=== PATIENT | male | born 1960 | race Caucasian/White ===

== ENCOUNTER → 2018-06-06 14:08 | Outpatient (CLI) | payer BC, SELFPAY ==
--- NOTE | 2018-06-06 14:17 | VDLE_ITS ---
Reason For Study: LEG PAIN RIGHT LEFT CFV is compressible, spontaneous, phasic, GSV is normal. competent and demonstrates normal CFV is compressible, spontaneous, phasic, augmentation. competent, and demonstrates normal Procedure augmentation. Exam performed in department. FV is compressible, spontaneous, phasic, A preliminary report was called and/or faxed competent and demonstrates normal to Dr. Pleitez. augmentation. POP V is compressible, spontaneous, phasic, competent and demonstrates normal augmentation. T/P Trunk is compressible. PTV is compressible. LT PerV is compressible. Interpretation Summary Deep veins of the left lower extremity are patent and compressible segmentally. There is no evidence of left lower extremity deep vein thrombosis. Valvular competence appears intact within the proximal deep venous system on the left . The left greater saphenous vein appears patent and compressible segmentally. Ordering Physician: Darlin Pleitez Referring Physician: Darlin Pleitez Performed By: Elva Larsen RVT
--- NOTE | 2018-06-06 14:36 | RAD_ITS ---
STUDY: X-RAY - LUMBAR SPINE REASON FOR EXAM: Male, 57 years old. Pain TECHNIQUE: 5 view(s) of the lumbar spine were obtained. COMPARISON: None FINDINGS: Mildly exaggerated lumbar lordosis. There is no substantial scoliosis. There is a normal alignment of the vertebrae. Normal vertebral bodies and endplates. Normal disc space heights. The soft tissue structures are unremarkable. RAD/L/S Spine Min 4 Views IMPRESSION: Mildly exaggerated lordosis of the lumbar spine. Electronically Signed: Winston Allred DO at 9:11 EDT Tel [phone], Service support ,
--- NOTE | 2018-06-06 15:05 | RAD_ITS ---
STUDY: X-RAY - LEFT KNEE REASON FOR EXAM: Male, 57 years old. Pain TECHNIQUE: 5 view(s) of the knee. COMPARISON: None. FINDINGS: Normal visualized distal femur. Normal visualized proximal tibia and fibula. Normal proximal tibiofibular articulation. Normal medial femorotibial compartment. Minimal degenerative spurring at the lateral femorotibial compartment. Normal patellofemoral articulation. The soft tissue structures are unremarkable. RAD/Knee 4 or More Views IMPRESSION: Minimal degenerative changes of the knee. Electronically Signed: Winston Allred DO at 8:52 EDT Tel [phone], Service support ,
== END ==
PROVIDERS: Family Provider Internal Medicine; PCP Internal Medicine; Visit Provider Internal Medicine
DX: M79.605 Pain in left leg (principal)
CPT/HCPCS: 72110; 73564; 93971

== ENCOUNTER 2018-07-08 09:00 | Outpatient (RCR) | payer BC, SELFPAY ==
--- NOTE | 2018-06-20 14:07 | HP.PTEVAL_ITS ---
Patient's Visit Information TRACEY SCOTT is a 57 year old M referred to Physical Therapy by Darlin Pleitez DO with a diagnosis of L leg pain. Date of Evaluation: 06/20/18 Physical Therapist: Soraya Brown - Visit Plan Frequency: 2 Duration: 4-6 Weeks Plan: 2X/ week for centralization of leg symptoms using the side glide to close down the L side and then progress to extension as able. Then progress to neutral spine core stability and L hs strength. - Subjective Subjective: Pt has shooting pain down the back of L leg. He can not bend his L knee back. At night he has a hard time sleeping. He can lay on his back with leg straight out but if he turns side to side he can't. He has had problems with his L knee with OA before but this is a different pain. It has been this way for a month. The pain down the L leg is the worst in the morning..feels better with activitiy. The pain goes down to the ankle and once in awhile it seemed like it was in the jim. It is sharp shooting pain. Trouble with bending the knee. No real back pain. 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 It just creaped up on him. His bed is firm and bought a pillow mattress coer and that has helped to sleep. The pain does wake him up at night. No N&T. Hard to drive...could hardly go 1/2 hour. - Pain back pain Pain Intensity (Out of 10): 0 L leg pain Pain Intensity (Out of 10): 3 Pain Intensity Range: 9 - Objective Gait: Walks with decreased stance time on the L. Able to heel and toe walk but seems that his L foot is harder to DG. Trunk: Flexion 75% (veers to the R) , Ext 25% (veers to the R), SB R 50%, SB L 15%, Rot B 50%. LE MMT: hip flex R 4/5, Hip flex L 3+/5, hip abd B 4-/5, R knee flexion 4+/5 and L knee flexion 3+/ 5, B knee ext 4/5. +SLR for pain and tightness on the L. Prone lying: X 5 min L posterior knee pain that may have gotten worse. Prone lying X 5 with C shape and closing down the L side....no knee pain. Had pt do 3 X 10 side glides against the wall to close down the L side...repeated 3X 10 teice and pt had decreased knee pain and was walking with less of a limp. Discussed sitting posture in a chair with a towel roll and posture at work as well. - Goals Goal 1:: I HEP Goal Time Frame: 4-6 Weeks Goal 2:: Centralize leg pain to no pain down the L leg Goal Time Frame: 4-6 Weeks Goal 3:: Sit with upright posture during treatment sessions Goal Time Frame: 4-6 Weeks Goal 4:: Increase L HS strength to 4/5 Goal Time Frame: 4-6 Weeks - Rehabilitation Potential Rehabilitation Potential: Good - Anticipated Interventions Patient/Client Instruction: Educate patient on: Condition, Plan of Care For the Purpose of:: To decrease pain, To increase ROM, To improve nutrient delivery to tissue, To improve muscle performance and motor function, To improve ability to perform ADL's, To increase tolerance to activity/condition/ position, To improve performance and independence with ADL's, To improve gait and locomotor functions, To improve health of tissue Therapeutic Exercise to Include: Strength training, Body mechanics, Postural training, Flexibilty training, Gait and locomotor training, Neuromotor development, Active ROM, Dynamic Lumbar Stabilization, Yordy Exercises For the Purpose of:: To decrease pain, To decrease swelling/inflammation, To increase ROM, To improve nutrient delivery to tissue, To increase oxygenation perfusion, To improve muscle performance and motor function, To improve ability to perform ADL's, To increase tolerance to activity/condition/position, To improve performance and independence with ADL's, To decrease level of supervision to perform tasks, To improve gait and locomotor functions, To improve health of tissue, To improve safety with gait Manual Therapy Techniques to Include: Mobilization, Soft tissue mobilization For the Purpose of:: To decrease pain, To increase ROM, To improve nutrient delivery to tissue IF ES: Yes Cryotherapy (ice pack, ice massage): Yes Ultrasound (thermal/non thermal): Yes For the Purpose of:: To decrease pain, To decrease swelling/inflammation, To improve nutrient delivery to tissue Thank you for the opportunity to evaluate your patient. For Medicare and Medicare HMO plans, please review the plan of care and approve it. It will need to be FAXED BACK to us at [phone] for Medicare purposes. Please let me know if there are questions or concerns regarding this plan of care. Physician Signature: Date:
--- NOTE | 2019-01-02 08:39 | HP.PTDCNRP_ITS ---
HP - Discharge Summary (1) - Patient Information TRACEY SCOTT was seen in my office for initial evaluation on 06/20/18. The following Plan of Care was established for this patient: Initial Frequency: 2 Initial Duration: 4-6 Weeks - Anticipated Interventions Patient/Client Instruction: Educate patient on: Condition, Plan of Care For the Purpose of:: To decrease pain, To increase ROM, To improve nutrient delivery to tissue, To improve muscle performance and motor function, To improve ability to perform ADL's, To increase tolerance to activity/condition/position, To improve performance and independence with ADL's, To improve gait and locomotor functions, To improve health of tissue Therapeutic Exercise to Include: Strength training, Body mechanics, Postural training, Flexibilty training, Gait and locomotor training, Neuromotor development, Active ROM, Dynamic Lumbar Stabilization, Yordy Exercises For the Purpose of:: To decrease pain, To decrease swelling/inflammation, To increase ROM, To improve nutrient delivery to tissue, To increase oxygenation perfusion, To improve muscle performance and motor function, To improve ability to perform ADL's, To increase tolerance to activity/condition/position, To improve performance and independence with ADL's, To decrease level of supervision to perform tasks, To improve gait and locomotor functions, To i mprove health of tissue, To improve safety with gait Manual Therapy Techniques to Include: Mobilization, Soft tissue mobilization For the Purpose of:: To decrease pain, To increase ROM, To improve nutrient delivery to tissue IF ES: Yes Cryotherapy (ice pack, ice massage): Yes Ultrasound (thermal/non thermal): Yes For the Purpose of:: To decrease pain, To decrease swelling/inflammation, To improve nutrient delivery to tissue This patient was last seen in our office 07/08/18. Pertinent comments regarding their Physical therapy will appear below: [facility] PT At this point I will be discontinuing this patient from physical therapy. I would be happy to see this patient again in the future if found appropriate by the physician. Thank you! Soraya Brown, MPT
== END 2018-07-08 19:00 | disposition home or self-care (01) ==
LOC: PT 09:00
PROVIDERS: Family Provider Internal Medicine; PCP Internal Medicine; Visit Provider Internal Medicine
DX: M79.605 Pain in left leg (principal)
CPT/HCPCS: 97016; 97110; 97161

== ENCOUNTER → 2018-07-17 08:05 | Outpatient (CLI) | payer BC, SELFPAY | PROVIDERS: Family Provider Internal Medicine; PCP Internal Medicine; Visit Provider Internal Medicine | DX: M25.462 Effusion, left knee (principal) | CPT/HCPCS: 73721 ==

== ENCOUNTER → 2018-07-31 09:54 | Outpatient (CLI) | payer BC, SELFPAY ==
[2018-07-31 10:59] LABS: Source- Body Fluid SYNOVIAL
[2018-07-31 11:00] LABS: Body Fluid QC Type(s) BF1Q
[2018-08-01 12:30] LABS: Pathologist Review Reviewed
== END ==
PROVIDERS: Family Provider Internal Medicine; PCP Internal Medicine; Visit Provider Specialist
DX: M25.462 Effusion, left knee (principal)
CPT/HCPCS: 87070; 87075; 87205; 89060

== ENCOUNTER 2018-12-10 06:20 | Day surgery (SDC) | payer BC, SELFPAY ==
--- NOTE | 2018-11-20 21:40 | PCM.HP.BLA ---
History and Physical DATE OF SURGERY: 12/10/2018 SCHEDULED PROCEDURE: diagnostic left knee arthroscopy with debridement of bony osteophyte HISTORY OF PRESENT ILLNESS: This is a 58-year-old male who has been having ongoing pain in his left knee since May 2018. Patient denies any trauma or injury. Patient has been through corticosteroid injection and physical therapy. He has also used a knee sleeve. Patient has had MRI of the left knee. X-rays do reveal bony osteophyte off the patella. Despite conservative measures patient has had continued pain in the left knee. Corticosteroid injection has helped some but he continues to have pain with activities of daily living. Patient has tried oral medications with no significant relief in symptoms. After failing conservative measures and discussing all treatment options at Dr. Denny Dominguez, the patient does wish to proceed with diagnostic left knee arthroscopy with debridement of bony osteophyte. Patient currently denies chest pain, shortness of breath, fevers chills, recent infections. Patient will be obtaining surgical clearance from his primary care physician. REVIEW OF SYSTEMS: ROS: Const: Denies change in appetite, fever and weight change. CV: Denies chest pain, heart murmur and irregular heartbeat. Resp: Denies cough, pneumonia, shortness of breath, tuberculosis and wheezing. GI: Denies constipation, diarrhea, heartburn, nausea, rectal itching, bloody stools and vomiting. : Denies incontinence. Musculo: Reports leg swelling, trouble walking and weakness, but denies pain. Skin: Denies Raynaud's, history of shingles and tattoo. Neuro: Denies ambulatory dysfunction, dizziness, numbness/tingling and tremor. Psych: Denies anxiety, insomnia and stress. Alex/Lymph: Denies anemia, bleeding/bruising tendency and past transfusion. Reviewed, no changes. PAST MEDICAL HISTORY: Advance Care Plan: No Advance Directives Effective Date: 07/31/2018 PMH: Medical Problems: Arthritis, High Blood Pressure, Hypercholesterolemia Accidents: Fracture - (1965) RT COLLARBONE Surgical Hx: Colonoscopy - X3 Anesthesia Complications: None Assistive Devices: Contacts Reviewed, no changes. 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 Personal Habits: Cigarette Use: Never Smoked Cigarettes.Smokeless Tobacco: Never Used Smokeless Tobacco.Alcohol: Occasionally.Drug Use: Denies Use.Enjoy Exercising: Exercises 1-3 X/Week. Reviewed, no changes. VITALS: Ht: 67.5 Wt: 232lb Wt k.235 BMI: 35.8 BP: 124/78 Pulse: 68 Resp: 16 T: 98.5 T: 36.9C ALLERGIES: No Known Drug Allergy MEDICATIONS: [place] 5-325 mg 1-2 by mouth every 6 hour as needed pain, Meloxicam 15 mg 1 by mouth every day, Losartan Potassium 100 mg 1 tab PO daily, Norvasc 10 mg 1 tab PO daily, Lipitor 20 mg 1 tab PO qhs, Aspirin 81 mg 1 tab PO daily, Multi Vitamin Daily 1 tab PO daily PRE-OP EXAM: General appearance:NORMAL Other: Eyes: Conjunctivae and lids: NORMAL Pupils: ERR Ears, Nose, Mouth, and Throat: NORMAL Other: Inspection of lips, teeth and gums: NORMAL Other: Neck: Examination of neck: no masses noted. Respiratory: Assessment of respiratory effort: NORMAL Other: Auscultation of lungs: clear to auscultation no wheezes, rhonchi or rales. Cardiovascular: Auscultation of heart: regular rate and rhythm, no murmurs, gallops or rubs. Exam of carotid arteries: NORMAL Other: Gastrointestinal: Exam of abdomen: soft, nontender, nondistended bowel sounds present. PHYSICAL EXAMINATION: Patient continues to have effusion in the left knee. Tenderness to palpation over the medial joint line. There is fullness in the posterior knee. Range of motion left knee: Lacks 5 of full extension to 80 flexion. There is mild crepitus with range of motion. Sensation intact to light touch. Neurovascularly intact. IMAGING STUDIES: Left knee x-rays were obtained which do show a well aligned knee with maintained joint spaces in all 3 compartments. There is a small bony osteophyte off the patella facet. X MRI of the left knee does show large effusion with small popliteal cyst. Patient has evidence of an MCL sprain and partial tearing of the lateral collateral ligament with popliteal tendinosis. IMPRESSION: 1. Left knee pain with Nowak cyst and spurring lateral collateral ligament and bony osteophyte off the patella 2. Hypertension 3. Hypercholesterolemia PLAN: Dr. Denny Dominguez did discuss and review with the patient all treatment options including surgical versus nonsurgical options. Patient does wish to proceed with the above-stated procedure. Potential risks, benefits, and complications of the procedure were discussed in detail including but not limited to , infection, nerve and blood vessel damage, persistent pain, numbness, tingling, paresthesias, blood clot, pulmonary embolism, and requirement for possible further surgery. The patient expressed full understanding and has no further questions for the doctor. Patient does agree to proceed with the above-stated procedure and has signed the surgery consent form. This dictation was created using voice recognition software. Phonetic and/or grammatical errors may exist.. ___ I have re-examined the patient. There are no clinical changes since date of exam. ___ See progress notes for changes. ___ Dictated on admission Date: Time: Signature:
[2018-12-10] VITALS (7 sets, daily range): BP systolic 104–135; BP diastolic 67–86; PULSE 53–70; RESP 14–18; TEMP 36.8–37.1; O2SAT 93–99; BMI 33.1
[2018-12-10] MEDS: Cefazolin 2 GM in 0.9% Normal Saline 100 ML IV (07:50)
[2018-12-10] MEDS: Bupivacaine 0.25% 30 ML Vial (08:45)
--- NOTE | 2018-12-10 08:58 | PCM.OPRPT ---
Report of Operation Date of Procedure: 12/10/18 Pre-Operative Diagnosis: Left knee pain, effusion and large patellofemoral osteophyte Post-Operative Diagnosis: Left knee complex medial meniscus tear. Left knee florid synovitis. Left knee lateral patellar osteophyte Surgery/Procedure Performed:: Arthroscopic left knee surgery. 1. Partial medial meniscectomy. 2. Synovectomy complete. 3. Lateral facetectomy of the patella Description of Surgical Findings:: Florid synovitis, complex posterior medial meniscus tear, excessive lateral facet was removed no longer abrading the lateral femoral condyle substation engineer: None Type of Anesthesia:: General Anesthesiologist: Gio Terry Special Medications: 2 g Ancef Specimen's removed: None Estimated Blood Loss (mL): 5 Fluids Replaced: 100 mL crystalloid Description of Procedure: On the date of the procedure, the patient's left lower extremity was marked in the preoperative area. Patient was brought back to the operating room where they were transferred to the bed. Anesthesia assumed control of the C-spine airway and administered anesthetic. All bony prominences were identified and well-padded and the l leg was placed in the arthroscopic leg cash. The contralateral leg was then draped over the bed and well-padded. There was padding underneath both sciatic nerves. The foot of the bed was then dropped and the l leg was prepped in a sterile fashion. The surgeon then scrubbed. Upon reentering the room, the operative leg was draped in a standard orthopedic fashion. A timeout was called, everyone agreed upon the side, the site, the procedure to be performed, patient's identity and antibiotics given. Incisions were marked out for the medial and lateral infrapatellar portals. Esmarch bandage was then used to exsanguinate the leg and tourniquet was placed at 250 mmHg. At this time, the lateral portal incision was made in a vertical fashion. The trocar was placed into the joint. The camera was then placed and the patellofemoral joint was visualized. The patella did appear to have grade 2 chondral changes. The trochlea appeared to have grade 2 chondral changes. We then directed our attention to the medial gutter where there was no foreign body. Then directed our attention to the medial joint compartment. There were grade 2-3 chondral changes on the medial distal femur, grade 2 chondral changes on the medial tibial plateau. The medial meniscus had a large complex torn posterior medial meniscus tear. The medial portal was then placed under direct visualization using a spinal needle an 11 blade scalpel. Once this was done a probe was placed in the joint and the meniscus was probed finding a complex posterior medial meniscus tear. The biters and bib were then used sequentially to debriding get rid of any free edges that could be a source of pain and catching in the meniscus tear. Once we felt medial meniscus tear was adequately debrided, we again visualized the joint and noted the meniscus tear was adequately debrided. Attention was then turned towards the notch where the anterior cruciate ligament was intact. PCL was visualized and appeared intact. Attention was then directed towards the lateral compartment where the lateral distal femur had grade 1 chondral changes, the lateral proximal tibia had grade 1 chondral changes. The lateral meniscus had tears. We then directed our attention to the lateral gutter, which was visualized and no free bodies were noted. At this time we directed our attention back to the patellofemoral joint. From the lateral gutter we could see that there was an excessive lateral facet that was riding over the lateral portion of the distal femoral condyle laterally. He also went to the suprapatellar pouch and lateral and medial gutters and noted excessive synovectomy remained. A complete synovectomy was performed using the shaver removing all excessive synovium in the suprapatellar area, medial gutter lateral gutter and retropatellar area. Shaver and bur were then used to debride excessive lateral patella facet. Once it was adequately debrided back knee was taken through range of motion and the lateral facet no longer abraded the lateral portion of the distal femoral condyle. We removed cartilage and bone over here. Once again we put her scope back in the lateral gutter and noted there was some additional synovium need to be debrided. At this time the wound was copiously irrigated out with normal saline with epinephrine. The wound was closed with 4-0 nylon and 0.5% Marcaine and epinephrine were injected for local anesthetic. Xeroform was placed over the incision. Sterile dressing was placed. Compressive dressing was placed. Tourniquet was let down. For that there was then placed up. Patient was awakened by anesthesia patient was transferred to the PACU for recovery in stable condition. Postoperative plan: Patient will be made weight-bear as tolerated. Return to activities as tolerated. He will come to the office in 2 weeks for postoperative wound check and suture removal. If he is doing well that time he can follow-up as needed. - Complications None - Admit VTE Documentation VTE Present on Admission: No VTE Mechan Device Prophylaxis: SCD's, Thigh High KAVITA Hose VTE Pharm Prophylaxis ordered?: Yes
[2018-12-10] MEDS: Ketorolac 30 MG/ML Syringe IV (09:40)
== END 2018-12-10 11:16 | disposition home or self-care (01) ==
LOC: SDC 06:26 → AC 06:27
PROVIDERS: Family Provider Internal Medicine; PCP Internal Medicine; Referring Provider Specialist; Visit Provider Specialist
PROC: (CPT 29870; principal; 2018-12-10 07:40)
DX: S83.232A Complex tear of medial meniscus, current injury, left knee, initial encounter (principal); S83.282A Other tear of lateral meniscus, current injury, left knee, initial encounter; X58.XXXA Exposure to other specified factors, initial encounter; Y93.9 Activity, unspecified; Y92.9 Unspecified place or not applicable; Y99.9 Unspecified external cause status; M25.762 Osteophyte, left knee; M71.22 Synovial cyst of popliteal space [Baker], left knee; M65.862 Other synovitis and tenosynovitis, left lower leg; I10 Essential (primary) hypertension; E78.00 Pure hypercholesterolemia, unspecified; M19.90 Unspecified osteoarthritis, unspecified site; Z79.82 Long term (current) use of aspirin; Z79.899 Other long term (current) drug therapy
CPT/HCPCS: 01400; 29876; 29881; 64445; J7120

== ENCOUNTER → 2018-12-23 10:59 | Outpatient (CLI) | payer BC, SELFPAY ==
[2018-12-10 06:50] VITALS: BMI 33.1
--- NOTE | 2018-12-23 11:04 | RAD_ITS ---
STUDY: X-RAY CHEST REASON FOR EXAM: Male, 58 years old. Cough. Chest congestion. TECHNIQUE: PA and lateral views of the chest. COMPARISON: None. FINDINGS: Mild increase in markings at the left lung base suggestive of atelectasis. There is no demonstrated pleural abnormality. There is borderline cardiomegaly. Normal mediastinum and karen. Normal visualized pulmonary arteries. Normal visualized aortic arch and descending thoracic aorta. There are diffuse degenerative changes of the visualized thoracic spine. Normal visualized ribs, clavicles, and shoulders. There is no demonstrated abnormality of the visualized soft tissue structures of the upper abdomen. RAD/Chest PA and Lateral IMPRESSION: Mild increased linear markings at the left lung base suggestive of linear atelectasis. Electronically Signed: Josh Warner MD at 11:26 EST Tel [phone], Service support ,
--- OUTSIDE RECORDS SUMMARY | 2019-02-24 14:42 | XMS RPT_ITS | Continuity of Care Document ---
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, 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) Comments: encourage skin check Status: Active Bilateral carpal tunnel syndrome (G56.03, 354.0) Comments: cock up splints nsaids Status: Active BMI 32.0-32.9,adult (Z68.32, V85.32) Status: Active BMI 33.0-33.9,adult (Z68.33, V85.33) Status: Active Bronchitis (J40, 490) Status: Active Colon polyp (K63.5, 211.3) Comments: due in 5 years Status: Active Coronary artery disease (I25.10, 414.00) Comments: no signfiicant symptoms- minimal plaque on cath in 2008 Status: Active Cough (R05, 786.2) Status: Active Cough (R05, 786.2) Status: Active Effusion of lower leg joint (719.06) Status: Active Effusion, left knee (M25.462, 719.06) Comments: he had xrays and pt and nsaids not better Status: Active Elevated high sensitivity C-reactive protein (R79.82, 790.95) Comments: about the same needs to work on diet and ex Status: Active Elevated lipoprotein(a) (E78.41, 272.8) Status: Active Encounter for hepatitis C virus screening test for high risk patient (Z11.59, V73.89) Status: Active Encounter for screening for malignant neoplasm of prostate (Renamed from Screening for prostate cancer) (Z12.5, V76.44) Status: Active Encounter for screening for malignant neoplasm of prostate (Renamed from Screening for prostate cancer) (Z12.5, V76.44) Status: Active Erectile dysfunction (N52.9, 607.84) Status: Active Family history of colonic polyps (Z83.71, V18.51) Status: Active Fracture Of Clavicle Status: Active Gastroesophageal reflux disease with esophagitis (K21.0, 530.11) Comments: chronic stable-continue present regimen Status: Active Glaucoma (H40.9, 365.9) Comments: up to date Status: Active Hypertensive heart disease without heart failure (I11.9, 402.90) Comments: chronic stable-continue present regimen Status: Active Impaired fasting glucose (R73.01, 790.21) Comments: work on diet and ex Status: Active 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 (I11.9, 402.00) Status: Active [facility] WELLNESS EXAM Status: Active [facility] WELLNESS EXAM Status: Active Need for zoster vaccination (Z23, V04.89) Status: Active Nonsmoker (Z78.9, V49.89) Status: Active Onychomycosis (B35.1, 110.1) Status: Active Other hyperlipidemia (E78.49, 272.4) Comments: chronic stable-continue present regimen Status: Active 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, 427.69) Comments: no signficant sx Status: Active Preop general physical exam (Z01.818, V72.83) Status: Active Screening for prostate cancer (Z12.5, V76.44) Status: Active SWELLING OF LIMB, NOS (729.81) Comments: left knee osteoarthritis on xray Status: Active Unspecified Diagnosis Status: Active Wheezing (R06.2, 786.07) Status: Active Wheezing (R06.2, 786.07) Status: Active Medications Name Dates Details ASPIRIN LOW STRENGTH, 81MG (Oral Tablet Chewable) 1 (one) Tablet Chewable qd for 0 days Refills: 0 Ordered:29-Aug-2009 Caridad Lopez Start : 29-Aug-2009 Active Cialis 5 MG Oral Tablet 1 (one) Tablet prn for 0 days Quantity: 90 {Tablet} Refills: 3 Ordered:27-Jun-2018 Fast DOMaureena AFmikhail DO, Darlin A Start : 27-Jun-2018 Active Cialis 5 MG Oral Tablet 1 (one) Tablet prn for 0 days Quantity: 90 {Tablet} Refills: 3 Ordered:27-Jun-2018 Fast DOMaureena AFmikhail DO, Darlin A Start : 27-Jun-2018 Active Lipitor 20 MG Oral Tablet 1 tab Tablet q hs for 90 days Quantity: 90 {Tablet} Refills: 2 Ordered:19-May-2018 Fast DOMaureena AFmikhail DO, Darlin A Start : 19-May-2018 End : 06-Jun-2014 Active Losartan Potassium 100 MG Oral Tablet 1 Tablet qd for 0 days Quantity: 90 {Tablet} Refills: 3 Ordered:15-Oct-2018 Fast DO Darlin AFast DO, Darlin A Start : 15-Oct-2018 Active Meloxicam 15 MG Oral Tablet 1 (one) Tablet Tablet qd in am with food for 0 days Quantity: 30 {Tablet} Refills: 0 Ordered:03-Oct-2018 Fast DO Darlin AFast DO, Darlin A Start : 03-Oct-2018 Active MULTIVITAMIN (PO Liquid) for 0 days Refills: 0 Ordered:11-Jul-2018 Amber Salinas Norvasc 10 MG Oral Tablet 1 Tablet qd for 90 days Quantity: 90 {Tablet} Refills: 3 Ordered:29-May-2018 Fast DOMaureena AFast DO, Darlin A Start : 29-May-2018 End : 29-Apr-2014 Active PredniSONE 10 MG Oral Tablet 3 (three) Tablet pills for 3 days 2 pillsfor 3 days 1 pill for 3 days for 9 days Quantity: 18 {Tablet} Refills: 0 Ordered:23-Dec-2018 Maik VOSS, Darlin Avelar DO, Darlin A Start : 23-Dec-2018 Active Comments:take with food in am ProAir HFA 108 (90 Base) MCG/ACT Inhalation Aerosol Solution 1 (one) Puff Puff 2 puff q6hrs prn for 0 days Quantity: 1 {Inhalation} Refills: 0 Ordered:06-Oct-2018 Elisha Salinas Start : 06-Oct-2018 Active Probiotic Acidophilus Oral Capsule daily Active Zithromax Z-Renzo 250 MG Oral Tablet 2 (two) Tablet today then 1 qd for 4 days for 0 days Quantity: 6 {Tablet} Refills: 0 Ordered:23-Dec-2018 Darlin Pleitez DO, DO, Darlin A Start : 23-Dec-2018 Active Comments:april use generic MICARDIS, 40MG (Oral Tablet) 1 Tablet qd for 0 days Quantity: 30 {Tablet} Refills: 3 Ordered:06-Apr-2013 Cara Negrete MD Start : 06-Apr-2013 End : 06-Apr-2013 Inactive Conklin 5-325 MG Oral Tablet 1 (one) Tablet Tablet bid prn for 0 days Quantity: 14 {Tablet} Refills: 0 Ordered:03-Oct-2018 Elisha Salinas Start : 11-Jun-2018 End : 03-Oct-2018 Inactive PREDNISONE, 10MG (Oral Tablet) 2 (two) Tablet bid x 2 days, 1 daily x 7 days, 1/2 x 2 days for 0 days Refills: 0 Ordered:30-Jan-2012 Jalyn Matute LPN Start : 14-Jan-2012 End : 30-Jan-2012 Inactive Proventil HFA 108 (90 Base) MCG/ACT Inhalation Aerosol Solution 2 (two) Aerosol Soln q 6 hours prn for 0 days Quantity: 1 {Inhaler} Refills: 0 Ordered:06-Oct-2018 Elisha Salinas Start : 03-Oct-2018 End : 06-Oct-2018 Inactive TOPROL XL, 25MG (Oral Tablet Extended Release 24 Hour) 1 tab qd for 0 days Refills: 0 Ordered:25-Oct-2010 Caridad Lopez End : 25-Oct-2010 Inactive VIMOVO, 500-20MG (Oral Tablet Delayed Release) [address] bid for 0 days Quantity: 24 {Tablet_DR} Refills: 0 Ordered:30-Jan-2012 Giovani PERALTA Jalyn Start : 14-Jan-2012 End : 30-Jan-2012 Inactive LAMISIL, 250MG (Oral Tablet) 1 Tablet qd for 0 days Quantity: 30 {Tablet} Refills: 2 Ordered:29-Sep-2013 Fast DO, Darlin AFast DO, Darlin A Start : 29-Sep-2013 End : 29-Sep-2013 Discontinued LEVAQUIN, 500MG (Oral Tablet) 1 (one) Tablet qd for 0 days Quantity: 10 {Tablet} Refills: 0 Ordered:26-Oct-2014 Fast DO, Darlin AFast DO, Darlin A Start : 26-Oct-2014 End : 26-Oct-2014 Discontinued LISINOPRIL, 5MG (Oral Tablet) 1 (one) Tablet bid for 30 days Quantity: 60 {Tablet} Refills: 0 Ordered:04-Sep-2011 Fast DO, Darlin AFast DO, Darlin A Start : 04-Sep-2011 End : 04-Sep-2011 Discontinued LUMIGAN, 0.03% (Ophthalmic Solution) 1 drop in each eye qd for 0 days Refills: 0 Ordered:14-Aug-2013 Stephany Mendez LPN End : 14-Aug-2013 Discontinued Comments:This order discontinued per [facility]. Niacin ER 500 MG Oral Capsule Extended Release 1 (one) Capsule ER qd for 0 days Quantity: 30 {Capsule} Refills: 3 Ordered:12-Nov-2016 Fast DO, Darlin AFast DO, Darlin A Start : 12-Nov-2016 End : 12-Nov-2016 Discontinued NORVASC, 5MG (Oral Tablet) 1 Tablet qam for 0 days Quantity: 30 {Tablet} Refills: 3 Ordered:17-Oct-2011 Fast DO, Darlin AFast DO, Darlin A Start : 17-Oct-2011 End : 17-Oct-2011 Discontinued Allergies and Adverse Reactions Name Dates Details No Known Allergies (Allergy) Onset: 16-Dec-2017 Status: Active No Known Drug Allergies (Allergy) Status: Active Past Medical History Name Dates Details BMI 33.0-33.9,adult (Z68.33, V85.33) Status: Inactive as of 27-Jun-2018 Cough (R05, 786.2) Status: Resolved as of 26-Oct-2014 Cough (R05, 786.2) Comments: improved and he doesnt feel still signifcant Status: Resolved as of 06-Feb-2012 Elevated blood pressure (not hypertension) (R03.0, 796.2) Status: Inactive as of 08-Nov-2009 Fever (R50.9, 780.60) Status: Resolved as of 29-Sep-2013 Headache (R51, 784.0) Status: Resolved as of 25-Oct-2010 Left leg pain (M79.605, 729.5) Status: Inactive as of 21-Oct-2018 Need for prophylactic vaccination and inoculation against influenza (Z23, V04.81) Status: Inactive as of 19-May-2013 Pain in unspecified joint (M25.50, 719.40) Comments: chronic stable-continue present regimen Status: Inactive as of 06-Jun-2018 Palpitations (R00.2, 785.1) Status: Resolved as of 08-Nov-2009 Paresthesia (R20.2, 782.0) Status: Resolved as of 08-Nov-2009 Pharyngitis, acute (J02.9, 462) Status: Resolved as of 29-Sep-2013 screen Status: Inactive as of 08-Nov-2009 Wheeze (R06.2, 786.07) Status: Resolved as of 26-Oct-2014 Procedures Procedure Dates Details arthroscopic surgery left knee 2017 Completed Colonoscopy Completed Comments: Within Normal Limits. Sessile Adenoma- repeat in 5 years Date Value Details 23-Dec-2018 Chest PA and Lateral Result: Comments: See Note; NOTES: [facility] Imaging Services [address] [place] [address] Chest PA and Lateral MR#: [id number] Acct: [id number] Name: TRACEY SCOTT Rep #: [id number] : 1960 M 58 From: Josh Warner MD PCP: Darlin Pleitez DO Status: REG CLI Study: Chest PA and Lateral Date of Exam: 12/23/18 Exam# [id number] Ordering Dr: Darlin Pleitez DO STUDY: X-RAY CHEST REASON FOR EXAM: Male, 58 years old. Cough. Chest congestion. TECHNIQUE: PA and lateral views of the chest. COMPARISON: None. FINDINGS: Mild increase in marking s at the left lung base suggestive of atelectasis. There is no demonstrated pleural abnormality. There is borderline cardiomegaly. Normal mediastinum and karen. Normal visualized pulmonary arteries. Nor mal visualized aortic arch and descending thoracic aorta. There are diffuse degenerative changes of the visualized thoracic spine. Normal visualized ribs, clavicles, and shoulders. There is no demonst rated abnormality of the visualized soft tissue structures of the upper abdomen. RAD/Chest PA and Lateral IMPRESSION: Mild increased linear kylah ngs at the left lung base suggestive of linear atelectasis. Electronically Signed: Josh Warner MD at 11:26 EST Tel [phone], Service support , CC: Darlin Pleitez DO Leaf Stripper: Signed 16-Dec-2018 Inital Evaluation (1) - PT Result: Comments: See Note; NOTES: [facility] [address] [place] [address]. [address] [place] [id number] / REHABILITATION SERVICES INITI AL EVALUATION MR#: [id number] Acct: [id number] Name: TRACEY SCOTT Rep #: [id number] : 1960 58 From: Soraya STEVENS Referring Dr.: Bandar AMBROCIO Status: REG R Insurance: [employer] INSURANCE Patient's Visit Information TRACEY SCOTT is a 58 year old M referred to Physical Therapy by LOLLY Damon with a diagnosis of Bakers cyst and effusion L knee. Date of E valuation: 12/16/18 Physical Therapist: HILDA Lucia - Visit Plan Frequency: 2-3x /Week Duration: 2 Months Plan: 2-3X/ week for 6 weeks for L knee AROM, PROM, gait training, strengthening, stair s, HEP and modalities as needed. - Subjective Findings: Pt had surgery 12-10-2017 and they took off a bone spur and found a tear in the menisucus L knee....they took a lot of fluid off the knee. He had c rutches for a few days and now off the crutches. Pt is sitting a lot at work....swelling has not been too bad. He has been wearing the stockings during the day. They said to wear them for 2 weeks. He ramos s no restrictions. They said to walk on it as tolerated. Pt has stairs at home but has not really used them. When he does he goes more 2 feet to a stair. Pt is back to driving. Pt reports that he has in creased stiffness today. Pt is sleeping well without the knee bent. He does have ice around his knee at night. - Pain L knee pain Pain Intensity (Out of 10): 2 - Objective Gait: walks with decrease d stance time on the L side and increase wobble. L knee extension -5 degrees from full extension and L knee flexion 95 degrees. Able to SLR 2 X 10 with slight difficulty with extensor lag. Pt has fair Q uad contraction with QS at this point. L hip abd MMT: 4-/5. R knee AROM: full ROM. Stairs: up and down recip with 2 hand rails and decreased eduardo time on the L LE. Good patellar mobility - Goals Goal 1:: I HEP Goal Time Frame: 4-6 Weeks Goal 2:: Increase L knee AROM to 0 degrees extension to 120 degrees L knee flexion Goal Time Frame: 4-6 Weeks Goal 3:: Be able to walk without an antalgic gait Goal Time Frame: 4-6 Weeks Goal 4:: Be able to go up and down stairs recip without a rail and without an antalgic gait Goal Time Frame: 4-6 Weeks - Rehabilitation Potential Rehabilitation Potential: Good - Anticipated Interventions Patient/Client Instruction: Educate patient on: Condition For the Purpose of:: To decrease pain, To decrease swelling/inflammation, To increase ROM, To improve nutrient delive ry to tissue, To improve muscle performance and motor function, To improve ability to perform ADL's, To increase tolerance to activity/condition/position, To improve performance and independence with AD L's, To improve ability of physical actions for home/community/work/leisure, To improve gait and locomotor functions, To improve health of tissue, To decrease soft tissue restriction, To increase flexib ility/ROM Therapeutic Exercise to Include: Strength training, Postural training, Flexibilty training, Gait and locomotor training, Passive ROM, Active ROM For the Purpose of:: To decrease pain, To decre ase swelling/inflammation, To increase ROM, To improve nutrient delivery to tissue, To improve muscle performance and motor function, To improve ability to perform ADL's, To increase tolerance to activi ty/condition/position, To improve performance and independence with ADL's, To improve gait and locomotor functions, To improve health of tissue, To decrease soft tissue restriction, To increase flexibil ity/ROM IF ES: Yes Cryotherapy (ice pack, ice massage): Yes For the Purpose of:: To decrease pain, To decrease swelling/inflammation, To increase ROM, To improve nutrient delivery to tissue Thank monica u for the opportunity to evaluate your patient. For Medicare and Medicare HMO plans, please review the plan of care and approve it. It will need to be FAXED BACK to us at [phone] for Medicare purp oses. For Medicare only, by signing this I certify the plan of care. Please let me know if there are questions or concerns regarding this plan of care. Physician Signature: Date: <Electronically signed by Soraya Brown MPT> 12/16/18 1344 CC: Darlin Pleitez DO; Bandar AMBROCIO Signed 10-Dec-2018 Operative Report Result: Comments: See Note; NOTES: [facility] Medical Records Department [address] [place] [address] Operative Report 12/10/18 0858 MR#: [id number] Acct: [id number] Name: ERA SCOTT Alec Aragon Rep #: [id number] : 1960 58 From: Denny Dominguez MD PCP: Fast DO,Darlin Status: DEP [facility] [place] Location[place] [facility] Report of Operation Date of Procedure: 12/10/18 Pre-Operative Diagnosis: Left knee pa in, effusion and large patellofemoral osteophyte Post-Operative Diagnosis: Left knee complex medial meniscus tear. Left knee florid synovitis. Left knee lateral patellar osteophyte Surgery/Procedure Per formed:: Arthroscopic left knee surgery. 1. Partial medial meniscectomy. 2. Synovectomy complete. 3. Lateral facetectomy of the patella Description of Surgical Findings:: Florid synovitis, complex post erior medial meniscus tear, excessive lateral facet was removed no longer abrading the lateral femoral condyle brick unloader tender: None Type of Anesthesia:: General Anesthesiologist: Gio Terry edications: 2 g Ancef Specimen's removed: None Estimated Blood Loss (mL): 5 Fluids Replaced: 100 mL crystalloid Description of Procedure: On the date of the procedure, the patient's left lower extremity was marked in the preoperative area. Patient was brought back to the operating room where they were transferred to the bed. Anesthesia assumed control of the C-spine airway and administered anesthetic. All bony prominences were identified and well-padded and the l leg was placed in the arthroscopic leg cash. The contralateral leg was then draped over the bed and well-padded. There was padding under neath both sciatic nerves. The foot of the bed was then dropped and the l leg was prepped in a sterile fashion. The surgeon then scrubbed. Upon reentering the room, the operative leg was draped in a st andard orthopedic fashion. A timeout was called, everyone agreed upon the side, the site, the procedure to be performed, patient's identity and antibiotics given. Incisions were marked out for the media l and lateral infrapatellar portals. Esmarch bandage was then used to exsanguinate the leg and tourniquet was placed at 250 mmHg. At this time, the lateral portal incision was made in a vertical fashion . The trocar was placed into the joint. The camera was then placed and the patellofemoral joint was visualized. The patella did appear to have grade 2 chondral changes. The trochlea appeared to have gra de 2 chondral changes. We then directed our attention to the medial gutter where there was no foreign body. Then directed our attention to the medial joint compartment. There were grade 2-3 chondral sonia nges on the medial distal femur, grade 2 chondral changes on the medial tibial plateau. The medial meniscus had a large complex torn posterior medial meniscus tear. The medial portal was then placed und er direct visualization using a spinal needle an 11 blade scalpel. Once this was done a probe was placed in the joint and the meniscus was probed finding a complex posterior medial meniscus tear. The bi ters and bib were then used sequentially to debriding get rid of any free edges that could be a source of pain and catching in the meniscus tear. Once we felt medial meniscus tear was adequately sen rided, we again visualized the joint and noted the meniscus tear was adequately debrided. Attention was then turned towards the notch where the anterior cruciate ligament was intact. PCL was visualized and appeared intact. Attention was then directed towards the lateral compartment where the lateral distal femur had grade 1 chondral changes, the lateral proximal tibia had grade 1 chondral changes. T he lateral meniscus had tears. We then directed our attention to the lateral gutter, which was visualized and no free bodies were noted. At this time we directed our attention back to the patellofemora l joint. From the lateral gutter we could see that there was an excessive lateral facet that was riding over the lateral portion of the distal femoral condyle laterally. He also went to the suprapatella r pouch and lateral and medial gutters and noted excessive synovectomy remained. A complete synovectomy was performed using the shaver removing all excessive synovium in the suprapatellar area, medial g utter lateral gutter and retropatellar area. Shaver and bur were then used to debride excessive lateral patella facet. Once it was adequately debrided back knee was taken through range of motion and the lateral facet no longer abraded the lateral portion of the distal femoral condyle. We removed cartilage and bone over here. Once again we put her scope back in the lateral gutter and noted there was so me additional synovium need to be debrided. At this time the wound was copiously irrigated out with normal saline with epinephrine. The wound was closed with 4- 0 nylon and 0.5% Marcaine and epinephrine were injected for local anesthetic. Xeroform was placed over the incision. Sterile dressing was placed. Compressive dressing was placed. Tourniquet was let down. For that there was then placed up. Rich scott was awakened by anesthesia patient was transferred to the PACU for recovery in stable condition. Postoperative plan: Patient will be made weight-bear as tolerated. Return to activities as tolerated. He will come to the office in 2 weeks for postoperative wound check and suture removal. If he is doing well that time he can follow-up as needed. - Complications None - Admit VTE Documentation VTE Present on Admission: No VTE Mechan Device Prophylaxis: SCD's, Thigh High ALMITA Hose VTE Pharm Prophylaxis ordered?: Yes 12/10/18 1522 <Electronically signed by Denny Dominguez MD> Date ___ Denny Dominguez MD CC: Darlin Pleitez DO; Denny Dominguez MD Signed 20-Nov-2018 History and Physical Exam Result: Comments: See Note; NOTES: [facility] Medical Records Department [address] [place] [address] History and Physical 11/20/18 2140 MR#: [id number] Acct: [id number] Name: TRACEY SCOTT Rep #: [id number] : 1960 58 From: Bandar Patrick PA-C PCP: Darlin Pleitez DO Status: PRE [facility] [place] Location[place] [facility] History and Physical DATE OF SURGERY: 12/10/2018 SCHEDULED PROCEDURE: imelda ibrahim left knee arthroscopy with debridement of bony osteophyte HISTORY OF PRESENT ILLNESS: This is a 58-year-old male who has been having ongoing pain in his left knee since May 2018. Patient denies any trauma or injury. Patient has been through corticosteroid injection and physical therapy. He has also used a knee sleeve. Patient has had MRI of the left knee. X-rays do reveal bony osteophyte off the patella. Despite conservative measures patient has had continued pain in the left knee. Corticosteroid injection has helped some but he continues to have pain with activities of daily living. Lilliam marcum has tried oral medications with no significant relief in symptoms. After failing conservative measures and discussing all treatment options at Dr. Denny Dominguez, the patient does wish to proceed with diagnostic left knee arthroscopy with debridement of bony osteophyte. Patient currently denies chest pain, shortness of breath, fevers chills, recent infections. Patient will be obtaining surgical clear ance from his primary care physician. REVIEW OF SYSTEMS: ROS: Const: Denies change in appetite, fever and weight change. CV: Denies chest pain, heart murmur and irregular heartbeat. Resp: Denies cough, pneumonia, shortness of breath, tuberculosis and wheezing. GI: Denies constipation, diarrhea, heartburn, nausea, rectal itching, bloody stools and vomiting. : Denies incontinence. Musculo: Reports le g swelling, trouble walking and weakness, but denies pain. Skin: Denies Raynaud's, history of shingles and tattoo. Neuro: Denies ambulatory dysfunction, dizziness, numbness/tingling and tremor. Psych: D enies anxiety, insomnia and stress. Alex/Lymph: Denies anemia, bleeding/bruising tendency and past transfusion. Reviewed, no changes. PAST MEDICAL HISTORY: Advance Care Plan: No Advance Directives Effe ctive Date: 07/31/2018 PMH: Medical Problems: Arthritis, High Blood Pressure, Hypercholesterolemia Accidents: Fracture - (1964) RT COLLARBONE Surgical Hx: Colonoscopy - X3 Anesthesia Complications: Non e Assistive Devices: Contacts Reviewed, no changes. SOCIAL HISTORY: SH: Marital: .Occupation: [employer]Work Status: Currently Working.Hand Dominance: Right-handed. Pe rsonal Habits: Cigarette Use: Never Smoked Cigarettes.Smokeless Tobacco: Never Used Smokeless Tobacco.Alcohol: Occasionally.Drug Use: Denies Use.Enjoy Exercising: Exercises 1-3 X/Week. Reviewed, no hendrickson ges. VITALS: Ht: 67.5 Wt: 232lb Wt k.235 BMI: 35.8 BP: 124/78 Pulse: 68 Resp: 16 T: 98.5 T: 36.9C ALLERGIES: No Known Drug Allergy MEDICATIONS: Conklin 5-325 mg 1-2 by mouth every 6 hour as needed pain, Meloxicam 15 mg 1 by mouth every day, Losartan Potassium 100 mg 1 tab PO daily, Norvasc 10 mg 1 tab PO daily, Lipitor 20 mg 1 tab PO qhs, Aspirin 81 mg 1 tab PO daily, Multi Vitamin Myesha ly 1 tab PO daily PRE-OP EXAM: General appearance:NORMAL Other: Eyes: Conjunctivae and lids: NORMAL Pupils: ERR Ears, Nose, Mouth, and Throat: NORMAL Other: Inspection of lips, teeth and gums: NORMAL O ther: Neck: Examination of neck: no masses noted. Respiratory: Assessment of respiratory effort: NORMAL Other: Auscultation of lungs: clear to auscultation no wheezes, rhonchi or rales. Cardiovascular: Auscultation of heart: regular rate and rhythm, no murmurs, gallops or rubs. Exam of carotid arteries: NORMAL Other: Gastrointestinal: Exam of abdomen: soft, nontender, nondistended bowel sounds present . PHYSICAL EXAMINATION: Patient continues to have effusion in the left knee. Tenderness to palpation over the medial joint line. There is fullness in the posterior knee. Range of motion left knee: Lack s 5 of full extension to 80 flexion. There is mild crepitus with range of motion. Sensation intact to light touch. Neurovascularly intact. IMAGING STUDIES: Left knee x-rays were obtained which do show a well aligned knee with maintained joint spaces in all 3 compartments. There is a small bony osteophyte off the patella facet. X MRI of the left knee does show large effusion with small popliteal cyst . Patient has evidence of an MCL sprain and partial tearing of the lateral collateral ligament with popliteal tendinosis. IMPRESSION: 1. Left knee pain with Nowak cyst and spurring lateral collateral l igament and bony osteophyte off the patella 2. Hypertension 3. Hypercholesterolemia PLAN: Dr. Denny Dominguez did discuss and review with the patient all treatment options including surgical versus nonsu rgical options. Patient does wish to proceed with the above-stated procedure. Potential risks, benefits, and complications of the procedure were discussed in detail including but not limited to , i nfection, nerve and blood vessel damage, persistent pain, numbness, tingling, paresthesias, blood clot, pulmonary embolism, and requirement for possible further surgery. The patient expressed full under standing and has no further questions for the doctor. Patient does agree to proceed with the above-stated procedure and has signed the surgery consent form. This dictation was created using voice recog W[employer] software. Phonetic and/or grammatical errors may exist.. ___ I have re-examined the patient. There are no clinical changes since date of exam. ___ See progress notes for changes. ___ Dictated on admission Date: Time: Signature: 11/20/18 214 <Electronically signed by Bandar Patrick PA-C> Date Bandar Huitron Cosigner Signature: Date (if applicable) CC: Darlin Pleitez DO; Bandar AMBROCIO Signed 20-Nov-2018 History and Physical Exam Result: Comments: See Note; NOTES: [facility] Medical Records Department [address] [place] [address] History and Physical 11/20/182139 MR#: [id number] Acct: [id number] Name: TRACEY SCOTT Margo Rep #: [id number] : 1960 58 From: Bandar Patrick PA-C PCP: Darlin Pleitez DO Status: PRE [facility] [place] [facility] [place] and Physical DATE OF SURGERY: 12/10/2018 SCHEDULED PROCEDURE: diag nostic left knee arthroscopy with debridement of bony osteophyte HISTORY OF PRESENT ILLNESS: This is a 58-year-old male who has been having ongoing pain in his left knee since May 2018. Patient denies any trauma or injury. Patient has been through corticosteroid injection and physical therapy. He has also used a knee sleeve. Patient has had MRI of the left knee. X-rays do reveal bony osteophyte off the patella. Despite conservative measures patient has had continued pain in the left knee. Corticosteroid injection has helped some but he continues to have pain with activities of daily living. Lilliam marcum has tried oral medications with no significant relief in symptoms. After failing conservative measures and discussing all treatment options at Dr. Denny Dominguez, the patient does wish to proceed with diagnostic left knee arthroscopy with debridement of bony osteophyte. Patient currently denies chest pain, shortness of breath, fevers chills, recent infections. Patient will be obtaining surgical clear ance from his primary care physician. REVIEW OF SYSTEMS: ROS: Const: Denies change in appetite, fever and weight change. CV: Denies chest pain, heart murmur and irregular heartbeat. Resp: Denies cough, pneumonia, shortness of breath, tuberculosis and wheezing. GI: Denies constipation, diarrhea, heartburn, nausea, rectal itching, bloody stools and vomiting. : Denies incontinence. Musculo: Reports le g swelling, trouble walking and weakness, but denies pain. Skin: Denies Raynaud's, history of shingles and tattoo. Neuro: Denies ambulatory dysfunction, dizziness, numbness/tingling and tremor. Psych: D enies anxiety, insomnia and stress. Alex/Lymph: Denies anemia, bleeding/bruising tendency and past transfusion. Reviewed, no changes. PAST MEDICAL HISTORY: Advance Care Plan: No Advance Directives Effe ctive Date: 07/31/2018 PMH: Medical Problems: Arthritis, High Blood Pressure, Hypercholesterolemia Accidents: Fracture - (1964) RT COLLARBONE Surgical Hx: Colonoscopy - X3 Anesthesia Complications: Non e Assistive Devices: Contacts Reviewed, no changes. SOCIAL HISTORY: SH: Marital: .Occupation: [employer].Work Status: Currently Working.Hand Dominance: Right-handed. Pe rsonal Habits: Cigarette Use: Never Smoked Cigarettes.Smokeless Tobacco: Never Used Smokeless Tobacco.Alcohol: Occasionally.Drug Use: Denies Use.Enjoy Exercising: Exercises 1-3 X/Week. Reviewed, no hendrickson ges. VITALS: Ht: 67.5 Wt: 232lb Wt k.235 BMI: 35.8 BP: 124/78 Pulse: 68 Resp: 16 T: 98.5 T: 36.9C ALLERGIES: No Known Drug Allergy MEDICATIONS: Conklin 5-325 mg 1-2 by mouth every 6 hour as needed pain, Meloxicam 15 mg 1 by mouth every day, Losartan Potassium 100 mg 1 tab PO daily, Norvasc 10 mg 1 tab PO daily, Lipitor 20 mg 1 tab PO qhs, Aspirin 81 mg 1 tab PO daily, Multi Vitamin Myesha ly 1 tab PO daily PRE-OP EXAM: General appearance:NORMAL Other: Eyes: Conjunctivae and lids: NORMAL Pupils: ERR Ears, Nose, Mouth, and Throat: NORMAL Other: Inspection of lips, teeth and gums: NORMAL O ther: Neck: Examination of neck: no masses noted. Respiratory: Assessment of respiratory effort: NORMAL Other: Auscultation of lungs: clear to auscultation no wheezes, rhonchi or rales. Cardiovascular: Auscultation of heart: regular rate and rhythm, no murmurs, gallops or rubs. Exam of carotid arteries: NORMAL Other: Gastrointestinal: Exam of abdomen: soft, nontender, nondistended bowel sounds present . PHYSICAL EXAMINATION: Patient continues to have effusion in the left knee. Tenderness to palpation over the medial joint line. There is fullness in the posterior knee. Range of motion left knee: Lack s 5 of full extension to 80 flexion. There is mild crepitus with range of motion. Sensation intact to light touch. Neurovascularly intact. IMAGING STUDIES: Left knee x-rays were obtained which do show a well aligned knee with maintained joint spaces in all 3 compartments. There is a small bony osteophyte off the patella facet. X MRI of the left knee does show large effusion with small popliteal cyst . Patient has evidence of an MCL sprain and partial tearing of the lateral collateral ligament with popliteal tendinosis. IMPRESSION: 1. Left knee pain with Nowak cyst and spurring lateral collateral l igament and bony osteophyte off the patella 2. Hypertension 3. Hypercholesterolemia PLAN: Dr. Denny Dominguez did discuss and review with the patient all treatment options including surgical versus nonsu rgical options. Patient does wish to proceed with the above-stated procedure. Potential risks, benefits, and complications of the procedure were discussed in detail including but not limited to , i nfection, nerve and blood vessel damage, persistent pain, numbness, tingling, paresthesias, blood clot, pulmonary embolism, and requirement for possible further surgery. The patient expressed full under standing and has no further questions for the doctor. Patient does agree to proceed with the above-stated procedure and has signed the surgery consent form. This dictation was created using voice recog nition software. Phonetic and/or grammatical errors may exist.. ___ I have re-examined the patient. There are no clinical changes since date of exam. ___ See progress notes for changes. ___ Dictated on admission Date: Time: Signature: 11/20/182140 <Electronically signed by Bandar Patrick PA-C> Date Bandar Huitron Cosigner Signature: Date (if applicable) CC: Darlin Pleitez DO; Bandar AMBROCIO Signed 17-Jul-2018 Lower Ext Joint Only (Routine) Result: Comments: See Note; NOTES: [facility] Imaging Services [address] [place] [address] Lower Ext Joint Only (Routine) MR#: [id number] Acct: [id number] Name: TRACEY SCOTT Margo Rep #: [id number] : 1960 M 57 From: Mulu Napoles MD PCP: Darlin Pleitez DO Status: REG CLI Study: Lower Ext Joint Only (Routine) Date of Exam: 07/17/18 Exam# [id number] Ordering Dr: Darlin Pleitez DO STUDY: MRI LEFT KNEE REASON FOR EXAM: Male, 57 years old. EFFUSION LEFT KNEE, PAIN POSTERIOR KNEE, UNABLE TO FLEX COMPLETELY, X 2 MOS TECHNIQUE: Standardized fat and water weighted pulse sequences were obta ined in all 3 orthogonal planes. COMPARISON: X-ray June 06, 2018 FINDINGS: Normal medial meniscus. Normal hyaline cartilage of the medial femorotibial compartment. N ormal medial femoral condyle and tibial plateau. There is a partial sprain of the MCL with interstitial and periligamentous edema. Normal distal semimembranosus, gracilis and semitendinosus tendons. N ormal lateral meniscus. Normal hyaline cartilage of the lateral femorotibial compartment. There is minimal osteoarthritic spur formation of the lateral knee compartment. Normal proximal tibiofibular ar ticulation. There is a partial sprain of the lateral collateral (fibular) ligament. There is a musculotendinous strain with diffuse muscular edema of the popliteus muscle. Normal bicep s femoris tendon. Normal anterior cruciate ligament (ACL). Normal posterior cruciate ligament (PCL). Normal congruent patellofemoral articulation. Normal hyaline cartilage of the patellofemoral compar tment. Normal medial and lateral patellar retinaculum. Normal quadriceps tendon. Normal patellar tendon. Normal Hoffa's fat pad. There is a large joint effusion. There is a small popliteal cyst. There is diffuse soft tissue edema. MRI/Lower Ext Joint Only (Routine) IMPRESSION: There is a partial tear of the fibular collateral ligament. There is an MCL sprain. There is a popliteus muscle strain. There is a large joint effusion. There is a small popliteal cyst. There is diffuse soft tissue edema. Electronically Signed: Mulu Napoles MD 2017 at 13:09 EDT , Service support , CC: Darlin Pleitez DO Leaf Stripper: Signed 11-Jul-2018 TXT - Blood Flow Screening Result: Comments: See Note; NOTES: [facility] Cardiovascular Services [address] [place] [address] 07/10/18 0821 MR#: [id number] Acct: [id number] Name: TRACEY SCOTT Rep #: [id number] : 1960 57 From: Bolivar Palomo MD Attending Dr: Darlin Pleitez DO Status: REG REF Ordering Dr: Date: 07/11/18 Location: [facility] Sex: M C Admitted: Reason For Study: screening Carotid Duplex Ul trasound Abdominal Aorta The right ECA velocity is less than 125 cm/s. The maximal outside diameter of the proximal The right maximum ICA velocity is 69.8/15.8 cm/s.aorta measures 1.59 cm in the longitu dinal axis. There is insignificant plaque formation noted on The maximal outside diameter of the proximal the right side. aorta measures 1.63 x 1.71 cm in the cross- The left ECA velocity is less than 1 25 cm/s. sectional axis. The left maximum ICA velocity is 62.7/28.7 cm/s. There is insignificant plaque formation noted on the left side. Ankle Brachial Index The right ankle/ brachial index is 1.2. Th e left ankle/ brachial index is 1.1. Medical History and Assessment The client presents with a history of high blood pressure. The heart rate is 68 beats per minute. The heart rhythm is regular. The ri ght blood pressure is 126/82. The left blood pressure is 134/90. The assessment was performed by Lakshmi Holland RVT. Interpretation Summary Normal carotid artery screening (0 to 15% narrowing). Normal aortic ultrasound exam. The ankle/brachial index is normal (1.0 or greater). .rdering Physician: Darlin Pleitez D.O Performed By: Moises Holland RVT 07/11/18821 Date Bolivar Brink CC: Darlin Pleitez DO Date Dictated: 07/10/18820 Date Transcribed: 07/11/18821 Leaf Stripper: Signed 27-Jun-2018 Inital Evaluation (1) - PT Result: Comments: See Note; NOTES: [facility] Physical Therapy [facility] [address] [place] [address] Fax REHABILITATION SERVICES INITIAL EVALUATION MR#: [id number] Acct: [id number] Name: TRACEY SCOTT Rep #: [id number] : 1960 57 From: Soraya Brown MPT Referring Dr.: Darlin Pleitez DO Status: REG RCR Insurance: [employer] INSURANCE Patient's Visit Information TRACEY SCOTT is a 57 year old M referred to Physical Therapy by Darlin Pleitez DO with a diagnosis of L leg pain. Date of Evaluation: 06/20/[address]: Soraya Brown - Visit Plan Frequency: 2 Duration: 4-6 Weeks Plan: 2X/ week for centralization of leg symptoms using the side glide to close down the L side and then progress to extension as able. Then progress to neutral spine core stability and L hs strength. - Subjective Subjective: Pt has shooting pain down the back of L leg. He can not bend his L knee back. At night he has a hard time sleep ing. He can lay on his back with leg straight out but if he turns side to side he can't. He has had problems with his L knee with OA before but this is a different pain. It has been this way for a month . The pain down the L leg is the worst in the morning..feels better with activitiy. The pain goes down to the ankle and once in awhile it seemed like it was in the jim. It is sharp shooting pain. Troub le with bending the knee. No real back pain. 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 It just creaped up on him. His bed is firm and bought a [employer] mattress coer and that has helped to sleep. The pain does wake him up at ni ght. No N AND T. Hard to drive...could hardly go 1/2 hour. - Pain back pain Pain Intensity (Out of 10): 0 L leg pain Pain Intensity (Out of 10): 3 Pain Intensity Range: 9 - Objective Gait: Walk s with decreased stance time on the L. Able to heel and toe walk but seems that his L foot is harder to DG. Trunk: Flexion 75% (veers to the R), Ext 25% (veers to the R), SB R 50%, SB L 15%, Rot B 50%. LE MMT: hip flex R 4/5, Hip flex L 3+/5, hip abd B 4-/5, R knee flexion 4+/5 and L knee flexion 3+/5, B knee ext 4/5. +SLR for pain and tightness on the L. Prone lying: X 5 min L posterior knee pain vandana t may have gotten worse. Prone lying X 5 with C shape and closing down the L side....no knee pain. Had pt do 3 X 10 side glides against the wall to close down the L side...repeated 3X 10 teice and pt ramos d decreased knee pain and was walking with less of a limp. Discussed sitting posture in a chair with a towel roll and posture at work as well. - Goals Goal 1:: I HEP Goal Time Frame: 4-6 Weeks Goal 2:: Centralize leg pain to no pain down the L leg Goal Time Frame: 4-6 Weeks Goal 3:: Sit with upright posture during treatment sessions Goal Time Frame: 4-6 Weeks Goal 4:: Increase L HS strength to 4/5 Go al Time Frame: 4-6 Weeks - Rehabilitation Potential Rehabilitation Potential: Good - Anticipated Interventions Patient/Client Instruction: Educate patient on: Condition, Plan of Care For the Purpose o f:: To decrease pain, To increase ROM, To improve nutrient delivery to tissue, To improve muscle performance and motor function, To improve ability to perform ADL's, To increase tolerance to activity/co ndition/position, To improve performance and independence with ADL's, To improve gait and locomotor functions, To improve health of tissue Therapeutic Exercise to Include: Strength training, Body mechan ics, Postural training, Flexibilty training, Gait and locomotor training, Neuromotor development, Active ROM, Dynamic Lumbar Stabilization, Yordy Exercises For the Purpose of:: To decrease pain, To d ecrease swelling/inflammation, To increase ROM, To improve nutrient delivery to tissue, To increase oxygenation perfusion, To improve muscle performance and motor function, To improve ability to perform ADL's, To increase tolerance to activity/condition/position, To improve performance and independence with ADL's, To decrease level of supervision to perform tasks, To improve gait and locomotor functio ns, To improve health of tissue, To improve safety with gait Manual Therapy Techniques to Include: Mobilization, Soft tissue mobilization For the Purpose of:: To decrease pain, To increase ROM, To impro ve nutrient delivery to tissue IF ES: Yes Cryotherapy (ice pack, ice massage): Yes Ultrasound (thermal/non thermal): Yes For the Purpose of:: To decrease pain, To decrease swelling/inflammation, To impr ove nutrient delivery to tissue Thank you for the opportunity to evaluate your patient. For Medicare and Medicare HMO plans, please review the plan of care and approve it. It will need to be FAXED BACK to us at [phone] for Medicare purposes. Please let me know if there are questions or concerns regarding this plan of care. Physician Signature: ____Date: <Electronically signed by Soraya Brown MPT> 06/27/18 1230 CC: Darlin Pleitez DO Signed For Medicare only, by signing this I certify the plan of care. Physicians Signature Date 07-Jun-2018 Venous Duplex Lower Extremity Result: Comments: See Note; NOTES: [facility] Cardiovascular Services [address] [place] [address] Venous Duplex US, Unilateral 06/06/18 1420 MR#: [id number] Acct: [id number] Name: TRACEY KANG Rep #: [id number] : 1960 57 From: Bolivar Palomo MD Attending Dr: Darlin Pleitez DO Status: REG CLI Ordering Dr: Darlin Pleitez DO Date: 06/06/18 Location: [facility] Sex: M C Admitted: Namrata son For Study: LEG PAIN RIGHT LEFT CFV is compressible, spontaneous, phasic, GSV is normal. competent and demonstrates normal CFV is compressible, spontaneous, phasic, augmentation. competent, and demo nstrates normal Procedure augmentation. Exam performed in department. FV is compressible, spontaneous, phasic, A preliminary report was called and/or faxed competent and demonstrates normal to Dr. Pleitez. augmentation. POP V is compressible, spontaneous, phasic, competent and demonstrates normal augmentation. T/P Trunk is compressible. PTV is compressible. LT PerV is compressible. Interpretation Summar y Deep veins of the left lower extremity are patent and compressible segmentally. There is no evidence of left lower extremity deep vein thrombosis. Valvular competence appears intact within the proxima l deep venous system on the left . The left greater saphenous vein appears patent and compressible segmentally. __ Ordering Physician: Darlin Pleitez Referring Physician: Darlin Pleitez Performed By: Elva Larsen RVT 06/07/18 1531 Pedro e Bolivar Palomo MD CC: Darlin Pleitez DO Date Dictated: 06/06/18 1420 Date Transcribed: 06/07/18 1531 Leaf Stripper: Signed 06-Jun-2018 Knee 4 or More Views Result: Comments: See Note; NOTES: [facility] Imaging Services [address] [place] [address] Knee 4 or More Views MR#: [id number] Acct: [id number] Name: TRACEY SCOTT Rep #: [id number] : 1960 M 57 From: Winston Allred DO PCP: Darlin Pleitez DO Status: REG CLI Study: Knee 4 or More Views Date of Exam: 06/06/18 Exam# [id number] Ordering Dr: Darlin Pleitez DO STUDY: X-RAY - LEFT KNEE R BRITTNEY FOR EXAM: Male, 57 years old. Pain TECHNIQUE: 5 view(s) of the knee. COMPARISON: None. FINDINGS: Normal visualized distal femur. Normal visualized proximal t ibia and fibula. Normal proximal tibiofibular articulation. Normal medial femorotibial compartment. Minimal degenerative spurring at the lateral femorotibial compartment. Normal patellofemoral articula tion. The soft tissue structures are unremarkable. RAD/Knee 4 or More Views IMPRESSION: Minimal degenerative changes of the knee. Electronicall y Signed: Winston Allred DO at 8:52 EDT Tel [phone], Service support , CC: Darlin Pleitez DO Leaf Stripper: Signed 06-Jun-2018 L/S Spine Min 4 Views Result: Comments: See Note; NOTES: [facility] Imaging Services [address] [place] [address] L/S Spine Min 4 Views MR#: [id number] Acct: [id number] Name: TRACEY SCOTT Rep #: [id number] : 1960 M 57 From: Winston Allred DO PCP: Darlin Pleitez DO Status: REG CLI Study: L/S Spine Min 4 Views Date of Exam: 06/06/18 Exam# [id number] Ordering Dr: Darlin Pleitez DO STUDY: X-RAY - LUMBAR SPI NE REASON FOR EXAM: Male, 57 years old. Pain TECHNIQUE: 5 view(s) of the lumbar spine were obtained. COMPARISON: None FINDINGS: Mildly exaggerated lumbar lordosis . There is no substantial scoliosis. There is a normal alignment of the vertebrae. Normal vertebral bodies and endplates. Normal disc space heights. The soft tissue structures are unremarkable. RAD/L/S Spine Min 4 Views IMPRESSION: Mildly exaggerated lordosis of the lumbar spine. Electronically Signed: Winston Allred DO at 9:11 EDT Tel [phone], Service support , CC: Darlin Pleitez DO Leaf Stripper: Signed 26-Oct-2015 EKG (94043) Comments: ekg- sinus edna normal axis no acute st t wave changes Result: [MEASUREMENTS ANALYSIS] Date of Test: 10/26/2015 08:45:17; Heart Rate: 56; AL Interval: 170; QRS: 96; QT Interval: 412; Corrected QT Interval (QTc): 405; P Wave [place]: 29; QRS Wave [place]: 23; T Wave [place]: 17; Blood Pressure: 112/76 [ECG DIAGNOSTIC STATEMENTS] Date of Test: 10/26/2015 08:45:17; Summary: Sinus Bradycardia WITHIN NORMAL LIMITS 29-Apr-2014 Spirometry (01882) Comments: poor techniq but really bad obstruction which is consistent with exam Result: Immunization Name Dates Details Tdap (7 years and up) on: 08-Nov-2009 Comments: Lot #[id number]-left deltoidDose0.5mlgiven by Jonathan Fry LPN Family History Unknown Family Member Name Dates Details Brother 1 Comments: benign brain tumor Status: Active Father Comments: Colon polyps-living in 90s - pacemaker Status: Active mother- heart issue just turned 90- carotid stenosis Status: Active Sister 1 Comments: living with melanoma hx Status: Active Social History Name Dates Details Alcohol Use Comments: Occasional alcohol use Status: Active Caffeine Use Comments: 4 QD Status: Active Living Situation Comments: - heterosexual Status: Active Tobacco use: Never smoker. Status: Active Smoking Status Name Dates Details Never smoker Vital Signs Date Test Result Details [id number] Temperature 98.2 f Comments: Method: Temporal Pulse 63 /min Comments: Pattern: Regular Respiration Rate 16 /min Comments: Pattern: Unlabored BP Systolic 115 mm[Hg] Comments: Patient Position: Sitting; Cuff Location: Left Arm; Cuff Size: Standard BP Diastolic 64 mm[Hg] Comments: Patient Position: Sitting; Cuff Location: Left Arm; Cuff Size: Standard Weight 232.125 lb Height 70 in Body Mass Index Calculated 33.31 kg/m2 Body Surface Area Calculated 2.22 m2 :15 Temperature 98.4 f Comments: Method: Temporal Pulse 63 /min Comments: Pattern: Regular Respiration Rate 18 /min Comments: Pattern: Unlabored O2 SAT 96 % Comments: Room air BP Systolic 122 mm[Hg] Comments: Patient Position: Sitting; Cuff Location: Left Arm; Cuff Size: Standard BP Diastolic 76 mm[Hg] Comments: Patient Position: Sitting; Cuff Location: Left Arm; Cuff Size: Standard Weight 232.125 lb Height 70 in Body Mass Index Calculated 33.31 kg/m2 Body Surface Area Calculated 2.22 m2 [id number] Temperature 98.3 f Comments: Method: Temporal Pulse 60 /min Comments: Pattern: Regular Respiration Rate 16 /min Comments: Pattern: Unlabored O2 SAT 99 % Comments: Room air BP Systolic 134 mm[Hg] Comments: Patient Position: Sitting; Cuff Location: Left Arm; Cuff Size: Standard BP Diastolic 80 mm[Hg] Comments: Patient Position: Sitting; Cuff Location: Left Arm; Cuff Size: Standard Weight 229 lb Height 70 in Body Mass Index Calculated 32.86 kg/m2 Body Surface Area Calculated 2.21 m2 :06 Temperature 96.8 f Comments: Method: Temporal Pulse 72 /min Comments: Pattern: Regular Respiration Rate 16 /min Comments: Pattern: Unlabored BP Systolic 115 mm[Hg] Comments: Patient Position: Sitting; Cuff Location: Left Arm; Cuff Size: Standard BP Diastolic 72 mm[Hg] Comments: Patient Position: Sitting; Cuff Location: Left Arm; Cuff Size: Standard Weight 229 lb Height 70 in Body Mass Index Calculated 32.86 kg/m2 Body Surface Area Calculated 2.21 m2 :18 Temperature 97.9 f Comments: Method: Temporal Pulse 58 /min Comments: Pattern: Regular Respiration Rate 16 /min Comments: Pattern: Unlabored BP Systolic 134 mm[Hg] Comments: Patient Position: Sitting; Cuff Location: Left Arm; Cuff Size: Standard BP Diastolic 80 mm[Hg] Comments: Patient Position: Sitting; Cuff Location: Left Arm; Cuff Size: Standard Weight 228 lb Height 70 in Body Mass Index Calculated 32.71 kg/m2 Body Surface Area Calculated 2.21 m2 :28 Temperature 97.2 f Comments: Method: Temporal Pulse 69 /min Comments: Pattern: Regular Respiration Rate 16 /min Comments: Pattern: Unlabored BP Systolic 116 mm[Hg] Comments: Patient Position: Sitting; Cuff Location: Left Arm; Cuff Size: Standard BP Diastolic 68 mm[Hg] Comments: Patient Position: Sitting; Cuff Location: Left Arm; Cuff Size: Standard Weight 228 lb Height 70 in Body Mass Index Calculated 32.71 kg/m2 Body Surface Area Calculated 2.21 m2 :35 Temperature 98.4 f Comments: Method: Temporal Pulse 70 /min Comments: Pattern: Regular Respiration Rate 16 /min Comments: Pattern: Unlabored BP Systolic 122 mm[Hg] Comments: Patient Position: Sitting; Cuff Location: Left Arm; Cuff Size: Standard BP Diastolic 78 mm[Hg] Comments: Patient Position: Sitting; Cuff Location: Left Arm; Cuff Size: Standard Weight 236 lb Height 70 in Body Mass Index Calculated 33.86 kg/m2 Body Surface Area Calculated 2.24 m2 :22 Temperature 97.6 f Comments: Method: Temporal Pulse 60 /min Comments: Pattern: Regular Respiration Rate 16 /min Comments: Pattern: Unlabored BP Systolic 122 mm[Hg] Comments: Patient Position: Sitting; Cuff Location: Left Arm; Cuff Size: Standard BP Diastolic 80 mm[Hg] Comments: Patient Position: Sitting; Cuff Location: Left Arm; Cuff Size: Standard Weight 236 lb Height 70 in Body Mass Index Calculated 33.86 kg/m2 Body Surface Area Calculated 2.24 m2 :40 BP Systolic 130 mm[Hg] Comments: Patient Position: Sitting BP Diastolic 80 mm[Hg] Comments: Patient Position: Sitting :00 Temperature 97.6 f Comments: Method: Temporal Pulse 69 /min Comments: Pattern: Regular Respiration Rate 16 /min Comments: Pattern: Unlabored BP Systolic 138 mm[Hg] Comments: Patient Position: Sitting; Cuff Location: Left Arm; Cuff Size: Standard BP Diastolic 80 mm[Hg] Comments: Patient Position: Sitting; Cuff Location: Left Arm; Cuff Size: Standard Weight 236 lb Height 70 in Body Mass Index Calculated 33.86 kg/m2 Body Surface Area Calculated 2.24 m2 :14 Temperature 98.1 f Comments: Method: Temporal Pulse 64 /min Comments: Pattern: Regular Respiration Rate 16 /min Comments: Pattern: Unlabored O2 SAT 97 % Comments: Room air BP Systolic 110 mm[Hg] Comments: Patient Position: Sitting; Cuff Location: Left Arm; Cuff Size: Large BP Diastolic 78 mm[Hg] Comments: Patient Position: Sitting; Cuff Location: Left Arm; Cuff Size: Large Weight 234 lb Height 70 in Body Mass Index Calculated 33.58 kg/m2 Body Surface Area Calculated 2.23 m2 :03 Temperature 97.9 f Comments: Method: Temporal Pulse 62 /min Comments: Pattern: Regular Respiration Rate 16 /min Comments: Pattern: Unlabored O2 SAT 95 % Comments: Room air BP Systolic 120 mm[Hg] Comments: Patient Position: Sitting; Cuff Location: Left Arm; Cuff Size: Standard BP Diastolic 74 mm[Hg] Comments: Patient Position: Sitting; Cuff Location: Left Arm; Cuff Size: Standard Weight 233 lb Height 70 in Body Mass Index Calculated 33.43 kg/m2 Body Surface Area Calculated 2.23 m2 :15 Temperature 97.1 f Comments: Method: Temporal Pulse 64 /min Comments: Pattern: Regular Respiration Rate 15 /min Comments: Pattern: Unlabored O2 SAT 97 % Comments: Room air BP Systolic 118 mm[Hg] Comments: Patient Position: Sitting; Cuff Location: Left Arm; Cuff Size: Standard BP Diastolic 70 mm[Hg] Comments: Patient Position: Sitting; Cuff Location: Left Arm; Cuff Size: Standard Weight 235 lb Height 70 in Body Mass Index Calculated 33.72 kg/m2 Body Surface Area Calculated 2.24 m2 :10 Temperature 98.8 f Comments: Method: Temporal Pulse 65 /min Comments: Pattern: Regular Respiration Rate 16 /min Comments: Pattern: Unlabored O2 SAT 95 % Comments: Room air BP Systolic 112 mm[Hg] Comments: Patient Position: Sitting; Cuff Location: Left Arm; Cuff Size: Large BP Diastolic 76 mm[Hg] Comments: Patient Position: Sitting; Cuff Location: Left Arm; Cuff Size: Large Weight 229 lb Height 70 in Body Mass Index Calculated 32.86 kg/m2 Body Surface Area Calculated 2.21 m2 :12 Temperature 97.5 f Comments: Method: Oral Pulse 60 /min Comments: Pattern: Regular Respiration Rate 16 /min Comments: Pattern: Unlabored BP Systolic 110 mm[Hg] Comments: Patient Position: Sitting; Cuff Location: Left Arm; Cuff Size: Large BP Diastolic 80 mm[Hg] Comments: Patient Position: Sitting; Cuff Location: Left Arm; Cuff Size: Large Weight 218 lb Height 70 in Body Mass Index Calculated 31.28 kg/m2 Body Surface Area Calculated 2.17 m2 :59 Temperature 97.5 f Comments: Method: Temporal Pulse 89 /min Comments: Pattern: Regular Respiration Rate 17 /min Comments: Pattern: Unlabored O2 SAT 98 % Comments: Room air BP Systolic 120 mm[Hg] Comments: Patient Position: Sitting; Cuff Location: Left Arm; Cuff Size: Standard BP Diastolic 74 mm[Hg] Comments: Patient Position: Sitting; Cuff Location: Left Arm; Cuff Size: Standard Weight 234 lb Height 70 in Body Mass Index Calculated 33.58 kg/m2 Body Surface Area Calculated 2.23 m2 :39 Temperature 98.2 f Comments: Method: Oral Pulse 72 /min Comments: Pattern: Regular Respiration Rate 20 /min Comments: Pattern: Unlabored O2 SAT 97 % Comments: Room air BP Systolic 120 mm[Hg] Comments: Patient Position: Sitting; Cuff Location: Left Arm; Cuff Size: Large BP Diastolic 80 mm[Hg] Comments: Patient Position: Sitting; Cuff Location: Left Arm; Cuff Size: Large Weight 230 lb Height 70 in Body Mass Index Calculated 33 kg/m2 Body Surface Area Calculated 2.22 m2 :54 Temperature 98.7 f Pulse 82 /min Comments: Pattern: Regular Respiration Rate 16 /min Comments: Pattern: Unlabored BP Systolic 126 mm[Hg] Comments: Patient Position: Sitting; Cuff Location: Left Arm; Cuff Size: Large BP Diastolic 80 mm[Hg] Comments: Patient Position: Sitting; Cuff Location: Left Arm; Cuff Size: Large Weight 230 lb Height 70 in Body Mass Index Calculated 33 kg/m2 Body Surface Area Calculated 2.22 m2 :11 Temperature 97.1 f Pulse 68 /min Comments: Pattern: Regular Respiration Rate 16 /min Comments: Pattern: Unlabored BP Systolic 108 mm[Hg] Comments: Patient Position: Sitting; Cuff Location: Left Arm; Cuff Size: Large BP Diastolic 72 mm[Hg] Comments: Patient Position: Sitting; Cuff Location: Left Arm; Cuff Size: Large Weight 230 lb Height 70 in Body Mass Index Calculated 33 kg/m2 Body Surface Area Calculated 2.22 m2 :25 Temperature 99 f Comments: Method: Temporal Pulse 82 /min Comments: Pattern: Regular Respiration Rate 16 /min Comments: Pattern: Unlabored O2 SAT 97 % Comments: Room air BP Systolic 128 mm[Hg] Comments: Patient Position: Sitting; Cuff Location: Left Arm; Cuff Size: Standard BP Diastolic 76 mm[Hg] Comments: Patient Position: Sitting; Cuff Location: Left Arm; Cuff Size: Standard Weight 232 lb Height 70 in Body Mass Index Calculated 33.29 kg/m2 Body Surface Area Calculated 2.22 m2 :06 Temperature 97 f Pulse 62 /min Comments: Pattern: Regular Respiration Rate 16 /min Comments: Pattern: Unlabored BP Systolic 114 mm[Hg] Comments: Patient Position: Sitting; Cuff Location: Left Arm; Cuff Size: Large BP Diastolic 82 mm[Hg] Comments: Patient Position: Sitting; Cuff Location: Left Arm; Cuff Size: Large Weight 232 lb Height 70 in Body Mass Index Calculated 33.29 kg/m2 Body Surface Area Calculated 2.22 m2 :42 Temperature 98.7 f Pulse 66 /min Comments: Pattern: Regular Respiration Rate 18 /min Comments: Pattern: Unlabored BP Systolic 116 mm[Hg] Comments: Patient Position: Sitting; Cuff Location: Left Arm; Cuff Size: Large BP Diastolic 90 mm[Hg] Comments: Patient Position: Sitting; Cuff Location: Left Arm; Cuff Size: Large Weight 234 lb Height 70 in Body Mass Index Calculated 33.58 kg/m2 Body Surface Area Calculated 2.23 m2 :08 Temperature 97.8 f Pulse 60 /min Comments: Pattern: Regular Respiration Rate 16 /min Comments: Pattern: Unlabored BP Systolic 118 mm[Hg] Comments: Patient Position: Sitting; Cuff Location: Left Arm; Cuff Size: Standard BP Diastolic 86 mm[Hg] Comments: Patient Position: Sitting; Cuff Location: Left Arm; Cuff Size: Standard Weight 232 lb Height 70 in Body Mass Index Calculated 33.29 kg/m2 Body Surface Area Calculated 2.22 m2 :12 Temperature 97.5 f Pulse 84 /min Comments: Pattern: Regular Respiration Rate 16 /min Comments: Pattern: Unlabored BP Systolic 122 mm[Hg] Comments: Patient Position: Sitting; Cuff Location: Left Arm; Cuff Size: Large BP Diastolic 80 mm[Hg] Comments: Patient Position: Sitting; Cuff Location: Left Arm; Cuff Size: Large Weight 230 lb Height 70 in Body Mass Index Calculated 33 kg/m2 Body Surface Area Calculated 2.22 m2 :21 Temperature 97.2 f Comments: Method: Oral Pulse 60 /min Comments: Pattern: Regular Respiration Rate 16 /min Comments: Pattern: Unlabored BP Systolic 124 mm[Hg] Comments: Patient Position: Sitting; Cuff Location: Left Arm; Cuff Size: Standard BP Diastolic 80 mm[Hg] Comments: Patient Position: Sitting; Cuff Location: Left Arm; Cuff Size: Standard Weight 236 lb Height 70 in Body Mass Index Calculated 33.86 kg/m2 Body Surface Area Calculated 2.24 m2 :07 Temperature 97.9 f Comments: Method: Oral Pulse 78 /min Comments: Pattern: Regular Respiration Rate 16 /min Comments: Pattern: Unlabored BP Systolic 134 mm[Hg] Comments: Patient Position: Sitting; Cuff Location: Left Arm; Cuff Size: Standard BP Diastolic 84 mm[Hg] Comments: Patient Position: Sitting; Cuff Location: Left Arm; Cuff Size: Standard Weight 236 lb Height 70 in Body Mass Index Calculated 33.86 kg/m2 Body Surface Area Calculated 2.24 m2 :17 Temperature 98.1 f Pulse 80 /min Comments: Pattern: Regular Respiration Rate 18 /min Comments: Pattern: Unlabored BP Systolic 124 mm[Hg] Comments: Patient Position: Sitting; Cuff Location: Left Arm; Cuff Size: Large BP Diastolic 90 mm[Hg] Comments: Patient Position: Sitting; Cuff Location: Left Arm; Cuff Size: Large Weight 236 lb Height 70 in Body Mass Index Calculated 33.86 kg/m2 Body Surface Area Calculated 2.24 m2 :25 Temperature 98.7 f Comments: Method: Oral Pulse 72 /min Comments: Pattern: Regular Respiration Rate 16 /min Comments: Pattern: Unlabored BP Systolic 120 mm[Hg] Comments: Patient Position: Supine; Cuff Location: Left Arm; Cuff Size: Standard BP Diastolic 84 mm[Hg] Comments: Patient Position: Supine; Cuff Location: Left Arm; Cuff Size: Standard Weight 233 lb Height 70 in Body Mass Index Calculated 33.43 kg/m2 Body Surface Area Calculated 2.23 m2 :50 Temperature 98 f Pulse 80 /min Comments: Pattern: Regular Respiration Rate 18 /min Comments: Pattern: Unlabored BP Systolic 120 mm[Hg] Comments: Patient Position: Sitting; Cuff Location: Left Arm; Cuff Size: Large BP Diastolic 92 mm[Hg] Comments: Patient Position: Sitting; Cuff Location: Left Arm; Cuff Size: Large Weight 235 lb Height 67.75 in Body Mass Index Calculated 36 kg/m2 Body Surface Area Calculated 2.18 m2 :38 Temperature 97.4 f Comments: Method: Undefined Pulse 76 /min Comments: Pattern: Regular Respiration Rate 18 /min Comments: Pattern: Undefined BP Systolic 130 mm[Hg] Comments: Patient Position: Sitting; Cuff Location: Left Arm; Cuff Size: Large BP Diastolic 66 mm[Hg] Comments: Patient Position: Sitting; Cuff Location: Left Arm; Cuff Size: Large Weight 230 lb Height 0 in Head Circumference 0.00 cm :21 Temperature 97.8 f Comments: Method: Undefined Pulse 72 /min Comments: Pattern: Regular Respiration Rate 18 /min Comments: Pattern: Undefined BP Systolic 140 mm[Hg] Comments: Patient Position: Sitting; Cuff Location: Left Arm; Cuff Size: Standard BP Diastolic 86 mm[Hg] Comments: Patient Position: Sitting; Cuff Location: Left Arm; Cuff Size: Standard Weight 231 lb Height 0 in Head Circumference 0.00 cm :43 Temperature 98.3 f Comments: Method: Undefined Pulse 88 /min Comments: Pattern: Regular Respiration Rate 18 /min Comments: Pattern: Undefined BP Systolic 128 mm[Hg] Comments: Patient Position: Sitting; Cuff Location: Right Arm; Cuff Size: Standard BP Diastolic 88 mm[Hg] Comments: Patient Position: Sitting; Cuff Location: Right Arm; Cuff Size: Standard Weight 229 lb Height 0 in Head Circumference 0.00 cm :28 Temperature 98.6 f Comments: Method: Oral Pulse 56 /min Comments: Pattern: Regular BP Systolic 112 mm[Hg] Comments: Patient Position: Sitting; Cuff Location: Left Arm; Cuff Size: Standard BP Diastolic 78 mm[Hg] Comments: Patient Position: Sitting; Cuff Location: Left Arm; Cuff Size: Standard Weight 0 lb Height 0 in Head Circumference 0.00 cm Results Date Description Value Details :44 Microscopic Examination Comments: PATIENT WAS FASTINGPERFORMED BY: [facility] [id number] Bacteria None seen (Normal) Mucus Threads Present (Normal) Epithelial Cells (non renal) 0-10 {/hpf} (Normal) Range: 0 - 10 RBC 0-2 {/hpf} (Normal) Range: 0 - 2 WBC 0-5 {/hpf} (Normal) Range: 0 - 5 :44 URINALYSIS, W/ MICRO ([id number]) Comments: PATIENT WAS FASTINGPERFORMED BY: [facility] [id number] Microscopic Examination See below: (Normal) Comments: Microscopic was indicated and was performed. Microscopic Examination MICRON (Normal) Comments: Microscopic follows if indicated. Nitrite, Urine Negative (Normal) Urobilinogen,Semi-Qn 0.2 mg/dL (Normal) Range: 0.2-1.0 Bilirubin Negative (Normal) Occult Blood Negative (Normal) Ketones Negative (Normal) Glucose Negative (Normal) Protein Negative (Normal) WBC Esterase Negative (Normal) Appearance Clear (Normal) Urine-Color Yellow (Normal) pH 6.0 (Normal) Range: 5.0-7.5 Specific Star 1.020 (Normal) Range: 1.005-1.030 :44 CBC W/AUTO DIFF WBC ([id number]) Comments: PATIENT WAS FASTINGPERFORMED BY: [employer]70 [facility]spotFormer[facility] [id number] Immature Grans (Abs) 0.0 {x10E3/uL} (Normal) Range: 0.0-0.1 Immature Granulocytes 0 % (Normal) Baso (Absolute) 0.0 {x10E3/uL} (Normal) Range: 0.0-0.2 Eos (Absolute) 0.1 {x10E3/uL} (Normal) Range: 0.0-0.4 Monocytes(Absolute) 0.6 {x10E3/uL} (Normal) Range: 0.1-0.9 Lymphs (Absolute) 2.4 {x10E3/uL} (Normal) Range: 0.7-3.1 Neutrophils (Absolute) 5.9 {x10E3/uL} (Normal) Range: 1.4-7.0 Basos 0 % (Normal) Eos 2 % (Normal) Monocytes 6 % (Normal) Lymphs 27 % (Normal) Neutrophils 65 % (Normal) Platelets 303 {x10E3/uL} (Normal) Range: 150-379 RDW 15.1 % (Normal) Range: 12.3-15.4 MCHC 32.9 g/dL (Normal) Range: 31.5-35.7 MCH 29.1 pg (Normal) Range: 26.6-33.0 MCV 88 fL (Normal) Range: 79-97 Hematocrit 40.4 % (Normal) Range: 37.5-51.0 Hemoglobin 13.3 g/dL (Normal) Range: 13.0-17.7 RBC 4.57 {x10E6/uL} (Normal) Range: 4.14-5.80 WBC 9.0 {x10E3/uL} (Normal) Range: 3.4-10.8 60-Dpc-93468:44 METABOLIC PANEL, COMPREHENSIVE Comments: PATIENT WAS FASTINGPERFORMED BY: [facility]6[address] [facility] [id number] ([id number]) ALT (SGPT) 16 [iU]/L (Normal) Range: 0-44 AST (SGOT) 13 [iU]/L (Normal) Range: 0-40 Alkaline Phosphatase 60 [iU]/L (Normal) Range: 39-117 Bilirubin, Total 0.4 mg/dL (Normal) Range: 0.0-1.2 A/G Ratio 2.0 (Normal) Range: 1.2-2.2 Globulin, Total 2.2 g/dL (Normal) Range: 1.5-4.5 Albumin 4.4 g/dL (Normal) Range: 3.5-5.5 Protein, Total 6.6 g/dL (Normal) Range: 6.0-8.5 Calcium 10.0 mg/dL (Normal) Range: 8.7-10.2 Carbon Dioxide, Total 24 mmol/L (Normal) Range: 20-29 Chloride 103 mmol/L (Normal) Range: 96-106 Potassium 4.2 mmol/L (Normal) Range: 3.5-5.2 Sodium 141 mmol/L (Normal) Range: 134-144 BUN/Creatinine Ratio 13 (Normal) Range: 9-20 eGFR If Africn Am 77 mL/min/1.73 (Normal) eGFR If NonAfricn Am 66 mL/min/1.73 (Normal) Creatinine 1.19 mg/dL (Normal) Range: 0.76-1.27 BUN 16 mg/dL (Normal) Range: 6-24 Glucose 107 mg/dL (Abnormal) Range: 65-99 :00 Crystals, Body Fluid Comments: [facility] [address] [place], [place], [id number] PATH REV Reviewed (Normal) Comments: No diagnostic crystals seen.Seth Velazco D.O. 08/01/18 AMENDED REPORT 08/01/18 1230 PATH REV previously reported as: Will follow SOURCE/BF SYNOVIAL (Normal) CRYSTALS/BF SEE PATH REV (Normal) [id number]-Nue-[id number]:00 Culture, Body Fluid Comments: [facility] [address] [place], [place], [address] CUBF See Note (Normal) Comments: List Antibiotics Last 48 Hours? UNKList Antibiotics to be Started? UNKGram StainCentrifuged Specimen? Culture performed on centrifuged specimen Gram Stain 4+ Red Blood Cells 4+ White Blood C ells No organisms seen Body Fluid CultNO GROWTH IN 14 DAYS Cult, AnaerobicNo growth in 5 days. 35-Asd-34310:53 MICROALBUMIN: CREATININE RATIO Comments: PATIENT WAS FASTINGPERFORMED BY: [facility] [address] [place] [id number] ([id number]) AND ([id number]) Alb/Creat Ratio 5.7 {mg/g_creat} (Normal) Range: 0.0-30.0 Comments: Normal: 0.0 - 30.0 Albuminuria: 31.0 - 300.0 Clinical albuminuria: >300.0 Albumin, Urine 7.6 ug/mL (Normal) Creatinine, Urine 133.6 mg/dL (Normal) :53 METABOLIC PANEL, COMPREHENSIVE Comments: PATIENT WAS FASTINGPERFORMED BY: [facility]MedixHealth[facility] UnionNdpqgc1195 [facility] [id number] ([id number]) ALT (SGPT) 15 [iU]/L (Normal) Range: 0-44 AST (SGOT) 13 [iU]/L (Normal) Range: 0-40 Alkaline Phosphatase 67 [iU]/L (Normal) Range: 39-117 Bilirubin, Total 0.4 mg/dL (Normal) Range: 0.0-1.2 A/G Ratio 2.1 (Normal) Range: 1.2-2.2 Globulin, Total 2.1 g/dL (Normal) Range: 1.5-4.5 Albumin 4.5 g/dL (Normal) Range: 3.5-5.5 Protein, Total 6.6 g/dL (Normal) Range: 6.0-8.5 Calcium 9.6 mg/dL (Normal) Range: 8.7-10.2 Carbon Dioxide, Total 23 mmol/L (Normal) Range: 20-29 Chloride 104 mmol/L (Normal) Range: 96-106 Potassium 4.5 mmol/L (Normal) Range: 3.5-5.2 Sodium 142 mmol/L (Normal) Range: 134-144 BUN/Creatinine Ratio 15 (Normal) Range: 9-20 eGFR If Africn Am 93 mL/min/1.73 (Normal) eGFR If NonAfricn Am 80 mL/min/1.73 (Normal) Creatinine 1.02 mg/dL (Normal) Range: 0.76-1.27 BUN 15 mg/dL (Normal) Range: 6-24 Glucose 109 mg/dL (Abnormal) Range: 65-99 :53 HGB A1C ([id number]) Comments: PATIENT WAS FASTINGPERFORMED BY: [facility]Illume SoftwareHealth[facility] of UnionDyprqv0327 [facility] [id number] Hemoglobin A1c 5.6 % (Normal) Range: 4.8-5.6 Comments: . Prediabetes: 5.7 - 6.4 Diabetes: >6.4 Glycemic control for adults with diabetes: <7.0 :53 LIPID PANEL (40500) Comments: PATIENT WAS FASTINGPERFORMED BY: [facility]MedixHoly Cross HospitalKqnlvi7990 [facility] [id number] LDL/HDL Ratio 1.6 {ratio} (Normal) Range: 0.0-3.6 Comments: LDL/HDL Ratio Men Women 1/2 Avg.Risk 1.0 1.5 Av g.Risk 3.6 3.2 2X Avg.Risk 6.2 5.0 3X Avg.Risk 8.0 6.1 LDL Cholesterol Calc 73 mg/dL (Normal) Range: 0-99 VLDL Cholesterol Compa 16 mg/dL (Normal) Range: 5-40 HDL Cholesterol 47 mg/dL (Normal) Triglycerides 80 mg/dL (Normal) Range: 0-149 Cholesterol, Total 136 mg/dL (Normal) Range: 100-199 :53 C-REACT PROT HIGH SENS(hsCRP) Comments: PATIENT WAS FASTINGPERFORMED BY: [employer] Kblrwl5806 [facility] [id number] ([id number]) C-Reactive Protein, Cardiac 4.66 mg/L (Abnormal) Range: 0.00-3.00 Comments: Relative Risk for Future Cardiovascular Event Low <1.00 Average 1.00 - 3.00 High >3.00 :12 CBC with auto diff ([id number]) Comments: PATIENT WAS FASTINGPERFORMED BY: [facility]MedixHealth[facility] UnionOkktgt9469 [facility] [id number] Immature Grans (Abs) 0.0 {x10E3/uL} (Normal) Range: 0.0-0.1 Immature Granulocytes 0 % (Normal) Baso (Absolute) 0.0 {x10E3/uL} (Normal) Range: 0.0-0.2 Eos (Absolute) 0.1 {x10E3/uL} (Normal) Range: 0.0-0.4 Monocytes(Absolute) 0.4 {x10E3/uL} (Normal) Range: 0.1-0.9 Lymphs (Absolute) 1.8 {x10E3/uL} (Normal) Range: 0.7-3.1 Neutrophils (Absolute) 4.7 {x10E3/uL} (Normal) Range: 1.4-7.0 Basos 0 % (Normal) Eos 1 % (Normal) Monocytes 6 % (Normal) Lymphs 26 % (Normal) Neutrophils 67 % (Normal) Platelets 301 {x10E3/uL} (Normal) Range: 150-379 RDW 13.8 % (Normal) Range: 12.3-15.4 MCHC 33.3 g/dL (Normal) Range: 31.5-35.7 MCH 30.5 pg (Normal) Range: 26.6-33.0 MCV 92 fL (Normal) Range: 79-97 Hematocrit 40.3 % (Normal) Range: 37.5-51.0 Hemoglobin 13.4 g/dL (Normal) Range: 13.0-17.7 RBC 4.39 {x10E6/uL} (Normal) Range: 4.14-5.80 WBC 7.0 {x10E3/uL} (Normal) Range: 3.4-10.8 :12 MICROALBUMIN: CREATININE RATIO Comments: PATIENT WAS FASTINGPERFORMED BY: [facility]iHealth[facility] of UnionGodlkj7482 [facility] [id number] ([id number]) AND ([id number]) Alb/Creat Ratio 2.8 {mg/g_creat} (Normal) Range: 0.0-30.0 Albumin, Urine 3.1 ug/mL (Normal) Creatinine, Urine 110.7 mg/dL (Normal) :12 METABOLIC PANEL, COMPREHENSIVE Comments: PATIENT WAS FASTINGPERFORMED BY: [facility]iHealth[facility] UnionPnpyna8654 [facility] [id number]; review 06/27 ([id number]) ALT (SGPT) 14 [iU]/L (Normal) Range: 0-44 AST (SGOT) 13 [iU]/L (Normal) Range: 0-40 Alkaline Phosphatase 50 [iU]/L (Normal) Range: 39-117 Bilirubin, Total 0.5 mg/dL (Normal) Range: 0.0-1.2 A/G Ratio 2.0 (Normal) Range: 1.2-2.2 Globulin, Total 2.2 g/dL (Normal) Range: 1.5-4.5 Albumin 4.4 g/dL (Normal) Range: 3.5-5.5 Protein, Total 6.6 g/dL (Normal) Range: 6.0-8.5 Calcium 9.4 mg/dL (Normal) Range: 8.7-10.2 Carbon Dioxide, Total 22 mmol/L (Normal) Range: 20-29 Chloride 105 mmol/L (Normal) Range: 96-106 Potassium 4.1 mmol/L (Normal) Range: 3.5-5.2 Sodium 142 mmol/L (Normal) Range: 134-144 BUN/Creatinine Ratio 19 (Normal) Range: 9-20 eGFR If Africn Am 98 mL/min/1.73 (Normal) eGFR If NonAfricn Am 85 mL/min/1.73 (Normal) Creatinine 0.98 mg/dL (Normal) Range: 0.76-1.27 BUN 19 mg/dL (Normal) Range: 6-24 Glucose 106 mg/dL (Abnormal) Range: 65-99 45-Agv-70358:22 HgA1C , Office ([id number]) HgA1C , Office 5.5 % (Normal) Range: 4.6 - 7.1 0-Zzc-[id number]:45 Microscopic Examination Comments: PATIENT WAS FASTINGPERFORMED BY: [facility] [id number] Bacteria None seen (Normal) Epithelial Cells (non renal) None seen {/hpf} (Normal) Range: 0 - 10 RBC 0-2 {/hpf} (Normal) Range: 0 - 2 WBC 0-5 {/hpf} (Normal) Range: 0 - 5 5-Uaf-072422:45 PSA (PROSTATE SPECIFIC Comments: PATIENT WAS FASTINGPERFORMED BY: [facility] [id number] ANTIGEN) (V76.44) Prostate Specific Ag, 1.3 ng/mL (Normal) Range: 0.0-4.0 Serum Comments: [employer] methodology. .According to the [employer] [employer], Serum PSA shoulddecrease and remain at undetectable levels after radicalprostatectomy. The AUA defines biochemical recurrence as an initialPSA value 0.2 ng/mL or greater followed by a subsequent confirmatoryPSA value 0.2 ng/mL or greater.Values obtained with d ifferent assay methods or kits cannot be usedinterchangeably. Results cannot be interpreted as absolute evidenceof the presence or absence of malignant disease. [id number]-Nil-[id number]:45 URINALYSIS, W/ MICRO ([id number]) Comments: PATIENT WAS FASTINGPERFORMED BY: [facility]MedixHealth[facility] of UnionIbhgzy8168 [facility] [id number] Microscopic Examination See below: (Normal) Comments: Microscopic was indicated and was performed. Microscopic Examination MICRON (Normal) Comments: Microscopic follows if indicated. Nitrite, Urine Negative (Normal) Urobilinogen,Semi-Qn 0.2 mg/dL (Normal) Range: 0.2-1.0 Bilirubin Negative (Normal) Occult Blood Negative (Normal) Ketones Negative (Normal) Glucose Negative (Normal) Protein Negative (Normal) WBC Esterase Negative (Normal) Appearance Clear (Normal) Urine-Color Yellow (Normal) pH 6.0 (Normal) Range: 5.0-7.5 Specific Star 1.011 (Normal) Range: 1.005-1.030 6-Flp-860991:45 CBC W/AUTO DIFF WBC (43389) Comments: PATIENT WAS FASTINGPERFORMED BY: [facility]ix[facility] UnionJhaote2760 [facility] [id number] Immature Grans (Abs) 0.0 {x10E3/uL} (Normal) Range: 0.0-0.1 Immature Granulocytes 0 % (Normal) Baso (Absolute) 0.0 {x10E3/uL} (Normal) Range: 0.0-0.2 Eos (Absolute) 0.1 {x10E3/uL} (Normal) Range: 0.0-0.4 Monocytes(Absolute) 0.3 {x10E3/uL} (Normal) Range: 0.1-0.9 Lymphs (Absolute) 3.0 {x10E3/uL} (Normal) Range: 0.7-3.1 Neutrophils (Absolute) 4.3 {x10E3/uL} (Normal) Range: 1.4-7.0 Basos 1 % (Normal) Eos 1 % (Normal) Monocytes 4 % (Normal) Lymphs 39 % (Normal) Neutrophils 55 % (Normal) Platelets 268 {x10E3/uL} (Normal) Range: 150-379 RDW 14.0 % (Normal) Range: 12.3-15.4 MCHC 33.8 g/dL (Normal) Range: 31.5-35.7 MCH 30.9 pg (Normal) Range: 26.6-33.0 MCV 91 fL (Normal) Range: 79-97 Hematocrit 45.5 % (Normal) Range: 37.5-51.0 Hemoglobin 15.4 g/dL (Normal) Range: 13.0-17.7 RBC 4.98 {x10E6/uL} (Normal) Range: 4.14-5.80 WBC 7.8 {x10E3/uL} (Normal) Range: 3.4-10.8 6-Lkl-879310:45 METABOLIC PANEL, COMPREHENSIVE Comments: PATIENT WAS FASTINGPERFORMED BY: [facility] Qpjqog4533 [facility] [id number]; can review on 12/16 appt (91955) ALT (SGPT) 29 [iU]/L (Normal) Range: 0-44 AST (SGOT) 20 [iU]/L (Normal) Range: 0-40 Alkaline Phosphatase, S 53 [iU]/L (Normal) Range: 39-117 Bilirubin, Total 0.7 mg/dL (Normal) Range: 0.0-1.2 A/G Ratio 2.0 (Normal) Range: 1.2-2.2 Globulin, Total 2.4 g/dL (Normal) Range: 1.5-4.5 Albumin, Serum 4.9 g/dL (Normal) Range: 3.5-5.5 Protein, Total, Serum 7.3 g/dL (Normal) Range: 6.0-8.5 Calcium, Serum 9.8 mg/dL (Normal) Range: 8.7-10.2 Carbon Dioxide, Total 26 mmol/L (Normal) Range: 18-29 Chloride, Serum 101 mmol/L (Normal) Range: 96-106 Potassium, Serum 4.2 mmol/L (Normal) Range: 3.5-5.2 Sodium, Serum 143 mmol/L (Normal) Range: 134-144 BUN/Creatinine Ratio 14 (Normal) Range: 9-20 eGFR If Africn Am 83 mL/min/1.73 (Normal) eGFR If NonAfricn Am 72 mL/min/1.73 (Normal) Creatinine, Serum 1.12 mg/dL (Normal) Range: 0.76-1.27 BUN 16 mg/dL (Normal) Range: 6-24 Glucose, Serum 101 mg/dL (Abnormal) Range: 65-99 2-Wtz-164330:45 LIPID PANEL (64050) Comments: PATIENT WAS FASTINGPERFORMED BY: [place] [id number] [facility] [id number] LDL/HDL Ratio 1.6 {ratio_units} (Normal) Range: 0.0-3.6 Comments: LDL/HDL Ratio Men Women 1/2 Avg.Risk 1.0 1.5 Av g.Risk 3.6 3.2 2X Avg.Risk 6.2 5.0 3X Avg.Risk 8.0 6.1 LDL Cholesterol Calc 92 mg/dL (Normal) Range: 0-99 VLDL Cholesterol Compa 31 mg/dL (Normal) Range: 5-40 HDL Cholesterol 56 mg/dL (Normal) Triglycerides 157 mg/dL (Abnormal) Range: 0-149 Cholesterol, Total 179 mg/dL (Normal) Range: 100-199 0-Mtn-471805:45 HEPATITIS C ANTIBODY (83521) Comments: PATIENT WAS FASTINGPERFORMED BY: [facility]6370 [facility] [id number] Hep C Virus Ab <0.1 {s/co_ratio} (Normal) Range: 0.0-0.9 Comments: Negative: < 0.8 Indeterminate: 0.8 - 0.9 Positive: > 0.9 . The CDC recommends that a positive HCV antibody result be followed up with a HCV Nucleic Acid Amplification test (386958). 27-Qes-65450:42 METABOLIC PANEL, COMPREHENSIVE Comments: PERFORMED BY: [place] 4481770 [facility] [id number] (34591) ALT (SGPT) 21 [iU]/L (Normal) Range: 0-44 AST (SGOT) 14 [iU]/L (Normal) Range: 0-40 Alkaline Phosphatase, S 50 [iU]/L (Normal) Range: 39-117 Bilirubin, Total 0.5 mg/dL (Normal) Range: 0.0-1.2 A/G Ratio 2.0 (Normal) Range: 1.2-2.2 Globulin, Total 2.2 g/dL (Normal) Range: 1.5-4.5 Albumin, Serum 4.3 g/dL (Normal) Range: 3.5-5.5 Protein, Total, Serum 6.5 g/dL (Normal) Range: 6.0-8.5 Calcium, Serum 9.4 mg/dL (Normal) Range: 8.7-10.2 Carbon Dioxide, Total 23 mmol/L (Normal) Range: 18-29 Chloride, Serum 104 mmol/L (Normal) Range: 96-106 Potassium, Serum 4.4 mmol/L (Normal) Range: 3.5-5.2 Sodium, Serum 144 mmol/L (Normal) Range: 134-144 BUN/Creatinine Ratio 14 (Normal) Range: 9-20 eGFR If Africn Am 95 mL/min/1.73 (Normal) eGFR If NonAfricn Am 82 mL/min/1.73 (Normal) Creatinine, Serum 1.01 mg/dL (Normal) Range: 0.76-1.27 BUN 14 mg/dL (Normal) Range: 6-24 Glucose, Serum 103 mg/dL (Abnormal) Range: 65-99 01-Sox-738733:42 PSA (PROSTATE SPECIFIC Comments: PATIENT WAS FASTINGPERFORMED BY: [employer] [facility] [id number] BY: [employer] [place] [id number] ANTIGEN) (V76.44) Prostate Specific Ag, 1.2 ng/mL (Normal) Range: 0.0-4.0 Serum Comments: [employer] ECLIA methodology. .According to the [place] [employer], Serum PSA shoulddecrease and remain at undetectable levels after radicalprostatectomy. The AUA defines biochemical recurrence as an initialPSA value 0.2 ng/mL or greater followed by a subsequent confirmatoryPSA value 0.2 ng/mL or greater.Values obtained with d ifferent assay methods or kits cannot be usedinterchangeably. Results cannot be interpreted as absolute evidenceof the presence or absence of malignant disease. :42 CBC with auto diff Comments: PATIENT WAS FASTINGPERFORMED BY: VidAngelton1447 [facility] [id number] BY: [employer] [place] [id number] ([id number]) Immature Grans (Abs) 0.0 {x10E3/uL} (Normal) Range: 0.0-0.1 Immature Granulocytes 0 % (Normal) Baso (Absolute) 0.0 {x10E3/uL} (Normal) Range: 0.0-0.2 Eos (Absolute) 0.1 {x10E3/uL} (Normal) Range: 0.0-0.4 Monocytes(Absolute) 0.5 {x10E3/uL} (Normal) Range: 0.1-0.9 Lymphs (Absolute) 2.9 {x10E3/uL} (Normal) Range: 0.7-3.1 Neutrophils (Absolute) 4.1 {x10E3/uL} (Normal) Range: 1.4-7.0 Basos 1 % (Normal) Eos 1 % (Normal) Monocytes 6 % (Normal) Lymphs 38 % (Normal) Neutrophils 54 % (Normal) Platelets 243 {x10E3/uL} (Normal) Range: 150-379 RDW 14.1 % (Normal) Range: 12.3-15.4 MCHC 34.1 g/dL (Normal) Range: 31.5-35.7 MCH 31.2 pg (Normal) Range: 26.6-33.0 MCV 92 fL (Normal) Range: 79-97 Hematocrit 44.0 % (Normal) Range: 37.5-51.0 Hemoglobin 15.0 g/dL (Normal) Range: 12.6-17.7 RBC 4.81 {x10E6/uL} (Normal) Range: 4.14-5.80 WBC 7.5 {x10E3/uL} (Normal) Range: 3.4-10.8 09-Urw-588675:42 HGB A1C (62220) Comments: PATIENT WAS FASTINGPERFORMED BY: ADILSON [facility] [address] [id number] BY: CB [facility] Xukanu6454 [facility] [id number] Hemoglobin A1c 5.8 % (Abnormal) Range: 4.8-5.6 Comments: . Pre-diabetes: 5.7 - 6.4 Diabetes: >6.4 Glycemic control for adults with diabetes: <7.0 06-Zqt-906853:42 MICROALBUMIN: CREATININE Comments: PATIENT WAS FASTINGPERFORMED BY: VidAngelton1447 [facility] [id number] BY: DesignMedixHealthSouth - [facility] Hospital of UnionVseezv6598 [facility] [id number] RATIO (07014) AND (47932) Microalb/Creat Ratio <1.9 {mg/g_creat} (Normal) Range: 0.0-30.0 Microalbumin, Urine <3.0 ug/mL (Normal) Creatinine, Urine 160.7 mg/dL (Normal) 51-Moq-956555:42 LIPOPROTEIN, BLD, BY NMR Comments: PATIENT WAS FASTINGPERFORMED BY: [employer]7 [facility] [id number] BY: [employer] [facility]6370 [facility] [id number]; non-emergent till apt (02268) LP-IR Score 50 (Abnormal) Comments: INSULIN RESISTANCE MARKER <--Insulin Sensitive Insulin Resistant--> Percentile in Reference PopulationInsulin Resistance ScoreLP-IR Score Low 25th 50th 75th High <27 27 45 63 >63LP-IR Score is inaccurate if patient is non-fasting. .The LP-IR score is a laboratory developed i [facility] that has beenassociated with insulin resistance and diabetes risk and should beused as one component of a physician's clinical assessment. TheLP-IR score listed above has not been cleared by the [place] Food andDrug Administration. LDL Size 20.8 nm (Normal) Comments: INTERPRETATIVE INFORMATION PARTICLE CONCENTRATION AND SIZE <--Lower CVD Risk Highe r CVD Risk--> LDL AND HDL PARTICLES Percentile in Reference Population HDL-P (total) High 75th 50th 25th Low >34.9 34.9 30.5 26.7 <26.7 . Small LDL-P Low 25th 50th 75th High <117 117 527 839 >839 . LDL Size <-Large (Pattern A)-> <-Small (Pattern B)-> 23.0 20.6 20.5 19.0 Small LDL-P and LDL Size are associated with CVD risk, but not afterLDL-P is taken into account. .These assays were developed and their performance characteristicsdetermined by [employer]. These assays have not been cleared by [place] Food and Drug Administration. The clinical utility of theselaboratory values have not been fully established. Small LDL-P 404 nmol/L (Normal) HDL-P (Total) 39.8 umol/L (Normal) Cholesterol, Total 162 mg/dL (Normal) Range: 100-199 Triglycerides 103 mg/dL (Normal) Range: 0-149 HDL-C 56 mg/dL (Normal) LDL-C 85 mg/dL (Normal) Range: 0-99 Comments: . Optimal < 100 Above optimal 100 - 129 Borderline 1 30 - 159 High 160 - 189 Very high > 189 .LDL-C is inaccurate if patient is non-fasting. LDL-P 1002 nmol/L (Abnormal) Comments: Low < 1000 Moderate 1000 - 1299 Borderline-High 1300 - 1599 High 1600 - 2000 Very High > 2000 77-Lki-443532:42 METABOLIC PANEL, Comments: PATIENT WAS FASTINGPERFORMED BY: [facility] Cazxxcjtxy4980 [facility] [id number] BY: [facility] Xpjifp8877 [facility] [id number] COMPREHENSIVE (10112) ALT (SGPT) 18 [iU]/L (Normal) Range: 0-44 AST (SGOT) 14 [iU]/L (Normal) Range: 0-40 Alkaline Phosphatase, S 49 [iU]/L (Normal) Range: 39-117 Bilirubin, Total 0.6 mg/dL (Normal) Range: 0.0-1.2 A/G Ratio 2.0 (Normal) Range: 1.1-2.5 Globulin, Total 2.4 g/dL (Normal) Range: 1.5-4.5 Albumin, Serum 4.8 g/dL (Normal) Range: 3.5-5.5 Protein, Total, Serum 7.2 g/dL (Normal) Range: 6.0-8.5 Calcium, Serum 9.6 mg/dL (Normal) Range: 8.7-10.2 Carbon Dioxide, Total 23 mmol/L (Normal) Range: 18-29 Chloride, Serum 101 mmol/L (Normal) Range: 97-106 Comments: Effective November 12, 2016 the reference interval for Chloride, Serum will be changing to: 96 - 106 Potassium, Serum 4.1 mmol/L (Normal) Range: 3.5-5.2 Sodium, Serum 142 mmol/L (Normal) Range: 136-144 Comments: Effective November 12, 2016 the reference interval for Sodium, Serum will be changing to: 134 - 144 BUN/Creatinine Ratio 15 (Normal) Range: 9-20 eGFR If Africn Am 97 mL/min/1.73 (Normal) eGFR If NonAfricn Am 84 mL/min/1.73 (Normal) Creatinine, Serum 0.99 mg/dL (Normal) Range: 0.76-1.27 BUN 15 mg/dL (Normal) Range: 6-24 Glucose, Serum 93 mg/dL (Normal) Range: 65-99 :07 HgA1C , Office (48149) HgA1C , Office 5.7 % (Normal) Range: 4.6 - 7.1 :06 PSA (PROSTATE SPECIFIC Comments: PATIENT WAS FASTINGPERFORMED BY: [facility] Eyfuxa1754 [facility] [id number] ANTIGEN) (V76.44) Prostate Specific Ag, 1.4 ng/mL (Normal) Range: 0.0-4.0 Serum Comments: [employer] ECLIA methodology. .According to the [place] [employer], Serum PSA shoulddecrease and remain at undetectable levels after radicalprostatectomy. The AUA defines biochemical recurrence as an initialPSA value 0.2 ng/mL or greater followed by a subsequent confirmatoryPSA value 0.2 ng/mL or greater.Values obtained with d ifferent assay methods or kits cannot be usedinterchangeably. Results cannot be interpreted as absolute evidenceof the presence or absence of malignant disease. :06 METABOLIC PANEL, Comments: PATIENT WAS FASTINGPERFORMED BY: [facility]6370 [facility] [id number] Information: [id number] COMPREHENSIVE (46323) ALT (SGPT) 20 [iU]/L (Normal) Range: 0-44 AST (SGOT) 15 [iU]/L (Normal) Range: 0-40 Alkaline Phosphatase, S 47 [iU]/L (Normal) Range: 39-117 Bilirubin, Total 0.6 mg/dL (Normal) Range: 0.0-1.2 A/G Ratio 1.9 (Normal) Range: 1.1-2.5 Globulin, Total 2.3 g/dL (Normal) Range: 1.5-4.5 Albumin, Serum 4.4 g/dL (Normal) Range: 3.5-5.5 Protein, Total, Serum 6.7 g/dL (Normal) Range: 6.0-8.5 Calcium, Serum 9.3 mg/dL (Normal) Range: 8.7-10.2 Carbon Dioxide, Total 23 mmol/L (Normal) Range: 18-29 Chloride, Serum 104 mmol/L (Normal) Range: 97-108 Potassium, Serum 4.3 mmol/L (Normal) Range: 3.5-5.2 Sodium, Serum 142 mmol/L (Normal) Range: 134-144 BUN/Creatinine Ratio 16 (Normal) Range: 9-20 eGFR If Africn Am 96 mL/min/1.73 (Normal) eGFR If NonAfricn Am 83 mL/min/1.73 (Normal) Creatinine, Serum 1.01 mg/dL (Normal) Range: 0.76-1.27 BUN 16 mg/dL (Normal) Range: 6-24 Glucose, Serum 100 mg/dL (Abnormal) Range: 65-99 :06 LIPID PANEL (91783) Comments: PATIENT WAS FASTINGPERFORMED BY: [facility]MedixHoly Cross HospitalXssueg1585 [facility] [id number] LDL/HDL Ratio 1.2 {ratio_units} (Normal) Range: 0.0-3.6 Comments: LDL/HDL Ratio Men Women 1/2 Avg.Risk 1.0 1.5 Av g.Risk 3.6 3.2 2X Avg.Risk 6.2 5.0 3X Avg.Risk 8.0 6.1 LDL Cholesterol Calc 74 mg/dL (Normal) Range: 0-99 VLDL Cholesterol Compa 15 mg/dL (Normal) Range: 5-40 HDL Cholesterol 61 mg/dL (Normal) Comments: According to ATP-III Guidelines, HDL-C >59 mg/dL is considered anegative risk factor for CHD. Triglycerides 73 mg/dL (Normal) Range: 0-149 Cholesterol, Total 150 mg/dL (Normal) Range: 100-199 :09 HgA1C , Office (90170) HgA1C , Office 5.7 % (Normal) Range: 4.6 - 7.1 :25 CBC With Differential/Platelet Comments: PATIENT WAS FASTINGPERFORMED BY: [facility]CoHealth[facility] of UnionEhgkfm4856 [facility] [id number] Information: [id number] Immature Grans (Abs) 0.0 {x10E3/uL} (Normal) Range: 0.0-0.1 Immature Granulocytes 0 % (Normal) Baso (Absolute) 0.0 {x10E3/uL} (Normal) Range: 0.0-0.2 Eos (Absolute) 0.1 {x10E3/uL} (Normal) Range: 0.0-0.4 Monocytes(Absolute) 0.3 {x10E3/uL} (Normal) Range: 0.1-0.9 Lymphs (Absolute) 2.4 {x10E3/uL} (Normal) Range: 0.7-3.1 Neutrophils (Absolute) 4.2 {x10E3/uL} (Normal) Range: 1.4-7.0 Basos 1 % (Normal) Eos 1 % (Normal) Monocytes 4 % (Normal) Lymphs 34 % (Normal) Neutrophils 60 % (Normal) Platelets 278 {x10E3/uL} (Normal) Range: 150-379 RDW 14.0 % (Normal) Range: 12.3-15.4 MCHC 33.1 g/dL (Normal) Range: 31.5-35.7 MCH 30.4 pg (Normal) Range: 26.6-33.0 MCV 92 fL (Normal) Range: 79-97 Hematocrit 43.5 % (Normal) Range: 37.5-51.0 Hemoglobin 14.4 g/dL (Normal) Range: 12.6-17.7 RBC 4.74 {x10E6/uL} (Normal) Range: 4.14-5.80 WBC 6.9 {x10E3/uL} (Normal) Range: 3.4-10.8 :25 Comp. Metabolic Panel (14) Comments: PATIENT WAS FASTINGPERFORMED BY: [place] [employer] [facility] [id number] ALT (SGPT) 14 [iU]/L (Normal) Range: 0-44 AST (SGOT) 14 [iU]/L (Normal) Range: 0-40 Alkaline Phosphatase, S 54 [iU]/L (Normal) Range: 39-117 Bilirubin, Total 0.7 mg/dL (Normal) Range: 0.0-1.2 A/G Ratio 2.0 (Normal) Range: 1.1-2.5 Globulin, Total 2.2 g/dL (Normal) Range: 1.5-4.5 Albumin, Serum 4.5 g/dL (Normal) Range: 3.5-5.5 Protein, Total, Serum 6.7 g/dL (Normal) Range: 6.0-8.5 Calcium, Serum 9.6 mg/dL (Normal) Range: 8.7-10.2 Carbon Dioxide, Total 24 mmol/L (Normal) Range: 18-29 Chloride, Serum 102 mmol/L (Normal) Range: 97-108 Potassium, Serum 4.5 mmol/L (Normal) Range: 3.5-5.2 Sodium, Serum 141 mmol/L (Normal) Range: 134-144 BUN/Creatinine Ratio 13 (Normal) Range: 9-20 eGFR If Africn Am 98 mL/min/1.73 (Normal) eGFR If NonAfricn Am 84 mL/min/1.73 (Normal) Creatinine, Serum 1.00 mg/dL (Normal) Range: 0.76-1.27 BUN 13 mg/dL (Normal) Range: 6-24 Glucose, Serum 91 mg/dL (Normal) Range: 65-99 :25 Lipid Panel With LDL/HDL Comments: PATIENT WAS FASTINGPERFORMED BY: [employer] [facility] [id number] Ratio LDL/HDL Ratio 1.2 {ratio_units} (Normal) Range: 0.0-3.6 Comments: LDL/HDL Ratio Men Women 1/2 Avg.Risk 1.0 1.5 Av g.Risk 3.6 3.2 2X Avg.Risk 6.2 5.0 3X Avg.Risk 8.0 6.1 LDL Cholesterol Calc 70 mg/dL (Normal) Range: 0-99 VLDL Cholesterol Compa 15 mg/dL (Normal) Range: 5-40 HDL Cholesterol 58 mg/dL (Normal) Comments: According to ATP-III Guidelines, HDL-C >59 mg/dL is considered anegative risk factor for CHD. Triglycerides 77 mg/dL (Normal) Range: 0-149 Cholesterol, Total 143 mg/dL (Normal) Range: 100-199 44-Ruw-71685:25 Microalb/Creat Ratio, Rand Ur Comments: PATIENT WAS FASTINGPERFORMED BY: [facility] [facility]6370 [facility] [id number] Microalb/Creat Ratio 3.4 {mg/g_creat} (Normal) Range: 0.0-30.0 Microalbumin, Urine 5.1 ug/mL (Normal) Range: 0.0-17.0 Creatinine, Urine 149.6 mg/dL (Normal) Range: 22.0-328.0 16-Ipz-302317:00 HgA1C , Office (90567) HgA1C , Office 5.8 % (Normal) Range: 4.6 - 7.1 86-Ocx-744844:00 Blood Glucose , Office (51008) Blood Glucose , Office 119 (Normal) 27-Wup-109593:25 PSA (PROSTATE SPECIFIC Comments: PATIENT WAS FASTINGPERFORMED BY: [facility]6370 [facility] [id number] ANTIGEN) (V76.44) Prostate Specific Ag, 1.0 ng/mL (Normal) Range: 0.0-4.0 Serum Comments: Lauren ECLIA methodology. .According to the [place] [employer], Serum PSA shoulddecrease and remain at undetectable levels after radicalprostatectomy. The AUA defines biochemical recurrence as an initialPSA value 0.2 ng/mL or greater followed by a subsequent confirmatoryPSA value 0.2 ng/mL or greater.Values obtained with d ifferent assay methods or kits cannot be usedinterchangeably. Results cannot be interpreted as absolute evidenceof the presence or absence of malignant disease. :25 CBC WITH MANUAL DIFF Comments: PATIENT WAS FASTINGPERFORMED BY: [facility] Npwjmb4330 [facility] [id number] Information: [id number] (84925) Immature Grans (Abs) 0.0 {x10E3/uL} (Normal) Range: 0.0-0.1 Immature Granulocytes 0 % (Normal) Baso (Absolute) 0.0 {x10E3/uL} (Normal) Range: 0.0-0.2 Eos (Absolute) 0.1 {x10E3/uL} (Normal) Range: 0.0-0.4 Monocytes(Absolute) 0.3 {x10E3/uL} (Normal) Range: 0.1-0.9 Lymphs (Absolute) 2.7 {x10E3/uL} (Normal) Range: 0.7-3.1 Neutrophils (Absolute) 4.7 {x10E3/uL} (Normal) Range: 1.4-7.0 Basos 1 % (Normal) Eos 1 % (Normal) Monocytes 4 % (Normal) Lymphs 35 % (Normal) Neutrophils 59 % (Normal) Platelets 274 {x10E3/uL} (Normal) Range: 150-379 RDW 14.0 % (Normal) Range: 12.3-15.4 MCHC 33.1 g/dL (Normal) Range: 31.5-35.7 MCH 29.9 pg (Normal) Range: 26.6-33.0 MCV 90 fL (Normal) Range: 79-97 Hematocrit 45.6 % (Normal) Range: 37.5-51.0 Hemoglobin 15.1 g/dL (Normal) Range: 12.6-17.7 RBC 5.05 {x10E6/uL} (Normal) Range: 4.14-5.80 WBC 7.8 {x10E3/uL} (Normal) Range: 3.4-10.8 :25 METABOLIC PANEL, COMPREHENSIVE Comments: PATIENT WAS FASTINGPERFORMED BY: [facility]CoHealth[facility] of UnionQvsrqz7574 [facility] [id number] (58263) ALT (SGPT) 21 [iU]/L (Normal) Range: 0-44 AST (SGOT) 18 [iU]/L (Normal) Range: 0-40 Alkaline Phosphatase, S 56 [iU]/L (Normal) Range: 39-117 Bilirubin, Total 0.6 mg/dL (Normal) Range: 0.0-1.2 A/G Ratio 2.2 (Normal) Range: 1.1-2.5 Globulin, Total 2.2 g/dL (Normal) Range: 1.5-4.5 Albumin, Serum 4.9 g/dL (Normal) Range: 3.5-5.5 Protein, Total, Serum 7.1 g/dL (Normal) Range: 6.0-8.5 Calcium, Serum 9.6 mg/dL (Normal) Range: 8.7-10.2 Carbon Dioxide, Total 22 mmol/L (Normal) Range: 18-29 Chloride, Serum 100 mmol/L (Normal) Range: 97-108 Potassium, Serum 4.3 mmol/L (Normal) Range: 3.5-5.2 Sodium, Serum 140 mmol/L (Normal) Range: 134-144 BUN/Creatinine Ratio 13 (Normal) Range: 9-20 eGFR If Africn Am 95 mL/min/1.73 (Normal) eGFR If NonAfricn Am 82 mL/min/1.73 (Normal) Creatinine, Serum 1.02 mg/dL (Normal) Range: 0.76-1.27 BUN 13 mg/dL (Normal) Range: 6-24 Glucose, Serum 98 mg/dL (Normal) Range: 65-99 22-Trf-411153:25 LIPID PANEL (99830) Comments: PATIENT WAS FASTINGPERFORMED BY: [facility]Co[facility] of UnionAltpcu7122 [facility] [id number] LDL/HDL Ratio 1.4 {ratio_units} (Normal) Range: 0.0-3.6 Comments: LDL/HDL Ratio Men Women 1/2 Avg.Risk 1.0 1.5 Av g.Risk 3.6 3.2 2X Avg.Risk 6.2 5.0 3X Avg.Risk 8.0 6.1 LDL Cholesterol Calc 86 mg/dL (Normal) Range: 0-99 VLDL Cholesterol Compa 20 mg/dL (Normal) Range: 5-40 HDL Cholesterol 62 mg/dL (Normal) Comments: According to ATP-III Guidelines, HDL-C >59 mg/dL is considered anegative risk factor for CHD. Triglycerides 99 mg/dL (Normal) Range: 0-149 Cholesterol, Total 168 mg/dL (Normal) Range: 100-199 59-Ade-715671:50 HgA1C , Office (81651) HgA1C , Office 5.4 % (Normal) Range: 4.6 - 7.1 :53 LIPID PANEL (74060) Comments: PATIENT WAS FASTINGPERFORMED BY: [employer] [facility] [id number]; all normal labs and pt has appt on 04-23-14 LDL/HDL Ratio 1.2 {ratio_units} (Normal) Range: 0.0-3.6 LDL Cholesterol Calc 72 mg/dL (Normal) Range: 0-99 HDL Cholesterol 61 mg/dL (Normal) Comments: According to ATP-III Guidelines, HDL-C >59 mg/dL is considered anegative risk factor for CHD. VLDL Cholesterol Compa 18 mg/dL (Normal) Range: 5-40 Triglycerides 92 mg/dL (Normal) Range: 0-149 Cholesterol, Total 151 mg/dL (Normal) Range: 100-199 :53 METABOLIC PANEL, Comments: PATIENT WAS FASTINGPERFORMED BY: [employer] [facility] Zlahrd9301 [facility] [id number] Information: [id number] COMPREHENSIVE (31589) ALT (SGPT) 18 [iU]/L (Normal) Range: 0-44 AST (SGOT) 15 [iU]/L (Normal) Range: 0-40 Alkaline Phosphatase, S 46 [iU]/L (Normal) Range: 39-117 Bilirubin, Total 0.6 mg/dL (Normal) Range: 0.0-1.2 A/G Ratio 2.4 (Normal) Range: 1.1-2.5 Globulin, Total 1.9 g/dL (Normal) Range: 1.5-4.5 Albumin, Serum 4.6 g/dL (Normal) Range: 3.5-5.5 Protein, Total, Serum 6.5 g/dL (Normal) Range: 6.0-8.5 Calcium, Serum 9.4 mg/dL (Normal) Range: 8.7-10.2 Carbon Dioxide, Total 22 mmol/L (Normal) Range: 19-28 Chloride, Serum 103 mmol/L (Normal) Range: 97-108 Potassium, Serum 4.0 mmol/L (Normal) Range: 3.5-5.2 Sodium, Serum 141 mmol/L (Normal) Range: 134-144 BUN/Creatinine Ratio 14 (Normal) Range: 9-20 eGFR If Africn Am 106 mL/min/1.73 (Normal) eGFR If NonAfricn Am 92 mL/min/1.73 (Normal) Creatinine, Serum 0.94 mg/dL (Normal) Range: 0.76-1.27 BUN 13 mg/dL (Normal) Range: 6-24 Glucose, Serum 95 mg/dL (Normal) Range: 65-99 14-Nio-608905:53 MICROALBUMIN: CREATININE RATIO Comments: PATIENT WAS FASTINGPERFORMED BY: [facility]atsiHoly Cross HospitalZvhhno5960 [facility] [id number] (13465) AND (42767) Creatinine, Urine 27.5 mg/dL (Normal) Range: 22.0-328.0 Microalb/Creat Ratio 10.2 {mg/g_creat} (Normal) Range: 0.0-30.0 Microalbumin, Urine 2.8 ug/mL (Normal) Range: 0.0-17.0 :03 HgA1C , Office (29231) HgA1C , Office 5.6 % (Normal) Range: 4.6 - 7.1 :04 Influenza A&B Viral Comments: PATIENT NOT FASTINGPERFORMED BY: [facility] [id number] Information: SRC:NOS ADD [id number] Culture (83861) Viral Culture,Rapid,Influenza FLUABN (Normal) Comments: Negative:No Influenza A or B detected. :00 Rapid Flu (35581 x 2) Influenza A Ag neg (Normal) :40 JOSLYN CULTURE-OTHER (19051) Comments: PATIENT NOT FASTINGPERFORMED BY: [place] [id number] [facility] [id number] Information: SRC:THRT ADD [id number] Result 1 RRF (Normal) Comments: Routine respiratory ghazala Upper Respiratory Culture Final report (Normal) :37 Rapid Strep Test, Office (60720) Rapid Strep Test, Office Negative (Normal) 06-Sdz-31698:57 HEPATIC FUNCTION PANEL Comments: PATIENT NOT FASTINGPERFORMED BY: [place] [id number] [facility] [id number] Information: [id number] (17224) ALT (SGPT) 19 [iU]/L (Normal) Range: 0-44 AST (SGOT) 15 [iU]/L (Normal) Range: 0-40 Alkaline Phosphatase, S 48 [iU]/L (Normal) Range: 44-102 Bilirubin, Direct 0.13 mg/dL (Normal) Range: 0.00-0.40 Bilirubin, Total 0.4 mg/dL (Normal) Range: 0.0-1.2 Albumin, Serum 4.5 g/dL (Normal) Range: 3.5-5.5 Protein, Total, Serum 6.6 g/dL (Normal) Range: 6.0-8.5 7-Izh-322687:03 HEPATIC FUNCTION PANEL Comments: PATIENT NOT FASTINGPERFORMED BY: [facility]6[address] [facility] [id number] Information: [id number] (59689) ALT (SGPT) 15 [iU]/L (Normal) Range: 0-44 AST (SGOT) 13 [iU]/L (Normal) Range: 0-40 Alkaline Phosphatase, S 48 [iU]/L (Normal) Range: 25-150 Comments: Effective June 15, 2013 the reference interval for Alkaline Phosphatase, S will be changing to: Age Male Female 0 - 1 day 45 - 111 45 - 111 2 - 5 days 46 - 119 46 - 119 6 - 10 days 48 - 229 48 - 229 11 - 30 d ays 59 - 414 59 - 414 1 - 6 months 91 - 445 91 - 445 7 - 12 months 124 - 341 124 - 341 1 - 3 years 130 - 317 130 - 317 4 - 6 years 133 - 309 133 - 309 7 - 12 years 134 - 349 134 - 349 13 years 143 - 396 68 - 209 14 years 107 - 340 62 - 149 15 years 84 - 254 54 - 121 16 years 71 - 186 49 - 108 17 years 61 - 146 45 - 101 18 years 56 - 127 43 - 101 1 9 - 60 years 44 - 102 42 - 107 61 - 70 years 44 - 103 47 - 112 >70 years 44 - 105 45 - 108 Bilirubin, Direct 0.13 mg/dL (Normal) Range: 0.00-0.40 Bilirubin, Total 0.4 mg/dL (Normal) Range: 0.0-1.2 Albumin, Serum 4.4 g/dL (Normal) Range: 3.5-5.5 Protein, Total, Serum 6.6 g/dL (Normal) Range: 6.0-8.5 26-Doo-78749:42 CBC WITH MANUAL DIFF Comments: PATIENT WAS FASTINGPERFORMED BY: [facility]6370 [facility] [id number] Information: [id number] (88457) Immature Grans (Abs) 0.0 {x10E3/uL} (Normal) Range: 0.0-0.1 Immature Granulocytes 0 % (Normal) Range: 0-2 Baso (Absolute) 0.0 {x10E3/uL} (Normal) Range: 0.0-0.2 Eos (Absolute) 0.1 {x10E3/uL} (Normal) Range: 0.0-0.4 Monocytes(Absolute) 0.3 {x10E3/uL} (Normal) Range: 0.1-0.9 Lymphs (Absolute) 2.4 {x10E3/uL} (Normal) Range: 0.7-3.1 Neutrophils (Absolute) 4.4 {x10E3/uL} (Normal) Range: 1.4-7.0 Basos 0 % (Normal) Range: 0-3 Eos 1 % (Normal) Range: 0-5 Monocytes 5 % (Normal) Range: 4-12 Lymphs 33 % (Normal) Range: 14-46 Neutrophils 61 % (Normal) Range: 40-74 Platelets 261 {x10E3/uL} (Normal) Range: 155-379 RDW 14.1 % (Normal) Range: 12.3-15.4 MCHC 34.0 g/dL (Normal) Range: 31.5-35.7 MCH 31.1 pg (Normal) Range: 26.6-33.0 MCV 92 fL (Normal) Range: 79-97 Hematocrit 42.4 % (Normal) Range: 37.5-51.0 Hemoglobin 14.4 g/dL (Normal) Range: 12.6-17.7 RBC 4.63 {x10E6/uL} (Normal) Range: 4.14-5.80 WBC 7.2 {x10E3/uL} (Normal) Range: 3.4-10.8 46-Eva-88963:42 METABOLIC PANEL, COMPREHENSIVE Comments: PATIENT WAS FASTINGPERFORMED BY: [facility] UnionCnodtt9051 [facility] [id number] (64151) ALT (SGPT) 22 [iU]/L (Normal) Range: 0-44 AST (SGOT) 18 [iU]/L (Normal) Range: 0-40 Alkaline Phosphatase, S 50 [iU]/L (Normal) Range: 44-102 Bilirubin, Total 0.5 mg/dL (Normal) Range: 0.0-1.2 A/G Ratio 2.0 (Normal) Range: 1.1-2.5 Globulin, Total 2.3 g/dL (Normal) Range: 1.5-4.5 Albumin, Serum 4.6 g/dL (Normal) Range: 3.5-5.5 Protein, Total, Serum 6.9 g/dL (Normal) Range: 6.0-8.5 Calcium, Serum 9.7 mg/dL (Normal) Range: 8.7-10.2 Carbon Dioxide, Total 22 mmol/L (Normal) Range: 19-28 Chloride, Serum 105 mmol/L (Normal) Range: 97-108 Potassium, Serum 4.2 mmol/L (Normal) Range: 3.5-5.2 Sodium, Serum 142 mmol/L (Normal) Range: 134-144 BUN/Creatinine Ratio 14 (Normal) Range: 9-20 eGFR If Africn Am 98 mL/min/1.73 (Normal) eGFR If NonAfricn Am 85 mL/min/1.73 (Normal) Creatinine, Serum 1.00 mg/dL (Normal) Range: 0.76-1.27 BUN 14 mg/dL (Normal) Range: 6-24 Glucose, Serum 100 mg/dL (Abnormal) Range: 65-99 :42 LIPID PANEL (49531) Comments: PATIENT WAS FASTINGPERFORMED BY: Watsi Cftknd1683 [facility] [id number] LDL/HDL Ratio 1.4 {ratio_units} (Normal) Range: 0.0-3.6 LDL Cholesterol Calc 75 mg/dL (Normal) Range: 0-99 VLDL Cholesterol Compa 16 mg/dL (Normal) Range: 5-40 HDL Cholesterol 53 mg/dL (Normal) Comments: According to ATP-III Guidelines, HDL-C >59 mg/dL is considered anegative risk factor for CHD. Triglycerides 80 mg/dL (Normal) Range: 0-149 Cholesterol, Total 144 mg/dL (Normal) Range: 100-199 :56 HgA1C , Office (87289) HgA1C , Office 5.6 % (Normal) Range: 4.6 - 7.1 :44 LIPID PANEL (97317) Comments: PATIENT WAS FASTINGPERFORMED BY: [employer] [place] [address] [id number] BY: [employer] [id number] LDL/HDL Ratio 1.3 {ratio_units} (Normal) Range: 0.0-3.6 LDL Cholesterol Calc 71 mg/dL (Normal) Range: 0-99 VLDL Cholesterol Compa 18 mg/dL (Normal) Range: 5-40 HDL Cholesterol 54 mg/dL (Normal) Comments: According to ATP-III Guidelines, HDL-C >59 mg/dL is considered anegative risk factor for CHD. Cholesterol, Total 143 mg/dL (Normal) Range: 100-199 Triglycerides 92 mg/dL (Normal) Range: 0-149 :44 METABOLIC PANEL, Comments: PATIENT WAS FASTINGPERFORMED BY: 4moms Uycdbn7865 [facility] [id number] BY: [employer] [id number] Inf ormation: [id number] [facility] (18411) ALT (SGPT) 20 [iU]/L (Normal) Range: 0-44 AST (SGOT) 16 [iU]/L (Normal) Range: 0-40 Alkaline Phosphatase, S 50 [iU]/L (Normal) Range: 25-150 Bilirubin, Total 0.7 mg/dL (Normal) Range: 0.0-1.2 A/G Ratio 2.4 (Normal) Range: 1.1-2.5 Globulin, Total 2.0 g/dL (Normal) Range: 1.5-4.5 Albumin, Serum 4.8 g/dL (Normal) Range: 3.5-5.5 Protein, Total, Serum 6.8 g/dL (Normal) Range: 6.0-8.5 Calcium, Serum 9.4 mg/dL (Normal) Range: 8.7-10.2 Carbon Dioxide, Total 23 mmol/L (Normal) Range: 20-32 Comments: Effective May 18, 2013, the reference interval for Carbon Dioxide, Total will be changing to: 0 - 7 days 18 - 28 8 - 30 days 17 - 27 31 d - 5 months 15 - 26 6 m - up to 1 year 15 - 25 1 - 12 years 17 - 26 > 12 years 19 - 28 Chloride, Serum 105 mmol/L (Normal) Range: 97-108 Potassium, Serum 4.1 mmol/L (Normal) Range: 3.5-5.2 Sodium, Serum 141 mmol/L (Normal) Range: 134-144 BUN/Creatinine Ratio 14 (Normal) Range: 9-20 eGFR If Africn Am 101 mL/min/1.73 (Normal) eGFR If NonAfricn Am 88 mL/min/1.73 (Normal) Creatinine, Serum 0.98 mg/dL (Normal) Range: 0.76-1.27 BUN 14 mg/dL (Normal) Range: 6-24 Glucose, Serum 98 mg/dL (Normal) Range: 65-99 4-Bcl-404912:44 PSA (PROSTATE SPECIFIC Comments: PATIENT WAS FASTINGPERFORMED BY: CB [facility] Dmlnuj4690 [facility] [id number] BY: BN [facility] [address] [id number] ANTIGEN) (V76.44) Prostate Specific Ag, 1.7 ng/mL (Normal) Range: 0.0-4.0 Serum Comments: Lauren ECLIA methodology. .According to the [employer] [employer], Serum PSA shoulddecrease and remain at undetectable levels after radicalprostatectomy. The AUA defines biochemical recurrence as an initialPSA value 0.2 ng/mL or greater followed by a subsequent confirmatoryPSA value 0.2 ng/mL or greater.Values obtained with d ifferent assay methods or kits cannot be usedinterchangeably. Results cannot be interpreted as absolute evidenceof the presence or absence of malignant disease. 8-Qet-802570:44 TESTOSTERONE FREE (27634) Comments: PATIENT WAS FASTINGPERFORMED BY: Watsi ParkVu [facility] [id number] BY: [employer] [id number] Free Testosterone(Direct) 13.2 pg/mL (Normal) Range: 7.2-24.0 :34 HgA1C , Office (08072) HgA1C , Office 5.7 % (Normal) Range: 4.6 - 7.1 :58 Microscopic Examination Comments: PATIENT WAS FASTINGPERFORMED BY: Watsi[address] [id number] BY: [employer] [id number] Bacteria Few (Normal) Mucus Threads Present (Normal) Epithelial Cells (non renal) None seen {/hpf} (Normal) Range: 0 - 10 RBC 0-3 {/hpf} (Normal) Range: 0 - 3 WBC 0-5 {/hpf} (Normal) Range: 0 - 5 :58 URINALYSIS, W/ MICRO Comments: PATIENT WAS FASTINGPERFORMED BY: Watsi[address] [id number] BY: ZolkC[address] [id number] (93915) Microscopic Examination See below: (Normal) Microscopic Examination MICRON (Normal) Comments: Microscopic follows if indicated. Nitrite, Urine Negative (Normal) Urobilinogen,Semi-Qn 0.2 mg/dL (Normal) Range: 0.0-1.9 Bilirubin Negative (Normal) Occult Blood Negative (Normal) Ketones Negative (Normal) Glucose Negative (Normal) Protein Negative (Normal) WBC Esterase Negative (Normal) Appearance Clear (Normal) pH 6.5 (Normal) Range: 5.0-7.5 Urine-Color Yellow (Normal) Specific Star 1.020 (Normal) Range: 1.005-1.030 08-Jan-20138:58 CBC WITH MANUAL DIFF Comments: PATIENT WAS FASTINGPERFORMED BY: CB [facility] Svjmun2122 [facility] [id number] BY: BN [facility] Ikmuxxtzrg2373 [facility] [id number] Inf ormation: [id number] (45145) Immature Grans (Abs) 0.0 {x10E3/uL} (Normal) Range: 0.0-0.1 Immature Granulocytes 0 % (Normal) Range: 0-2 Baso (Absolute) 0.0 {x10E3/uL} (Normal) Range: 0.0-0.2 Eos (Absolute) 0.1 {x10E3/uL} (Normal) Range: 0.0-0.4 Monocytes(Absolute) 0.4 {x10E3/uL} (Normal) Range: 0.1-1.0 Lymphs (Absolute) 2.2 {x10E3/uL} (Normal) Range: 0.7-4.5 Neutrophils (Absolute) 4.6 {x10E3/uL} (Normal) Range: 1.8-7.8 Basos 0 % (Normal) Range: 0-3 Eos 1 % (Normal) Range: 0-7 Monocytes 5 % (Normal) Range: 4-13 Lymphs 30 % (Normal) Range: 14-46 Neutrophils 64 % (Normal) Range: 40-74 Platelets 268 {x10E3/uL} (Normal) Range: 140-415 RDW 14.4 % (Normal) Range: 12.3-15.4 MCHC 33.2 g/dL (Normal) Range: 31.5-35.7 MCH 29.9 pg (Normal) Range: 26.6-33.0 MCV 90 fL (Normal) Range: 79-97 Hematocrit 43.4 % (Normal) Range: 37.5-51.0 Hemoglobin 14.4 g/dL (Normal) Range: 12.6-17.7 RBC 4.82 {x10E6/uL} (Normal) Range: 4.14-5.80 WBC 7.3 {x10E3/uL} (Normal) Range: 4.0-10.5 :58 TESTOSTERONE FREE (23450) Comments: PATIENT WAS FASTINGPERFORMED BY: [facility]iHealthSouth [facility] of UnionXkqutt2641 [facility] [id number] BY: [employer] [id number] Free Testosterone(Direct) 8.1 pg/mL (Normal) Range: 7.2-24.0 :58 LIPID PANEL (24542) Comments: PATIENT WAS FASTINGPERFORMED BY: [employer] [facility] [id number] BY: [employer] [id number] LDL Cholesterol Calc 73 mg/dL (Normal) Range: 0-99 LDL/HDL Ratio 1.3 {ratio_units} (Normal) Range: 0.0-3.6 HDL Cholesterol 57 mg/dL (Normal) Comments: According to ATP-III Guidelines, HDL-C >59 mg/dL is considered anegative risk factor for CHD. VLDL Cholesterol Compa 13 mg/dL (Normal) Range: 5-40 Cholesterol, Total 143 mg/dL (Normal) Range: 100-199 Triglycerides 65 mg/dL (Normal) Range: 0-149 :58 METABOLIC PANEL, Comments: PATIENT WAS FASTINGPERFORMED BY: 4moms Ffquxk9838 [facility] [id number] BY: [address] [id number] COMPREHENSIVE (24964) ALT (SGPT) 19 [iU]/L (Normal) Range: 0-44 AST (SGOT) 21 [iU]/L (Normal) Range: 0-40 Alkaline Phosphatase, S 53 [iU]/L (Normal) Range: 25-150 Bilirubin, Total 0.5 mg/dL (Normal) Range: 0.0-1.2 A/G Ratio 2.0 (Normal) Range: 1.1-2.5 Globulin, Total 2.3 g/dL (Normal) Range: 1.5-4.5 Albumin, Serum 4.6 g/dL (Normal) Range: 3.5-5.5 Protein, Total, Serum 6.9 g/dL (Normal) Range: 6.0-8.5 Calcium, Serum 9.5 mg/dL (Normal) Range: 8.7-10.2 Carbon Dioxide, Total 22 mmol/L (Normal) Range: 20-32 Chloride, Serum 104 mmol/L (Normal) Range: 97-108 Potassium, Serum 4.2 mmol/L (Normal) Range: 3.5-5.2 Sodium, Serum 142 mmol/L (Normal) Range: 134-144 BUN/Creatinine Ratio 16 (Normal) Range: 9-20 eGFR If Africn Am 101 mL/min/1.73 (Normal) eGFR If NonAfricn Am 88 mL/min/1.73 (Normal) BUN 16 mg/dL (Normal) Range: 6-24 Creatinine, Serum 0.98 mg/dL (Normal) Range: 0.76-1.27 Glucose, Serum 104 mg/dL (Abnormal) Range: 65-99 :05 HgA1C , Office (37046) HgA1C , Office 5.7 % (Normal) Range: 4.6 - 7.1 :41 MICROALBUMIN: CREATININE RATIO Comments: PATIENT WAS FASTINGPERFORMED BY: [facility]CoHealth[facility] of UnionFuwujv8809 [facility] [id number] (89713) AND (84248) Microalb/Creat Ratio 2.2 {mg/g_creat} (Normal) Range: 0.0-30.0 Microalbumin, Urine 2.6 ug/mL (Normal) Range: 0.0-17.0 Creatinine, Urine 118.0 mg/dL (Normal) Range: 22.0-328.0 :41 METABOLIC PANEL, COMPREHENSIVE Comments: PATIENT WAS FASTINGPERFORMED BY: LabSCSG EA Acquisition CompanyPeguex1809 [facility] [id number]; f/u 06/17/12 (19080) ALT (SGPT) 19 [iU]/L (Normal) Range: 0-55 AST (SGOT) 17 [iU]/L (Normal) Range: 0-40 Alkaline Phosphatase, S 54 [iU]/L (Normal) Range: 25-150 Bilirubin, Total 0.6 mg/dL (Normal) Range: 0.0-1.2 A/G Ratio 1.9 (Normal) Range: 1.1-2.5 Globulin, Total 2.4 g/dL (Normal) Range: 1.5-4.5 Albumin, Serum 4.5 g/dL (Normal) Range: 3.5-5.5 Protein, Total, Serum 6.9 g/dL (Normal) Range: 6.0-8.5 Calcium, Serum 9.5 mg/dL (Normal) Range: 8.7-10.2 Carbon Dioxide, Total 22 mmol/L (Normal) Range: 20-32 Chloride, Serum 103 mmol/L (Normal) Range: 97-108 Potassium, Serum 4.1 mmol/L (Normal) Range: 3.5-5.2 Sodium, Serum 139 mmol/L (Normal) Range: 134-144 BUN/Creatinine Ratio 21 (Abnormal) Range: 9-20 eGFR If Africn Am 89 mL/min/1.73 (Normal) eGFR If NonAfricn Am 77 mL/min/1.73 (Normal) Creatinine, Serum 1.10 mg/dL (Normal) Range: 0.76-1.27 BUN 23 mg/dL (Normal) Range: 6-24 Glucose, Serum 103 mg/dL (Abnormal) Range: 65-99 21-Mwg-66391:41 LIPID PANEL (83769) Comments: PATIENT WAS FASTINGPERFORMED BY: [facility]Co[facility] UnionBjrbtk7323 [facility] [id number] LDL/HDL Ratio 1.2 {ratio_units} (Normal) Range: 0.0-3.6 LDL Cholesterol Calc 72 mg/dL (Normal) Range: 0-99 VLDL Cholesterol Compa 25 mg/dL (Normal) Range: 5-40 HDL Cholesterol 61 mg/dL (Normal) Comments: According to ATP-III Guidelines, HDL-C >59 mg/dL is considered anegative risk factor for CHD. Triglycerides 124 mg/dL (Normal) Range: 0-149 Cholesterol, Total 158 mg/dL (Normal) Range: 100-199 7-Khm-798671:11 HgA1C , Office (05228) HgA1C , Office 5.8 % (Normal) Range: 4.6 - 7.1 2-Owt-535114:11 Blood Glucose , Office (76499) Blood Glucose , Office 143 (Normal) :48 C-REACT PROT HIGH Comments: PATIENT WAS FASTINGPERFORMED BY: [facility]Co[facility] UnionEplrgg1841 [facility] [id number] Information: [id number], 2ND ORDER NO DRAW FEE SENS(hsCRP) (46101) C-Reactive Protein, Cardiac 1.32 mg/L (Normal) Range: 0.00-3.00 Comments: Relative Risk for Future Cardiovascular Event Low <1.00 Average 1.00 - 3.00 High >3.00 81-Ezo-065682:06 ANKLE,MIN 3 VIEWS Radiology Report See Note (Normal) Comments: PROCEDURE: X-RAY - LEFT ANKLE REASON FOR EXAM: Male, 51 years old. Swelling TECHNIQUE: Three views of the ankle. COMPARISON: None. FINDINGS: There is diffuse soft tissue swelling of the ankle. Normal visualized distal tibia and medial malleolus. Normal visualizeddistal fibula and lateral malleolus. There is soft tissue prominence anterior to the tibiotalar articulation,consistent with a tib iotalar joint effusion. Normal visualized talus. Normal visualized calcaneus. The visualized subtalar, talonavicular, calcaneocuboid and tarsalarticulations are normal. IMPRESSION:1. Nonspecific media l and lateral soft tissue swelling. Probable smalltibiotalar joint effusion. No destructive bony process. To consult with a radiologist regarding this report, please call our [id number] line @ Dictated on 01/14/12 1000 by MARSHA STONE MD BTranscribed on 01/14/12 1246 by ITS IMPORTSign by MARSHA STONE MD on 01/14/12 1246 Sign by: _ MARSHA STONE MD 65-Vmh-443113:06 KNEE,4 OR MORE VIEWS Radiology Report See Note (Normal) Comments: PROCEDURES: X-RAY - LEFT KNEE REASON FOR EXAM: Male, 51 years old. Swelling, limited range of motion TECHNIQUE: Four views of the knee. COMPARISON: None. FINDINGS:Normal medial femorotibial com partment. Normal lateral femorotibialcompartment. There is mild degenerative arthrosis of the patellofemoralarticulation. There is a soft tissue prominence in the suprapatellarregion suggesting a sma ll volume joint effusion. Normal visualized distal femur. Normal visualized proximal tibia andfibula. Normal proximal tibiofibular articulation. There is periarticular soft tissue swelling. IMPRESSION :1. No acute bony process. 2. Periarticular soft tissue swelling. Small joint effusion. 3. Patellofemoral osteoarthritis particularly laterally. To consult with a radiologist regarding this report, please call our [id number] line @ Dictated on 01/14/12 1000 by MARSHA STONE MD, BTranscribed on 01/14/12 1352 by ITS IMPORTSign by MARSHA STONE MD on 01/14/12 1353 Sign by: MARSHA STONE MD CCP Antibodies 10 {units} Comments: PATIENT NOT FASTINGPERFORMED BY: [employer]70 [facility] [id number] BY: [employer] [id number] 29:40 IgG/IgA (Normal) Range: 0-19 Comments: Negative <20 Weak positive 20 - 39 Moderate positive 40 - 59 Strong positive >59 54-Jav-63505:40 Uric Acid Blood (19778) Comments: PATIENT NOT FASTINGPERFORMED BY: [employer] [facility] [id number] BY: [employer] [id number] Uric Acid, Serum 6.8 mg/dL (Normal) Range: 3.7-8.6 Comments: Therapeutic target for gout patients: <6.0 :40 SED RATE ERYTHROCYTE Comments: PATIENT NOT FASTINGPERFORMED BY: [place] 4481770 [facility] [id number] BY: [address] [id number] (23171) Sedimentation Rate-Westergren 18 mm/h (Normal) Range: 0-30 :40 C-REACTIVE PROTEIN (60517) Comments: PATIENT NOT FASTINGPERFORMED BY: [address] [id number] BY: [address] [id number] C-Reactive Protein, Quant 34.9 mg/L (Abnormal) Range: 0.0-4.9 :40 TSH (25733) Comments: PATIENT NOT FASTINGPERFORMED BY: [place] 4481770 [facility] [id number] BY: [address] [id number] TSH 1.990 {uIU/mL} (Normal) Range: 0.450-4.500 :40 RHEUMATOID FACTOR-QUANT Comments: PATIENT NOT FASTINGPERFORMED BY: [place] 4481770 [facility] [id number] BY: [address] [id number] (06981) RA Latex Turbid. 11.3 {IU/mL} (Normal) Range: 0.0-13.9 :40 VICTOR HUGO (ANTINUCLEAR ANTIBODY) Comments: PATIENT NOT FASTINGPERFORMED BY: [place] 4481770 [facility] [id number] BY: [address] [id number] (95700) VICTOR HUGO Direct Negative (Normal) :40 CBC WITH MANUAL DIFF Comments: PATIENT NOT FASTINGPERFORMED BY: [place] [employer]Illume Softwarerp Ikksbd4321 [facility] [id number] BY: ADILSON [facility] Qevygdwukb5475 [facility] [id number] Inf ormation: [id number] (81107) Immature Grans (Abs) 0.0 {x10E3/uL} (Normal) Range: 0.0-0.1 Immature Granulocytes 0 % (Normal) Range: 0-2 Baso (Absolute) 0.0 {x10E3/uL} (Normal) Range: 0.0-0.2 Eos (Absolute) 0.0 {x10E3/uL} (Normal) Range: 0.0-0.4 Monocytes(Absolute) 0.9 {x10E3/uL} (Normal) Range: 0.1-1.0 Lymphs (Absolute) 1.9 {x10E3/uL} (Normal) Range: 0.7-4.5 Neutrophils (Absolute) 7.6 {x10E3/uL} (Normal) Range: 1.8-7.8 Basos 0 % (Normal) Range: 0-3 Eos 0 % (Normal) Range: 0-7 Monocytes 8 % (Normal) Range: 4-13 Lymphs 18 % (Normal) Range: 14-46 Neutrophils 74 % (Normal) Range: 40-74 Platelets 340 {x10E3/uL} (Normal) Range: 140-415 RDW 13.9 % (Normal) Range: 11.7-15.0 MCHC 33.2 g/dL (Normal) Range: 32.0-36.0 MCH 29.7 pg (Normal) Range: 27.0-34.0 MCV 89 fL (Normal) Range: 80-98 Hematocrit 42.2 % (Normal) Range: 36.0-50.0 Hemoglobin 14.0 g/dL (Normal) Range: 12.5-17.0 RBC 4.72 {x10E6/uL} (Normal) Range: 4.10-5.60 WBC 10.5 {x10E3/uL} (Normal) Range: 4.0-10.5 :40 METABOLIC PANEL, Comments: PATIENT NOT FASTINGPERFORMED BY: [facility] Tvmihv3102 [facility] [id number] BY: Lab[address] [id number] [facility] (67886) ALT (SGPT) 15 [iU]/L (Normal) Range: 0-55 AST (SGOT) 14 [iU]/L (Normal) Range: 0-40 Alkaline Phosphatase, S 74 [iU]/L (Normal) Range: 25-150 Bilirubin, Total 0.8 mg/dL (Normal) Range: 0.0-1.2 A/G Ratio 1.8 (Normal) Range: 1.1-2.5 Globulin, Total 2.5 g/dL (Normal) Range: 1.5-4.5 Albumin, Serum 4.5 g/dL (Normal) Range: 3.5-5.5 Protein, Total, Serum 7.0 g/dL (Normal) Range: 6.0-8.5 Calcium, Serum 9.5 mg/dL (Normal) Range: 8.7-10.2 Carbon Dioxide, Total 23 mmol/L (Normal) Range: 20-32 Chloride, Serum 101 mmol/L (Normal) Range: 97-108 Potassium, Serum 4.4 mmol/L (Normal) Range: 3.5-5.2 Sodium, Serum 139 mmol/L (Normal) Range: 134-144 BUN/Creatinine Ratio 17 (Normal) Range: 9-20 eGFR If Africn Am 100 mL/min/1.73 (Normal) Comments: Note: A persistent eGFR <60 mL/min/1.73 m2 (3 months or more) mayindicate chronic kidney disease. An eGFR >59 mL/min/1.73 m2 with anelevated urine protein also may indicate chronic kidney disease.Calculated using CKD-EPI formula. eGFR If NonAfricn Am 86 mL/min/1.73 (Normal) Creatinine, Serum 1.00 mg/dL (Normal) Range: 0.76-1.27 BUN 17 mg/dL (Normal) Range: 6-24 Glucose, Serum 100 mg/dL (Abnormal) Range: 65-99 31-Jan-20127:47 METABOLIC PANEL, Comments: PATIENT WAS FASTINGPERFORMED BY: DesignMedixHealthSouth - [facility] Hospital of UnionYvwdkq7611 [facility] [id number] Information: [id number] COMPREHENSIVE (28436) ALT (SGPT) 16 [iU]/L (Normal) Range: 0-55 AST (SGOT) 16 [iU]/L (Normal) Range: 0-40 Alkaline Phosphatase, S 60 [iU]/L (Normal) Range: 25-150 Bilirubin, Total 1.1 mg/dL (Normal) Range: 0.0-1.2 A/G Ratio 1.8 (Normal) Range: 1.1-2.5 Globulin, Total 2.5 g/dL (Normal) Range: 1.5-4.5 Albumin, Serum 4.4 g/dL (Normal) Range: 3.5-5.5 Protein, Total, Serum 6.9 g/dL (Normal) Range: 6.0-8.5 Calcium, Serum 9.5 mg/dL (Normal) Range: 8.7-10.2 Carbon Dioxide, Total 25 mmol/L (Normal) Range: 20-32 Chloride, Serum 103 mmol/L (Normal) Range: 97-108 Potassium, Serum 4.1 mmol/L (Normal) Range: 3.5-5.2 Sodium, Serum 140 mmol/L (Normal) Range: 134-144 BUN/Creatinine Ratio 15 (Normal) Range: 9-20 eGFR If Africn Am 92 mL/min/1.73 (Normal) Comments: Note: A persistent eGFR <60 mL/min/1.73 m2 (3 months or more) mayindicate chronic kidney disease. An eGFR >59 mL/min/1.73 m2 with anelevated urine protein also may indicate chronic kidney disease.Calculated using CKD-EPI formula. eGFR If NonAfricn Am 79 mL/min/1.73 (Normal) Creatinine, Serum 1.07 mg/dL (Normal) Range: 0.76-1.27 BUN 16 mg/dL (Normal) Range: 6-24 Glucose, Serum 98 mg/dL (Normal) Range: 65-99 :47 LIPID PANEL (09978) Comments: PATIENT WAS FASTINGPERFORMED BY: [facility] Fcwnkw6068 [facility] [id number] LDL/HDL Ratio 1.4 {ratio_units} (Normal) Range: 0.0-3.6 LDL Cholesterol Calc 78 mg/dL (Normal) Range: 0-99 VLDL Cholesterol Compa 21 mg/dL (Normal) Range: 5-40 HDL Cholesterol 54 mg/dL (Normal) Comments: According to ATP-III Guidelines, HDL-C >59 mg/dL is considered anegative risk factor for CHD. Triglycerides 107 mg/dL (Normal) Range: 0-149 Cholesterol, Total 153 mg/dL (Normal) Range: 100-199 :17 HgA1C , Office (23756) HgA1C , Office 5.6 % (Normal) Range: 4.6 - 7.1 :29 PSA (PROSTATE SPECIFIC Comments: PATIENT WAS FASTINGPERFORMED BY: [facility] [id number] ANTIGEN) (V76.44) Prostate Specific Ag, 1.2 ng/mL (Normal) Range: 0.0-4.0 Serum Comments: [employer] ECLIA methodology. .According to the [employer], Serum PSA shoulddecrease and remain at undetectable levels after radicalprostatectomy. The AUA defines biochemical recurrence as an initialPSA value 0.2 ng/mL or greater followed by a subsequent confirmatoryPSA value 0.2 ng/mL or greater.Values obtained with d ifferent assay methods or kits cannot be usedinterchangeably. Results cannot be interpreted as absolute evidenceof the presence or absence of malignant disease. :29 MICROALBUMIN: CREATININE RATIO Comments: PATIENT WAS FASTINGPERFORMED BY: [id number] [id number] ([id number]) AND ([id number]) Microalb/Creat Ratio 1.8 {mg/g_creat} (Normal) Range: 0.0-30.0 Microalbumin, Urine 2.3 ug/mL (Normal) Range: 0.0-17.0 Creatinine, Urine 130.7 mg/dL (Normal) Range: 22.0-328.0 :29 CBC WITH MANUAL DIFF Comments: PATIENT WAS FASTINGPERFORMED BY: [employer]70 [facility] [id number] Information: [id number] ([id number]) Immature Grans (Abs) 0.0 {x10E3/uL} (Normal) Range: 0.0-0.1 Immature Granulocytes 0 % (Normal) Range: 0-2 Baso (Absolute) 0.0 {x10E3/uL} (Normal) Range: 0.0-0.2 Eos (Absolute) 0.1 {x10E3/uL} (Normal) Range: 0.0-0.4 Monocytes(Absolute) 0.5 {x10E3/uL} (Normal) Range: 0.1-1.0 Lymphs (Absolute) 2.9 {x10E3/uL} (Normal) Range: 0.7-4.5 Neutrophils (Absolute) 4.2 {x10E3/uL} (Normal) Range: 1.8-7.8 Basos 0 % (Normal) Range: 0-3 Eos 1 % (Normal) Range: 0-7 Monocytes 6 % (Normal) Range: 4-13 Lymphs 38 % (Normal) Range: 14-46 Neutrophils 55 % (Normal) Range: 40-74 Platelets 259 {x10E3/uL} (Normal) Range: 140-415 RDW 14.0 % (Normal) Range: 11.7-15.0 MCHC 33.5 g/dL (Normal) Range: 32.0-36.0 MCH 30.7 pg (Normal) Range: 27.0-34.0 MCV 92 fL (Normal) Range: 80-98 Hematocrit 43.0 % (Normal) Range: 36.0-50.0 Hemoglobin 14.4 g/dL (Normal) Range: 12.5-17.0 RBC 4.69 {x10E6/uL} (Normal) Range: 4.10-5.60 WBC 7.6 {x10E3/uL} (Normal) Range: 4.0-10.5 3-Emc-496486:29 METABOLIC PANEL, COMPREHENSIVE Comments: PATIENT WAS FASTINGPERFORMED BY: [facility]Co[facility] UnionEdrmue1455 [facility] [id number] ([id number]) ALT (SGPT) 22 [iU]/L (Normal) Range: 0-55 AST (SGOT) 17 [iU]/L (Normal) Range: 0-40 Alkaline Phosphatase, S 54 [iU]/L (Normal) Range: 25-150 Bilirubin, Total 0.8 mg/dL (Normal) Range: 0.0-1.2 A/G Ratio 2.0 (Normal) Range: 1.1-2.5 Globulin, Total 2.4 g/dL (Normal) Range: 1.5-4.5 Albumin, Serum 4.7 g/dL (Normal) Range: 3.5-5.5 Protein, Total, Serum 7.1 g/dL (Normal) Range: 6.0-8.5 Calcium, Serum 9.5 mg/dL (Normal) Range: 8.7-10.2 Carbon Dioxide, Total 24 mmol/L (Normal) Range: 20-32 Chloride, Serum 103 mmol/L (Normal) Range: 97-108 Potassium, Serum 3.8 mmol/L (Normal) Range: 3.5-5.2 Sodium, Serum 140 mmol/L (Normal) Range: 135-145 BUN/Creatinine Ratio 15 (Normal) Range: 9-20 eGFR If Africn Am 91 mL/min/1.73 (Normal) Comments: Note: A persistent eGFR <60 mL/min/1.73 m2 (3 months or more) mayindicate chronic kidney disease. An eGFR >59 mL/min/1.73 m2 with anelevated urine protein also may indicate chronic kidney disease.Calculated using CKD-EPI formula. eGFR If NonAfricn Am 78 mL/min/1.73 (Normal) Creatinine, Serum 1.08 mg/dL (Normal) Range: 0.76-1.27 BUN 16 mg/dL (Normal) Range: 6-24 Glucose, Serum 106 mg/dL (Abnormal) Range: 65-99 3-Pgf-572250:29 LIPID PANEL ([id number]) Comments: PATIENT WAS FASTINGPERFORMED BY: [facility] Vaeefx6177 [facility] [id number]; appt 10/17/11 LDL/HDL Ratio 1.3 {ratio_units} (Normal) Range: 0.0-3.6 LDL Cholesterol Calc 73 mg/dL (Normal) Range: 0-99 VLDL Cholesterol Compa 18 mg/dL (Normal) Range: 5-40 HDL Cholesterol 56 mg/dL (Normal) Comments: According to ATP-III Guidelines, HDL-C >59 mg/dL is considered anegative risk factor for CHD. Triglycerides 90 mg/dL (Normal) Range: 0-149 Cholesterol, Total 147 mg/dL (Normal) Range: 100-199 73-Kzy-869249:21 Metabolic Panel, Comprehensive Comments: PATIENT WAS FASTINGPERFORMED BY: [facility] UnionNdvvdm0495 [facility] [id number] ([id number]) ALT (SGPT) 20 [iU]/L (Normal) Range: 0-55 AST (SGOT) 17 [iU]/L (Normal) Range: 0-40 A/G Ratio 2.0 (Normal) Range: 1.1-2.5 Alkaline Phosphatase, S 50 [iU]/L (Normal) Range: 25-150 Bilirubin, Total 0.4 mg/dL (Normal) Range: 0.0-1.2 Albumin, Serum 4.5 g/dL (Normal) Range: 3.5-5.5 Calcium, Serum 9.3 mg/dL (Normal) Range: 8.7-10.2 Globulin, Total 2.2 g/dL (Normal) Range: 1.5-4.5 Protein, Total, Serum 6.7 g/dL (Normal) Range: 6.0-8.5 Carbon Dioxide, Total 24 mmol/L (Normal) Range: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 Encounter Diagnosis: Cough End: 06-Oct-2018 11:37 [facility] Office Visit On: 03-Oct-2018 7:01 Encounter Reason: Follow up tests - Date: (09/24 blood work)., [ADDITIONAL REASON] Follow up for chronic medical issues - The patient feels well with minor complai End: 03-Oct-2018 7:53 nts (still having some issues with his knee. Has gotten some shots in the knee at the orthopedic. Said if doesn't improve then they will do surgery), has good energy level and is sleeping well. Patient has been compliant with instructions. Current medication use: no side effects and compliant with dosing regimen. Patient sleeps 7 hours per night. Nutrition: inappropriate diet and no supplemental vitam ins & iron. The medical issues the patient is following up for include All identified problems below, cardiac issues (palpiations, abnormal cardiac test), high blood pressure and high cholesterol. N ote for Follow up for chronic medical issues: his knee is improving with cortisone shot- but still intermittent issues - just got a second cortisone shot- and may ultimately got arthroscopic surgery - leg issues improved with knee -- bp is good- got flu shot at work- he toelrating meds also askes then when he gets a cold his cough is bad he ok now -but wondered if can have refill on inhaler as has helped in past Encounter Diagnosis: BMI 32.0-32.9,adult, Gastroesophageal reflux disease with esophagitis, Impaired fasting glucose (790.21), Hypertensive heart disease without heart failure, Other hyperlipidemia, Elevated high sensitivity C-reactive protein, Cough, Encounter for screening for malignant neoplasm of prostate (Renamed from Screening for prostate cancer) [facility] Office Visit On: 11-Jul-2018 9:13 Encounter Reason: Follow up acute care visit - The patient feels the same (Finished his PT. Still having symptoms. physical therapy helped slightly, but still having a lot of pain in leg.). Patient has been compliant wit End: 13-Jul-2018 20:53 h instructions. Current medication use: no side effects and compliant with dosing regimen. Note for Follow up acute care visit: - pt not much help - still swelling in knee and still having pain behind theknee and cant flex all the way- stiff and tight if has been sitting hurts to moveEncounter Diagnosis: Nonsmoker, BMI 32.0-32.9,adult, Left leg pain, Effusion, left knee [facility] Office Visit On: 27-Jun-2018 7:28 Encounter Reason: Physical male exam - Last seen between 1-3 months ago. General health: feels well with minor complaints (still having issues with L leg, going to physical therapy), has good energy level and is sleeping End: 10-Aug-2018 22:04 well (leg keeps him up sometimes). The patient's appetite is normal. Nutrition: normal/adequate. Exercises 0 (will do yard work but leg makes it hard to do anything structured) days per week. Sleeps on average 7 hours per night. Normal bowel and bladder habits. Safety measures include appropriate use of safety belts and home smoke detectors. There are no current emotional problems. The patient's libi do is normal. Preventative measures done by patient are screening, colonoscopy (01/2016 and due in 5 years- Art[facility]) and screening, visual acuity (Dr. Nieto). 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 of stress and alot of marshall rs so hasnt been taking as good of care of himself this year- he feels like hasnt accomplished alot this year- weight down 8 pounds and trying to eat less and less in between meals- he has been getting his routine skin checks- scheduled skin checks every decEncounter Diagnosis: BMI 32.0-32.9,adult, Nonsmoker, [facility], Elevated high sensitivity C- reactive protein, Hypertensive heart disease without heart failure, Other hyperlipidemia, Impaired fasting glucose (790.21), Erectile dysfunction [facility] Phone Encounter On: 11-Jun-2018 15:20 Encounter Diagnosis: Left leg pain End: 11-Jun-2018 15:29 [facility] Office Visit On: 06-Jun-2018 11:25 Encounter Reason: Follow up acute care visit - The patient feels the same (was seen about 1 month ago for L leg pain. Has not gotten any better. Some days are better than others, really hard to sleep at night.). Patient End: 08-Jun-2018 22:03 has been compliant with instructions. Current medication use: no side effects, compliant with dosing regimen (finished course) and considered effective by patient (finished dose. Seemed to help a little but did not clear it up while taking meds.). Note for Follow up acute care visit: meloxicam little help - hard to flex knee - significantly back- right now feels like back of calf hurts with twist tu rn rolls in bed-- if sleeping - hurts- hard to get comfortable- walking and mowing - - deep ache- no numbness in leg- gets up from sitting hard to extend- more of pain- then gets better- no back painEncounter Diagnosis: Nonsmoker, BMI 33.0-33.9,adult , Left leg pain [facility] Office Visit On: 25-Apr-2018 9:06 Encounter Reason: Leg Pain - This condition occurred without any known injury. Symptoms include leg pain and decreased range of motion, while symptoms do not include difficulty bearing weight. The pain is located in the End: 27-Apr-2018 22:33 left posterior upper leg (the back of the L knee). The pain radiates to the left hip and left thigh. The patient describes the pain as sharp and aching. Onset was gradual 3 week(s) ago. Associated sympt oms do not include knee pain, numbness or tingling. Current treatment includes nonsteroidal anti-inflammatory drugs. Note for Leg pain: mostly when laying in bed at night and hurts the leg to lift to put socks on- no knee pain- the leg not swelling- doesnt recall trauma or overdoing- maybe little worse after mow the next am- ??not feel when sitting hurts to get up- doesnt notice walking more in bed- he hasnt consistently taking anything aleve otc couple times but not consistent- no weak or numb in legEncounter Diagnosis: Nonsmoker, BMI 33.0-33.9,adult, Left leg pain [facility] Office Visit On: 16-Dec-2017 7:53 Encounter Reason: Follow up tests - Date: (12/05 blood work)., [ADDITIONAL REASON] Follow up for chronic medical issues - The patient feels well with no complaints End: 16-Dec-2017 8:48 , has good energy level and is sleeping well. Patient has been compliant with instructions. Current medication use: no side effects and compliant with dosing regimen. Patient sleeps 7 hours per night. N utrition: inappropriate diet and no supplemental vitamins & iron. The medical issues the patient is following up for include All identified problems below, cardiac issues (palpiations, abnormal card iac test), high blood pressure and high cholesterol. Note for Follow up for chronic medical issues: he has been feeling pretty good- had his flu shot- no gerd routinely- tokerating meds well- he never got cockup splints has been acting up again so he will gt them to try- and encourage routine exercise and probitoics Encounter Diagnosis: Nonsmoker, BMI 33.0- 33.9,adult, Impaired fasting glucose (790.21), Hypertensive heart disease without heart failure, Other hyperlipidemia, Gastroesophageal reflux disease with esophagitis, Coronary artery disease [facility] Office Visit On: 12-Jun-2017 8:07 Encounter Reason: Physical male exam - General health: feels well with minor complaints, has good energy level and is sleeping well. The patient's appetite is normal. Nutrition: normal/adequate. Exercises 0 days per week End: 12-Jul-2017 9:10 . Sleeps on average 7 hours per night. Normal bowel and bladder habits. Safety measures include appropriate use of safety belts and home smoke detectors. There are no current emotional problems. The pat ient's libido is normal. Preventative measures done by patient are screening, colonoscopy (01/2016 and due in 5 years- [facility]) and screening, visual acuity (Dr. Nieto). Note for Physical exam: [facility]- numbness in hands and arms- mainly at hs and he thinks from mattress cause its so firm and he has a hx of carpel tunnel.- bp good weight stable- no palpitations no routine gerd- getting yearly skin checks last was in nov Encounter Diagnosis: [facility], Nonsmoker, BMI 33.0-33.9,adult, Bilateral carpal tunnel syndrome, Hypertensive heart disease without heart failure, Gastroesophageal reflux disease with esophagitis, Need for zoster vaccination, Encounter for hepatitis C virus screening test for high risk patient, Other hyperlipidemia, Screening for prostate cancer [facility] Office Visit On: 12-Nov-2016 7:57 Encounter Reason: Follow up for chronic medical issues - The patient feels well with no complaints, has good energy level and is sleeping well. Patient has been compliant with instructions. Current medication use: no alvaro End: 12-Nov-2016 8:46 e effects and compliant with dosing regimen. Patient sleeps 7 hours per night. Nutrition: inappropriate diet and no supplemental vitamins & iron. The medical issues the patient is following up for i nclude All identified problems below, cardiac issues (palpiations, abnormal cardiac test), high blood pressure and high cholesterol. Note for Follow up for chronic medical issues: he feeling good was exercising upt il recent from last visit down 2 pounds and bp is good and tolerating meds- and labs about the same- had colonsocopy this year - has eye appt in dec and had skin check with Christopher Fenton and had lesion removed, [ADDITIONAL REASON] Follow up, Laboratory Test Results - Date: (10/31/16). Encounter Diagnosis: Nonsmoker, BMI 33.0-33.9,adult, Impaired fasting glucose (790.21), Gastroesophageal reflux disease with esophagitis, Hypertensive heart disease without heart failure, Other hyperlipidemia, Glaucoma, Colon polyp (211.3) [facility] Office Visit On: 11-Jun-2016 8:11 Encounter Reason: Physical male exam - General health: feels well with no complaints, has good energy level and is sleeping well. The patient's appetite is normal. Nutrition: normal/adequate. Exercises 2 days per week. S End: 11-Jun-2016 20:01 leeps on average 7 hours per night. Normal bowel and bladder habits. Safety measures include appropriate use of safety belts and home smoke detectors. There are no current emotional problems. The patien t's libido is normal. Preventative measures done by patient are screening, colonoscopy (01/2016 and due in 5 years- rAtur) and screening, visual acuity (Dr. Nieto). Note for Physical exam: [facility] Well[facility] Exam, [ADDITIONAL REASON] Follow up, Laboratory Test Results - Date: (05/2016- [facility] labs). Encounter Diagnosis: BMI 33.0-33.9,adult, Nonsmoker, [facility], Elevated lipoprotein(a), Gastroesophageal reflux disease with esophagitis, Impaired fasting glucose (790.21), 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, Colon polyp (211.3), Other hyperlipidemia, Encounter for screening for malignant neoplasm of prostate (Renamed from Screening for prostate cancer) [facility] Historical Summary On: 24-Feb-2016 13:32 [facility] End: 24-Feb-2016 13:34 Office Visit On: 26-Oct-2015 8:04 Encounter Reason: Follow up for chronic medical issues - The patient feels well with no complaints, has good energy level and is sleeping well. Patient has been compliant with instructions. Current medication use: no alvaro End: 26-Oct-2015 9:07 e effects and compliant with dosing regimen. Patient sleeps 7 hours per night. Nutrition: inappropriate diet and no supplemental vitamins & iron. The medical issues the patient is following up for i nclude All identified problems below, cardiac issues (palpiations, abnormal cardiac test), high blood pressure and high cholesterol. Note for Follow up for chronic medical issues: he is feeling well a nd weight up but going to get back on track --bp is good and sugar is stable, [ADDITIONAL REASON] Follow up, Laboratory Test Results - Date: (10/2015). Encounter Diagnosis: Impaired fasting glucose (790.21), Glaucoma, Hyperlipidemia, GERD (gastroesophageal reflux disease), Colon polyp (211.3), Erectile dysfunction, Hypertensive heart disease [facility] Office Visit On: 27-Apr-2015 8:07 Encounter Reason: Follow up for chronic medical issues - The patient feels well with no complaints, has good energy level and is sleeping well. Patient has been compliant with instructions. Current medication use: no alvaro End: 27-Apr-2015 8:45 e effects and compliant with dosing regimen. Patient sleeps 7 hours per night. Nutrition: inappropriate diet and no supplemental vitamins & iron. The medical issues the patient is following up for i nclude All identified problems below, cardiac issues (palpiations, abnormal cardiac test), high blood pressure and high cholesterol. Note for Follow up for chronic medical issues: his weight down 16 p ounds- and he is working on diet and exercise- bp is good and feels better, [ADDITIONAL REASON] Follow up, Laboratory Test Results - Date: (04/20/15). Encounter Diagnosis: Impaired fasting glucose (790.21), Hypertension with LVH (402.90), Gerd (530.81), Hyperlipidemia (272.4), Colon polyp (211.3), Erectile dysfunction (607.84), Atypical Nevus(238.2), SCREENING FOR CANCER OF THE PROSTATE (V76.44) [facility] Office Visit On: 26-Oct-2014 12:57 Encounter Reason: Follow up for chronic medical issues - The patient feels well with no complaints, has good energy level and is sleeping well. Patient has been compliant with instructions. Current medication use: no alvaro End: 26-Oct-2014 15:57 e effects and compliant with dosing regimen. Patient sleeps 7 hours per night. Nutrition: inappropriate diet and no supplemental vitamins & iron. The medical issues the patient is following up for i nclude All identified problems below, cardiac issues (palpiations, abnormal cardiac test), high blood pressure and high cholesterol. Note for Follow up for chronic medical issues: afeelsing good got f russell shot and bp is good and chol good and tolerating meds and no gerd and no cough and no wheeze- - Encounter Diagnosis: Hyperlipidemia (272.4), Impaired fasting glucose (790.21), Erectile dysfunction (607.84), Gerd (530.81), Hypertension with LVH (402.90), Colon polyp (211.3), Wheeze, Cough [facility] Office Visit On: 29-Apr-2014 7:38 Encounter Reason: Cough - The last clinic visit was 5 day(s) ago. No changes in management were made at the last visit. Symptoms include cough, wheezing, fever, runny nose and sore throat. The cough is described as hacki End: 29-Apr-2014 11:51 ng, tight and wheezy. There is no known event that preceded symptom onset. The cough occurs constantly. Symptoms are described as severe and worsening.Encounter Diagnosis: Cough, Wheeze, BRONCHITIS, NOT SPECIFIED ACUTE OR CHRONIC (490.) [facility] Office Visit On: 23-Apr-2014 13:49 Encounter Reason: Follow up for chronic medical issues - The patient feels well with no complaints, has good energy level and is sleeping well. Patient has been compliant with instructions. Current medication use: no alvaro End: 26-Apr-2014 20:49 e effects and compliant with dosing regimen. Patient sleeps 7 hours per night. Nutrition: inappropriate diet and no supplemental vitamins & iron. The medical issues the patient is following up for i nclude All identified problems below, cardiac issues (palpiations, abnormal cardiac test), high blood pressure and high cholesterol. Note for Follow up for chronic medical issues: bp is good and weigh t is stable and sugar is good- he is in walking challenge at work and still trying tolose weight - cialis working good , [ADDITIONAL REASON] Follow up, Laboratory Test Results - Date: (04/13/14). Encounter Diagnosis: Impaired fasting glucose (790.21) , Erectile dysfunction (607.84), Hypertension with LVH (402.90), Gerd (530.81), Hyperlipidemia (272.4), Colon polyp (211.3), SCREENING FOR CANCER OF THE PROSTATE (V76.44), Atypical Nevus(238.2) [facility] Office Visit On: 29-Sep-2013 8:01 Encounter Reason: Follow up for chronic medical issues - The patient feels well with no complaints, has good energy level and is sleeping well. Patient has been compliant with instructions. Current medication use: no alvaro End: 29-Sep-2013 8:38 e effects and compliant with dosing regimen. Patient sleeps 7 hours per night. Nutrition: inappropriate diet and no supplemental vitamins & iron. The medical issues the patient is following up for i nclude All identified problems below, cardiac issues (palpiations, abnormal cardiac test), high blood pressure and high cholesterol., [ADDITIONAL REASON] Follow up, Laboratory Test Results - Date: (09/18/13). Encounter Diagnosis: Impaired fasting glucose (790.21), Hypertension with LVH (402.90), Hyperlipidemia (272.4), Erectile dysfunction (607.84), Gerd (530.81) [facility] Phone Encounter On: 14-Aug-2013 8:00 Encounter Diagnosis: Fever (780.60) End: 14-Aug-2013 8:01 [facility] Office Visit On: 14-Aug-2013 7:19 Encounter Diagnosis: BRONCHITIS, NOT SPECIFIED ACUTE OR CHRONIC (490.), ACUTE PHARYNGITIS (462.) End: 14-Aug-2013 7:41 [facility] Office Visit On: 19-May-2013 7:54 Encounter Reason: Follow up for chronic medical issues - The patient feels well with minor complaints (toe fungus again- ), has good energy level and is sleeping well. Patient has been compliant with instructions. Curren End: 19-May-2013 8:31 t medication use: no side effects and compliant with dosing regimen. Patient sleeps 7 hours per night. Nutrition: inappropriate diet and no supplemental vitamins & iron. The medical issues the patie nt is following up for include All identified problems below, cardiac issues (palpiations, abnormal cardiac test), high blood pressure and high cholesterol. Note for Follow up for chronic medical issue s: feeling pretty good wants to keep working on weight loss- cialis working and no side effects , [ADDITIONAL REASON] Follow up, Laboratory Test Results - Date: (05/08/13). , [ADDITIONAL REASON] Nail Problems - Symptoms include nail discoloration, thickened nails, curved nails and tenderness under the nails, while symptoms do not include splitting nails, brittle nails, blee ding under the nails or swelling under the nails. Lesion(s) are located in digit(s) of the right foot (great, 4th and 5th digits). Onset was gradual year(s) ago. Symptoms are moderate in severity. Assoc iated symptoms do not include digital pain or digital tenderness. Encounter Diagnosis: Impaired fasting glucose (790.21), Onychomycosis (110.1), Hyperlipidemia (272.4), Hypertension with LVH (402.90), Erectile dysfunction (607.84) [facility] Refill Request On: 06-Apr-2013 9:24 Encounter Diagnosis: Hypertension with LVH (402.90) End: 06-Apr-2013 9:26 [facility] Office Visit On: 15-Jan-2013 9:32 Encounter Reason: Follow up for chronic medical issues - The patient feels well with minor complaints (some elevated bp's lately- ), has good energy level and is sleeping well. Patient has been compliant with instruction End: 15-Jan-2013 10:47 s. Current medication use: no side effects and compliant with dosing regimen. Patient sleeps 7 hours per night. Nutrition: inappropriate diet and no supplemental vitamins & iron. The medical issues the patient is following up for include All identified problems below, cardiac issues (palpiations, abnormal cardiac test), high blood pressure and high cholesterol. Note for Follow up for chronic medi compa issues: he feels like pressure up in geenral and running bit higher than hornal- no side effects and 10mg is good- he is going to start exercising again - had skin check and is getitng lesion remov ed- he hadcolonsocopy and had polyps repeat 3 years - not having palpittaions or pain, [ADDITIONAL REASON] Follow up, Laboratory Test Results - Date: (01/08/13). Encounter Diagnosis: Impaired fasting glucose (790.21), Hyperlipidemia (272.4), Erectile dysfunction (607.84), Hypertension with LVH (402.90), Colon polyp (211.3), SCREENING FOR CANCER OF THE PROSTATE (V76.44) [facility] Office Visit On: 17-Jun-2012 8:04 Encounter Reason: Follow up for chronic medical issues - The patient feels well with no complaints, has good energy level and is sleeping well. Patient has been compliant with instructions. Current medication use: no alvaro End: 17-Jun-2012 23:07 e effects and compliant with dosing regimen. Patient sleeps 7 hours per night. Nutrition: inappropriate diet and no supplemental vitamins & iron. The medical issues the patient is following up for i nclude All identified problems below, cardiac issues (palpiations, abnormal cardiac test), high blood pressure and high cholesterol. Note for Follow up for chronic medical issues: feeling well - he ad mits to adding extra salt last night and caffeine this am- he hasnt been exercising as routinely with the ??temperatures - he didtn see nan yet but he will schedule- nopalpitaitons or chest pain, [ADDITIONAL REASON] Follow up, Laboratory Test Results - Date: (06/10/12). Encounter Diagnosis: Impaired fasting glucose (790.21), Hypertension with LVH (402.90), PVC, OTHER PREMATURE BEATS (427.69), Colon polyp (211.3), Atypical Nevus(238.2), Hyperlipidemia (272.4), Erectile dysfunction (607.84) [facility] Office Visit On: 06-Feb-2012 13:08 Encounter Reason: Follow up for chronic medical issues - The patient feels well with no complaints, has good energy level and is sleeping well. Patient has been compliant with instructions. Current medication use: no alvaro End: 06-Feb-2012 13:40 e effects and compliant with dosing regimen. Patient sleeps 7 hours per night. Nutrition: inappropriate diet and no supplemental vitamins & iron. The medical issues the patient is following up for i nclude All identified problems below, cardiac issues (palpiations, abnormal cardiac test), high blood pressure and high cholesterol. Note for Follow up for chronic medical issues: knee and ankle resol carlos a issues and reviewed xrays and lab aris gtz- think maybe gout- will have to see if reoccurs- he eats alot of red meat so he is working on diet and no etoh- he is in walking program and weight down6 pounds and bp is good , [ADDITIONAL REASON] Follow up, Laboratory Test Results - Date: (01/31/12). Encounter Diagnosis: Impaired fasting glucose (790.21), Hyperlipidemia (272.4), Hypertension with LVH (402.90), ARTHRALGIAS 719.40, Atypical Nevus(238.2) [facility] Office Visit On: 30-Jan-2012 8:00 Encounter Reason: Follow up tests - Diagnostic tests include other (labs) and X- Ray. Date: (01/14/12). Follow up visit with no current symptoms. There is no family history of breast cancer, cardiovascular disease, cystic End: 30-Jan-2012 9:49 fibrosis, Down's syndrome, mental retardation or myocardial infarction before age 55. Past medical history includes coronary artery disease, hypertension and other (CTS, CHO).Encounter Diagnosis: ARTHRALGIAS 719.40, SWELLING OF LIMB, NOS (729.81), Abnormal blood chemistry (790.6) [facility] Office Visit On: 14-Jan-2012 8:59 Encounter Reason: Joint Pain - Symptoms include joint pain (L ankle L knee), migratory joint pain, joint redness, joint swelling and decreased range of motion, while symptoms do not include morning stiffness. Symptoms ar End: 14-Jan-2012 9:38 e located in the left knee and left ankle. The patient describes the pain as sharp. Onset was sudden 1 week(s) ago. There is no known event that preceded symptom onset. The symptoms occur constantly. Th e patient describes this as severe and worsening. Symptoms are exacerbated by weight bearing. Symptoms are relieved by ice and heat. There is no radiation. Associated symptoms do not include fatigue, my algia, fever, chills, cough or shortness of breath.Encounter Diagnosis: ARTHRALGIAS 719.40, SWELLING OF LIMB, NOS (729.81) [facility] Office Visit On: 17-Oct-2011 13:11 Encounter Reason: Follow up, Laboratory Test Results - Lab results: abnormal blood chemistry (elevated glucose). Date: (10/05/11). Current symptoms/reason for visit include/s Follow up visit with no current symptoms. Note End: 17-Oct-2011 14:13 for Follow up, Laboratory Test Results: cough alot better although still some need to clear throat in am- otherwise goodEncounter Diagnosis: Need for prophylactic vaccination and inoculation against influenza (V04.81), Impaired fasting glucose (790.21), Hypertension with LVH (402.90), Cough (786.2), Hyperlipidemia (272.4) [facility] Office Visit On: 04-Sep-2011 13:03 Encounter Reason: Follow up for chronic medical issues - The patient feels well with minor complaints (cough), has good energy level and is sleeping well. Patient has been compliant with instructions. Current medication End: 04-Sep-2011 13:50 use: experiencing side effects (dry hacking cough, wonders if related to Lisinopril) and compliant with dosing regimen. Patient sleeps 7 hours per night. Nutrition: inappropriate diet and no supplementa l vitamins & iron. The medical issues the patient is following up for include All identified problems below, cardiac issues (palpiations, abnormal cardiac test), high blood pressure and high cholest sharon. Note for Follow up for chronic medical issues: dry cough all the time- thinks lisinopril- - not exercising- not sob- bp not perfect- wants to try another med- encoruage labs every 6 mos- no palpitations or painEncounter Diagnosis: Hypertension with LVH (402.90), Hyperlipidemia (272.4), Cough (786.2), SCREENING FOR CANCER OF THE PROSTATE (V76.44), Atypical Nevus(238.2) [facility] Office Visit On: 25-Oct-2010 13:50 Encounter Reason: Follow up for chronic medical issues - The patient feels well with minor complaints (cough), has good energy level and is sleeping well. Patient has been compliant with instructions. Current medication End: 25-Oct-2010 14:24 use: no side effects and compliant with dosing regimen. Patient sleeps 7 hours per night. Nutrition: inappropriate diet and no supplemental vitamins & iron. The medical issues the patient is followi ng up for include All identified problems below, cardiac issues (palpiations, abnormal cardiac test), high blood pressure and high cholesterol. Note for Follow up for chronic medical issues: when he g ave blood a month ago and has had several bp checks all in 110-120 range over 70- he hasnt taken meds for 3 days that is why high today- he admits to nont watching dairy products and not exercising- but feels well otherwise, [ADDITIONAL REASON] Follow up, Laboratory Test Results - Date: (10/19/10). , [ADDITIONAL REASON] Cough - The onset of the cough has been gradual and has been occurring for 2 mon ths. The course has been decreasing. The cough is characterized as dry. The symptoms are not aggravated by supine posture, meals or exercise. There has been no associated chest pain, dyspnea, fever, hea dache, hoarseness, long history of smoking, runny nose, sore throat or wheezing. Note for Cough: Pt doesnt have this cough now, he had it about 2 months ago and once and awhile still coughs. Non produ ctive, no cold symptoms, insisted he mention it today. had cold and started taking mucinex- he feels better- now- minimal cough at this point Encounter Diagnosis: Hypertension with LVH (402.90), Hyperlipidemia (272.4), Cough (786.2), Headache (784.0) [facility] Annotation/Addendum On: 16-Oct-2010 18:23 Encounter Diagnosis: Hypertension with LVH (402.90) End: 16-Oct-2010 18:29 [facility] Office Visit On: 08-Nov-2009 13:34 Encounter Reason: Follow up for chronic medical issues - The patient feels well with no complaints ,has good energy level and is sleeping well. Patient has been compliant with instructions. Current medication use: no alvaro End: 08-Nov-2009 14:29 e effects and compliant with dosing regimen. Patient sleeps 7 hours per night. Nutrition: inappropriate diet and no supplemental vitamins & iron. The medical issues the patient is following up for i nclude All identified problems below ,cardiac issues (palpiations, abnormal cardiac test) ,high blood pressure and high cholesterol. Note for Follow up for chronic medical issues: he is feelingpretty good- so hasd heart cath with a little plaque- put on beta quinton and lipitor- had colonsocpy in oct- had 2 polyps told followup 3-5 yearsEncounter Diagnosis: Coronary artery disease (414.00), Hyperlipidemia (272.4), Hypertension with LVH (402.90) , PVC, OTHER PREMATURE BEATS (427.69), Colon polyp (211.3), Parasthesia (782.0), Palpitations(785.1) [facility] Office Visit On: 29-Aug-2009 14:21 Encounter Reason: Follow up, Laboratory Test Results - Date: (07/15/09). , [ADDITIONAL REASON] Follow up, Diagnostic Procedure Results - Diagnostic tests include MRI (brain) , End: 30-Aug-2009 6:53 ECHO (08/19/09- in scanned documents) and NCS/EMG (on paper). Date: (08/19/09). Note for Follow up, Diagnostic Procedure Results: his paresthesia is almost gone in hand- he hasnt had any more numb issue s in face== no chest pain sob syncope or more spells-- not presently taking an aspirin a day Encounter Diagnosis: Hypertension with LVH (402.90), Abnormal Cardiac Test (794.30), Hyperlipidemia (272.4), family hx of colon polyps, Carpel tunnel syndrome (354.0) [facility] Office Visit On: 15-Jul-2009 13:43 Encounter Reason: Follow up ER - Reason for hospitalization note: (facial numbness on left and numbness of rt hand). Patient has been compliant with instructions. Current medication use: no side effects and compliant wit End: 17-Jul-2009 21:03 h dosing regimen. The patient feels well with minor complaints (numbness in face gone but still has it in rt hand) ,has good energy level and is sleeping well. Patient sleeps 7 hours per night. Note for Follow up ER: right 5 th finger - just came on -- last week-- wed his face felt numb and left ear popping- - no vision change- saw eye doc yesterday- Dr Nieto- today face feels puffy not numb-- las al[place] one day- - no slurrd speech- no sob- no chest pain- no weakness or numbness inlegs or dizziness- little weakness right handEncounter Diagnosis: Elevated Blood Pressure(796.2), Parasthesia (782.0), Palpitations(785.1), screen [facility] Office Visit On: 10-Jan-2007 8:28 [facility] End: 10-Jan-2007 8:41 Historical Summary On: 30-Dec-2006 14:33 [facility] End: 30-Dec-2006 14:39 Payers Michelle WILLIAMSON/SUKH SCOTT; a guarantor
--- OUTSIDE RECORDS SUMMARY | 2019-02-24 14:43 | XMS RPT_ITS | Continuity of Care Document ---
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, 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) Comments: encourage skin check Status: Active Bilateral carpal tunnel syndrome (G56.03, 354.0) Comments: cock up splints nsaids Status: Active BMI 33.0-33.9,adult (Z68.33, V85.33) Status: [...] Quantity: 90 {Tablet} Refills: 3 Ordered:27-Jun-2018 Fast DO, Darlin AFast DO, Darlin A Start : 27-Jun-2018 Active Cialis 5 MG Oral Tablet 1 (one) Tablet prn for 0 days Quantity: 90 {Tablet} Refills: 3 Ordered:27-Jun-2018 Fast DO, Darlin AFast DO, Darlin A Start : 27-Jun-2018 Active Lipitor 20 MG Oral Tablet 1 tab Tablet q hs for 90 days Quantity: 90 {Tablet} Refills: 2 Ordered:19-May-2018 Fast DO, Darlin AFast DO, Darlin A Start : 19-May-2018 End : 06-Jun-2014 Active Losartan Potassium 100 MG Oral Tablet 1 Tablet qd for 0 days Quantity: 90 {Tablet} Refills: 3 Ordered:15-Oct-2018 Fast DO, Darlin AFast DO, Darlin A Start : 15-Oct-2018 Active Meloxicam 15 MG Oral Tablet 1 (one) Tablet Tablet qd in am with food for 0 days Quantity: 30 {Tablet} Refills: 0 Ordered:03-Oct-2018 Fast DO, Darlin AFast DO, Darlin A Start : 03-Oct-2018 Active MULTIVITAMIN (PO Liquid) for 0 days Refills: 0 Ordered:11-Jul-2018 Ricardo Salinastive Norvasc 10 MG Oral Tablet 1 Tablet qd for 90 days Quantity: 90 {Tablet} Refills: 3 Ordered:29-May-2018 Fast DO, Darlin AFast DO, Darlin A Start : 29-May-2018 End : 29-Apr-2014 Active ProAir HFA 108 (90 Base) MCG/ACT Inhalation Aerosol Solution 1 (one) Puff Puff 2 puff q6hrs prn for 0 days Quantity: 1 {Inhalation} Refills: 0 Ordered:06-Oct-2018 Elisha Salinas Start : 06-Oct-2018 Active Probiotic Acidophilus Oral Capsule daily Active MICARDIS, 40MG (Oral Tablet) 1 Tablet qd for 0 days Quantity: 30 {Tablet} Refills: 3 Ordered:06-Apr-2013 Cara Negrete MD Start : 06-Apr-2013 End : 06-Apr-2013 Inactive [place] 5-325 MG Oral Tablet 1 (one) Tablet Tablet bid prn for 0 days Quantity: 14 {Tablet} Refills: 0 Ordered:03-Oct-2018 Elisha Salinas Start : 11-Jun-2018 End : 03-Oct-2018 Inactive PredniSONE 10 MG Oral Tablet 3 (three) Tablet pills for 3 days 2 pillsfor 3 days 1 pill for 3 days for 9 days Quantity: 18 {Tablet} Refills: 0 Ordered:21-Oct-2018 Fast DO, Darlin AFast DO, Darlin A Start : 21-Oct-2018 End : 30-Oct-2018 Inactive Comments:take with food in am PREDNISONE, 10MG (Oral Tablet) 2 (two) Tablet [...] days Quantity: 24 {Tablet_DR} Refills: 0 Ordered:30-Jan-2012 Jalyn Matute LPN Start : 14-Jan-2012 End : 30-Jan-2012 Inactive Zithromax Z-Renzo 250 MG Oral Tablet 2 (two) Tablet today then 1 qd for 4 days for 0 days Quantity: 6 {Tablet} Refills: 0 Ordered:21-Nov-2018 Shaggy Vaz Start : 21-Oct-2018 End : 21-Nov-2018 Inactive Comments:may use generic LAMISIL, 250MG (Oral Tablet) 1 Tablet qd for 0 days Quantity: 30 {Tablet} Refills: 2 Ordered:29-Sep-2013 Maik Darlin DO, Debra A Start : 29-Sep-2013 End : 29-Sep-2013 Discontinued LEVAQUIN, 500MG (Oral Tablet) 1 (one) Tablet qd for 0 days Quantity: 10 {Tablet} Refills: 0 Ordered:26-Oct-2014 Darlin Pleitez DO, DO, Debra A Start : 26-Oct-2014 End : 26-Oct-2014 Discontinued LISINOPRIL, 5MG (Oral Tablet) 1 (one) Tablet bid for 30 days Quantity: 60 {Tablet} Refills: 0 Ordered:04-Sep-2011 Darlin Pleitez DO, DO, Debra A Start : 04-Sep-2011 End : 04-Sep-2011 Discontinued LUMIGAN, 0.03% (Ophthalmic Solution) 1 drop in each eye qd for 0 days Refills: 0 Ordered:14-Aug-2013 Long Stephany PERALTA End : 14-Aug-2013 Discontinued Comments:This order discontinued per [facility]. Niacin ER 500 MG Oral Capsule Extended Release 1 (one) Capsule ER qd for 0 days Quantity: 30 {Capsule} Refills: 3 Ordered:12-Nov-2016 Darlin Pleitez DO, DO, Debra A Start : 12-Nov-2016 End : 12-Nov-2016 Discontinued NORVASC, 5MG (Oral Tablet) 1 Tablet qam for 0 days Quantity: 30 {Tablet} Refills: 3 Ordered:17-Oct-2011 Maik VOSSDarlin DO, Debra A Start : 17-Oct-2011 End : 17-Oct-2011 Discontinued Allergies and Adverse Reactions Name Dates Details No Known Allergies (Allergy) Onset: 16-Dec-2017 Status: Active No Known Drug Allergies (Allergy) Status: Active Past Medical History Name Dates Details BMI 32.0-32.9,adult (Z68.32, V85.32) Status: Inactive as of 23-Dec-2018 BMI 33.0-33.9,adult (Z68.33, V85.33) Status: Inactive as [...] as of 26-Oct-2014 Procedures Procedure Dates Details Colonoscopy Completed Comments: Within Normal Limits. Sessile Adenoma- repeat in 5 years Date Value Details 16-Dec-2018 Inital Evaluation (1) - PT Result: Comments: See Note; NOTES: [facility] [address] [place] [address] [address] [place] [address] / REHABILITATION SERVICES [facility] EVALUATION MR#: [id number] Acct: [id number] Name: TRACEY SCOTT Rep #: [id number] : 1960 58 From: Soraya STEVENS Referring Dr.: Bandar AMBROCIO Status: REG RCR Insurance: ANTHEM SELF PAY INSURANCE Patient's Visit Information TRACEY [...] To improve nutrient delivery to tissue Thank yo u for the opportunity to evaluate your patient. For Medicare and Medicare HMO plans, please review the plan of care and approve it. It will need to be FAXED BACK to us at [phone] for Medicare purp oses. For Medicare only, by signing this I certify the plan of care. Please let me know if there are questions or concerns regarding this plan of care. Physician Signature: Date: <Electronically signed by Soraya Brown MPT> 12/16/18 1344 CC: Darlin AMBROCIO Signed 10-Dec-2018 Operative Report Result: Comments: See Note; NOTES: [facility] Medical Records Department [address] [place] [address] Operative Report 12/10/18 0858 MR#: [id number] Acct: [id number] Name: ERA SCOTT Rep #: [id number] : 1960 58 From: Denny Dominguez MD PCP: Darlin Pleitez DO Status: DEP [facility] [place] Location: [facility] Report of Operation Date of Procedure: 12/10/18 [...] no longer abrading the lateral femoral condyle pay agent: None Type of Anesthesia:: General Anesthesiologist: Gio [...] Physical Exam Result: Comments: See Note; NOTES: [facility] Medical Records Department [address] [place] [address] History and Physical 11/20/18 2140 MR#: [id number] Acct: [id number] Name: TRACEY SCOTT Rep #: [id number] : 1960 58 From: Bandar Patrick PA-C PCP: Darlin Pleitez DO Status: PRE [facility] [place] Location: [facility] History and Physical DATE OF SURGERY: 12/10/2018 [...] have pain with activities of daily living. Juliannleyla marcum has tried oral medications with no [...] no changes. 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 Pe rsonal Habits: Cigarette Use: Never Smoked Cigarettes.Smokeless Tobacco: Never Used Smokeless Tobacco.Alcohol: Occasionally.Drug Use: Denies Use.Enjoy Exercising: Exercises 1-3 X/Week. Reviewed, no hendrickson ges. VITALS: Ht: 67.5 Wt: 232lb Wt k.235 BMI: 35.8 BP: 124/78 Pulse: 68 Resp: 16 T: 98.5 T: 36.9C ALLERGIES: No Known Drug Allergy MEDICATIONS: [place] 5-325 mg 1-2 by mouth every 6 [...] consent form. This dictation was created using CCBR-SYNARCg DearLocal software. Phonetic and/or grammatical errors may exist.. [...] Physical Exam Result: Comments: See Note; NOTES: [facility] Medical Records Department [address] [place] [address] History and Physical 11/20/182139 MR#: [id number] Acct: [id number] Name: TRACEY SCOTT Rep #: [id number] : 1960 58 From: Bandar Patrick PA-C PCP: Darlin Pleitez DO Status: PRE [facility] [place] Location: [facility] History and Physical DATE OF SURGERY: 12/10/2018 [...] High Blood Pressure, Hypercholesterolemia Accidents: Fracture - (1965) RT COLLARBONE Surgical Hx: Colonoscopy - X3 Anesthesia Complications: Non e Assistive Devices: Contacts Reviewed, no changes. 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 Pe rsonal Habits: Cigarette Use: Never Smoked Cigarettes.Smokeless Tobacco: Never Used Smokeless Tobacco.Alcohol: Occasionally.Drug Use: Denies Use.Enjoy Exercising: Exercises 1-3 X/Week. Reviewed, no hendrickson ges. VITALS: Ht: 67.5 Wt: 232lb Wt k.235 BMI: 35.8 BP: 124/78 Pulse: 68 Resp: 16 T: 98.5 T: 36.9C ALLERGIES: No Known Drug Allergy MEDICATIONS: [place] 5-325 mg 1-2 by mouth every 6 [...] form. This dictation was created using voice GRID software. Phonetic and/or grammatical errors may exist.. [...] Only (Routine) Result: Comments: See Note; NOTES: [facility] Imaging Services [address] [place] [address] Lower Ext Joint Only (Routine) MR#: [id number] Acct: [id number] Name: TRACEY SCOTT Rep #: [id number] : 1960 M 57 From: Mulu Napoles MD PCP: Darlin Pleitez DO Status: REG CLI Study: Lower Ext Joint Only (Routine) Date of Exam: 07/17/18 Exam# [id number] Ordering Dr: Darlin Pleitez DO STUDY: MRI [...] Service support , CC: Darlin Pleitez DO Lathe Setup Operator: Signed 11-Jul-2018 TXT - Blood Flow Screening Result: Comments: See Note; NOTES: [facility] Cardiovascular Services [address] [place] [address] 07/10/18 0821 MR#: [id number] Acct: [id number] Name: TRACEY SCOTT Rep #: [id number] : 1960 57 From: Bolivar Palomo MD Attending Dr: Darlin Pleitez DO Status: REG REF Ordering Dr: Date: 07/11/18 Location: [facility] Sex: M C Admitted: Reason For Study: [...] .rdering Physician: Darlin Pleitez D.O Performed By: Amalia, Moises, RVT 07/11/18821 Date Bolivar Brink CC: Darlin Pleitez DO Date Dictated: 07/10/18820 Date Transcribed: 07/11/18821 Lathe Setup Operator: Signed 27-Jun-2018 Inital Evaluation (1) - PT Result: Comments: See Note; NOTES: [facility] [address] [facility] [place] [address] Fax REHABILITATION SERVICES INITIAL EVALUATION MR#: [id number] Acct: [id number] Name: TRACEY SCOTT Rep #: [id number] : 1960 57 From: Soraya Brown MPT Referring Dr.: Darlin Pleitez DO Status: REG RCR Insurance: Zayo SELF PAY INSURANCE Patient's Visit Information TRACEY [...] His bed is firm and bought a pillow mattress coer and that has helped to [...] to be FAXED BACK to us at [phone] for Medicare purposes. Please let me know if there are questions or concerns regarding this plan of care. Physician Signature: ____Date: <Electronically signed by Soraya Brown MPT> 06/27/18 1230 CC: Darlin Pleitez DO Signed For Medicare only, by signing this I certify the plan of care. Physicians Signature Date 07-Jun-2018 Venous Duplex Lower Extremity Result: Comments: See Note; NOTES: [facility] Cardiovascular Services [address] [place] [address] Venous Duplex US, Unilateral 06/06/18 1420 MR#: [id number] Acct: [id number] Name: TRACEY KANG Rep #: [id number] : 1960 57 From: Bolivar Palomo MD [...] Pedro e Bolivar Palomo MD CC: Darlin Fast DO Date Dictated: 06/06/18 1420 Date Transcribed: 06/07/18 1531 Lathe Setup Operator: Signed 06-Jun-2018 Knee 4 or More Views Result: Comments: See Note; NOTES: [facility] Imaging Services [address] [place] [address] Knee 4 or More Views MR#: [id number] Acct: [id number] Name: TRACEY SCOTT Margo Rep #: [id number] : 1960 M 57 From: Winston Allred DO PCP: Darlin Pleitez DO Status: REG CLI Study: Knee 4 or More Views Date of Exam: 06/06/18 Exam# [id number] Ordering Dr: Darlin Pleitez DO STUDY: X-RAY [...] Winston Allred DO at 8:52 EDT Tel [phone], Service support , CC: Darlin Pleitez DO Lathe Setup Operator: Signed 06-Jun-2018 L/S Spine Min 4 Views Result: Comments: See Note; NOTES: [facility] Imaging Services [address] [place] [address] L/S Spine Min 4 Views MR#: [id number] Acct: [id number] Name: SONIATRACEY Aragon Rep #: [id number] : 1960 M 57 From: Winston Allred DO PCP: Darlin Pleitez DO Status: REG CLI Study: L/S Spine Min 4 Views Date of Exam: 06/06/18 Exam# [id number] Ordering Dr: Darlin Pleitez DO STUDY: X-RAY [...] Winston Allred DO at 9:11 EDT Tel [phone], Service support , CC: Darlin Pleitez DO Lathe Setup Operator: Signed 26-Oct-2015 EKG (32911) Comments: ekg- sinus edna normal axis no acute st t wave changes Result: [MEASUREMENTS ANALYSIS] Date of Test: 10/26/2015 08:45:17; Heart Rate: 56; DC Interval: 170; QRS: 96; QT Interval: 412; Corrected QT Interval (QTc): 405; P Wave [place]: 29; QRS Wave [place]: 23; T Wave [place]: 17; Blood Pressure: 112/76 [ECG DIAGNOSTIC STATEMENTS] Date of Test: 10/26/2015 08:45:17; Summary: Sinus Bradycardia WITHIN NORMAL LIMITS 29-Apr-2014 Spirometry (91933) Comments: poor techniq but really bad obstruction which is consistent with exam Result: Immunization Name Dates Details Tdap (7 years and up) on: 08-Nov-2009 Comments: Lot #[id number]-23/17/2011Site-left deltoidDose0.5mlgiven by A. West ADJUNCT LATIN PROFESSOR Family History Unknown Family Member Name Dates [...] smoker Vital Signs Date Test Result Details :09 Temperature 98.2 f Comments: Method: Temporal Pulse [...] kg/m2 Body Surface Area Calculated 2.22 m2 :35 Temperature 98.3 f Comments: Method: Temporal Pulse [...] kg/m2 Body Surface Area Calculated 2.17 m2 20-Xyv-765891:59 Temperature 97.5 f Comments: Method: Temporal Pulse [...] Microscopic Examination Comments: PATIENT WAS FASTINGPERFORMED BY: [facility] [id number] Bacteria None seen (Normal) Mucus Threads Present (Normal) Epithelial Cells (non renal) 0-10 {/hpf} (Normal) Range: 0 - 10 RBC 0-2 {/hpf} (Normal) Range: 0 - 2 WBC 0-5 {/hpf} (Normal) Range: 0 - 5 :44 URINALYSIS, W/ MICRO (04215) Comments: PATIENT WAS FASTINGPERFORMED BY: [facility] [id number] Microscopic Examination See below: (Normal) Comments: Microscopic was indicated and was performed. Microscopic Examination MICRON (Normal) Comments: Microscopic follows if indicated. Nitrite, Urine Negative (Normal) Urobilinogen,Semi-Qn 0.2 mg/dL (Normal) Range: 0.2-1.0 Bilirubin Negative (Normal) Occult Blood Negative (Normal) Ketones Negative (Normal) Glucose Negative (Normal) Protein Negative (Normal) WBC Esterase Negative (Normal) Appearance Clear (Normal) Urine-Color Yellow (Normal) pH 6.0 (Normal) Range: 5.0-7.5 Specific [place] 1.020 (Normal) Range: 1.005-1.030 :44 CBC W/AUTO DIFF WBC (01413) Comments: PATIENT WAS FASTINGPERFORMED BY: [facility] [id number] Immature Grans (Abs) 0.0 {x10E3/uL} (Normal) Range: [...] 4.14-5.80 WBC 9.0 {x10E3/uL} (Normal) Range: 3.4-10.8 33-Scm-95483:44 METABOLIC PANEL, COMPREHENSIVE Comments: PATIENT WAS FASTINGPERFORMED BY: [facility]Dskgqt0047 [facility] [id number] (15919) ALT (SGPT) 16 [iU]/L (Normal) Range: 0-44 [...] 6-24 Glucose 107 mg/dL (Abnormal) Range: 65-99 14-Zwf-20250:00 Crystals, Body Fluid Comments: [facility] [address] [place], [place], [address] PATH REV Reviewed (Normal) Comments: No diagnostic crystals seen.Seth Velazco D.O. 08/01/18 AMENDED REPORT 08/01/18 1230 PATH REV previously reported as: Will follow SOURCE/BF SYNOVIAL (Normal) CRYSTALS/BF SEE PATH REV (Normal) 06-Ijk-05590:00 Culture, Body Fluid Comments: [facility] [address] [place], [place], [address] CUBF See Note (Normal) Comments: List Antibiotics Last 48 Hours? UNKList Antibiotics to be Started? UNKGram StainCentrifuged Specimen? Culture performed on centrifuged specimen Gram Stain 4+ Red Blood Cells 4+ White Blood C ells No organisms seen Body Fluid CultNO GROWTH IN 14 DAYS Cult, AnaerobicNo growth in 5 days. 49-Giy-90233:53 MICROALBUMIN: CREATININE RATIO Comments: PATIENT WAS FASTINGPERFORMED BY: [facility] HospitalOjashr3479 [facility] [id number] (33999) AND (06311) Alb/Creat Ratio 5.7 {mg/g_creat} (Normal) Range: 0.0-30.0 Comments: Normal: 0.0 - 30.0 Albuminuria: 31.0 - 300.0 Clinical albuminuria: >300.0 Albumin, Urine 7.6 ug/mL (Normal) Creatinine, Urine 133.6 mg/dL (Normal) :53 METABOLIC PANEL, COMPREHENSIVE Comments: PATIENT WAS FASTINGPERFORMED BY: [facility] [id number] (52869) ALT (SGPT) 15 [iU]/L (Normal) Range: 0-44 [...] mg/dL (Abnormal) Range: 65-99 :53 HGB A1C (84512) Comments: PATIENT WAS FASTINGPERFORMED BY: EVRGR70 [facility] [id number] Hemoglobin A1c 5.6 % (Normal) Range: 4.8-5.6 Comments: . Prediabetes: 5.7 - 6.4 Diabetes: >6.4 Glycemic control for adults with diabetes: <7.0 :53 LIPID PANEL (29898) Comments: PATIENT WAS FASTINGPERFORMED BY: [facility] [id number] LDL/HDL Ratio 1.6 {ratio} (Normal) Range: 0.0-3.6 Comments: LDL/HDL Ratio Men Women 1/2 Avg.Risk 1.0 1.5 Av g.Risk 3.6 3.2 2X Avg.Risk 6.2 5.0 3X Avg.Risk 8.0 6.1 LDL Cholesterol Calc 73 mg/dL (Normal) Range: 0-99 VLDL Cholesterol Compa 16 mg/dL (Normal) Range: 5-40 HDL Cholesterol 47 mg/dL (Normal) Triglycerides 80 mg/dL (Normal) Range: 0-149 Cholesterol, Total 136 mg/dL (Normal) Range: 100-199 64-Dna-31657:53 C-REACT PROT HIGH SENS(hsCRP) Comments: PATIENT WAS FASTINGPERFORMED BY: [facility] [id number] (93310) C-Reactive Protein, Cardiac 4.66 mg/L (Abnormal) Range: 0.00-3.00 Comments: Relative Risk for Future Cardiovascular Event Low <1.00 Average 1.00 - 3.00 High >3.00 :12 CBC with auto diff (41180) Comments: PATIENT WAS FASTINGPERFORMED BY: [facility] [id number] Immature Grans (Abs) 0.0 {x10E3/uL} (Normal) Range: [...] 4.14-5.80 WBC 7.0 {x10E3/uL} (Normal) Range: 3.4-10.8 70-Cjj-89859:12 MICROALBUMIN: CREATININE RATIO Comments: PATIENT WAS FASTINGPERFORMED BY: [employer] [facility] [id number] (84214) AND (70561) Alb/Creat Ratio 2.8 {mg/g_creat} (Normal) Range: 0.0-30.0 Albumin, Urine 3.1 ug/mL (Normal) Creatinine, Urine 110.7 mg/dL (Normal) 90-Ame-52608:12 METABOLIC PANEL, COMPREHENSIVE Comments: PATIENT WAS FASTINGPERFORMED BY: [employer] Pwbwow7607 [facility] [id number]; review 06/27 (17920) ALT (SGPT) 14 [iU]/L (Normal) Range: 0-44 [...] 6-24 Glucose 106 mg/dL (Abnormal) Range: 65-99 82-Lwp-83051:22 HgA1C , Office (80559) HgA1C , Office 5.5 % (Normal) Range: 4.6 - 7.1 1-Bou-893733:45 Microscopic Examination Comments: PATIENT WAS FASTINGPERFORMED BY: [email or web address] [facility] [id number] Bacteria None seen (Normal) Epithelial Cells (non renal) None seen {/hpf} (Normal) Range: 0 - 10 RBC 0-2 {/hpf} (Normal) Range: 0 - 2 WBC 0-5 {/hpf} (Normal) Range: 0 - 5 6-Aqx-307193:45 PSA (PROSTATE SPECIFIC Comments: PATIENT WAS FASTINGPERFORMED BY: [email or web address] [facility] [id number] ANTIGEN) (V76.44) Prostate Specific Ag, 1.3 ng/mL (Normal) Range: 0.0-4.0 Serum Comments: Lauren ECLIA methodology. .According to the [place] [employer], Serum PSA shoulddecrease and remain at undetectable levels after radicalprostatectomy. The AUA defines biochemical recurrence as an initialPSA value 0.2 ng/mL or greater followed by a subsequent confirmatoryPSA value 0.2 ng/mL or greater.Values obtained with d ifferent assay methods or kits cannot be usedinterchangeably. Results cannot be interpreted as absolute evidenceof the presence or absence of malignant disease. 4-Owt-206948:45 URINALYSIS, W/ MICRO (15484) Comments: PATIENT WAS FASTINGPERFORMED BY: [employer] Oxipxo2696 [facility] [id number] Microscopic Examination See below: (Normal) Comments: Microscopic was indicated and was performed. Microscopic Examination MICRON (Normal) Comments: Microscopic follows if indicated. Nitrite, Urine Negative (Normal) Urobilinogen,Semi-Qn 0.2 mg/dL (Normal) Range: 0.2-1.0 Bilirubin Negative (Normal) Occult Blood Negative (Normal) Ketones Negative (Normal) Glucose Negative (Normal) Protein Negative (Normal) WBC Esterase Negative (Normal) Appearance Clear (Normal) Urine-Color Yellow (Normal) pH 6.0 (Normal) Range: 5.0-7.5 Specific [place] 1.011 (Normal) Range: 1.005-1.030 9-Smb-303799:45 CBC W/AUTO DIFF WBC (14542) Comments: PATIENT WAS FASTINGPERFORMED BY: [email or web address] [facility] [id number] Immature Grans (Abs) 0.0 {x10E3/uL} (Normal) Range: [...] 4.14-5.80 WBC 7.8 {x10E3/uL} (Normal) Range: 3.4-10.8 1-Vvf-892544:45 METABOLIC PANEL, COMPREHENSIVE Comments: PATIENT WAS FASTINGPERFORMED BY: [facility] Ffxtzf4608 [facility] [id number]; can review on 12/16 appt (79122) ALT (SGPT) 29 [iU]/L (Normal) Range: 0-44 [...] Glucose, Serum 101 mg/dL (Abnormal) Range: 65-99 5-Lpl-788374:45 LIPID PANEL (76809) Comments: PATIENT WAS FASTINGPERFORMED BY: CHARMS PPEC [facility] [id number] LDL/HDL Ratio 1.6 {ratio_units} (Normal) Range: 0.0-3.6 Comments: LDL/HDL Ratio Men Women 1/2 Avg.Risk 1.0 1.5 Av g.Risk 3.6 3.2 2X Avg.Risk 6.2 5.0 3X Avg.Risk 8.0 6.1 LDL Cholesterol Calc 92 mg/dL (Normal) Range: 0-99 VLDL Cholesterol Compa 31 mg/dL (Normal) Range: 5-40 HDL Cholesterol 56 mg/dL (Normal) Triglycerides 157 mg/dL (Abnormal) Range: 0-149 Cholesterol, Total 179 mg/dL (Normal) Range: 100-199 1-Wsm-851443:45 HEPATITIS C ANTIBODY (59306) Comments: PATIENT WAS FASTINGPERFORMED BY: [employer]70 [facility] [id number] Hep C Virus Ab <0.1 {s/co_ratio} (Normal) Range: 0.0-0.9 Comments: Negative: < 0.8 Indeterminate: 0.8 - 0.9 Positive: > 0.9 . The CDC recommends that a positive HCV antibody result be followed up with a HCV Nucleic Acid Amplification test (059010). 45-Nlt-69617:42 METABOLIC PANEL, COMPREHENSIVE Comments: PERFORMED BY: [facility] [facility] [id number] (24321) ALT (SGPT) 21 [iU]/L (Normal) Range: 0-44 [...] Glucose, Serum 103 mg/dL (Abnormal) Range: 65-99 81-Coj-728749:42 PSA (PROSTATE SPECIFIC Comments: PATIENT WAS FASTINGPERFORMED BY: [employer] [address] [id number] BY: [facility]CoL[facility] Ant Xcchkb6800 [facility] [id number] ANTIGEN) (V76.44) Prostate Specific Ag, 1.2 ng/mL (Normal) Range: 0.0-4.0 Serum Comments: [employer] ECLIA methodology. .According to the [place] [employer], Serum PSA shoulddecrease and remain at undetectable levels after radicalprostatectomy. The AUA defines biochemical recurrence as an initialPSA value 0.2 ng/mL or greater followed by a subsequent confirmatoryPSA value 0.2 ng/mL or greater.Values obtained with d ifferent assay methods or kits cannot be usedinterchangeably. Results cannot be interpreted as absolute evidenceof the presence or absence of malignant disease. 18-Wzu-558229:42 CBC with auto diff Comments: PATIENT WAS FASTINGPERFORMED BY: BN [facility]Co[address] [id number] BY: [facility] TownshipParLevel SystemsChrist HospitalLjenzo7229 [facility] [id number] (30729) Immature Grans (Abs) 0.0 {x10E3/uL} (Normal) Range: [...] 4.14-5.80 WBC 7.5 {x10E3/uL} (Normal) Range: 3.4-10.8 83-Afh-381962:42 HGB A1C (35017) Comments: PATIENT WAS FASTINGPERFORMED BY: LabParLevel Systems[address] [id number] BY: MobileReactorChrist HospitalWactla2946 [facility] [id number] Hemoglobin A1c 5.8 % (Abnormal) Range: 4.8-5.6 Comments: . Pre-diabetes: 5.7 - 6.4 Diabetes: >6.4 Glycemic control for adults with diabetes: <7.0 78-Gfm-658320:42 MICROALBUMIN: CREATININE Comments: PATIENT WAS FASTINGPERFORMED BY: [employer]ton1447 [facility] [facility] [id number] BY: [email or web address] [facility] [id number] RATIO (02083) AND (67191) Microalb/Creat Ratio <1.9 {mg/g_creat} (Normal) Range: 0.0-30.0 Microalbumin, Urine <3.0 ug/mL (Normal) Creatinine, Urine 160.7 mg/dL (Normal) :42 LIPOPROTEIN, BLD, BY NMR Comments: PATIENT WAS FASTINGPERFORMED BY: TGV Softwareton1447 [facility] [id number] BY: [email or web address] [facility] [id number]; non-emergent till apt (06099) LP-IR Score 50 (Abnormal) Comments: INSULIN RESISTANCE MARKER <--Insulin Sensitive Insulin Resistant--> Percentile in Reference PopulationInsulin Resistance ScoreLP-IR Score Low 25th 50th 75th High <27 27 45 63 >63LP-IR Score is inaccurate if patient is non-fasting. .The LP-IR score is a laboratory developed i [facility] that has beenassociated with insulin resistance and [...] were developed and their performance characteristicsdetermined by [employer]. These assays have not been cleared by [...] 1600 - 2000 Very High > 2000 42-Kvz-179368:42 METABOLIC PANEL, Comments: PATIENT WAS FASTINGPERFORMED BY: [facility] [address] [id number] BY: [facility] Dlrrpo0307 [facility] [id number] COMPREHENSIVE (79765) ALT (SGPT) 18 [iU]/L (Normal) Range: 0-44 [...] (Normal) Range: 65-99 :07 HgA1C , Office (50290) HgA1C , Office 5.7 % (Normal) Range: 4.6 - 7.1 :06 PSA (PROSTATE SPECIFIC Comments: PATIENT WAS FASTINGPERFORMED BY: [facility]6370 [facility] [id number] ANTIGEN) (V76.44) Prostate Specific Ag, 1.4 ng/mL (Normal) Range: 0.0-4.0 Serum Comments: Lauren ECLIA methodology. .According to the [place] [employer], Serum PSA shoulddecrease and remain [...] METABOLIC PANEL, Comments: PATIENT WAS FASTINGPERFORMED BY: [email or web address] [facility] [id number] Information: 109167,[id number] COMPREHENSIVE (20331) ALT (SGPT) 20 [iU]/L (Normal) Range: 0-44 [...] mg/dL (Abnormal) Range: 65-99 :06 LIPID PANEL (25398) Comments: PATIENT WAS FASTINGPERFORMED BY: [email or web address] [facility] [id number] LDL/HDL Ratio 1.2 {ratio_units} (Normal) Range: 0.0-3.6 [...] (Normal) Range: 100-199 :09 HgA1C , Office (40731) HgA1C , Office 5.7 % (Normal) Range: 4.6 - 7.1 :25 CBC With Differential/Platelet Comments: PATIENT WAS FASTINGPERFORMED BY: [facility]6370 [facility] [id number] Information: [id number],[id number] Immature Grans (Abs) 0.0 {x10E3/uL} (Normal) Range: [...] 4.14-5.80 WBC 6.9 {x10E3/uL} (Normal) Range: 3.4-10.8 96-Egp-08366:25 Comp. Metabolic Panel (14) Comments: PATIENT WAS FASTINGPERFORMED BY: [facility] Zsxwqv0359 [facility] [id number] ALT (SGPT) 14 [iU]/L (Normal) Range: 0-44 [...] With LDL/HDL Comments: PATIENT WAS FASTINGPERFORMED BY: [employer] Cmpxsl9605 [facility] [id number] Ratio LDL/HDL Ratio 1.2 {ratio_units} (Normal) Range: [...] Cholesterol, Total 143 mg/dL (Normal) Range: 100-199 :25 Microalb/Creat Ratio, Randm Ur Comments: PATIENT WAS FASTINGPERFORMED BY: MobileReactorChrist HospitalIjcbag4847 [facility] [id number] Microalb/Creat Ratio 3.4 {mg/g_creat} (Normal) Range: 0.0-30.0 Microalbumin, Urine 5.1 ug/mL (Normal) Range: 0.0-17.0 Creatinine, Urine 149.6 mg/dL (Normal) Range: 22.0-328.0 52-Jux-288790:00 HgA1C , Office (43796) HgA1C , Office 5.8 % (Normal) Range: 4.6 - 7.1 94-Ivz-382318:00 Blood Glucose , Office (36785) Blood Glucose , Office 119 (Normal) 96-Rmc-298265:25 PSA (PROSTATE SPECIFIC Comments: PATIENT WAS FASTINGPERFORMED BY: LabParLevel SystemsChrist HospitalEwdbwq4362 [facility] [id number] ANTIGEN) (V76.44) Prostate Specific Ag, 1.0 ng/mL (Normal) Range: 0.0-4.0 Serum Comments: Lauren ECLIA methodology. .According to the [place] [employer], Serum PSA shoulddecrease and remain at undetectable levels after radicalprostatectomy. The AUA defines biochemical recurrence as an initialPSA value 0.2 ng/mL or greater followed by a subsequent confirmatoryPSA value 0.2 ng/mL or greater.Values obtained with d ifferent assay methods or kits cannot be usedinterchangeably. Results cannot be interpreted as absolute evidenceof the presence or absence of malignant disease. 00-Olh-419823:25 CBC WITH MANUAL DIFF Comments: PATIENT WAS FASTINGPERFORMED BY: LabCoChrist HospitalXdwrjs9178 [facility] [id number] Information: [id number] (76371) Immature Grans (Abs) 0.0 {x10E3/uL} (Normal) Range: [...] PANEL, COMPREHENSIVE Comments: PATIENT WAS FASTINGPERFORMED BY: [employer] Awxbpc0864 [facility] [id number] (49789) ALT (SGPT) 21 [iU]/L (Normal) Range: 0-44 [...] Glucose, Serum 98 mg/dL (Normal) Range: 65-99 :25 LIPID PANEL (74339) Comments: PATIENT WAS FASTINGPERFORMED BY: MobileReactorChrist HospitalYcqzbt0534 [facility] [id number] LDL/HDL Ratio 1.4 {ratio_units} (Normal) Range: 0.0-3.6 [...] Cholesterol, Total 168 mg/dL (Normal) Range: 100-199 69-Xkd-395349:50 HgA1C , Office (61190) HgA1C , Office 5.4 % (Normal) Range: 4.6 - 7.1 67-Cxu-517958:53 LIPID PANEL (95534) Comments: PATIENT WAS FASTINGPERFORMED BY: Sapheneia [facility] [id number]; all normal labs and pt has appt [...] METABOLIC PANEL, Comments: PATIENT WAS FASTINGPERFORMED BY: [employer] Qsfuvs1078 [facility] [id number] Information: 103299,M72903 COMPREHENSIVE (26323) ALT (SGPT) 18 [iU]/L (Normal) Range: 0-44 [...] Glucose, Serum 95 mg/dL (Normal) Range: 65-99 63-Obr-169881:53 MICROALBUMIN: CREATININE RATIO Comments: PATIENT WAS FASTINGPERFORMED BY: MobileReactorChrist HospitalVuqnty8755 [facility] [id number] (47769) AND (09726) Creatinine, Urine 27.5 mg/dL (Normal) Range: 22.0-328.0 Microalb/Creat Ratio 10.2 {mg/g_creat} (Normal) Range: 0.0-30.0 Microalbumin, Urine 2.8 ug/mL (Normal) Range: 0.0-17.0 :03 HgA1C , Office (08681) HgA1C , Office 5.6 % (Normal) Range: 4.6 - 7.1 :04 Influenza A&B Viral Comments: PATIENT NOT FASTINGPERFORMED BY: Qspex TechnologiesVa [facility] Center6370 [facility] [id number] Information: SRC:NOS ADD I03586 Culture (06822) Viral Culture,Rapid,Influenza FLUABN (Normal) Comments: Negative:No Influenza A or B detected. 16-Vnb-30581:00 Rapid Flu (26127 x 2) Influenza A Ag neg (Normal) :40 JOSLYN CULTURE-OTHER (93281) Comments: PATIENT NOT FASTINGPERFORMED BY: [place] 0408670 [facility] [id number] Information: SRC:THRT ADD [id number] Result 1 RRF (Normal) Comments: Routine respiratory ghazala Upper Respiratory Culture Final report (Normal) :37 Rapid Strep Test, Office (93684) Rapid Strep Test, Office Negative (Normal) :57 HEPATIC FUNCTION PANEL Comments: PATIENT NOT FASTINGPERFORMED BY: [place] 0408670 [facility] [id number] Information: [id number],[id number] (42211) ALT (SGPT) 19 [iU]/L (Normal) Range: 0-44 AST (SGOT) 15 [iU]/L (Normal) Range: 0-40 Alkaline Phosphatase, S 48 [iU]/L (Normal) Range: 44-102 Bilirubin, Direct 0.13 mg/dL (Normal) Range: 0.00-0.40 Bilirubin, Total 0.4 mg/dL (Normal) Range: 0.0-1.2 Albumin, Serum 4.5 g/dL (Normal) Range: 3.5-5.5 Protein, Total, Serum 6.6 g/dL (Normal) Range: 6.0-8.5 9-Wom-736552:03 HEPATIC FUNCTION PANEL Comments: PATIENT NOT FASTINGPERFORMED BY: [facility]6370 [facility] [id number] Information: [id number] (72975) ALT (SGPT) 15 [iU]/L (Normal) Range: 0-44 [...] Total, Serum 6.6 g/dL (Normal) Range: 6.0-8.5 31-Fxw-89945:42 CBC WITH MANUAL DIFF Comments: PATIENT WAS FASTINGPERFORMED BY: LabCoChrist HospitalNdhlsa1808 [facility] [id number] Information: [id number],[id number] (55990) Immature Grans (Abs) 0.0 {x10E3/uL} (Normal) Range: [...] 4.14-5.80 WBC 7.2 {x10E3/uL} (Normal) Range: 3.4-10.8 93-Okv-12592:42 METABOLIC PANEL, COMPREHENSIVE Comments: PATIENT WAS FASTINGPERFORMED BY: LabCoChrist HospitalSwiuty2056 [facility] [id number] (77683) ALT (SGPT) 22 [iU]/L (Normal) Range: 0-44 [...] mg/dL (Abnormal) Range: 65-99 :42 LIPID PANEL (43161) Comments: PATIENT WAS FASTINGPERFORMED BY: [employer] [facility] Bxuemt3009 [facility] [id number] LDL/HDL Ratio 1.4 {ratio_units} (Normal) Range: 0.0-3.6 LDL Cholesterol Calc 75 mg/dL (Normal) Range: 0-99 VLDL Cholesterol Compa 16 mg/dL (Normal) Range: 5-40 HDL Cholesterol 53 mg/dL (Normal) Comments: According to ATP-III Guidelines, HDL-C >59 mg/dL is considered anegative risk factor for CHD. Triglycerides 80 mg/dL (Normal) Range: 0-149 Cholesterol, Total 144 mg/dL (Normal) Range: 100-199 :56 HgA1C , Office (87764) HgA1C , Office 5.6 % (Normal) Range: 4.6 - 7.1 :44 LIPID PANEL (13525) Comments: PATIENT WAS FASTINGPERFORMED BY: [facility] [facility] Nxtrrw2501 [facility] [id number] BY: [address] [id number] LDL/HDL Ratio 1.3 {ratio_units} (Normal) Range: 0.0-3.6 [...] METABOLIC PANEL, Comments: PATIENT WAS FASTINGPERFORMED BY: Placeling[employer]6370 [facility] [id number] BY: ADILSON [facility] Saqjdusqzr8096 [facility] [id number] Inf ormation: [id number] COMPREHENSIVE (33284) ALT (SGPT) 20 [iU]/L (Normal) Range: 0-44 [...] Glucose, Serum 98 mg/dL (Normal) Range: 65-99 5-Yoy-563885:44 PSA (PROSTATE SPECIFIC Comments: PATIENT WAS FASTINGPERFORMED BY: [place] Labgeolad6370 [facility] [id number] BY: [employer] [id number] ANTIGEN) (V76.44) Prostate Specific Ag, 1.7 ng/mL (Normal) Range: 0.0-4.0 Serum Comments: [employer] ECLIA methodology. .According to the [place] [employer], Serum PSA shoulddecrease and remain at undetectable levels after radicalprostatectomy. The AUA defines biochemical recurrence as an initialPSA value 0.2 ng/mL or greater followed by a subsequent confirmatoryPSA value 0.2 ng/mL or greater.Values obtained with d ifferent assay methods or kits cannot be usedinterchangeably. Results cannot be interpreted as absolute evidenceof the presence or absence of malignant disease. 0-Snp-456442:44 TESTOSTERONE FREE (83591) Comments: PATIENT WAS FASTINGPERFORMED BY: MobileReactorChrist HospitalEokaya2171 [facility] [id number] BY: [employer] [id number] Free Testosterone(Direct) 13.2 pg/mL (Normal) Range: 7.2-24.0 :34 HgA1C , Office (20586) HgA1C , Office 5.7 % (Normal) Range: 4.6 - 7.1 :58 Microscopic Examination Comments: PATIENT WAS FASTINGPERFORMED BY: MobileReactorJessica Ville 3161070 [facility] [id number] BY: [address] [id number] Bacteria Few (Normal) Mucus Threads Present (Normal) Epithelial Cells (non renal) None seen {/hpf} (Normal) Range: 0 - 10 RBC 0-3 {/hpf} (Normal) Range: 0 - 3 WBC 0-5 {/hpf} (Normal) Range: 0 - 5 :58 URINALYSIS, W/ MICRO Comments: PATIENT WAS FASTINGPERFORMED BY: [facility]6370 [facility] [id number] BY: [employer] [address] [id number] (45164) Microscopic Examination See below: (Normal) Microscopic Examination MICRON (Normal) Comments: Microscopic follows if indicated. Nitrite, Urine Negative (Normal) Urobilinogen,Semi-Qn 0.2 mg/dL (Normal) Range: 0.0-1.9 Bilirubin Negative (Normal) Occult Blood Negative (Normal) Ketones Negative (Normal) Glucose Negative (Normal) Protein Negative (Normal) WBC Esterase Negative (Normal) Appearance Clear (Normal) pH 6.5 (Normal) Range: 5.0-7.5 Urine-Color Yellow (Normal) Specific Ballard 1.020 (Normal) Range: 1.005-1.030 08-Jan-20138:58 CBC WITH MANUAL DIFF Comments: PATIENT WAS FASTINGPERFORMED BY: LabParLevel SystemsChrist HospitalUkcdog2898 [facility] [id number] BY: [employer] [id number] Inf ormation: [id number] (41655) Immature Grans (Abs) 0.0 {x10E3/uL} (Normal) Range: [...] {x10E3/uL} (Normal) Range: 4.0-10.5 :58 TESTOSTERONE FREE (68359) Comments: PATIENT WAS FASTINGPERFORMED BY: Sapheneia [facility] [id number] BY: [facility] Rehabilitation CenterParLevel Systems[address] [id number] Free Testosterone(Direct) 8.1 pg/mL (Normal) Range: 7.2-24.0 :58 LIPID PANEL (59915) Comments: PATIENT WAS FASTINGPERFORMED BY: Sapheneia [facility] [id number] BY: Mobile[employer] [id number] LDL Cholesterol Calc 73 mg/dL (Normal) Range: [...] METABOLIC PANEL, Comments: PATIENT WAS FASTINGPERFORMED BY: StyleTechlin6370 [facility] [id number] BY: [employer] [id number] COMPREHENSIVE (83156) ALT (SGPT) 19 [iU]/L (Normal) Range: 0-44 [...] (Abnormal) Range: 65-99 :05 HgA1C , Office (29794) HgA1C , Office 5.7 % (Normal) Range: 4.6 - 7.1 :41 MICROALBUMIN: CREATININE RATIO Comments: PATIENT WAS FASTINGPERFORMED BY: LabCo Zcpvcj8576 [facility] [id number] (76536) AND (54371) Microalb/Creat Ratio 2.2 {mg/g_creat} (Normal) Range: 0.0-30.0 Microalbumin, Urine 2.6 ug/mL (Normal) Range: 0.0-17.0 Creatinine, Urine 118.0 mg/dL (Normal) Range: 22.0-328.0 :41 METABOLIC PANEL, COMPREHENSIVE Comments: PATIENT WAS FASTINGPERFORMED BY: [place] [employer] [facility] [id number]; f/u 06/17/12 (83492) ALT (SGPT) 19 [iU]/L (Normal) Range: 0-55 [...] Glucose, Serum 103 mg/dL (Abnormal) Range: 65-99 :41 LIPID PANEL (32927) Comments: PATIENT WAS FASTINGPERFORMED BY: Top10.com6370 [facility] [id number] LDL/HDL Ratio 1.2 {ratio_units} (Normal) Range: 0.0-3.6 LDL Cholesterol Calc 72 mg/dL (Normal) Range: 0-99 VLDL Cholesterol Compa 25 mg/dL (Normal) Range: 5-40 HDL Cholesterol 61 mg/dL (Normal) Comments: According to ATP-III Guidelines, HDL-C >59 mg/dL is considered anegative risk factor for CHD. Triglycerides 124 mg/dL (Normal) Range: 0-149 Cholesterol, Total 158 mg/dL (Normal) Range: 100-199 :11 HgA1C , Office (06510) HgA1C , Office 5.8 % (Normal) Range: 4.6 - 7.1 4-Odw-588533:11 Blood Glucose , Office (66146) Blood Glucose , Office 143 (Normal) :48 C-REACT PROT HIGH Comments: PATIENT WAS FASTINGPERFORMED BY: [facility]6370 [facility] [id number] Information: S82827, 2ND ORDER NO DRAW FEE SENS(hsCRP) (54598) C-Reactive Protein, Cardiac 1.32 mg/L (Normal) Range: 0.00-3.00 Comments: Relative Risk for Future Cardiovascular Event Low <1.00 Average 1.00 - 3.00 High >3.00 88-Yyf-433270:06 ANKLE,MIN 3 VIEWS Radiology Report See Note [...] radiologist regarding this report, please call our [id number] line @ [phone] Dictated on 01/14/12 1000 by MARSHA STONE MDscribed on 01/14/12 1246 by ITS IMPORTSign by MASRHA STONE MD on 01/14/12 1246 Sign by: _ MARSHA STONE MD 79-Szi-028535:06 KNEE,4 OR MORE VIEWS Radiology Report See [...] radiologist regarding this report, please call our [id number] line @ Dictated on 01/14/12 1000 by MARSHA STONE MD, BTranscribed on 01/14/12 1352 by ITS IMPORTSign by MARSHA STONE MD on 01/14/12 1353 Sign by: MARSHA STONE MD CCP Antibodies 10 {units} Comments: PATIENT NOT FASTINGPERFORMED BY: [employer] [address]way9511 [facility] [id number] BY: [employer] [id number] 29:40 IgG/IgA (Normal) Range: 0-19 Comments: Negative <20 Weak positive 20 - 39 Moderate positive 40 - 59 Strong positive >59 :40 Uric Acid Blood (39934) Comments: PATIENT NOT FASTINGPERFORMED BY: StyleTechlin6370 [facility] [id number] BY: [address] [id number] Uric Acid, Serum 6.8 mg/dL (Normal) Range: 3.7-8.6 Comments: Therapeutic target for gout patients: <6.0 :40 SED RATE ERYTHROCYTE Comments: PATIENT NOT FASTINGPERFORMED BY: [place] 0408670 [facility] [id number] BY: [address] [id number] (32612) Sedimentation Rate-Westergren 18 mm/h (Normal) Range: 0-30 :40 C-REACTIVE PROTEIN (21669) Comments: PATIENT NOT FASTINGPERFORMED BY: [place] 0408670 [facility] [id number] BY: [address] [id number] C-Reactive Protein, Quant 34.9 mg/L (Abnormal) Range: 0.0-4.9 :40 TSH (73073) Comments: PATIENT NOT FASTINGPERFORMED BY: [place] 0408670 [facility] [id number] BY: [address] [id number] TSH 1.990 {uIU/mL} (Normal) Range: 0.450-4.500 :40 RHEUMATOID FACTOR-QUANT Comments: PATIENT NOT FASTINGPERFORMED BY: [place] 0408670 [facility] [id number] BY: [address] [id number] (01075) RA Latex Turbid. 11.3 {IU/mL} (Normal) Range: 0.0-13.9 :40 VICTOR HUGO (ANTINUCLEAR ANTIBODY) Comments: PATIENT NOT FASTINGPERFORMED BY: [place] 0408670 [facility] [id number] BY: BN [facility] [id number] (94021) VICTOR HUGO Direct Negative (Normal) 40-Syp-81935:40 CBC WITH MANUAL DIFF Comments: PATIENT NOT FASTINGPERFORMED BY: [facility] Kdtmnn4569 Alethea [place] [id number] BY: [facility]Co[address] [id number] Inf ormation: [id number] (01741) Immature Grans (Abs) 0.0 {x10E3/uL} (Normal) Range: [...] 4.10-5.60 WBC 10.5 {x10E3/uL} (Normal) Range: 4.0-10.5 40-Amp-76378:40 METABOLIC PANEL, Comments: PATIENT NOT FASTINGPERFORMED BY: CB [facility] Coyzzp2107 Alethea [place] [id number] BY: BN [facility] Hhyutqujii4799 [facility] [id number] COMPREHENSIVE (36634) ALT (SGPT) 15 [iU]/L (Normal) Range: 0-55 [...] Glucose, Serum 100 mg/dL (Abnormal) Range: 65-99 :47 METABOLIC PANEL, Comments: PATIENT WAS FASTINGPERFORMED BY: [employer] Lrqjvi5088 [facility] [id number] Information: [id number] COMPREHENSIVE (76745) ALT (SGPT) 16 [iU]/L (Normal) Range: 0-55 [...] mg/dL (Normal) Range: 65-99 :47 LIPID PANEL (78873) Comments: PATIENT WAS FASTINGPERFORMED BY: CHARMS PPEC [facility] [id number] LDL/HDL Ratio 1.4 {ratio_units} (Normal) Range: 0.0-3.6 LDL Cholesterol Calc 78 mg/dL (Normal) Range: 0-99 VLDL Cholesterol Compa 21 mg/dL (Normal) Range: 5-40 HDL Cholesterol 54 mg/dL (Normal) Comments: According to ATP-III Guidelines, HDL-C >59 mg/dL is considered anegative risk factor for CHD. Triglycerides 107 mg/dL (Normal) Range: 0-149 Cholesterol, Total 153 mg/dL (Normal) Range: 100-199 :17 HgA1C , Office (22772) HgA1C , Office 5.6 % (Normal) Range: 4.6 - 7.1 :29 PSA (PROSTATE SPECIFIC Comments: PATIENT WAS FASTINGPERFORMED BY: Sapheneia [facility] [id number] ANTIGEN) (V76.44) Prostate Specific Ag, 1.2 ng/mL (Normal) Range: 0.0-4.0 Serum Comments: TasqeIA methodology. .According to the [place] [employer], Serum PSA shoulddecrease and remain [...] CREATININE RATIO Comments: PATIENT WAS FASTINGPERFORMED BY: MobileReactorChrist HospitalXtewsx5896 [facility] [id number] (78154) AND (44403) Microalb/Creat Ratio 1.8 {mg/g_creat} (Normal) Range: 0.0-30.0 Microalbumin, Urine 2.3 ug/mL (Normal) Range: 0.0-17.0 Creatinine, Urine 130.7 mg/dL (Normal) Range: 22.0-328.0 : CBC WITH MANUAL DIFF Comments: PATIENT WAS FASTINGPERFORMED BY: [facility]6370 [facility] [id number] Information: [id number] (89897) Immature Grans (Abs) 0.0 {x10E3/uL} (Normal) Range: [...] 4.10-5.60 WBC 7.6 {x10E3/uL} (Normal) Range: 4.0-10.5 5-Lmm-244970:29 METABOLIC PANEL, COMPREHENSIVE Comments: PATIENT WAS FASTINGPERFORMED BY: [facility] [id number] (44098) ALT (SGPT) 22 [iU]/L (Normal) Range: 0-55 [...] Glucose, Serum 106 mg/dL (Abnormal) Range: 65-99 8-Gla-501183:29 LIPID PANEL (56452) Comments: PATIENT WAS FASTINGPERFORMED BY: [facility] Evocgo5507 [facility] [id number]; appt 10/17/11 LDL/HDL Ratio 1.3 {ratio_units} (Normal) Range: 0.0-3.6 LDL Cholesterol Calc 73 mg/dL (Normal) Range: 0-99 VLDL Cholesterol Compa 18 mg/dL (Normal) Range: 5-40 HDL Cholesterol 56 mg/dL (Normal) Comments: According to ATP-III Guidelines, HDL-C >59 mg/dL is considered anegative risk factor for CHD. Triglycerides 90 mg/dL (Normal) Range: 0-149 Cholesterol, Total 147 mg/dL (Normal) Range: 100-199 21-Vto-728381:21 Metabolic Panel, Comprehensive Comments: PATIENT WAS FASTINGPERFORMED BY: LabCoChrist HospitalGihinz6919 [facility] [id number] (07322) ALT (SGPT) 20 [iU]/L (Normal) Range: 0-55 [...] Glucose, Serum 97 mg/dL (Normal) Range: 65-99 54-Cou-187566:21 URINALYSIS (48841) Comments: PATIENT WAS FASTINGPERFORMED BY: MobileReactorChrist HospitalLjgdwf0173 [facility] [id number] Microscopic Examination MICRON (Normal) Comments: Microscopic follows if indicated. Nitrite, Urine Negative (Normal) Bilirubin Negative (Normal) Ketones Negative (Normal) Occult Blood Negative (Normal) Urobilinogen,Semi-Qn 0.2 mg/dL (Normal) Range: 0.0-1.9 Appearance Clear (Normal) Glucose Negative (Normal) pH 7.0 (Normal) Range: 5.0-7.5 Protein Negative (Normal) Urine-Color Yellow (Normal) WBC Esterase Negative (Normal) Specific Ballard 1.017 (Normal) Range: 1.005-1.030 64-Ygg-505309:21 CBC with manual diff Comments: PATIENT WAS FASTINGPERFORMED BY: [employer] Rlsxjk1157 [facility] [id number] Information: ADD [id number] AND DRAW FEE 99 3363 (25875) Baso (Absolute) 0.0 {x10E3/uL} (Normal) Range: 0.0-0.2 [...] 7.6 {x10E3/uL} (Normal) Range: 4.0-10.5 :21 TSH (69320) Comments: PATIENT WAS FASTINGPERFORMED BY: Sapheneia [facility] [id number] TSH 1.370 {uIU/mL} (Normal) Range: 0.450-4.500 :21 Lipid Panel (57578) Comments: PATIENT WAS FASTINGPERFORMED BY: [employer]com6370 [facility] [id number] LDL Cholesterol Calc 81 mg/dL (Normal) Range: [...] (Prostate Specific Comments: PATIENT WAS FASTINGPERFORMED BY: [employer] Obheib3912 [facility] [id number] Antigen), Screening (34318) Prostate Specific Ag, 0.9 ng/mL (Normal) Range: 0.0-4.0 Serum Comments: Lauren ECLIA methodology. .According to the [place] [employer], Serum PSA shoulddecrease and remain at undetectable levels after radicalprostatectomy. The AUA defines biochemical recurrence as an initialPSA value 0.2 ng/mL or greater followed by a subsequent confirmatoryPSA value 0.2 ng/mL or greater.Values obtained with d ifferent assay methods or kits cannot be usedinterchangeably. Results cannot be interpreted as absolute evidenceof the presence or absence of malignant disease. 39-Chw-48243:50 BRAIN W/WO CONTRAST Radiology Report See Note (Normal) Comments: Exam Number: [id number] CLINICAL: Right hand, fifth digit numbness two [...] demonstrated an eurysm or occlusion of the [place]. Normal bilateral temporal bones, with [...] (PROSTATE SPECIFIC Comments: PATIENT WAS FASTINGPERFORMED BY: [facility] Picture TechnologiesNov[facility] [id number] ANTIGEN) (V76.44) Prostate Specific Ag, Serum 0.8 ng/mL (Normal) Range: 0.0-4.0 Comments: Med[employer] methodology. .According to the [place] [employer], PSA should beundetectable after radical prostatectomy. A PSA of less than0.5 ng/mL (or undetectable) is not likely to be associated withdisease recurrence within five years of treatment.Values obtained with different assay methods or kits cannot be usedinterchang eably. Results cannot be interpreted as absolute evidenceof the presence or absence of malignant disease. :59 LIPID PANEL (28529) Comments: PATIENT WAS FASTINGPERFORMED BY: Smart Picture TechnologiesNovant Health/[facility] [id number] Cholesterol, Total 248 mg/dL (Abnormal) Range: 100-199 HDL Cholesterol 56 mg/dL (Normal) Comments: According to ATP-III Guidelines, HDL-C >59 mg/dL is considered anegative risk factor for CHD. LDL Cholesterol Calc 161 mg/dL (Abnormal) Range: 0-99 LDL/HDL Ratio 2.9 {ratio_units} (Normal) Range: 0.0-3.6 Triglycerides 157 mg/dL (Abnormal) Range: 0-149 VLDL Cholesterol Compa 31 mg/dL (Normal) Range: 5-40 :59 URINALYSIS W/O MICRO ([id number]) Comments: PATIENT WAS FASTINGClinical Information: ADD [id number], [id number] PERFORMED BY: [facility] [id number] Appearance Clear (Normal) Bilirubin Negative (Normal) Glucose Negative (Normal) Ketones Negative (Normal) Microscopic Examination MICRON (Normal) Comments: Microscopic follows if indicated. Nitrite, Urine Negative (Normal) Occult Blood Negative (Normal) pH 6.0 (Normal) Range: 5.0-7.5 Protein Negative (Normal) Specific [place] 1.019 (Normal) Range: 1.005-1.030 Urine-Color Yellow (Normal) Urobilinogen,Semi-Qn 0.2 mg/dL (Normal) Range: 0.0-1.9 WBC Esterase Negative (Normal) :59 VITAMIN B-12 (CYANOCOBALAMIN) Comments: PATIENT WAS FASTINGPERFORMED BY: [id number] [id number] ([id number]) Vitamin B12 395 pg/mL (Normal) Range: 211-911 :59 TSH ([id number]) Comments: PATIENT WAS FASTINGPERFORMED BY: [id number] [facility] [id number] TSH 2.820 {uIU/mL} (Normal) Range: 0.450-4.500 Comments: Please note reference interval change Plan of Care Name Dates Details Instructions Unspecified Diagnosis : Eprescribed prescriptions (G8553) Indication: Unspecified Diagnosis Nonsmoker : Eprescribed prescriptions (G8553) Indication: Nonsmoker [...] On: :30 Request CBC with auto diff ([id number])Indication: Impaired fasting glucose On: :30 Request HGB A1C ([id number])Indication: Impaired fasting glucose On: :30 Request LIPID PANEL ([id number])Indication: Other hyperlipidemia On: :30 Request METABOLIC PANEL, COMPREHENSIVE ([id number])Indication: Hypertensive heart disease without heart failure On: :30 Request Hemoglobin Glyclated (HGB A1C) ([id number])Indication: Impaired fasting glucose On: 17-Dlf-37232:32 Request MICROALBUMIN: CREATININE RATIO ([id number]) AND ([id number])Indication: Impaired fasting glucose On: :32 Request CBC W/AUTO DIFF WBC ([id number])Indication: Hypertensive heart disease without heart failure On: :32 Request METABOLIC PANEL, COMPREHENSIVE ([id number])Indication: Hypertensive heart disease without heart failure On: :32 Request LIPID PANEL ([id number])Indication: Other hyperlipidemia On: :32 Request CBC W/AUTO DIFF WBC ([id number])Indication: Impaired fasting glucose On: :40 Request MICROALBUMIN: CREATININE RATIO ([id number]) AND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
--- OUTSIDE RECORDS SUMMARY | 2019-02-24 14:44 | XMS RPT_ITS | Continuity of Care Document ---
:1960 Author Organization [facility] Address [address] [facility] [address] [place] [address] Phone Care Team Providers Name Role Phone [...] left knee osteoarthritis on xray Status: Active Wheezing (R06.2, 786.07) Status: Active Medications Name Dates Details ASPIRIN LOW STRENGTH, 81MG (Oral Tablet Chewable) 1 (one) Tablet Chewable qd for 0 days Refills: 0 Ordered:29-Aug-2009 Caridad Lopez Start : 29-Aug-2009 Active Cialis 5 MG Oral Tablet 1 (one) Tablet prn for 0 days Quantity: 90 {Tablet} Refills: 3 Ordered:27-Jun-2018 Fast DOMaureena AFast DO, Darlin A Start : 27-Jun-2018 Active Cialis 5 MG Oral Tablet 1 (one) Tablet prn for 0 days Quantity: 90 {Tablet} Refills: 3 Ordered:27-Jun-2018 Fast DOMaureena AFmikhail DO, Darlin A Start : 27-Jun-2018 Active Lipitor 20 MG Oral Tablet 1 tab Tablet q hs for 90 days Quantity: 90 {Tablet} Refills: 2 Ordered:19-May-2018 Fast DOMaureena Valentino VOSS Darlin A Start : 19-May-2018 End : 06-Jun-2014 Active Losartan Potassium 100 MG Oral Tablet 1 Tablet qd for 0 days Quantity: 90 {Tablet} Refills: 3 Ordered:15-Oct-2018 Fast DO Darlin AFast DO, Darlin A Start : 15-Oct-2018 Active Meloxicam 15 MG Oral Tablet 1 (one) Tablet Tablet qd in am with food for 0 days Quantity: 30 {Tablet} Refills: 0 Ordered:03-Oct-2018 Fast DOMaureena AFmikhail DO, Darlin A Start : 03-Oct-2018 Active [...] Start : 06-Apr-2013 End : 06-Apr-2013 Inactive Circleville 5-325 MG Oral Tablet 1 (one) Tablet [...] Quantity: 30 {Tablet} Refills: 2 Ordered:29-Sep-2013 Maik VOSS Darlin OHARAmikhail Darlin A Start : 29-Sep-2013 End : 29-Sep-2013 Discontinued LEVAQUIN, 500MG (Oral Tablet) 1 (one) Tablet qd for 0 days Quantity: 10 {Tablet} Refills: 0 Ordered:26-Oct-2014 Maik VOSSMaureena Valentino VOSS Darlin A Start : 26-Oct-2014 End : 26-Oct-2014 Discontinued LISINOPRIL, 5MG (Oral Tablet) 1 (one) Tablet bid for 30 days Quantity: 60 {Tablet} Refills: 0 Ordered:04-Sep-2011 Maik VOSSMaureena Valentino VOSS Darlin A Start : 04-Sep-2011 End : 04-Sep-2011 Discontinued LUMIGAN, 0.03% (Ophthalmic Solution) 1 drop in each eye qd for 0 days Refills: 0 Ordered:14-Aug-2013 Long MECHANICAL ENGINEERING TEACHERFarhann L End : 14-Aug-2013 Discontinued Comments:This order discontinued per [facility]. Niacin ER 500 MG Oral Capsule Extended Release 1 (one) Capsule ER qd for 0 days Quantity: 30 {Capsule} Refills: 3 Ordered:12-Nov-2016 Maik VOSS Darlin OHARAmikhail Darlin A Start : 12-Nov-2016 End : 12-Nov-2016 Discontinued NORVASC, 5MG (Oral Tablet) 1 Tablet qam for 0 days Quantity: 30 {Tablet} Refills: 3 Ordered:17-Oct-2011 Maik VOSS Darlin OHARAmikhail VOSS Darlin A Start : 17-Oct-2011 End : [...] repeat in 5 years Date Value Details 20-Nov-2018 History and Physical Exam Result: Comments: See Note; NOTES: [facility] Medical Records Department [address] [place] [address] History and Physical 11/20/18 2140 MR#: [id number] Acct: [id number] Name: SCOTT TRACEY Margo Rep #: [id number] : 1960 58 From: Bandar Patrick PA-C PCP: Darlin Pleitez DO [place] [facility] [place] [facility] [place] and Physical DATE OF SURGERY: 12/10/2018 [...] no changes. 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 Pe rsonal Habits: Cigarette Use: Never Smoked Cigarettes.Smokeless Tobacco: Never Used Smokeless Tobacco.Alcohol: Occasionally.Drug Use: Denies Use.Enjoy Exercising: Exercises 1-3 X/Week. Reviewed, no hendrickson ges. VITALS: Ht: 67.5 Wt: 232lb Wt k.235 BMI: 35.8 BP: 124/78 Pulse: 68 Resp: 16 T: 98.5 T: 36.9C ALLERGIES: No Known Drug Allergy MEDICATIONS: Circleville 5-325 mg 1-2 by mouth every 6 [...] consent form. This dictation was created using [employer] software. Phonetic and/or grammatical errors may exist.. [...] Physical Exam Result: Comments: See Note; NOTES: [facility] Medical Records Department [address] [place] [address] History and Physical 11/20/182139 MR#: [id number] Acct: [id number] Name: TRACEY SCOTT Rep #: [id number] : 1960 58 From: Bandar Patrick PA-C PCP: Darlin Pleitez DO Status: [place] [facility] [place] [facility] History and Physical DATE OF SURGERY: 12/10/2018 [...] no changes. 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 Pe rsonal Habits: Cigarette Use: Never Smoked Cigarettes.Smokeless Tobacco: Never Used Smokeless Tobacco.Alcohol: Occasionally.Drug Use: Denies Use.Enjoy Exercising: Exercises 1-3 X/Week. Reviewed, no hendrickson ges. VITALS: Ht: 67.5 Wt: 232lb Wt k.235 BMI: 35.8 BP: 124/78 Pulse: 68 Resp: 16 T: 98.5 T: 36.9C ALLERGIES: No Known Drug Allergy MEDICATIONS: [place] 5-325 mg 1-2 by mouth every 6 [...] consent form. This dictation was created using [employer] software. Phonetic and/or grammatical errors may exist.. [...] Only (Routine) Result: Comments: See Note; NOTES: [facility] Imaging Services [address] [facility] [address] Lower Ext Joint Only (Routine) MR#: [id number] Acct: [id number] Name: TRACEY SCOTT Rep #: [id number] : 1960 M 57 From: Mulu Napoles MD PCP: Darlin Pleitez DO Status: REG CLI Study: Lower Ext Joint Only (Routine) Date of Exam: 07/17/18 Exam# [id number] Ordering Dr: Darlin Pleitez DO STUDY: MRI [...] Service support , CC: Darlin Pleitez DO Bending Frame Operator: Signed 11-Jul-2018 TXT - Blood Flow Screening Result: Comments: See Note; NOTES: [facility] Cardiovascular Services [address] [place] [address] 07/10/18 0821 MR#: [id number] Acct: [id number] Name: TRACEY SCOTT Rep #: [id number] [...] The heart rhythm is regular. The ri t blood pressure is 126/82. The left blood pressure is 134/90. The assessment was performed by Lakshmi Holland RVT. Interpretation Summary Normal carotid artery screening (0 to 15% narrowing). Normal aortic ultrasound exam. The ankle/brachial index is normal (1.0 or greater). .rdering Physician: Darlin Pleitez D.O Performed By: Moises Holland, RVT 07/11/18821 Date Bolivar Brink CC: Darlin Pleitez DO Date Dictated: 07/10/18820 Date Transcribed: 07/11/18821 Bending Frame Operator: Signed 27-Jun-2018 Inital Evaluation (1) - PT Result: Comments: See Note; NOTES: [facility] Physical Therapy [facility] [address] [place] [address]. [address] [place] [address] Fax REHABILITATION SERVICES INITIAL EVALUATION MR#: [id number] Acct: [id number] Name: TRACEY SCOTT Rep #: [id number] : 1960 57 From: Soraya Brown MPT Referring Dr.: Darlin Pleitez DO Status: REG R Insurance: [employer]URANCE Patient's Visit Information TRACEY [...] The pain does wake him up at ght. No N AND T. Hard to [...] to be FAXED BACK to us at [phone] for Medicare purposes. Please let me know if there are questions or concerns regarding this plan of care. Physician Signature: ____Date: <Electronically signed by Soraya Brown MPT> 06/27/18 1230 CC: Darlin Pleitez DO Signed For Medicare only, by signing this I certify the plan of care. Physicians Signature Date 07-Jun-2018 Venous Duplex Lower Extremity Result: Comments: See Note; NOTES: [facility] Cardiovascular Services [address] [place] [address] Venous Duplex US, Unilateral 06/06/18 1420 MR#: [id number] Acct: [id number] Name: TRACEY KANG Rep #: [id number] : 1960 57 From: Bolivar Palomo MD [...] Dictated: 06/06/18 1420 Date Transcribed: 06/07/18 1531 Bending Frame Operator: Signed 06-Jun-2018 Knee 4 or More Views Result: Comments: See Note; NOTES: [facility] Imaging Services [address] [place] [address] Knee 4 or More Views MR#: [id number] Acct: [id number] Name: TRACEY SCOTT Rep #: [id number] : 1960 M 57 From: Winston Allred DO PCP: Darlin Pleitez DO Status: REG CLI Study: Knee 4 or More Views Date of Exam: 06/06/18 Exam# [id number] Ordering Dr: Darlin Pleitez DO STUDY: X-RAY [...] Winston Allred DO at 8:52 EDT Tel [phone], Service support , CC: Darlin Pleitez DO Bending Frame Operator: Signed 06-Jun-2018 L/S Spine Min 4 Views Result: Comments: See Note; NOTES: [facility] Imaging Services [address] [place] [address] L/S Spine Min 4 Views MR#: [id number] Acct: [id number] Name: TRACEY SCOTT Rep #: [id number] : 1960 M 57 From: Winston Allred DO PCP: Darlin Pleitez DO Status: REG CLI Study: L/S Spine Min 4 Views Date of Exam: 06/06/18 Exam# [id number] Ordering Dr: Darlin Pleitez DO STUDY: X-RAY [...] Winston Allred DO at 9:11 EDT Tel [phone], Service support , CC: Darlin Pleitez DO Bending Frame Operator: Signed 26-Oct-2015 EKG (19433) Comments: ekg- sinus edna normal axis no acute st t wave changes Result: [MEASUREMENTS ANALYSIS] Date of Test: 10/26/2015 08:45:17; Heart Rate: 56; CT Interval: 170; QRS: 96; QT Interval: 412; Corrected QT Interval (QTc): 405; P Wave [place]: 29; QRS Wave [place]: 23; T Wave [place]: 17; Blood Pressure: 112/76 [ECG DIAGNOSTIC STATEMENTS] Date of Test: 10/26/2015 08:45:17; Summary: Sinus Bradycardia WITHIN NORMAL LIMITS 29-Apr-2014 Spirometry (26612) Comments: poor techniq but really bad obstruction which is consistent with exam Result: Immunization Name Dates Details Tdap (7 years and up) on: 08-Nov-2009 Comments: Lot #[id number]-09/17/2011Site-left deltoidDose0.5mlgiven by Jonathan Fry LPN Family History [...] smoker Vital Signs Date Test Result Details :15 Temperature 98.4 f Comments: Method: Temporal [...] kg/m2 Body Surface Area Calculated 2.22 m2 08-Elk-639162:35 Temperature 98.3 f Comments: Method: Temporal Pulse [...] Height 0 in Head Circumference 0.00 cm 9-Feb-11899:28 Temperature 98.6 f Comments: Method: Oral Pulse [...] Microscopic Examination Comments: PATIENT WAS FASTINGPERFORMED BY: [facility] [id number] Bacteria None seen (Normal) Mucus Threads Present (Normal) Epithelial Cells (non renal) 0-10 {/hpf} (Normal) Range: 0 - 10 RBC 0-2 {/hpf} (Normal) Range: 0 - 2 WBC 0-5 {/hpf} (Normal) Range: 0 - 5 :44 URINALYSIS, W/ MICRO (92173) Comments: PATIENT WAS FASTINGPERFORMED BY: [facility] [id number] Microscopic Examination See below: (Normal) Comments: Microscopic was indicated and was performed. Microscopic Examination MICRON (Normal) Comments: Microscopic follows if indicated. Nitrite, Urine Negative (Normal) Urobilinogen,Semi-Qn 0.2 mg/dL (Normal) Range: 0.2-1.0 Bilirubin Negative (Normal) Occult Blood Negative (Normal) Ketones Negative (Normal) Glucose Negative (Normal) Protein Negative (Normal) WBC Esterase Negative (Normal) Appearance Clear (Normal) Urine-Color Yellow (Normal) pH 6.0 (Normal) Range: 5.0-7.5 Specific [place] 1.020 (Normal) Range: 1.005-1.030 :44 CBC W/AUTO DIFF WBC (91315) Comments: PATIENT WAS FASTINGPERFORMED BY: [facility] [id number] Immature Grans (Abs) 0.0 {x10E3/uL} (Normal) Range: [...] 4.14-5.80 WBC 9.0 {x10E3/uL} (Normal) Range: 3.4-10.8 12-Nih-70642:44 METABOLIC PANEL, COMPREHENSIVE Comments: PATIENT WAS FASTINGPERFORMED BY: LabCoJersey Shore University Medical CenterHboncs5[address] [facility] [id number] (81028) ALT (SGPT) 16 [iU]/L (Normal) Range: 0-44 [...] 6-24 Glucose 107 mg/dL (Abnormal) Range: 65-99 11-Fzk-28982:00 Crystals, Body Fluid Comments: [facility] [address] [place], [place], [address] PATH REV Reviewed (Normal) Comments: No diagnostic crystals seen.Seth Velazco D.O. 08/01/18 AMENDED REPORT 08/01/18 1230 PATH REV previously reported as: Will follow SOURCE/BF SYNOVIAL (Normal) CRYSTALS/BF SEE PATH REV (Normal) 01-Rxu-32773:00 Culture, Body Fluid Comments: [facility] [id number] [place], [place], [address] CUBF See Note (Normal) Comments: List Antibiotics Last 48 Hours? UNKList Antibiotics to be Started? UNKGram StainCentrifuged Specimen? Culture performed on centrifuged specimen Gram Stain 4+ Red Blood Cells 4+ White Blood C ells No organisms seen Body Fluid CultNO GROWTH IN 14 DAYS Cult, AnaerobicNo growth in 5 days. 08-Tiy-18305:53 MICROALBUMIN: CREATININE RATIO Comments: PATIENT WAS FASTINGPERFORMED BY: [facility] Wblayx13[address] [facility] [id number] (74647) AND (97807) Alb/Creat Ratio 5.7 {mg/g_creat} (Normal) Range: 0.0-30.0 Comments: Normal: 0.0 - 30.0 Albuminuria: 31.0 - 300.0 Clinical albuminuria: >300.0 Albumin, Urine 7.6 ug/mL (Normal) Creatinine, Urine 133.6 mg/dL (Normal) 40-Oaa-49829:53 METABOLIC PANEL, COMPREHENSIVE Comments: PATIENT WAS FASTINGPERFORMED BY: [place] Pcojkm3588 [facility] [id number] (56013) ALT (SGPT) 15 [iU]/L (Normal) Range: 0-44 [...] 6-24 Glucose 109 mg/dL (Abnormal) Range: 65-99 33-Xpm-33702:53 HGB A1C (17019) Comments: PATIENT WAS FASTINGPERFORMED BY: [place] Lazada Viet NamJersey Shore University Medical CenterMklpig8666 [facility] [id number] Hemoglobin A1c 5.6 % (Normal) Range: 4.8-5.6 Comments: . Prediabetes: 5.7 - 6.4 Diabetes: >6.4 Glycemic control for adults with diabetes: <7.0 :53 LIPID PANEL (52873) Comments: PATIENT WAS FASTINGPERFORMED BY: Lazada Viet NamAcoma-Canoncito-Laguna Service UnitDeqmyx9816 [facility] [id number] LDL/HDL Ratio 1.6 {ratio} (Normal) Range: 0.0-3.6 [...] HIGH SENS(hsCRP) Comments: PATIENT WAS FASTINGPERFORMED BY: [place] Yrkmeg0044 [facility] [id number] (21325) C-Reactive Protein, Cardiac 4.66 mg/L (Abnormal) Range: 0.00-3.00 Comments: Relative Risk for Future Cardiovascular Event Low <1.00 Average 1.00 - 3.00 High >3.00 :12 CBC with auto diff (33071) Comments: PATIENT WAS FASTINGPERFORMED BY: Lazada Viet NamJersey Shore University Medical CenterXvhxsn9342 [facility] [id number] Immature Grans (Abs) 0.0 {x10E3/uL} (Normal) Range: [...] CREATININE RATIO Comments: PATIENT WAS FASTINGPERFORMED BY: Central TestAcoma-Canoncito-Laguna Service UnitNekhjx7037 [facility] [id number] (72520) AND (59901) Alb/Creat Ratio 2.8 {mg/g_creat} (Normal) Range: 0.0-30.0 Albumin, Urine 3.1 ug/mL (Normal) Creatinine, Urine 110.7 mg/dL (Normal) :12 METABOLIC PANEL, COMPREHENSIVE Comments: PATIENT WAS FASTINGPERFORMED BY: Lazada Viet NamJersey Shore University Medical CenterMsxhqf2472 [facility] [id number]; review 06/27 (48888) ALT (SGPT) 14 [iU]/L (Normal) Range: 0-44 [...] 6-24 Glucose 106 mg/dL (Abnormal) Range: 65-99 39-Bye-84525:22 HgA1C , Office (14347) HgA1C , Office 5.5 % (Normal) Range: 4.6 - 7.1 9-Ale-648704:45 Microscopic Examination Comments: PATIENT WAS FASTINGPERFORMED BY: Telerik[address] [facility] [id number] Bacteria None seen (Normal) Epithelial Cells (non renal) None seen {/hpf} (Normal) Range: 0 - 10 RBC 0-2 {/hpf} (Normal) Range: 0 - 2 WBC 0-5 {/hpf} (Normal) Range: 0 - 5 1-Wyt-931519:45 PSA (PROSTATE SPECIFIC Comments: PATIENT WAS FASTINGPERFORMED BY: Telerik6370 [facility] [id number] ANTIGEN) (V76.44) Prostate Specific Ag, 1.3 ng/mL (Normal) Range: 0.0-4.0 Serum Comments: [employer] ECLIA methodology. .According to the [place] [employer], Serum PSA shoulddecrease and remain at undetectable levels after radicalprostatectomy. The AUA defines biochemical recurrence as an initialPSA value 0.2 ng/mL or greater followed by a subsequent confirmatoryPSA value 0.2 ng/mL or greater.Values obtained with d ifferent assay methods or kits cannot be usedinterchangeably. Results cannot be interpreted as absolute evidenceof the presence or absence of malignant disease. 0-Hhm-994629:45 URINALYSIS, W/ MICRO (81819) Comments: PATIENT WAS FASTINGPERFORMED BY: [employer] [facility] [id number] Microscopic Examination See below: (Normal) Comments: Microscopic was indicated and was performed. Microscopic Examination MICRON (Normal) Comments: Microscopic follows if indicated. Nitrite, Urine Negative (Normal) Urobilinogen,Semi-Qn 0.2 mg/dL (Normal) Range: 0.2-1.0 Bilirubin Negative (Normal) Occult Blood Negative (Normal) Ketones Negative (Normal) Glucose Negative (Normal) Protein Negative (Normal) WBC Esterase Negative (Normal) Appearance Clear (Normal) Urine-Color Yellow (Normal) pH 6.0 (Normal) Range: 5.0-7.5 [address] [place] 1.011 (Normal) Range: 1.005-1.030 7-Hsz-347085:45 CBC W/AUTO DIFF WBC (24551) Comments: PATIENT WAS FASTINGPERFORMED BY: Telerik6[address] [facility] [id number] Immature Grans (Abs) 0.0 {x10E3/uL} (Normal) Range: [...] 4.14-5.80 WBC 7.8 {x10E3/uL} (Normal) Range: 3.4-10.8 2-Gys-083829:45 METABOLIC PANEL, COMPREHENSIVE Comments: PATIENT WAS FASTINGPERFORMED BY: [facility] Otymlo8677 [facility] [id number]; can review on 12/16 appt (45024) ALT (SGPT) 29 [iU]/L (Normal) Range: 0-44 [...] Glucose, Serum 101 mg/dL (Abnormal) Range: 65-99 3-Wdx-564989:45 LIPID PANEL (02941) Comments: PATIENT WAS FASTINGPERFORMED BY: [place] Odlesz5326 [facility] [id number] LDL/HDL Ratio 1.6 {ratio_units} (Normal) Range: 0.0-3.6 Comments: LDL/HDL Ratio Men Women 1/2 Avg.Risk 1.0 1.5 Av g.Risk 3.6 3.2 2X Avg.Risk 6.2 5.0 3X Avg.Risk 8.0 6.1 LDL Cholesterol Calc 92 mg/dL (Normal) Range: 0-99 VLDL Cholesterol Compa 31 mg/dL (Normal) Range: 5-40 HDL Cholesterol 56 mg/dL (Normal) Triglycerides 157 mg/dL (Abnormal) Range: 0-149 Cholesterol, Total 179 mg/dL (Normal) Range: 100-199 0-Qve-551125:45 HEPATITIS C ANTIBODY (85420) Comments: PATIENT WAS FASTINGPERFORMED BY: Lazada Viet NamJersey Shore University Medical CenterSzvpbb4435 [facility] [id number] Hep C Virus Ab <0.1 {s/co_ratio} (Normal) Range: 0.0-0.9 Comments: Negative: < 0.8 Indeterminate: 0.8 - 0.9 Positive: > 0.9 . The CDC recommends that a positive HCV antibody result be followed up with a HCV Nucleic Acid Amplification test (060336). 21-Rpn-50706:42 METABOLIC PANEL, COMPREHENSIVE Comments: PERFORMED BY: Lazada Viet NamJersey Shore University Medical CenterExtefg2845 [facility] [id number] (23968) ALT (SGPT) 21 [iU]/L (Normal) Range: 0-44 [...] Glucose, Serum 103 mg/dL (Abnormal) Range: 65-99 27-Zrk-407709:42 PSA (PROSTATE SPECIFIC Comments: PATIENT WAS FASTINGPERFORMED BY: [employer] [id number] BY: [place] [id number] ANTIGEN) (V76.44) Prostate Specific Ag, 1.2 ng/mL (Normal) Range: 0.0-4.0 Serum Comments: Be[employer] ECLIA methodology. .According to the [place] [employer], Serum PSA shoulddecrease and remain at undetectable levels after radicalprostatectomy. The AUA defines biochemical recurrence as an initialPSA value 0.2 ng/mL or greater followed by a subsequent confirmatoryPSA value 0.2 ng/mL or greater.Values obtained with d ifferent assay methods or kits cannot be usedinterchangeably. Results cannot be interpreted as absolute evidenceof the presence or absence of malignant disease. 50-Yul-503977:42 CBC with auto diff Comments: PATIENT WAS FASTINGPERFORMED BY: [employer] [address] [id number] BY: [employer]70 [facility] BuildersSelect [facility] [id number] (26264) Immature Grans (Abs) 0.0 {x10E3/uL} (Normal) Range: [...] 4.14-5.80 WBC 7.5 {x10E3/uL} (Normal) Range: 3.4-10.8 83-Qen-616846:42 HGB A1C (97968) Comments: PATIENT WAS FASTINGPERFORMED BY: BN [facility] Tevqceaivd4277 [facility] [id number] BY: CB [facility] Lwmtqv6052 [facility] [id number] Hemoglobin A1c 5.8 % (Abnormal) Range: 4.8-5.6 Comments: . Pre-diabetes: 5.7 - 6.4 Diabetes: >6.4 Glycemic control for adults with diabetes: <7.0 30-Kbp-832074:42 MICROALBUMIN: CREATININE Comments: PATIENT WAS FASTINGPERFORMED BY: [employer] Groupton1447 [facility] [id number] BY: [place] [place] Hwueou7[address] [facility] [id number] RATIO (55563) AND (50492) Microalb/Creat Ratio <1.9 {mg/g_creat} (Normal) Range: 0.0-30.0 Microalbumin, Urine <3.0 ug/mL (Normal) Creatinine, Urine 160.7 mg/dL (Normal) 32-Hhr-134177:42 LIPOPROTEIN, BLD, BY NMR Comments: PATIENT WAS FASTINGPERFORMED BY: [employer] [facility] Groupton1447 [facility] [id number] BY: [employer]6[address] [facility] [id number]; non-emergent till apt (64483) LP-IR Score 50 (Abnormal) Comments: INSULIN RESISTANCE MARKER <--Insulin Sensitive Insulin Resistant--> Percentile in Reference PopulationInsulin Resistance ScoreLP-IR Score Low 25th 50th 75th High <27 27 45 63 >63LP-IR Score is inaccurate if patient is non-fasting. .The LP-IR score is a laboratory developed i [facility] that has beenassociated with insulin resistance [...] were developed and their performance characteristicsdetermined by [employer]. These assays have not been cleared by [...] 1600 - 2000 Very High > 2000 29-Pgy-129838:42 METABOLIC PANEL, Comments: PATIENT WAS FASTINGPERFORMED BY: [facility] [address] [id number] BY: [facility] Jinmca5171 [facility] [id number] [facility] (57550) ALT (SGPT) 18 [iU]/L (Normal) Range: 0-44 [...] (Normal) Range: 65-99 :07 HgA1C , Office (35481) HgA1C , Office 5.7 % (Normal) Range: 4.6 - 7.1 :06 PSA (PROSTATE SPECIFIC Comments: PATIENT WAS FASTINGPERFORMED BY: [facility] [facility] [id number] ANTIGEN) (V76.44) Prostate Specific Ag, 1.4 ng/mL (Normal) Range: 0.0-4.0 Serum Comments: Bele[employer] ECLIA methodology. .According to the [place] [employer], Serum PSA shoulddecrease and remain [...] METABOLIC PANEL, Comments: PATIENT WAS FASTINGPERFORMED BY: Lazada Viet NamJersey Shore University Medical CenterTzwrzh4630 [facility] [id number] Information: [id number] [facility] (64550) ALT (SGPT) 20 [iU]/L (Normal) Range: 0-44 [...] Glucose, Serum 100 mg/dL (Abnormal) Range: 65-99 48-Wuy-79325:06 LIPID PANEL (09903) Comments: PATIENT WAS FASTINGPERFORMED BY: [facility]6[address] [facility] [id number] LDL/HDL Ratio 1.2 {ratio_units} (Normal) Range: 0.0-3.6 [...] (Normal) Range: 100-199 :09 HgA1C , Office (54717) HgA1C , Office 5.7 % (Normal) Range: 4.6 - 7.1 :25 CBC With Differential/Platelet Comments: PATIENT WAS FASTINGPERFORMED BY: LabCoJersey Shore University Medical CenterMysvar5947 [facility] [id number] Information: [id number] Immature Grans (Abs) 0.0 {x10E3/uL} (Normal) Range: [...] Panel (14) Comments: PATIENT WAS FASTINGPERFORMED BY: [employer]70 [facility] BuildersSelect [facility] [id number] ALT (SGPT) 14 [iU]/L (Normal) Range: 0-44 [...] With LDL/HDL Comments: PATIENT WAS FASTINGPERFORMED BY: [facility]2RideSelect [facility] [id number] Ratio LDL/HDL Ratio 1.2 {ratio_units} (Normal) Range: [...] Cholesterol, Total 143 mg/dL (Normal) Range: 100-199 28-Daq-06009:25 Microalb/Creat Ratio, Wil Gallegos Comments: PATIENT WAS FASTINGPERFORMED BY: [employer]70 Claire [facility]Select [facility] [id number] Microalb/Creat Ratio 3.4 {mg/g_creat} (Normal) Range: 0.0-30.0 Microalbumin, Urine 5.1 ug/mL (Normal) Range: 0.0-17.0 Creatinine, Urine 149.6 mg/dL (Normal) Range: 22.0-328.0 22-Mmb-068173:00 HgA1C , Office (56312) HgA1C , Office 5.8 % (Normal) Range: 4.6 - 7.1 76-Pud-058850:00 Blood Glucose , Office (16839) Blood Glucose , Office 119 (Normal) 28-Bfb-562046:25 PSA (PROSTATE SPECIFIC Comments: PATIENT WAS FASTINGPERFORMED BY: [employer]6370 [facility] [id number] ANTIGEN) (V76.44) Prostate Specific Ag, 1.0 ng/mL (Normal) Range: 0.0-4.0 Serum Comments: Lauren ECLIA methodology. .According to the [place] [employer] Association, Serum PSA shoulddecrease and remain [...] MANUAL DIFF Comments: PATIENT WAS FASTINGPERFORMED BY: Lazada Viet NamJersey Shore University Medical CenterRlahzp8364 [facility] [id number] Information: [id number] (14302) Immature Grans (Abs) 0.0 {x10E3/uL} (Normal) Range: [...] PANEL, COMPREHENSIVE Comments: PATIENT WAS FASTINGPERFORMED BY: Lazada Viet NamJersey Shore University Medical CenterXnknfz6633 [facility] [id number] (00805) ALT (SGPT) 21 [iU]/L (Normal) Range: 0-44 [...] Glucose, Serum 98 mg/dL (Normal) Range: 65-99 18-Cxe-581867:25 LIPID PANEL (67846) Comments: PATIENT WAS FASTINGPERFORMED BY: [facility] Mddmek5183 [facility] [id number] LDL/HDL Ratio 1.4 {ratio_units} (Normal) Range: 0.0-3.6 [...] Cholesterol, Total 168 mg/dL (Normal) Range: 100-199 80-Ben-470828:50 HgA1C , Office (84696) HgA1C , Office 5.4 % (Normal) Range: 4.6 - 7.1 :53 LIPID PANEL (58447) Comments: PATIENT WAS FASTINGPERFORMED BY: LabCoJersey Shore University Medical CenterQimkmb8409 [facility] [id number]; all normal labs and pt has appt [...] METABOLIC PANEL, Comments: PATIENT WAS FASTINGPERFORMED BY: Egodeus [facility] Pipuud2947 [facility]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 19-May-2013 8:31 t medication use: no [...] a issues and reviewed xrays and lab prettyinder gtz- think maybe gout- will have to [...] 14:33 [facility] End: 30-Dec-2006 14:39 Amandeep WILLIAMSON/SUKH SCOTT; a guarantor
--- OUTSIDE RECORDS SUMMARY | 2019-02-24 14:45 | XMS RPT_ITS | Continuity of Care Document ---
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, 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) Status: Active [facility] WELLNESS EXAM Status: Active [facility] WELLNESS EXAM Status: Active Need for zoster vaccination (Z23, V04.89) Status: Active Nonsmoker (Z78.9, V49.89) Status: Active Onychomycosis (B35.1, 110.1) Status: Active Other hyperlipidemia (E78.49, 272.4) Status: Active 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, 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 stable-continue present regimen Status: Active Preop general physical exam (Z01.818, [...] Start : 06-Apr-2013 End : 06-Apr-2013 Inactive Orlando 5-325 MG Oral Tablet 1 (one) Tablet [...] Quantity: 30 {Tablet} Refills: 2 Ordered:29-Sep-2013 Maik VOSSMaureena Maureen Avelar DOa A Start : 29-Sep-2013 End : 29-Sep-2013 Discontinued LEVAQUIN, 500MG (Oral Tablet) 1 (one) Tablet qd for 0 days Quantity: 10 {Tablet} Refills: 0 Ordered:26-Oct-2014 Maik VOSSMaureena Valentino VOSS Darlin A Start : 26-Oct-2014 End : 26-Oct-2014 Discontinued LISINOPRIL, 5MG (Oral Tablet) 1 (one) Tablet bid for 30 days Quantity: 60 {Tablet} Refills: 0 Ordered:04-Sep-2011 Maik VOSSDarlin DO, Debra A Start : 04-Sep-2011 End : 04-Sep-2011 Discontinued LUMIGAN, 0.03% (Ophthalmic Solution) 1 drop in each eye qd for 0 days Refills: 0 Ordered:14-Aug-2013 Long CORPORATE RECRUITER, Stephany L End : 14-Aug-2013 Discontinued Comments:This order discontinued per [facility]. Niacin ER 500 MG Oral Capsule Extended Release 1 (one) Capsule ER qd for 0 days Quantity: 30 {Capsule} Refills: 3 Ordered:12-Nov-2016 Maik VOSSMaureena Valentino VOSS Darlin A Start : 12-Nov-2016 End : 12-Nov-2016 Discontinued NORVASC, 5MG (Oral Tablet) 1 Tablet qam for 0 days Quantity: 30 {Tablet} Refills: 3 Ordered:17-Oct-2011 Maik VOSSMaureensanjay OHARAmikhail VOSS Darlin A Start : 17-Oct-2011 [...] Physical Exam Result: Comments: See Note; NOTES: [facility] Medical Records Department [address] [place] [address] History and Physical 11/20/18 2140 MR#: [id number] Acct: [id number] Name: TRACEY SCOTT Rep #: [id number] : 1960 58 From: Bandar Patrick PA-C PCP: Darlin Pleitez DO Status: PRE [facility] Y Location: [place] [facility] History and Physical DATE OF SURGERY: 12/10/2018 [...] no changes. 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 Pe rsonal Habits: Cigarette Use: Never Smoked Cigarettes.Smokeless Tobacco: Never Used Smokeless Tobacco.Alcohol: Occasionally.Drug Use: Denies Use.Enjoy Exercising: Exercises 1-3 X/Week. Reviewed, no hendrickson ges. VITALS: Ht: 67.5 Wt: 232lb Wt k.235 BMI: 35.8 BP: 124/78 Pulse: 68 Resp: 16 T: 98.5 T: 36.9C ALLERGIES: No Known Drug Allergy MEDICATIONS: Orlando 5-325 mg 1-2 by mouth every 6 [...] consent form. This dictation was created using Monetsu software. Phonetic and/or grammatical errors may exist.. [...] Physical Exam Result: Comments: See Note; NOTES: [facility] Medical Records Department [address] [place] [address] History and Physical 11/20/182139 MR#: [id number] Acct: [id number] Name: TRACEY SCOTT Margo Rep #: [id number] : 1960 58 From: Bandar Patrick PA-C PCP: Darlin Pleitez DO Status: PRE [facility] Y Location: [place] [facility] History and Physical DATE OF SURGERY: 12/10/2018 [...] no changes. 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 Pe rsonal Habits: Cigarette Use: Never Smoked Cigarettes.Smokeless Tobacco: Never Used Smokeless Tobacco.Alcohol: Occasionally.Drug Use: Denies Use.Enjoy Exercising: Exercises 1-3 X/Week. Reviewed, no hendrickson ges. VITALS: Ht: 67.5 Wt: 232lb Wt k.235 BMI: 35.8 BP: 124/78 Pulse: 68 Resp: 16 T: 98.5 T: 36.9C ALLERGIES: No Known Drug Allergy MEDICATIONS: Orlando 5-325 mg 1-2 by mouth every 6 [...] consent form. This dictation was created using Monetsu software. Phonetic and/or grammatical errors may exist.. [...] Only (Routine) Result: Comments: See Note; NOTES: [facility] Imaging Services [address] [place] [address] Lower Ext Joint Only (Routine) MR#: [id number] Acct: [id number] Name: TRACEY SCOTT Margo Rep #: [id number] : 1960 M 57 From: Mulu Napoles MD PCP: Darlin Pleitez DO Status: REG CLI Study: Lower Ext Joint Only (Routine) Date of Exam: 07/17/18 Exam# [id number] Ordering Dr: Darlin Pleitez DO STUDY: MRI [...] Service support , CC: Darlin Pleitez DO Net Web Application Developer: Signed 11-Jul-2018 TXT - Blood Flow Screening Result: Comments: See Note; NOTES: [facility] Cardiovascular Services [address] [place] [address] 07/10/18 0821 MR#: [id number] Acct: [id number] Name: TRACEY SCOTT Rep #: [id number] : 1960 57 From: Bolivar Palomo MD Attending Dr: Darlin Pleitez DO Status: REG REF Ordering Dr: Date: 07/11/18 Location: [facility] Sex: M C Admitted: Reason For Study: [...] ankle/brachial index is normal (1.0 or greater). .[facility] Physician: Darlin Pleitez D.O Performed By: Moises Holland, RVT 07/11/18821 Date Bolivar Brink CC: Darlin Pleitez DO Date Dictated: 07/10/18820 Date Transcribed: 07/11/18821 Net Web Application Developer: Signed 27-Jun-2018 Inital Evaluation (1) - PT Result: Comments: See Note; NOTES: [facility] [address] [place] [address]. [address] [place] [address] Fax REHABILITATION SERVICES INITIAL EVALUATION MR#: [id number] Acct: [id number] Name: TRACEY SCOTT Rep #: [id number] : 1960 57 From: Soraya Brown MPT Referring Dr.: Darlin Pleitez DO Status: REG RCR Insurance: [employer] SELF PAY INSURANCE Patient's Visit Information TRACEY [...] to be FAXED BACK to us at [phone] for Medicare purposes. Please let me know if there are questions or concerns regarding this plan of care. Physician Signature: ____Date: <Electronically signed by Soraya Brown MPT> 06/27/18 1230 CC: Darlin Pleitez DO Signed For Medicare only, by signing this I certify the plan of care. Physicians Signature Date 07-Jun-2018 Venous Duplex Lower Extremity Result: Comments: See Note; NOTES: [facility] Cardiovascular Services [address] [place] [address] Venous Duplex US, Unilateral 06/06/18 1420 MR#: [id number] Acct: [id number] Name: TRACEY KANG Rep #: [id number] : 1960 57 From: Bolivar Palomo MD Attending Dr: Darlin Pleitez DO Status: REG CLI Ordering Dr: Darlin Pleitez DO Date: 06/06/18 Location: [facility] Sex: M C Admitted: Goodwin son For Study: LEG PAIN RIGHT LEFT [...] Dictated: 06/06/18 1420 Date Transcribed: 06/07/18 1531 Net Web Application Developer: Signed 06-Jun-2018 Knee 4 or More Views Result: Comments: See Note; NOTES: [facility] Imaging Services [address] [place] [address] Knee 4 or More Views MR#: [id number] Acct: [id number] Name: TRACEY SCOTT Rep #: [id number] : 1960 M 57 From: Winston Allred DO PCP: Darlin Pleitez DO Status: REG CLI Study: Knee 4 or More Views Date of Exam: 06/06/18 Exam# [id number] Ordering Dr: Darlin Pleitez DO STUDY: X-RAY [...] Winston Allred DO at 8:52 EDT Tel [phone], Service support , CC: Darlin Pleitez DO Net Web Application Developer: Signed 06-Jun-2018 L/S Spine Min 4 Views Result: Comments: See Note; NOTES: [facility] Imaging Services [address] [place] [address] L/S Spine Min 4 Views MR#: [id number] Acct: [id number] Name: TRACEY SCOTT Rep #: [id number] : 1960 M 57 From: Winston Allred DO PCP: Darlin Pleitez DO Status: REG CLI Study: L/S Spine Min 4 Views Date of Exam: 06/06/18 Exam# [id number] Ordering Dr: Darlin Pleitez DO STUDY: X-RAY [...] Winston Allred DO at 9:11 EDT Tel [phone], Service support , CC: Darlin Pleitez DO Net Web Application Developer: Signed 26-Oct-2015 EKG (05257) Comments: ekg- sinus edna normal axis no acute st t wave changes Result: [MEASUREMENTS ANALYSIS] Date of Test: 10/26/2015 08:45:17; Heart Rate: 56; MD Interval: 170; QRS: 96; QT Interval: 412; Corrected QT Interval (QTc): 405; P Wave Gambier: 29; QRS Wave Gambier: 23; T Wave Gambier: 17; Blood Pressure: 112/76 [ECG DIAGNOSTIC STATEMENTS] Date of Test: 10/26/2015 08:45:17; Summary: Sinus Bradycardia WITHIN NORMAL LIMITS 29-Apr-2014 Spirometry (79775) Comments: poor techniq but really bad obstruction which is consistent with exam Result: Immunization Name Dates Details Tdap (7 years and up) on: 08-Nov-2009 Comments: Lot #[id number]-left deltoidDose0.5mlgiven by Jonathan Fry LPN Family History [...] kg/m2 Body Surface Area Calculated 2.22 m2 60-Kwh-572650:35 Temperature 98.3 f Comments: Method: Temporal Pulse [...] 0.00 cm Results Date Description Value Details :00 Crystals, Body Fluid Comments: [facility] [address] [place], [place], [address] PATH REV Reviewed (Normal) Comments: No diagnostic crystals seen.Seth Velazco D.O. 08/01/18 AMENDED REPORT 08/01/18 1230 PATH REV previously reported as: Will follow SOURCE/BF SYNOVIAL (Normal) CRYSTALS/BF SEE PATH REV (Normal) :00 Culture, Body Fluid Comments: [facility] [address] [place], [place], [address] CUBF See Note (Normal) Comments: List Antibiotics Last 48 Hours? UNKList Antibiotics to be Started? UNKGram StainCentrifuged Specimen? Culture performed on centrifuged specimen Gram Stain 4+ Red Blood Cells 4+ White Blood C ells No organisms seen Body Fluid CultNO GROWTH IN 14 DAYS Cult, AnaerobicNo growth in 5 days. :53 MICROALBUMIN: CREATININE RATIO Comments: PATIENT WAS FASTINGPERFORMED BY: [employer] Drmywq3617 [facility] [id number] (84142) AND (50783) Alb/Creat Ratio 5.7 {mg/g_creat} (Normal) Range: 0.0-30.0 Comments: Normal: 0.0 - 30.0 Albuminuria: 31.0 - 300.0 Clinical albuminuria: >300.0 Albumin, Urine 7.6 ug/mL (Normal) Creatinine, Urine 133.6 mg/dL (Normal) :53 METABOLIC PANEL, COMPREHENSIVE Comments: PATIENT WAS FASTINGPERFORMED BY: MineSense TechnologiesNewton Medical CenterHbhovt1408 [facility] [id number] (81876) ALT (SGPT) 15 [iU]/L (Normal) Range: 0-44 [...] 6-24 Glucose 109 mg/dL (Abnormal) Range: 65-99 30-Enj-61299:53 HGB A1C (20179) Comments: PATIENT WAS FASTINGPERFORMED BY: Defixo6370 [facility] [id number] Hemoglobin A1c 5.6 % (Normal) Range: 4.8-5.6 Comments: . Prediabetes: 5.7 - 6.4 Diabetes: >6.4 Glycemic control for adults with diabetes: <7.0 :53 LIPID PANEL (79838) Comments: PATIENT WAS FASTINGPERFORMED BY: Defixo6370 [facility] [id number] LDL/HDL Ratio 1.6 {ratio} (Normal) Range: 0.0-3.6 Comments: LDL/HDL Ratio Men Women 1/2 Avg.Risk 1.0 1.5 Av g.Risk 3.6 3.2 2X Avg.Risk 6.2 5.0 3X Avg.Risk 8.0 6.1 LDL Cholesterol Calc 73 mg/dL (Normal) Range: 0-99 VLDL Cholesterol Compa 16 mg/dL (Normal) Range: 5-40 HDL Cholesterol 47 mg/dL (Normal) Triglycerides 80 mg/dL (Normal) Range: 0-149 Cholesterol, Total 136 mg/dL (Normal) Range: 100-199 59-Zzo-28189:53 C-REACT PROT HIGH SENS(hsCRP) Comments: PATIENT WAS FASTINGPERFORMED BY: LabCoHealthUnity70 [facility] [id number] (37225) C-Reactive Protein, Cardiac 4.66 mg/L (Abnormal) Range: 0.00-3.00 Comments: Relative Risk for Future Cardiovascular Event Low <1.00 Average 1.00 - 3.00 High >3.00 69-Ejt-82987:12 CBC with auto diff (02274) Comments: PATIENT WAS FASTINGPERFORMED BY: [facility] Hokobo0926 [facility] [id number] Immature Grans (Abs) 0.0 {x10E3/uL} (Normal) Range: [...] CREATININE RATIO Comments: PATIENT WAS FASTINGPERFORMED BY: [employer]Trak70 [facility] [id number] (75441) AND (67505) Alb/Creat Ratio 2.8 {mg/g_creat} (Normal) Range: 0.0-30.0 Albumin, Urine 3.1 ug/mL (Normal) Creatinine, Urine 110.7 mg/dL (Normal) :12 METABOLIC PANEL, COMPREHENSIVE Comments: PATIENT WAS FASTINGPERFORMED BY: [employer]elaCare6370 [facility] [id number]; review 06/27 (24911) ALT (SGPT) 14 [iU]/L (Normal) Range: 0-44 [...] 6-24 Glucose 106 mg/dL (Abnormal) Range: 65-99 08-Xpu-93132:22 HgA1C , Office (90360) HgA1C , Office 5.5 % (Normal) Range: 4.6 - 7.1 1-Xfw-617116:45 Microscopic Examination Comments: PATIENT WAS FASTINGPERFORMED BY: Defixo63Pelikan TechnologiesFormerly [facility] [id number] Bacteria None seen (Normal) Epithelial Cells (non renal) None seen {/hpf} (Normal) Range: 0 - 10 RBC 0-2 {/hpf} (Normal) Range: 0 - 2 WBC 0-5 {/hpf} (Normal) Range: 0 - 5 :45 PSA (PROSTATE SPECIFIC Comments: PATIENT WAS FASTINGPERFORMED BY: Defixo6370 BityotaFormerly [facility] [id number] ANTIGEN) (V76.44) Prostate Specific Ag, 1.3 ng/mL (Normal) Range: 0.0-4.0 Serum Comments: [employer] ECLIA methodology. .According to the [place] [employer], Serum PSA shoulddecrease and remain at undetectable levels after radicalprostatectomy. The AUA defines biochemical recurrence as an initialPSA value 0.2 ng/mL or greater followed by a subsequent confirmatoryPSA value 0.2 ng/mL or greater.Values obtained with d ifferent assay methods or kits cannot be usedinterchangeably. Results cannot be interpreted as absolute evidenceof the presence or absence of malignant disease. :45 URINALYSIS, W/ MICRO (88198) Comments: PATIENT WAS FASTINGPERFORMED BY: pfwaterworksCone Health [facility] [id number] Microscopic Examination See below: (Normal) Comments: Microscopic was indicated and was performed. Microscopic Examination MICRON (Normal) Comments: Microscopic follows if indicated. Nitrite, Urine Negative (Normal) Urobilinogen,Semi-Qn 0.2 mg/dL (Normal) Range: 0.2-1.0 Bilirubin Negative (Normal) Occult Blood Negative (Normal) Ketones Negative (Normal) Glucose Negative (Normal) Protein Negative (Normal) WBC Esterase Negative (Normal) Appearance Clear (Normal) Urine-Color Yellow (Normal) pH 6.0 (Normal) Range: 5.0-7.5 Specific [place] 1.011 (Normal) Range: 1.005-1.030 2-Plh-683459:45 CBC W/AUTO DIFF WBC (88182) Comments: PATIENT WAS FASTINGPERFORMED BY: LabCoNewton Medical CenterUepuyb3585 [facility] [id number] Immature Grans (Abs) 0.0 {x10E3/uL} (Normal) Range: [...] 4.14-5.80 WBC 7.8 {x10E3/uL} (Normal) Range: 3.4-10.8 9-Sdt-263875:45 METABOLIC PANEL, COMPREHENSIVE Comments: PATIENT WAS FASTINGPERFORMED BY: [employer]70 [facility] [id number]; can review on 12/16 appt (34312) ALT (SGPT) 29 [iU]/L (Normal) Range: 0-44 [...] Glucose, Serum 101 mg/dL (Abnormal) Range: 65-99 6-Opf-187372:45 LIPID PANEL (12339) Comments: PATIENT WAS FASTINGPERFORMED BY: [employer] Oaxdsi4359 [facility] [id number] LDL/HDL Ratio 1.6 {ratio_units} (Normal) Range: 0.0-3.6 Comments: LDL/HDL Ratio Men Women 1/2 Avg.Risk 1.0 1.5 Av g.Risk 3.6 3.2 2X Avg.Risk 6.2 5.0 3X Avg.Risk 8.0 6.1 LDL Cholesterol Calc 92 mg/dL (Normal) Range: 0-99 VLDL Cholesterol Compa 31 mg/dL (Normal) Range: 5-40 HDL Cholesterol 56 mg/dL (Normal) Triglycerides 157 mg/dL (Abnormal) Range: 0-149 Cholesterol, Total 179 mg/dL (Normal) Range: 100-199 4-Pel-995721:45 HEPATITIS C ANTIBODY (19398) Comments: PATIENT WAS FASTINGPERFORMED BY: MineSense TechnologiesNewton Medical CenterZdshxj6859 [facility] [id number] Hep C Virus Ab <0.1 {s/co_ratio} (Normal) Range: 0.0-0.9 Comments: Negative: < 0.8 Indeterminate: 0.8 - 0.9 Positive: > 0.9 . The CDC recommends that a positive HCV antibody result be followed up with a HCV Nucleic Acid Amplification test (717222). 39-Cvx-56677:42 METABOLIC PANEL, COMPREHENSIVE Comments: PERFORMED BY: [employer] Rztvmn2051 [facility] [id number] (57347) ALT (SGPT) 21 [iU]/L (Normal) Range: 0-44 [...] Glucose, Serum 103 mg/dL (Abnormal) Range: 65-99 03-Hhe-248927:42 PSA (PROSTATE SPECIFIC Comments: PATIENT WAS FASTINGPERFORMED BY: The Original SoupMan [address] [id number] BY: Closely70 BityotaFormerly [facility] [id number] ANTIGEN) (V76.44) Prostate Specific Ag, 1.2 ng/mL (Normal) Range: 0.0-4.0 Serum Comments: [employer] ECLIA methodology. .According to the [place] [employer], Serum PSA shoulddecrease and remain at undetectable levels after radicalprostatectomy. The AUA defines biochemical recurrence as an initialPSA value 0.2 ng/mL or greater followed by a subsequent confirmatoryPSA value 0.2 ng/mL or greater.Values obtained with d ifferent assay methods or kits cannot be usedinterchangeably. Results cannot be interpreted as absolute evidenceof the presence or absence of malignant disease. 12-Bju-550599:42 CBC with auto diff Comments: PATIENT WAS FASTINGPERFORMED BY: The Original SoupMan [address] [id number] BY: Closely70 [facility]Former[facility] [id number] (59754) Immature Grans (Abs) 0.0 {x10E3/uL} (Normal) Range: [...] 4.14-5.80 WBC 7.5 {x10E3/uL} (Normal) Range: 3.4-10.8 03-Quw-063811:42 HGB A1C (11537) Comments: PATIENT WAS FASTINGPERFORMED BY: Boxxet[address] [id number] BY: BozukoNewton Medical CenterPxihwq8[address] [place] [address] [id number] Hemoglobin A1c 5.8 % (Abnormal) Range: 4.8-5.6 Comments: . Pre-diabetes: 5.7 - 6.4 Diabetes: >6.4 Glycemic control for adults with diabetes: <7.0 54-Tmd-297749:42 MICROALBUMIN: CREATININE Comments: PATIENT WAS FASTINGPERFORMED BY: The Original SoupMan [address] [id number] BY: BozukoNewton Medical CenterZczwcb0005[address] [place] [address] [id number] RATIO (43250) AND (82829) Microalb/Creat Ratio <1.9 {mg/g_creat} (Normal) Range: 0.0-30.0 Microalbumin, Urine <3.0 ug/mL (Normal) Creatinine, Urine 160.7 mg/dL (Normal) 45-Vnx-370364:42 LIPOPROTEIN, BLD, BY NMR Comments: PATIENT WAS FASTINGPERFORMED BY: BN [facility] Lzlvtpiyed4329 [facility] [id number] BY: CB [facility] Sjzggo3558 [address] [place] [id number]; non-emergent till apt (87608) LP-IR Score 50 (Abnormal) Comments: INSULIN RESISTANCE MARKER <--Insulin Sensitive Insulin Resistant--> Percentile in Reference PopulationInsulin Resistance ScoreLP-IR Score Low 25th 50th 75th High <27 27 45 63 >63LP-IR Score is inaccurate if patient is non-fasting. .The LP-IR score is a laboratory developed i [facility] that has beenassociated with insulin resistance and [...] were developed and their performance characteristicsdetermined by [employer]. These assays have not been cleared by [...] 1600 - 2000 Very High > 2000 21-Vpw-036433:42 METABOLIC PANEL, Comments: PATIENT WAS FASTINGPERFORMED BY: BN [facility] Aayptpqyrb7098 [facility] [id number] BY: CB [facility] Bugwsk7070 [facility] [id number] COMPREHENSIVE (27544) ALT (SGPT) 18 [iU]/L (Normal) Range: 0-44 [...] (Normal) Range: 65-99 :07 HgA1C , Office (10862) HgA1C , Office 5.7 % (Normal) Range: 4.6 - 7.1 :06 PSA (PROSTATE SPECIFIC Comments: PATIENT WAS FASTINGPERFORMED BY: Closely70 [employer] [place] [id number] ANTIGEN) (V76.44) Prostate Specific Ag, 1.4 ng/mL (Normal) Range: 0.0-4.0 Serum Comments: Go Kin PacksIA methodology. .According to the [place] U[employer] Association, Serum PSA shoulddecrease and remain [...] METABOLIC PANEL, Comments: PATIENT WAS FASTINGPERFORMED BY: Defixo6370 B[facility]otaFormerly [facility] [id number] Information: [id number] COMPREHENSIVE (21125) ALT (SGPT) 20 [iU]/L (Normal) Range: 0-44 [...] mg/dL (Abnormal) Range: 65-99 :06 LIPID PANEL (44323) Comments: PATIENT WAS FASTINGPERFORMED BY: LabCoNewton Medical CenterAzynwa2520 [facility] [id number] LDL/HDL Ratio 1.2 {ratio_units} (Normal) Range: 0.0-3.6 [...] (Normal) Range: 100-199 :09 HgA1C , Office (01302) HgA1C , Office 5.7 % (Normal) Range: 4.6 - 7.1 :25 CBC With Differential/Platelet Comments: PATIENT WAS FASTINGPERFORMED BY: [place] FiteezaCoNewton Medical CenterYlpkrp5734 [facility] [id number] Information: [id number] Immature Grans (Abs) 0.0 {x10E3/uL} (Normal) Range: [...] Panel (14) Comments: PATIENT WAS FASTINGPERFORMED BY: LabCoNewton Medical CenterIxyrzx4616 [facility] [id number] ALT (SGPT) 14 [iU]/L (Normal) Range: 0-44 [...] Glucose, Serum 91 mg/dL (Normal) Range: 65-99 20-Quh-61954:25 Lipid Panel With LDL/HDL Comments: PATIENT WAS FASTINGPERFORMED BY: LabCoNewton Medical CenterDbmgig9518 [facility] [id number] Ratio LDL/HDL Ratio 1.2 {ratio_units} (Normal) Range: [...] Cholesterol, Total 143 mg/dL (Normal) Range: 100-199 57-Nwk-59623:25 Microalb/Creat Ratio, Randm Ur Comments: PATIENT WAS FASTINGPERFORMED BY: Closely70 [facility] [id number] Microalb/Creat Ratio 3.4 {mg/g_creat} (Normal) Range: 0.0-30.0 Microalbumin, Urine 5.1 ug/mL (Normal) Range: 0.0-17.0 Creatinine, Urine 149.6 mg/dL (Normal) Range: 22.0-328.0 19-Hux-762975:00 HgA1C , Office (01780) HgA1C , Office 5.8 % (Normal) Range: 4.6 - 7.1 19-Nre-280237:00 Blood Glucose , Office (22430) Blood Glucose , Office 119 (Normal) 09-Ray-492356:25 PSA (PROSTATE SPECIFIC Comments: PATIENT WAS FASTINGPERFORMED BY: Closely70 [facility] [id number] ANTIGEN) (V76.44) Prostate Specific Ag, 1.0 ng/mL (Normal) Range: 0.0-4.0 Serum Comments: Lauren ECLIA methodology. .According to the [place] U[employer] Association, Serum PSA shoulddecrease and remain [...] MANUAL DIFF Comments: PATIENT WAS FASTINGPERFORMED BY: Bozuko Gmgych6333 [facility] [id number] Information: [id number] (56321) Immature Grans (Abs) 0.0 {x10E3/uL} (Normal) Range: [...] 4.14-5.80 WBC 7.8 {x10E3/uL} (Normal) Range: 3.4-10.8 72-Gtb-287513:25 METABOLIC PANEL, COMPREHENSIVE Comments: PATIENT WAS FASTINGPERFORMED BY: LabCoNewton Medical CenterRrvumd1862 [facility] [id number] (03459) ALT (SGPT) 21 [iU]/L (Normal) Range: 0-44 [...] Glucose, Serum 98 mg/dL (Normal) Range: 65-99 91-Qqn-441015:25 LIPID PANEL (42208) Comments: PATIENT WAS FASTINGPERFORMED BY: LabCoNewton Medical CenterQuecaf5430 [facility] [id number] LDL/HDL Ratio 1.4 {ratio_units} (Normal) Range: 0.0-3.6 [...] Cholesterol, Total 168 mg/dL (Normal) Range: 100-199 55-Peu-419745:50 HgA1C , Office (55047) HgA1C , Office 5.4 % (Normal) Range: 4.6 - 7.1 :53 LIPID PANEL (82378) Comments: PATIENT WAS FASTINGPERFORMED BY: MineSense TechnologiesNewton Medical CenterTcpwzj7719 [facility] [id number]; all normal labs and pt has appt [...] METABOLIC PANEL, Comments: PATIENT WAS FASTINGPERFORMED BY: LabCoNewton Medical CenterUgmtyn7601 [facility] [id number] Information: [id number] COMPREHENSIVE (56981) ALT (SGPT) 18 [iU]/L (Normal) Range: 0-44 [...] Glucose, Serum 95 mg/dL (Normal) Range: 65-99 24-Kua-299291:53 MICROALBUMIN: CREATININE RATIO Comments: PATIENT WAS FASTINGPERFORMED BY: [employer] [facility] [id number] (65101) AND (94820) Creatinine, Urine 27.5 mg/dL (Normal) Range: 22.0-328.0 Microalb/Creat Ratio 10.2 {mg/g_creat} (Normal) Range: 0.0-30.0 Microalbumin, Urine 2.8 ug/mL (Normal) Range: 0.0-17.0 :03 HgA1C , Office (87272) HgA1C , Office 5.6 % (Normal) Range: 4.6 - 7.1 :04 Influenza A&B Viral Comments: PATIENT NOT FASTINGPERFORMED BY: [employer] [facility] [id number] Information: SRC:NOS ADD [id number] Culture (75225) Viral Culture,Rapid,Influenza FLUABN (Normal) Comments: Negative:No Influenza A or B detected. :00 Rapid Flu (16616 x 2) Influenza A Ag neg (Normal) :40 JOSLYN CULTURE-OTHER (53002) Comments: PATIENT NOT FASTINGPERFORMED BY: MineSense TechnologiesNewton Medical CenterXcszgg3196 [facility] [id number] Information: SRC:THRT ADD [id number] Result 1 RRF (Normal) Comments: Routine respiratory ghazala Upper Respiratory Culture Final report (Normal) :37 Rapid Strep Test, Office (10880) Rapid Strep Test, Office Negative (Normal) :57 HEPATIC FUNCTION PANEL Comments: PATIENT NOT FASTINGPERFORMED BY: [employer] [facility] [id number] Information: [id number] (82400) ALT (SGPT) 19 [iU]/L (Normal) Range: 0-44 AST (SGOT) 15 [iU]/L (Normal) Range: 0-40 Alkaline Phosphatase, S 48 [iU]/L (Normal) Range: 44-102 Bilirubin, Direct 0.13 mg/dL (Normal) Range: 0.00-0.40 Bilirubin, Total 0.4 mg/dL (Normal) Range: 0.0-1.2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 stable- no palpitations no routine gerd- getting yearly skin checks last was in nov Encounter Diagnosis: MDFRANCISCO JP WELLNESS EXAM, Nonsmoker, BMI 33.0-33.9,adult, Bilateral carpal [...] acuity (Dr. Nieto). Note for Physical exam: [facility] Wellness Exam, [ADDITIONAL REASON] Follow up, Laboratory Test Results - Date: (05/2016- [facility] labs). Encounter Diagnosis: BMI 33.0-33.9,adult, Nonsmoker, [...] beta quinton and lipitor- had colonsocpy in nov- had 2 polyps told followup 3-5 yearsEncounter [...]
--- OUTSIDE RECORDS SUMMARY | 2019-02-24 14:46 | XMS RPT_ITS | Continuity of Care Document ---
:1960 Author Organization [facility] Address [address] [facility] [address] [place] [address] Phone Care Team Providers Name Role Phone Darlin Pleitez DO Unavailable Denny Dominguez Unavailable NanTana Saxena Unavailable Elisha Salinas Unavailable Unavailable Unavailable Unavailable [...] Active BMI 32.0-32.9,adult (Z68.32, V85.32) Status: Active Bronchitis (J40, 490) Status: Active [...] Comments: chronic stable-continue present regimen Status: Active Screening for prostate cancer (Z12.5, [...] Quantity: 90 {Tablet} Refills: 3 Ordered:27-Jun-2018 Fast DODarlin DO, Darlin A Start : 27-Jun-2018 Active Cialis 5 MG Oral Tablet 1 (one) Tablet prn for 0 days Quantity: 90 {Tablet} Refills: 3 Ordered:27-Jun-2018 Fast DO, Darlin AFast DO Darlin A Start : 27-Jun-2018 Active Lipitor 20 MG Oral Tablet 1 tab Tablet q hs for 90 days Quantity: 90 {Tablet} Refills: 2 Ordered:19-May-2018 Maik DO, Darlin OHARAast DO, Darlin A Start : 19-May-2018 End : 06-Jun-2014 Active Losartan Potassium 100 MG Oral Tablet 1 Tablet qd for 0 days Quantity: 90 {Tablet} Refills: 3 Ordered:15-Oct-2018 Maik DO Darlin Avelar DO Darlin A Start : 15-Oct-2018 Active Meloxicam 15 MG Oral Tablet 1 (one) Tablet Tablet qd in am with food for 0 days Quantity: 30 {Tablet} Refills: 0 Ordered:03-Oct-2018 Maik DO, Darlin Avelar DO Darlin A Start : 03-Oct-2018 Active MULTIVITAMIN (PO Liquid) for 0 days Refills: 0 Ordered:11-Jul-2018 Ricardo Salinastive Norvasc 10 MG Oral Tablet 1 Tablet qd for 90 days Quantity: 90 {Tablet} Refills: 3 Ordered:29-May-2018 Maik DODarlin DO Darlin A Start : 29-May-2018 End : 29-Apr-2014 Active PredniSONE 10 MG Oral Tablet 3 (three) Tablet pills for 3 days 2 pillsfor 3 days 1 pill for 3 days for 9 days Quantity: 18 {Tablet} Refills: 0 Ordered:21-Oct-2018 Fast DO, Darlin Avelar DO, Darlin A Start : 21-Oct-2018 Active Comments:take with food in am ProAir HFA 108 (90 Base) MCG/ACT Inhalation Aerosol Solution 1 (one) Puff Puff 2 puff q6hrs prn for 0 days Quantity: 1 {Inhalation} Refills: 0 Ordered:06-Oct-2018 Elisha Salians Start : 06-Oct-2018 Active Zithromax Z-Renzo 250 MG Oral Tablet 2 (two) Tablet today then 1 qd for 4 days for 0 days Quantity: 6 {Tablet} Refills: 0 Ordered:21-Oct-2018 Fast DO, Darlin Avealr DO, Darlin A Start : 21-Oct-2018 Active Comments:april use generic MICARDIS, 40MG (Oral Tablet) 1 Tablet qd for 0 days Quantity: 30 {Tablet} Refills: 3 Ordered:06-Apr-2013 Cara Negrete MD Start : 06-Apr-2013 End : 06-Apr-2013 Inactive Souris 5-325 MG Oral Tablet 1 (one) Tablet [...] {Tablet} Refills: 2 Ordered:29-Sep-2013 Fast DO, Darlin AFmikhail DO, Darlin A Start : 29-Sep-2013 End [...] for 0 days Refills: 0 Ordered:14-Aug-2013 Long [employer], Stephany L End : 14-Aug-2013 Discontinued Comments:This order discontinued per -[facility]. Niacin ER 500 MG Oral Capsule Extended Release 1 (one) Capsule ER qd for 0 days Quantity: 30 {Capsule} Refills: 3 Ordered:12-Nov-2016 Maik VOSSDarlin DO Darlin A Start : 12-Nov-2016 End : [...] repeat in 5 years Date Value Details 17-Jul-2018 Lower Ext Joint Only (Routine) Result: Comments: See Note; NOTES: [facility] Imaging Services [address] [place] [address] Lower Ext Joint Only (Routine) MR#: [id number] Acct: [id number] Name: TRACEY SCOTT Margo Rep #: [id number] : 1960 M 57 From: Mulu Napoles MD PCP: Darlin Pleitez DO Status: REG CLI Study: Lower Ext Joint Only (Routine) Date of Exam: 07/17/18 Exam# [id number] Ordering Dr: Darlin Pleitez DO STUDY: MRI [...] Service support , CC: Darlin Pleitez DO Inside Sales Director: Signed 11-Jul-2018 TXT - Blood Flow Screening Result: Comments: See Note; NOTES: [facility] Cardiovascular Services [address] [place] [address] 07/10/18 0821 MR#: [id number] Acct: [id number] Name: SONIATRACEY L Rep #: [id number] : 1960 57 From: Bolivar Palomo MD Attending Dr: Darlin Pleitez DO Status: REG REF Ordering Dr: Date: 07/11/18 Location: [facility] Sex: M C Admitted: Reason For Study: [...] DO Date Dictated: 07/10/18820 Date Transcribed: 07/11/18821 Inside Sales Director: Signed 27-Jun-2018 Inital Evaluation (1) - PT Result: Comments: See Note; NOTES: [facility] Therapy [facility] [address] [place] [address] Fax REHABILITATION SERVICES INITIAL EVALUATION MR#: [id number] Acct: [id number] Name: TRACEY SCOTT Rep #: [id number] : 1960 57 From: Soraya Brown MPT Referring Dr.: Darlin Pleitez DO Status: REG RCR Insurance: AN[employer]M SELF PAY [...] His bed is firm and bought a pillEarshot mattress coer and that has helped to sleep. The pain does wake him up at [facility]. No N AND T. Hard to drive...could [...] to be FAXED BACK to us at [phone] for Medicare purposes. Please let me know if there are questions or concerns regarding this plan of care. Physician Signature: ____Date: <Electronically signed by Soraya Brown MPT> 06/27/18 1230 CC: Darlin Pleitez DO Signed For Medicare only, by signing this I certify the plan of care. Physicians Signature Date 07-Jun-2018 Venous Duplex Lower Extremity Result: Comments: See Note; NOTES: [facility] Cardiovascular Services [address] [place] [address] Venous Duplex US, Unilateral 06/06/18 1420 MR#: [id number] Acct: [id number] Name: TRACEY KANG Rep #: [id number] : 1960 57 From: Bolivar Palomo MD Attending Dr: Darlin Pleitez DO Status: REG CLI Ordering Dr: Darlin Pleitez DO Date: 06/06/18 Location: [facility] Sex: M C Admitted: [place] son For Study: LEG PAIN RIGHT LEFT [...] Dictated: 06/06/18 1420 Date Transcribed: 06/07/18 1531 Inside Sales Director: Signed 06-Jun-2018 Knee 4 or More Views Result: Comments: See Note; NOTES: [facility] Imaging Services [address] [facility] [place] [address] Knee 4 or More Views MR#: [id number] Acct: [id number] Name: TRACEY SCOTT Rep #: [id number] : 1960 M 57 From: Winston Allred DO PCP: Darlin Pleitez DO Status: REG CLI Study: Knee 4 or More Views Date of Exam: 06/06/18 Exam# [id number] Ordering Dr: Darlin Pleitez DO STUDY: X-RAY [...] Winston Allred DO at 8:52 EDT Tel [phone], Service support , CC: Darlin Pleitez DO Inside Sales Director: Signed 06-Jun-2018 L/S Spine Min 4 Views Result: Comments: See Note; NOTES: [facility] Imaging Services [address] [place] [address] L/S Spine Min 4 Views MR#: [id number] Acct: [id number] Name: SCOTTTRACEY L Rep #: [id number] : 1960 57 From: Winston Allred DO PCP: Darlin Pleitez DO Status: REG CLI Study: L/S Spine Min 4 Views Date of Exam: 06/06/18 Exam# [id number] Ordering Dr: Darlin Pleitez DO STUDY: X-RAY [...] Winston Allred DO at 9:11 EDT Tel [phone], Service support , CC: Darlin Pleitez DO Inside Sales Director: Signed 26-Oct-2015 EKG (61908) Comments: ekg- sinus edna normal axis no acute st t wave changes Result: [MEASUREMENTS ANALYSIS] Date of Test: 10/26/2015 08:45:17; Heart Rate: 56; ND Interval: 170; QRS: 96; QT Interval: 412; Corrected QT Interval (QTc): 405; P Wave [place]: 29; QRS Wave [place]: 23; T Wave [place]: 17; Blood Pressure: 112/76 [ECG DIAGNOSTIC STATEMENTS] Date of Test: 10/26/2015 08:45:17; Summary: Sinus Bradycardia WITHIN NORMAL LIMITS 29-Apr-2014 Spirometry (85289) Comments: poor techniq but really bad obstruction which is consistent with exam Result: Immunization Name Dates Details Tdap (7 years and up) on: 08-Nov-2009 Comments: Lot #[id number]/[id number]/2011Site-left deltoidDose0.5mlgiven by Jonathan Fry LPN Family History [...] smoker Vital Signs Date Test Result Details 70-Edf-168814:35 Temperature 98.3 f Comments: Method: Temporal Pulse [...] Value Details :00 Crystals, Body Fluid Comments: [facility] [address] [place], [place], [id number] PATH REV Reviewed (Normal) Comments: No diagnostic crystals seen.Seth Velazco D.O. 08/01/18 AMENDED REPORT 08/01/18 1230 PATH REV previously reported as: Will follow SOURCE/BF SYNOVIAL (Normal) CRYSTALS/BF SEE PATH REV (Normal) 85-Uda-62787:00 Culture, Body Fluid Comments: [facility] [address] [place], [place], [address] CUBF See Note (Normal) Comments: List Antibiotics Last 48 Hours? UNKList Antibiotics to be Started? UNKGram StainCentrifuged Specimen? Culture performed on centrifuged specimen Gram Stain 4+ Red Blood Cells 4+ White Blood C ells No organisms seen Body Fluid CultNO GROWTH IN 14 DAYS Cult, AnaerobicNo growth in 5 days. 11-Ctj-17353:53 MICROALBUMIN: CREATININE RATIO Comments: PATIENT WAS FASTINGPERFORMED BY: [facility] [facility] [id number] (42142) AND (66120) Alb/Creat Ratio 5.7 {mg/g_creat} (Normal) Range: 0.0-30.0 Comments: Normal: 0.0 - 30.0 Albuminuria: 31.0 - 300.0 Clinical albuminuria: >300.0 Albumin, Urine 7.6 ug/mL (Normal) Creatinine, Urine 133.6 mg/dL (Normal) :53 METABOLIC PANEL, COMPREHENSIVE Comments: PATIENT WAS FASTINGPERFORMED BY: [facility] [facility] [id number] (30886) ALT (SGPT) 15 [iU]/L (Normal) Range: 0-44 [...] mg/dL (Abnormal) Range: 65-99 :53 HGB A1C (12118) Comments: PATIENT WAS FASTINGPERFORMED BY: [facility] [facility] [id number] Hemoglobin A1c 5.6 % (Normal) Range: 4.8-5.6 Comments: . Prediabetes: 5.7 - 6.4 Diabetes: >6.4 Glycemic control for adults with diabetes: <7.0 67-Hyt-29054:53 LIPID PANEL (79978) Comments: PATIENT WAS FASTINGPERFORMED BY: [facility] [id number] LDL/HDL Ratio 1.6 {ratio} (Normal) Range: 0.0-3.6 Comments: LDL/HDL Ratio Men Women 1/2 Avg.Risk 1.0 1.5 Av g.Risk 3.6 3.2 2X Avg.Risk 6.2 5.0 3X Avg.Risk 8.0 6.1 LDL Cholesterol Calc 73 mg/dL (Normal) Range: 0-99 VLDL Cholesterol Compa 16 mg/dL (Normal) Range: 5-40 HDL Cholesterol 47 mg/dL (Normal) Triglycerides 80 mg/dL (Normal) Range: 0-149 Cholesterol, Total 136 mg/dL (Normal) Range: 100-199 24-Wyz-03476:53 C-REACT PROT HIGH SENS(hsCRP) Comments: PATIENT WAS FASTINGPERFORMED BY: [facility] [facility] [id number] (96551) C-Reactive Protein, Cardiac 4.66 mg/L (Abnormal) Range: 0.00-3.00 Comments: Relative Risk for Future Cardiovascular Event Low <1.00 Average 1.00 - 3.00 High >3.00 09-Jht-39564:12 CBC with auto diff (15971) Comments: PATIENT WAS FASTINGPERFORMED BY: [facility] [facility] [id number] Immature Grans (Abs) 0.0 {x10E3/uL} (Normal) Range: [...] CREATININE RATIO Comments: PATIENT WAS FASTINGPERFORMED BY: [employer] [facility] [id number] (37185) AND (33575) Alb/Creat Ratio 2.8 {mg/g_creat} (Normal) Range: 0.0-30.0 Albumin, Urine 3.1 ug/mL (Normal) Creatinine, Urine 110.7 mg/dL (Normal) :12 METABOLIC PANEL, COMPREHENSIVE Comments: PATIENT WAS FASTINGPERFORMED BY: ValidusSaint Clare's Hospital at SussexDrxhhx9788 [facility] [id number]; review 06/27 (55223) ALT (SGPT) 14 [iU]/L (Normal) Range: 0-44 [...] 6-24 Glucose 106 mg/dL (Abnormal) Range: 65-99 26-Kbt-66913:22 HgA1C , Office (21631) HgA1C , Office 5.5 % (Normal) Range: 4.6 - 7.1 7-Ecq-817532:45 Microscopic Examination Comments: PATIENT WAS FASTINGPERFORMED BY: [employer] Dmjvxs7247 [facility] [id number] Bacteria None seen (Normal) Epithelial Cells (non renal) None seen {/hpf} (Normal) Range: 0 - 10 RBC 0-2 {/hpf} (Normal) Range: 0 - 2 WBC 0-5 {/hpf} (Normal) Range: 0 - 5 9-Ska-763392:45 PSA (PROSTATE SPECIFIC Comments: PATIENT WAS FASTINGPERFORMED BY: Surfbreak RentalsSaint Clare's Hospital at SussexIjvcay2890 [facility] [id number] ANTIGEN) (V76.44) Prostate Specific Ag, 1.3 ng/mL (Normal) Range: 0.0-4.0 Serum Comments: UniSmartIA methodology. .According to the [employer] [place] [employer], Serum PSA shoulddecrease and remain at undetectable levels after radicalprostatectomy. The AUA defines biochemical recurrence as an initialPSA value 0.2 ng/mL or greater followed by a subsequent confirmatoryPSA value 0.2 ng/mL or greater.Values obtained with d ifferent assay methods or kits cannot be usedinterchangeably. Results cannot be interpreted as absolute evidenceof the presence or absence of malignant disease. 7-Uea-698142:45 URINALYSIS, W/ MICRO (99351) Comments: PATIENT WAS FASTINGPERFORMED BY: [employer] Corporationlin6370 [facility] [id number] Microscopic Examination See below: (Normal) Comments: Microscopic was indicated and was performed. Microscopic Examination MICRON (Normal) Comments: Microscopic follows if indicated. Nitrite, Urine Negative (Normal) Urobilinogen,Semi-Qn 0.2 mg/dL (Normal) Range: 0.2-1.0 Bilirubin Negative (Normal) Occult Blood Negative (Normal) Ketones Negative (Normal) Glucose Negative (Normal) Protein Negative (Normal) WBC Esterase Negative (Normal) Appearance Clear (Normal) Urine-Color Yellow (Normal) pH 6.0 (Normal) Range: 5.0-7.5 Specific [place] 1.011 (Normal) Range: 1.005-1.030 4-Rfw-836971:45 CBC W/AUTO DIFF WBC (85872) Comments: PATIENT WAS FASTINGPERFORMED BY: [employer] Zrkphu0316 [facility] [id number] Immature Grans (Abs) 0.0 {x10E3/uL} (Normal) Range: [...] 4.14-5.80 WBC 7.8 {x10E3/uL} (Normal) Range: 3.4-10.8 5-Djb-543848:45 METABOLIC PANEL, COMPREHENSIVE Comments: PATIENT WAS FASTINGPERFORMED BY: [facility]Core[facility] [id number]; can review on 12/16 appt (32368) ALT (SGPT) 29 [iU]/L (Normal) Range: 0-44 [...] Glucose, Serum 101 mg/dL (Abnormal) Range: 65-99 4-Fly-329249:45 LIPID PANEL (56012) Comments: PATIENT WAS FASTINGPERFORMED BY: ValidusSaint Clare's Hospital at SussexRpqiud84[address] [place] [address] [id number] LDL/HDL Ratio 1.6 {ratio_units} (Normal) Range: 0.0-3.6 Comments: LDL/HDL Ratio Men Women 1/2 Avg.Risk 1.0 1.5 Av g.Risk 3.6 3.2 2X Avg.Risk 6.2 5.0 3X Avg.Risk 8.0 6.1 LDL Cholesterol Calc 92 mg/dL (Normal) Range: 0-99 VLDL Cholesterol Compa 31 mg/dL (Normal) Range: 5-40 HDL Cholesterol 56 mg/dL (Normal) Triglycerides 157 mg/dL (Abnormal) Range: 0-149 Cholesterol, Total 179 mg/dL (Normal) Range: 100-199 1-Wgm-176005:45 HEPATITIS C ANTIBODY (20093) Comments: PATIENT WAS FASTINGPERFORMED BY: [address] [id number] Hep C Virus Ab <0.1 {s/co_ratio} (Normal) Range: 0.0-0.9 Comments: Negative: < 0.8 Indeterminate: 0.8 - 0.9 Positive: > 0.9 . The CDC recommends that a positive HCV antibody result be followed up with a HCV Nucleic Acid Amplification test (282424). 52-Oaj-40950:42 METABOLIC PANEL, COMPREHENSIVE Comments: PERFORMED BY: GraphOnCorewell Health Ludington Hospital[address] [place] [address] [id number] (51765) ALT (SGPT) 21 [iU]/L (Normal) Range: 0-44 [...] Glucose, Serum 103 mg/dL (Abnormal) Range: 65-99 19-Qur-345516:42 PSA (PROSTATE SPECIFIC Comments: PATIENT WAS FASTINGPERFORMED BY: BN [facility] Rhnafpbrbi5717 [facility] [id number] BY: CB [facility] Acqwpj1969 [facility] [id number] ANTIGEN) (V76.44) Prostate Specific Ag, 1.2 ng/mL (Normal) Range: 0.0-4.0 Serum Comments: Lauren ECLIA methodology. .According to the [employer] [place] [employer], Serum PSA shoulddecrease and remain at undetectable levels after radicalprostatectomy. The AUA defines biochemical recurrence as an initialPSA value 0.2 ng/mL or greater followed by a subsequent confirmatoryPSA value 0.2 ng/mL or greater.Values obtained with d ifferent assay methods or kits cannot be usedinterchangeably. Results cannot be interpreted as absolute evidenceof the presence or absence of malignant disease. 84-Zuo-251752:42 CBC with auto diff Comments: PATIENT WAS FASTINGPERFORMED BY: [employer] [id number] BY: [place] LabF[facility] Upkahf4970 Alethea RahmanSelect Specialty Hospital [id number] (82033) Immature Grans (Abs) 0.0 {x10E3/uL} (Normal) Range: [...] 4.14-5.80 WBC 7.5 {x10E3/uL} (Normal) Range: 3.4-10.8 66-Cbl-266618:42 HGB A1C (97099) Comments: PATIENT WAS FASTINGPERFORMED BY: [employer] [id number] BY: [place] ValidusSaint Clare's Hospital at SussexYfodtx2166 [facility] [id number] Hemoglobin A1c 5.8 % (Abnormal) Range: 4.8-5.6 Comments: . Pre-diabetes: 5.7 - 6.4 Diabetes: >6.4 Glycemic control for adults with diabetes: <7.0 50-Mai-679089:42 MICROALBUMIN: CREATININE Comments: PATIENT WAS FASTINGPERFORMED BY: [employer] [id number] BY: ValidusNicole [place] 1473070 [facility] [id number] RATIO (58310) AND (83357) Microalb/Creat Ratio <1.9 {mg/g_creat} (Normal) Range: 0.0-30.0 Microalbumin, Urine <3.0 ug/mL (Normal) Creatinine, Urine 160.7 mg/dL (Normal) 22-Bbe-149084:42 LIPOPROTEIN, BLD, BY NMR Comments: PATIENT WAS FASTINGPERFORMED BY: [employer] [id number] BY: ValidusNicole [place] 1473070 [facility] [id number]; non-emergent till apt (42908) LP-IR Score 50 (Abnormal) Comments: INSULIN RESISTANCE MARKER <--Insulin Sensitive Insulin Resistant--> Percentile in Reference PopulationInsulin Resistance ScoreLP-IR Score Low 25th 50th 75th High <27 27 45 63 >63LP-IR Score is inaccurate if patient is non-fasting. .The LP-IR score is a laboratory developed i [facility] that has beenassociated with insulin resistance [...] were developed and their performance characteristicsdetermined by [employer]. These assays have not been cleared by [...] 1600 - 2000 Very High > 2000 68-Ygp-628071:42 METABOLIC PANEL, Comments: PATIENT WAS FASTINGPERFORMED BY: BN [facility] [address] [id number] BY: [facility] Zfsizg0785 [facility] [id number] COMPREHENSIVE (68308) ALT (SGPT) 18 [iU]/L (Normal) Range: 0-44 [...] (Normal) Range: 65-99 :07 HgA1C , Office (93690) HgA1C , Office 5.7 % (Normal) Range: 4.6 - 7.1 :06 PSA (PROSTATE SPECIFIC Comments: PATIENT WAS FASTINGPERFORMED BY: [facility]6370 [facility] [id number] ANTIGEN) (V76.44) Prostate Specific Ag, 1.4 ng/mL (Normal) Range: 0.0-4.0 Serum Comments: Lauren ECLIA methodology. .According to the [employer] [place] [employer], Serum PSA shoulddecrease and remain [...] METABOLIC PANEL, Comments: PATIENT WAS FASTINGPERFORMED BY: [place] [employer] Fvgbuj0731 [facility] [id number] Information: [id number] COMPREHENSIVE (29026) ALT (SGPT) 20 [iU]/L (Normal) Range: 0-44 [...] mg/dL (Abnormal) Range: 65-99 :06 LIPID PANEL (89315) Comments: PATIENT WAS FASTINGPERFORMED BY: [employer] Corporationlin6370 [facility] [id number] LDL/HDL Ratio 1.2 {ratio_units} (Normal) Range: 0.0-3.6 [...] (Normal) Range: 100-199 :09 HgA1C , Office (26104) HgA1C , Office 5.7 % (Normal) Range: 4.6 - 7.1 62-Daf-00316:25 CBC With Differential/Platelet Comments: PATIENT WAS FASTINGPERFORMED BY: [employer] [place] Yoqikb2222 [facility] [id number] Information: [id number] Immature Grans (Abs) 0.0 {x10E3/uL} (Normal) Range: [...] 4.14-5.80 WBC 6.9 {x10E3/uL} (Normal) Range: 3.4-10.8 60-Bqr-27735:25 Comp. Metabolic Panel (14) Comments: PATIENT WAS FASTINGPERFORMED BY: LabCoSaint Clare's Hospital at SussexItgddz6248 [facility] [id number] ALT (SGPT) 14 [iU]/L (Normal) Range: 0-44 [...] With LDL/HDL Comments: PATIENT WAS FASTINGPERFORMED BY: ValidusMountain View Regional Medical CenterMgvzwk9605 [facility] [id number] Ratio LDL/HDL Ratio 1.2 {ratio_units} (Normal) Range: [...] Randm Ur Comments: PATIENT WAS FASTINGPERFORMED BY: ValidusSaint Clare's Hospital at SussexMyyrqy4570 [facility] [id number] Microalb/Creat Ratio 3.4 {mg/g_creat} (Normal) Range: 0.0-30.0 Microalbumin, Urine 5.1 ug/mL (Normal) Range: 0.0-17.0 Creatinine, Urine 149.6 mg/dL (Normal) Range: 22.0-328.0 03-Jaa-440267:00 HgA1C , Office (53669) HgA1C , Office 5.8 % (Normal) Range: 4.6 - 7.1 89-Uim-498702:00 Blood Glucose , Office (84051) Blood Glucose , Office 119 (Normal) 66-Gry-567442:25 PSA (PROSTATE SPECIFIC Comments: PATIENT WAS FASTINGPERFORMED BY: ValidusSaint Clare's Hospital at SussexLdahiu8245 [facility] [id number] ANTIGEN) (V76.44) Prostate Specific Ag, 1.0 ng/mL (Normal) Range: 0.0-4.0 Serum Comments: Lauren ECLIA methodology. .According to the [employer] [place] [employer], Serum PSA shoulddecrease and remain at undetectable levels after radicalprostatectomy. The AUA defines biochemical recurrence as an initialPSA value 0.2 ng/mL or greater followed by a subsequent confirmatoryPSA value 0.2 ng/mL or greater.Values obtained with d ifferent assay methods or kits cannot be usedinterchangeably. Results cannot be interpreted as absolute evidenceof the presence or absence of malignant disease. 34-Zgo-227539:25 CBC WITH MANUAL DIFF Comments: PATIENT WAS FASTINGPERFORMED BY: LabCorewell [facility] Hospital6370 [facility] [id number] Information: [id number] (14758) Immature Grans (Abs) 0.0 {x10E3/uL} (Normal) Range: [...] PANEL, COMPREHENSIVE Comments: PATIENT WAS FASTINGPERFORMED BY: [employer]70 [facility] [id number] (63856) ALT (SGPT) 21 [iU]/L (Normal) Range: 0-44 [...] mg/dL (Normal) Range: 65-99 :25 LIPID PANEL (89860) Comments: PATIENT WAS FASTINGPERFORMED BY: wuaki.tv70 [facility] [id number] LDL/HDL Ratio 1.4 {ratio_units} (Normal) Range: 0.0-3.6 [...] Cholesterol, Total 168 mg/dL (Normal) Range: 100-199 27-Zxn-863987:50 HgA1C , Office (13735) HgA1C , Office 5.4 % (Normal) Range: 4.6 - 7.1 :53 LIPID PANEL (95165) Comments: PATIENT WAS FASTINGPERFORMED BY: SiConnectFormerly [facility] [id number]; all normal labs and pt has appt [...] Cholesterol, Total 151 mg/dL (Normal) Range: 100-199 96-Fxy-432555:53 METABOLIC PANEL, Comments: PATIENT WAS FASTINGPERFORMED BY: [employer]6370 [employer] [facility] [id number] Information: [id number] COMPREHENSIVE (35539) ALT (SGPT) 18 [iU]/L (Normal) Range: 0-44 [...] Glucose, Serum 95 mg/dL (Normal) Range: 65-99 73-Mqk-486031:53 MICROALBUMIN: CREATININE RATIO Comments: PATIENT WAS FASTINGPERFORMED BY: Surfbreak RentalsSaint Clare's Hospital at SussexUzksyn6931 [facility] [id number] (81069) AND (17259) Creatinine, Urine 27.5 mg/dL (Normal) Range: 22.0-328.0 Microalb/Creat Ratio 10.2 {mg/g_creat} (Normal) Range: 0.0-30.0 Microalbumin, Urine 2.8 ug/mL (Normal) Range: 0.0-17.0 :03 HgA1C , Office (60213) HgA1C , Office 5.6 % (Normal) Range: 4.6 - 7.1 :04 Influenza A&B Viral Comments: PATIENT NOT FASTINGPERFORMED BY: Surfbreak RentalsSaint Clare's Hospital at SussexAwppyv4324 [facility] [id number] Information: SRC:NOS ADD [id number] Culture (43396) Viral Culture,Rapid,Influenza FLUABN (Normal) Comments: Negative:No Influenza A or B detected. 64-Dkg-69271:00 Rapid Flu (53280 x 2) Influenza A Ag neg (Normal) :40 JOSLYN CULTURE-OTHER (65961) Comments: PATIENT NOT FASTINGPERFORMED BY: [address] [id number] Information: SRC:THRT ADD [id number] Result 1 RRF (Normal) Comments: Routine respiratory ghazala Upper Respiratory Culture Final report (Normal) :37 Rapid Strep Test, Office (78773) Rapid Strep Test, Office Negative (Normal) :57 HEPATIC FUNCTION PANEL Comments: PATIENT NOT FASTINGPERFORMED BY: [address] [id number] Information: [id number] (36042) ALT (SGPT) 19 [iU]/L (Normal) Range: 0-44 AST (SGOT) 15 [iU]/L (Normal) Range: 0-40 Alkaline Phosphatase, S 48 [iU]/L (Normal) Range: 44-102 Bilirubin, Direct 0.13 mg/dL (Normal) Range: 0.00-0.40 Bilirubin, Total 0.4 mg/dL (Normal) Range: 0.0-1.2 Albumin, Serum 4.5 g/dL (Normal) Range: 3.5-5.5 Protein, Total, Serum 6.6 g/dL (Normal) Range: 6.0-8.5 0-Ble-868380:03 HEPATIC FUNCTION PANEL Comments: PATIENT NOT FASTINGPERFORMED BY: [place] 8788070 [facility] [id number] Information: [id number] (61245) ALT (SGPT) 15 [iU]/L (Normal) Range: 0-44 [...] Total, Serum 6.6 g/dL (Normal) Range: 6.0-8.5 46-Lyq-86976:42 CBC WITH MANUAL DIFF Comments: PATIENT WAS FASTINGPERFORMED BY: [facility]Corewell [facility]6370 [facility] [id number] Information: [id number] (33658) Immature Grans (Abs) 0.0 {x10E3/uL} (Normal) Range: [...] 4.14-5.80 WBC 7.2 {x10E3/uL} (Normal) Range: 3.4-10.8 82-Maz-58146:42 METABOLIC PANEL, COMPREHENSIVE Comments: PATIENT WAS FASTINGPERFORMED BY: LabCoSaint Clare's Hospital at SussexLqhjoe4113 [facility] [id number] (78342) ALT (SGPT) 22 [iU]/L (Normal) Range: 0-44 [...] mg/dL (Abnormal) Range: 65-99 :42 LIPID PANEL (61242) Comments: PATIENT WAS FASTINGPERFORMED BY: [employer]CoVer[employer] Grgwqn6326 [facility] [id number] LDL/HDL Ratio 1.4 {ratio_units} (Normal) Range: 0.0-3.6 LDL Cholesterol Calc 75 mg/dL (Normal) Range: 0-99 VLDL Cholesterol Compa 16 mg/dL (Normal) Range: 5-40 HDL Cholesterol 53 mg/dL (Normal) Comments: According to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
--- OUTSIDE RECORDS SUMMARY | 2019-02-24 14:47 | XMS RPT_ITS | Continuity of Care Document ---
:1960 Author Organization [facility] Address [address] [place] [address] Phone Care Team Providers Name Role Phone [...] Ordered:06-Oct-2018 Elisha Salinas Start : 06-Oct-2018 Active Zithromax Z-Renzo 250 [...] Start : 06-Apr-2013 End : 06-Apr-2013 Inactive Jourdanton 5-325 MG Oral Tablet 1 (one) Tablet [...] for 0 days Refills: 0 Ordered:14-Aug-2013 Long FOREIGN LANGUAGES PROFESSOR, Stephany L End : 14-Aug-2013 Discontinued Comments:This order discontinued per -[facility]. Niacin ER 500 MG Oral Capsule [...] Only (Routine) Result: Comments: See Note; NOTES: [facility] Imaging Services [address] [place] [address] Lower Ext Joint Only (Routine) MR#: [id number] Acct: [id number] Name: TRACEY SCOTT Margo Rep #: [id number] : 1960 M 57 From: Mulu Napoles MD PCP: Darlin Pleitez DO Status: REG CLI Study: Lower Ext Joint Only (Routine) Date of Exam: 07/17/18 Exam# [id number] Ordering Dr: Darlin Pleitez DO STUDY: MRI [...] Service support , CC: Darlin Pleitez DO Pharmacology Teacher: Signed 11-Jul-2018 TXT - Blood Flow Screening Result: Comments: See Note; NOTES: [facility] Cardiovascular Services [address] [place] [address] 07/10/18 0821 MR#: [id number] Acct: [id number] Name: SONIATRACEY L Rep #: [id number] : 1960 57 From: Bolivar Palomo MD Attending Dr: Darlin Pleitez DO Status: REG REF Ordering Dr: Date: 07/11/18 Location: [facility] Sex: M C Admitted: Reason For Study: [...] DO Date Dictated: 07/10/18820 Date Transcribed: 07/11/18821 Pharmacology Teacher: Signed 27-Jun-2018 Inital Evaluation (1) - PT Result: Comments: See Note; NOTES: [facility] [address] [place] [address] Fax REHABILITATION SERVICES INITIAL EVALUATION MR#: [id number] Acct: [id number] Name: TRACEY SCOTT Rep #: [id number] : 1960 57 From: Soraya Brown MPT [...] His bed is firm and bought a pillLinkStorm mattress coer and that has helped to sleep. The pain does wake him up at [facility]. No N AND T. Hard to [...] to be FAXED BACK to us at [phone] for Medicare purposes. Please let me know if there are questions or concerns regarding this plan of care. Physician Signature: ____Date: <Electronically signed by Soraya Brown MPT> 06/27/18 1230 CC: Darlin Pleitez DO Signed For Medicare only, by signing this I certify the plan of care. Physicians Signature Date 07-Jun-2018 Venous Duplex Lower Extremity Result: Comments: See Note; NOTES: [facility] Cardiovascular Services [address] [place] [address] Venous Duplex US, Unilateral 06/06/18 1420 MR#: [id number] Acct: [id number] Name: TRACEY KANG Rep #: [id number] : 1960 57 From: Bolivar Palomo MD Attending Dr: Darlin Pleitez DO Status: REG CLI Ordering Dr: Darlin Pleitez DO Date: 06/06/18 Location: [facility] Sex: M C Admitted: [place] son For Study: LEG PAIN RIGHT LEFT [...] Dictated: 06/06/18 1420 Date Transcribed: 06/07/18 1531 Pharmacology Teacher: Signed 06-Jun-2018 Knee 4 or More Views Result: Comments: See Note; NOTES: [facility] Imaging Services [address] [place] [address] Knee 4 or More Views MR#: [id number] Acct: [id number] Name: TRACEY SCOTT Rep #: [id number] : 1960 M 57 From: Winston Allred DO PCP: Darlin Pleitez DO Status: REG CLI Study: Knee 4 or More Views Date of Exam: 06/06/18 Exam# [id number] Ordering Dr: Darlin Pleitez DO STUDY: X-RAY [...] Winston Allred DO at 8:52 EDT Tel [phone], Service support , CC: Darlin Pleitez DO Pharmacology Teacher: Signed 06-Jun-2018 L/S Spine Min 4 Views Result: Comments: See Note; NOTES: [facility] Imaging Services [address] [place] [address] L/S Spine Min 4 Views MR#: [id number] Acct: [id number] Name: SCOTTTRACEY L Rep #: [id number] : 1960 57 From: Winston Allred DO PCP: Darlin Pleitez DO Status: REG CLI Study: L/S Spine Min 4 Views Date of Exam: 06/06/18 Exam# [id number] Ordering Dr: Darlin Pleitez DO STUDY: X-RAY [...] Winston Allred DO at 9:11 EDT Tel [phone], Service support , CC: Darlin Pleitez DO Pharmacology Teacher: Signed 26-Oct-2015 EKG (67779) Comments: ekg- sinus edna normal axis no acute st t wave changes Result: [MEASUREMENTS ANALYSIS] Date of Test: 10/26/2015 08:45:17; Heart Rate: 56; MS Interval: 170; QRS: 96; QT Interval: 412; Corrected QT Interval (QTc): 405; P Wave Ashmore: 29; QRS Wave Ashmore: 23; T Wave Ashmore: 17; Blood Pressure: 112/76 [ECG DIAGNOSTIC STATEMENTS] Date of Test: 10/26/2015 08:45:17; Summary: Sinus Bradycardia WITHIN NORMAL LIMITS 29-Apr-2014 Spirometry (32629) Comments: poor techniq but really bad obstruction which is consistent with exam Result: Immunization Name Dates Details Tdap (7 years and up) on: 08-Nov-2009 Comments: Lot #[id number]-48/17/2011Site-left deltoidDose0.5mlgiven by Jonathan Fry LPN Family History [...] smoker Vital Signs Date Test Result Details 83-Udy-124281:35 Temperature 98.3 f Comments: Method: Temporal Pulse [...] Value Details :00 Crystals, Body Fluid Comments: [facility] [address] [place], [place], [id number] PATH REV Reviewed (Normal) Comments: No diagnostic crystals seen.Seth Velazco D.O. 08/01/18 AMENDED REPORT 08/01/18 1230 PATH REV previously reported as: Will follow SOURCE/BF SYNOVIAL (Normal) CRYSTALS/BF SEE PATH REV (Normal) 06-Xpi-65972:00 Culture, Body Fluid Comments: [facility] [address] [place], [place], [address] CUBF See Note (Normal) Comments: List Antibiotics Last 48 Hours? UNKList Antibiotics to be Started? UNKGram StainCentrifuged Specimen? Culture performed on centrifuged specimen Gram Stain 4+ Red Blood Cells 4+ White Blood C ells No organisms seen Body Fluid CultNO GROWTH IN 14 DAYS Cult, AnaerobicNo growth in 5 days. 05-Njk-61472:53 MICROALBUMIN: CREATININE RATIO Comments: PATIENT WAS FASTINGPERFORMED BY: [facility] [facility] [id number] (06568) AND (93232) Alb/Creat Ratio 5.7 {mg/g_creat} (Normal) Range: 0.0-30.0 Comments: Normal: 0.0 - 30.0 Albuminuria: 31.0 - 300.0 Clinical albuminuria: >300.0 Albumin, Urine 7.6 ug/mL (Normal) Creatinine, Urine 133.6 mg/dL (Normal) :53 METABOLIC PANEL, COMPREHENSIVE Comments: PATIENT WAS FASTINGPERFORMED BY: [facility] [facility] [id number] (00815) ALT (SGPT) 15 [iU]/L (Normal) Range: 0-44 [...] mg/dL (Abnormal) Range: 65-99 :53 HGB A1C (64394) Comments: PATIENT WAS FASTINGPERFORMED BY: [facility] [facility] [id number] Hemoglobin A1c 5.6 % (Normal) Range: 4.8-5.6 Comments: . Prediabetes: 5.7 - 6.4 Diabetes: >6.4 Glycemic control for adults with diabetes: <7.0 49-Juu-03185:53 LIPID PANEL (90011) Comments: PATIENT WAS FASTINGPERFORMED BY: [facility] [facility] [id number] LDL/HDL Ratio 1.6 {ratio} (Normal) Range: 0.0-3.6 Comments: LDL/HDL Ratio Men Women 1/2 Avg.Risk 1.0 1.5 Av g.Risk 3.6 3.2 2X Avg.Risk 6.2 5.0 3X Avg.Risk 8.0 6.1 LDL Cholesterol Calc 73 mg/dL (Normal) Range: 0-99 VLDL Cholesterol Compa 16 mg/dL (Normal) Range: 5-40 HDL Cholesterol 47 mg/dL (Normal) Triglycerides 80 mg/dL (Normal) Range: 0-149 Cholesterol, Total 136 mg/dL (Normal) Range: 100-199 40-Tdq-29788:53 C-REACT PROT HIGH SENS(hsCRP) Comments: PATIENT WAS FASTINGPERFORMED BY: [facility] [facility] [id number] (53773) C-Reactive Protein, Cardiac 4.66 mg/L (Abnormal) Range: 0.00-3.00 Comments: Relative Risk for Future Cardiovascular Event Low <1.00 Average 1.00 - 3.00 High >3.00 67-Ybq-06316:12 CBC with auto diff (11890) Comments: PATIENT WAS FASTINGPERFORMED BY: [facility] [facility] [id number] Immature Grans (Abs) 0.0 {x10E3/uL} (Normal) Range: [...] CREATININE RATIO Comments: PATIENT WAS FASTINGPERFORMED BY: [employer] [facility] [id number] (81353) AND (56120) Alb/Creat Ratio 2.8 {mg/g_creat} (Normal) Range: 0.0-30.0 Albumin, Urine 3.1 ug/mL (Normal) Creatinine, Urine 110.7 mg/dL (Normal) :12 METABOLIC PANEL, COMPREHENSIVE Comments: PATIENT WAS FASTINGPERFORMED BY: Realtime WorldsPSE&G Children's Specialized HospitalMynlbs3598 [facility] [id number]; review 06/27 (08279) ALT (SGPT) 14 [iU]/L (Normal) Range: 0-44 [...] 6-24 Glucose 106 mg/dL (Abnormal) Range: 65-99 34-Gvd-56284:22 HgA1C , Office (57879) HgA1C , Office 5.5 % (Normal) Range: 4.6 - 7.1 1-Dzj-254124:45 Microscopic Examination Comments: PATIENT WAS FASTINGPERFORMED BY: [employer] Auuufq7763 [facility] [id number] Bacteria None seen (Normal) Epithelial Cells (non renal) None seen {/hpf} (Normal) Range: 0 - 10 RBC 0-2 {/hpf} (Normal) Range: 0 - 2 WBC 0-5 {/hpf} (Normal) Range: 0 - 5 0-Gpq-859598:45 PSA (PROSTATE SPECIFIC Comments: PATIENT WAS FASTINGPERFORMED BY: MarginPointPSE&G Children's Specialized HospitalDofxsa4898 [facility] [id number] ANTIGEN) (V76.44) Prostate Specific Ag, 1.3 ng/mL (Normal) Range: 0.0-4.0 Serum Comments: Triggerfox CorporationIA methodology. .According to the [place] [employer], Serum PSA shoulddecrease and remain at undetectable levels after radicalprostatectomy. The AUA defines biochemical recurrence as an initialPSA value 0.2 ng/mL or greater followed by a subsequent confirmatoryPSA value 0.2 ng/mL or greater.Values obtained with d ifferent assay methods or kits cannot be usedinterchangeably. Results cannot be interpreted as absolute evidenceof the presence or absence of malignant disease. 9-Vtr-700450:45 URINALYSIS, W/ MICRO (81748) Comments: PATIENT WAS FASTINGPERFORMED BY: Eigentalin6370 Telematics4u ServicesAt[facility]arrus [id number] Microscopic Examination See below: (Normal) Comments: Microscopic was indicated and was performed. Microscopic Examination MICRON (Normal) Comments: Microscopic follows if indicated. Nitrite, Urine Negative (Normal) Urobilinogen,Semi-Qn 0.2 mg/dL (Normal) Range: 0.2-1.0 Bilirubin Negative (Normal) Occult Blood Negative (Normal) Ketones Negative (Normal) Glucose Negative (Normal) Protein Negative (Normal) WBC Esterase Negative (Normal) Appearance Clear (Normal) Urine-Color Yellow (Normal) pH 6.0 (Normal) Range: 5.0-7.5 Specific [place]am[place] 1.011 (Normal) Range: 1.005-1.030 2-Npx-728885:45 CBC W/AUTO DIFF WBC (77897) Comments: PATIENT WAS FASTINGPERFORMED BY: [employer] Hnfyar1991 [facility] [id number] Immature Grans (Abs) 0.0 {x10E3/uL} (Normal) Range: [...] 4.14-5.80 WBC 7.8 {x10E3/uL} (Normal) Range: 3.4-10.8 2-Beh-824803:45 METABOLIC PANEL, COMPREHENSIVE Comments: PATIENT WAS FASTINGPERFORMED BY: [facility]6370 [facility] [id number]; can review on 12/16 appt (20949) ALT (SGPT) 29 [iU]/L (Normal) Range: 0-44 [...] Glucose, Serum 101 mg/dL (Abnormal) Range: 65-99 8-Hnn-765438:45 LIPID PANEL (80455) Comments: PATIENT WAS FASTINGPERFORMED BY: Realtime WorldsPSE&G Children's Specialized HospitalZwqjce[address] [place] [address] [id number] LDL/HDL Ratio 1.6 {ratio_units} (Normal) Range: 0.0-3.6 Comments: LDL/HDL Ratio Men Women 1/2 Avg.Risk 1.0 1.5 Av g.Risk 3.6 3.2 2X Avg.Risk 6.2 5.0 3X Avg.Risk 8.0 6.1 LDL Cholesterol Calc 92 mg/dL (Normal) Range: 0-99 VLDL Cholesterol Compa 31 mg/dL (Normal) Range: 5-40 HDL Cholesterol 56 mg/dL (Normal) Triglycerides 157 mg/dL (Abnormal) Range: 0-149 Cholesterol, Total 179 mg/dL (Normal) Range: 100-199 3-Fvj-029997:45 HEPATITIS C ANTIBODY (05899) Comments: PATIENT WAS FASTINGPERFORMED BY: [address] [id number] Hep C Virus Ab <0.1 {s/co_ratio} (Normal) Range: 0.0-0.9 Comments: Negative: < 0.8 Indeterminate: 0.8 - 0.9 Positive: > 0.9 . The CDC recommends that a positive HCV antibody result be followed up with a HCV Nucleic Acid Amplification test (870632). 68-Flx-39523:42 METABOLIC PANEL, COMPREHENSIVE Comments: PERFORMED BY: ArtBinderFresenius [facility] [place] [address] [id number] (97613) ALT (SGPT) 21 [iU]/L (Normal) Range: 0-44 [...] Glucose, Serum 103 mg/dL (Abnormal) Range: 65-99 71-Ffo-891772:42 PSA (PROSTATE SPECIFIC Comments: PATIENT WAS FASTINGPERFORMED BY: BN [facility] Atsebybrub7033 [facility] [id number] BY: CB [facility] Lgxmhw0367 [facility] [id number] ANTIGEN) (V76.44) Prostate Specific Ag, 1.2 ng/mL (Normal) Range: 0.0-4.0 Serum Comments: Lauren ECLIA methodology. .According to the [place] [employer], Serum PSA shoulddecrease and remain at undetectable levels after radicalprostatectomy. The AUA defines biochemical recurrence as an initialPSA value 0.2 ng/mL or greater followed by a subsequent confirmatoryPSA value 0.2 ng/mL or greater.Values obtained with d ifferent assay methods or kits cannot be usedinterchangeably. Results cannot be interpreted as absolute evidenceof the presence or absence of malignant disease. 83-Lpb-763154:42 CBC with auto diff Comments: PATIENT WAS FASTINGPERFORMED BY: [employer]s[address] [id number] BY: [place] [facility] Ogsyyg1427 Alethea RahmanAtrium Health Cabarrus [id number] (09326) Immature Grans (Abs) 0.0 {x10E3/uL} (Normal) Range: [...] 4.14-5.80 WBC 7.5 {x10E3/uL} (Normal) Range: 3.4-10.8 79-Lzs-168849:42 HGB A1C (96518) Comments: PATIENT WAS FASTINGPERFORMED BY: [employer] [id number] BY: [place] Realtime WorldsPSE&G Children's Specialized HospitalOjcsuc9191 [facility] [id number] Hemoglobin A1c 5.8 % (Abnormal) Range: 4.8-5.6 Comments: . Pre-diabetes: 5.7 - 6.4 Diabetes: >6.4 Glycemic control for adults with diabetes: <7.0 06-Ybn-228777:42 MICROALBUMIN: CREATININE Comments: PATIENT WAS FASTINGPERFORMED BY: [employer]s[address] [id number] BY: Realtime WorldsAnita [place] 7125270 [facility] [id number] RATIO (21343) AND (88535) Microalb/Creat Ratio <1.9 {mg/g_creat} (Normal) Range: 0.0-30.0 Microalbumin, Urine <3.0 ug/mL (Normal) Creatinine, Urine 160.7 mg/dL (Normal) 69-Jiq-645437:42 LIPOPROTEIN, BLD, BY NMR Comments: PATIENT WAS FASTINGPERFORMED BY: [employer]s[address] [id number] BY: Realtime WorldsAnita [place] 7125270 [facility] [id number]; non-emergent till apt (37514) LP-IR Score 50 (Abnormal) Comments: INSULIN RESISTANCE MARKER <--Insulin Sensitive Insulin Resistant--> Percentile in Reference PopulationInsulin Resistance ScoreLP-IR Score Low 25th 50th 75th High <27 27 45 63 >63LP-IR Score is inaccurate if patient is non-fasting. .The LP-IR score is a laboratory developed i [facility] that has beenassociated with insulin resistance and [...] were developed and their performance characteristicsdetermined by [employer]. These assays have not been cleared by [...] 1600 - 2000 Very High > 2000 19-Ywf-225965:42 METABOLIC PANEL, Comments: PATIENT WAS FASTINGPERFORMED BY: BN [facility] [address] [id number] BY: [facility] Hlpdpp6810 [facility] [id number] COMPREHENSIVE (43810) ALT (SGPT) 18 [iU]/L (Normal) Range: 0-44 [...] (Normal) Range: 65-99 :07 HgA1C , Office (43205) HgA1C , Office 5.7 % (Normal) Range: 4.6 - 7.1 :06 PSA (PROSTATE SPECIFIC Comments: PATIENT WAS FASTINGPERFORMED BY: [facility]6370 [facility] [id number] ANTIGEN) (V76.44) Prostate Specific Ag, 1.4 ng/mL (Normal) Range: 0.0-4.0 Serum Comments: Lauren ECLIA methodology. .According to the [place] U[employer], Serum PSA shoulddecrease and remain [...] PANEL, Comments: PATIENT WAS FASTINGPERFORMED BY: [place] [employer] Twegxc8204 [facility] [id number] Information: [id number] COMPREHENSIVE (34239) ALT (SGPT) 20 [iU]/L (Normal) Range: 0-44 [...] mg/dL (Abnormal) Range: 65-99 :06 LIPID PANEL (95524) Comments: PATIENT WAS FASTINGPERFORMED BY: Eigentalin6370 [facility] [id number] LDL/HDL Ratio 1.2 {ratio_units} (Normal) Range: 0.0-3.6 [...] (Normal) Range: 100-199 :09 HgA1C , Office (86882) HgA1C , Office 5.7 % (Normal) Range: 4.6 - 7.1 49-Qki-21509:25 CBC With Differential/Platelet Comments: PATIENT WAS FASTINGPERFORMED BY: ZENT Njjbil2579 [facility] [id number] Information: [id number] Immature Grans (Abs) 0.0 {x10E3/uL} (Normal) Range: [...] 4.14-5.80 WBC 6.9 {x10E3/uL} (Normal) Range: 3.4-10.8 12-Zuj-04988:25 Comp. Metabolic Panel (14) Comments: PATIENT WAS FASTINGPERFORMED BY: LabCoPSE&G Children's Specialized HospitalMheley2736 [facility] [id number] ALT (SGPT) 14 [iU]/L (Normal) Range: 0-44 [...] With LDL/HDL Comments: PATIENT WAS FASTINGPERFORMED BY: Realtime WorldsNorthern Navajo Medical CenterCtogze0226 [facility] [id number] Ratio LDL/HDL Ratio 1.2 {ratio_units} (Normal) Range: [...] Randm Ur Comments: PATIENT WAS FASTINGPERFORMED BY: Realtime WorldsPSE&G Children's Specialized HospitalOqwqhi7858 [facility] [id number] Microalb/Creat Ratio 3.4 {mg/g_creat} (Normal) Range: 0.0-30.0 Microalbumin, Urine 5.1 ug/mL (Normal) Range: 0.0-17.0 Creatinine, Urine 149.6 mg/dL (Normal) Range: 22.0-328.0 47-Ixl-864552:00 HgA1C , Office (91471) HgA1C , Office 5.8 % (Normal) Range: 4.6 - 7.1 61-Xmx-846253:00 Blood Glucose , Office (26843) Blood Glucose , Office 119 (Normal) 99-Uxv-798225:25 PSA (PROSTATE SPECIFIC Comments: PATIENT WAS FASTINGPERFORMED BY: Realtime WorldsPSE&G Children's Specialized HospitalSqtgvu0873 [facility] [id number] ANTIGEN) (V76.44) Prostate Specific Ag, 1.0 ng/mL (Normal) Range: 0.0-4.0 Serum Comments: Lauren ECLIA methodology. .According to the [place] U[employer] Association, Serum PSA shoulddecrease and remain at undetectable levels after radicalprostatectomy. The AUA defines biochemical recurrence as an initialPSA value 0.2 ng/mL or greater followed by a subsequent confirmatoryPSA value 0.2 ng/mL or greater.Values obtained with d ifferent assay methods or kits cannot be usedinterchangeably. Results cannot be interpreted as absolute evidenceof the presence or absence of malignant disease. 82-Yxd-767005:25 CBC WITH MANUAL DIFF Comments: PATIENT WAS FASTINGPERFORMED BY: [facility]6370 [facility] [id number] Information: [id number] (84150) Immature Grans (Abs) 0.0 {x10E3/uL} (Normal) Range: [...] PANEL, COMPREHENSIVE Comments: PATIENT WAS FASTINGPERFORMED BY: [facility]70 [facility] [id number] (02897) ALT (SGPT) 21 [iU]/L (Normal) Range: 0-44 [...] mg/dL (Normal) Range: 65-99 :25 LIPID PANEL (24054) Comments: PATIENT WAS FASTINGPERFORMED BY: [employer]70 [facility] [id number] LDL/HDL Ratio 1.4 {ratio_units} (Normal) Range: 0.0-3.6 [...] Cholesterol, Total 168 mg/dL (Normal) Range: 100-199 90-Tyu-081054:50 HgA1C , Office (14784) HgA1C , Office 5.4 % (Normal) Range: 4.6 - 7.1 :53 LIPID PANEL (60767) Comments: PATIENT WAS FASTINGPERFORMED BY: [facility]EC[facility] [id number]; all normal labs and pt has appt [...] Cholesterol, Total 151 mg/dL (Normal) Range: 100-199 45-Ajz-177283:53 METABOLIC PANEL, Comments: PATIENT WAS FASTINGPERFORMED BY: [employer]6370 [facility] [id number] Information: [id number] COMPREHENSIVE (49909) ALT (SGPT) 18 [iU]/L (Normal) Range: 0-44 [...] Glucose, Serum 95 mg/dL (Normal) Range: 65-99 53-Tzb-694444:53 MICROALBUMIN: CREATININE RATIO Comments: PATIENT WAS FASTINGPERFORMED BY: MarginPointPSE&G Children's Specialized HospitalVpqixo3683 [facility] [id number] (52776) AND (19354) Creatinine, Urine 27.5 mg/dL (Normal) Range: 22.0-328.0 Microalb/Creat Ratio 10.2 {mg/g_creat} (Normal) Range: 0.0-30.0 Microalbumin, Urine 2.8 ug/mL (Normal) Range: 0.0-17.0 :03 HgA1C , Office (20462) HgA1C , Office 5.6 % (Normal) Range: 4.6 - 7.1 :04 Influenza A&B Viral Comments: PATIENT NOT FASTINGPERFORMED BY: MarginPointPSE&G Children's Specialized HospitalJufotr5871 [facility] [id number] Information: SRC:NOS ADD L80710 Culture (43679) Viral Culture,Rapid,Influenza FLUABN (Normal) Comments: Negative:No Influenza A or B detected. 46-Hgu-78861:00 Rapid Flu (71710 x 2) Influenza A Ag neg (Normal) :40 JOSLYN CULTURE-OTHER (90269) Comments: PATIENT NOT FASTINGPERFORMED BY: [address] [id number] Information: SRC:THRT ADD I01453 Result 1 RRF (Normal) Comments: Routine respiratory ghazala Upper Respiratory Culture Final report (Normal) :37 Rapid Strep Test, Office (19452) Rapid Strep Test, Office Negative (Normal) :57 HEPATIC FUNCTION PANEL Comments: PATIENT NOT FASTINGPERFORMED BY: [address] [id number] Information: [id number],[id number] (04536) ALT (SGPT) 19 [iU]/L (Normal) Range: 0-44 AST (SGOT) 15 [iU]/L (Normal) Range: 0-40 Alkaline Phosphatase, S 48 [iU]/L (Normal) Range: 44-102 Bilirubin, Direct 0.13 mg/dL (Normal) Range: 0.00-0.40 Bilirubin, Total 0.4 mg/dL (Normal) Range: 0.0-1.2 Albumin, Serum 4.5 g/dL (Normal) Range: 3.5-5.5 Protein, Total, Serum 6.6 g/dL (Normal) Range: 6.0-8.5 8-Wge-824329:03 HEPATIC FUNCTION PANEL Comments: PATIENT NOT FASTINGPERFORMED BY: [place] 9279070 [facility] [id number] Information: [id number],[id number] (22897) ALT (SGPT) 15 [iU]/L (Normal) Range: 0-44 [...] Total, Serum 6.6 g/dL (Normal) Range: 6.0-8.5 58-Mwh-67977:42 CBC WITH MANUAL DIFF Comments: PATIENT WAS FASTINGPERFORMED BY: [facility]6370 [facility] [id number] Information: [id number] (23391) Immature Grans (Abs) 0.0 {x10E3/uL} (Normal) Range: [...] 4.14-5.80 WBC 7.2 {x10E3/uL} (Normal) Range: 3.4-10.8 03-Zzi-60250:42 METABOLIC PANEL, COMPREHENSIVE Comments: PATIENT WAS FASTINGPERFORMED BY: LabCoPSE&G Children's Specialized HospitalFfsqmv6750 [facility] [id number] (21227) ALT (SGPT) 22 [iU]/L (Normal) Range: 0-44 [...] mg/dL (Abnormal) Range: 65-99 :42 LIPID PANEL (59006) Comments: PATIENT WAS FASTINGPERFORMED BY: LabCoXiaoSheng.fm Miztlt8474 [facility] [id number] LDL/HDL Ratio 1.4 {ratio_units} (Normal) Range: 0.0-3.6 LDL Cholesterol Calc 75 mg/dL (Normal) Range: 0-99 VLDL Cholesterol Compa 16 mg/dL (Normal) Range: 5-40 HDL Cholesterol 53 mg/dL (Normal) Comments: According to ATP-III Guidelines, HDL-C >59 mg/dL is considered anegative risk factor for CHD. Triglycerides 80 mg/dL (Normal) Range: 0-149 Cholesterol, Total 144 mg/dL (Normal) Range: 100-199 :56 HgA1C , Office (14176) HgA1C , Office 5.6 % (Normal) Range: 4.6 - 7.1 :44 LIPID PANEL (10682) Comments: PATIENT WAS FASTINGPERFORMED BY: LabCoPSE&G Children's Specialized HospitalEjlklx4643 [facility] [id number] BY: LabCoDustin Ville 805037 [facility] [id number] LDL/HDL Ratio 1.3 {ratio_units} (Normal) Range: 0.0-3.6 LDL Cholesterol Calc 71 mg/dL (Normal) Range: 0-99 VLDL Cholesterol Compa 18 mg/dL (Normal) Range: 5-40 HDL Cholesterol 54 mg/dL (Normal) Comments: According to ATP-III Guidelines, HDL-C >59 mg/dL is considered anegative risk factor for CHD. Cholesterol, Total 143 mg/dL (Normal) Range: 100-199 Triglycerides 92 mg/dL (Normal) Range: 0-149 7-Izm-233509:44 METABOLIC PANEL, Comments: PATIENT WAS FASTINGPERFORMED BY: CB [facility] Ljmrtm8300 [facility] [id number] BY: BN [facility] Bklcnmzjky8768 [facility] [id number] Inf ormation: [id number] COMPREHENSIVE (92719) ALT (SGPT) 20 [iU]/L (Normal) Range: 0-44 [...] Glucose, Serum 98 mg/dL (Normal) Range: 65-99 4-Stm-847435:44 PSA (PROSTATE SPECIFIC Comments: PATIENT WAS FASTINGPERFORMED BY: [employer] Gcuwdo4101 [facility] [id number] BY: [address] [id number] ANTIGEN) (V76.44) Prostate Specific Ag, 1.7 ng/mL (Normal) Range: 0.0-4.0 Serum Comments: Triggerfox CorporationIA methodology. .According to the [place] [employer], Serum PSA shoulddecrease and remain at undetectable levels after radicalprostatectomy. The AUA defines biochemical recurrence as an initialPSA value 0.2 ng/mL or greater followed by a subsequent confirmatoryPSA value 0.2 ng/mL or greater.Values obtained with d ifferent assay methods or kits cannot be usedinterchangeably. Results cannot be interpreted as absolute evidenceof the presence or absence of malignant disease. :44 TESTOSTERONE FREE (75799) Comments: PATIENT WAS FASTINGPERFORMED BY: [place]Point[place] 7125270 [facility] [id number] BY: ArtBinder[address] [id number] Free Testosterone(Direct) 13.2 pg/mL (Normal) Range: 7.2-24.0 :34 HgA1C , Office (75132) HgA1C , Office 5.7 % (Normal) Range: 4.6 - 7.1 :58 Microscopic Examination Comments: PATIENT WAS FASTINGPERFORMED BY: [place]Point[place] 7125270 [facility] [id number] BY: [address] [id number] Bacteria Few (Normal) Mucus Threads Present (Normal) Epithelial Cells (non renal) None seen {/hpf} (Normal) Range: 0 - 10 RBC 0-3 {/hpf} (Normal) Range: 0 - 3 WBC 0-5 {/hpf} (Normal) Range: 0 - 5 :58 URINALYSIS, W/ MICRO Comments: PATIENT WAS FASTINGPERFORMED BY: MarginPointPSE&G Children's Specialized HospitalYdhhym9002 [facility] [id number] BY: [address] [id number] (26036) Microscopic Examination See below: (Normal) Microscopic Examination MICRON (Normal) Comments: Microscopic follows if indicated. Nitrite, Urine Negative (Normal) Urobilinogen,Semi-Qn 0.2 mg/dL (Normal) Range: 0.0-1.9 Bilirubin Negative (Normal) Occult Blood Negative (Normal) Ketones Negative (Normal) Glucose Negative (Normal) Protein Negative (Normal) WBC Esterase Negative (Normal) Appearance Clear (Normal) pH 6.5 (Normal) Range: 5.0-7.5 Urine-Color Yellow (Normal) Specific Cham[place] 1.020 (Normal) Range: 1.005-1.030 08-Jan-20138:58 CBC WITH MANUAL DIFF Comments: PATIENT WAS FASTINGPERFORMED BY: [facility] Tutfrw2921 [facility] [id number] BY: Realtime [employer]s[address] [id number] Inf ormation: [id number] (32379) Immature Grans (Abs) 0.0 {x10E3/uL} (Normal) Range: [...] {x10E3/uL} (Normal) Range: 4.0-10.5 :58 TESTOSTERONE FREE (41609) Comments: PATIENT WAS FASTINGPERFORMED BY: MarginPointPSE&G Children's Specialized HospitalIvnwai8990 [facility] [id number] BY: ArtBinder[address] [id number] Free Testosterone(Direct) 8.1 pg/mL (Normal) Range: 7.2-24.0 :58 LIPID PANEL (85171) Comments: PATIENT WAS FASTINGPERFORMED BY: MarginPointPSE&G Children's Specialized HospitalDqdjfc4226 [facility] [id number] BY: [employer] [id number] LDL Cholesterol Calc 73 mg/dL (Normal) Range: [...] METABOLIC PANEL, Comments: PATIENT WAS FASTINGPERFORMED BY: MarginPointPSE&G Children's Specialized HospitalFwgpjj9768[address] [place] [address] [id number] BY: [facility] Zimpwjpcdz0644 [facility] [id number] [facility] (29110) ALT (SGPT) 19 [iU]/L (Normal) Range: 0-44 [...] (Abnormal) Range: 65-99 :05 HgA1C , Office (44030) HgA1C , Office 5.7 % (Normal) Range: 4.6 - 7.1 :41 MICROALBUMIN: CREATININE RATIO Comments: PATIENT WAS FASTINGPERFORMED BY: [facility] Qknvdu1958 [facility] [id number] (74110) AND (94775) Microalb/Creat Ratio 2.2 {mg/g_creat} (Normal) Range: 0.0-30.0 Microalbumin, Urine 2.6 ug/mL (Normal) Range: 0.0-17.0 Creatinine, Urine 118.0 mg/dL (Normal) Range: 22.0-328.0 :41 METABOLIC PANEL, COMPREHENSIVE Comments: PATIENT WAS FASTINGPERFORMED BY: [facility]EC[facility] [id number]; f/u 06/17/12 (97378) ALT (SGPT) 19 [iU]/L (Normal) Range: 0-55 [...] mg/dL (Abnormal) Range: 65-99 :41 LIPID PANEL (28356) Comments: PATIENT WAS FASTINGPERFORMED BY: [facility]EC[facility] [id number] LDL/HDL Ratio 1.2 {ratio_units} (Normal) Range: 0.0-3.6 LDL Cholesterol Calc 72 mg/dL (Normal) Range: 0-99 VLDL Cholesterol Compa 25 mg/dL (Normal) Range: 5-40 HDL Cholesterol 61 mg/dL (Normal) Comments: According to ATP-III Guidelines, HDL-C >59 mg/dL is considered anegative risk factor for CHD. Triglycerides 124 mg/dL (Normal) Range: 0-149 Cholesterol, Total 158 mg/dL (Normal) Range: 100-199 :11 HgA1C , Office (25574) HgA1C , Office 5.8 % (Normal) Range: 4.6 - 7.1 :11 Blood Glucose , Office (06750) Blood Glucose , Office 143 (Normal) :48 C-REACT PROT HIGH Comments: PATIENT WAS FASTINGPERFORMED BY: [facility]6370 [facility] [id number] Information: [id number], 2ND ORDER NO DRAW FEE SENS(hsCRP) (38226) C-Reactive Protein, Cardiac 1.32 mg/L (Normal) Range: 0.00-3.00 Comments: Relative Risk for Future Cardiovascular Event Low <1.00 Average 1.00 - 3.00 High >3.00 78-Pvf-712080:06 ANKLE,MIN 3 VIEWS Radiology Report See Note [...] radiologist regarding this report, please call our [id number] line @ [phone] Dictated on 01/14/12 1000 by MARSHA STONE MDscribed on 01/14/12 1246 by ITS IMPORTSign by MARSHA STONE MD on 01/14/12 1246 Sign by: _ MARSHA STONE MD 74-Fdk-997389:06 KNEE,4 OR MORE VIEWS Radiology Report See [...] radiologist regarding this report, please call our [id number] line @ Dictated on 01/14/12 1000 by MARSHA STONE MDribed on 01/14/12 1352 by ITS IMPORTSign by MARSHA STONE MD on 01/14/12 1353 Sign by: MARSHA STONE MD CCP Antibodies 10 {units} Comments: PATIENT NOT FASTINGPERFORMED BY: CB [facility] Gteewc5324 [facility] [id number] BY: BN [facility] [address] [id number] 29:40 IgG/IgA (Normal) Range: 0-19 Comments: Negative <20 Weak positive 20 - 39 Moderate positive 40 - 59 Strong positive >59 73-Wsb-42611:40 Uric Acid Blood (17833) Comments: PATIENT NOT FASTINGPERFORMED BY: [place] 9279070 [facility] [id number] BY: [address] [id number] Uric Acid, Serum 6.8 mg/dL (Normal) Range: 3.7-8.6 Comments: Therapeutic target for gout patients: <6.0 :40 SED RATE ERYTHROCYTE Comments: PATIENT NOT FASTINGPERFORMED BY: [place] 9279070 [facility] [id number] BY: [address] [id number] (27120) Sedimentation Rate-Westergren 18 mm/h (Normal) Range: 0-30 :40 C-REACTIVE PROTEIN (93585) Comments: PATIENT NOT FASTINGPERFORMED BY: [place] 9279070 [facility] [id number] BY: [address] [id number] C-Reactive Protein, Quant 34.9 mg/L (Abnormal) Range: 0.0-4.9 :40 TSH (46456) Comments: PATIENT NOT FASTINGPERFORMED BY: [place] 9279070 [facility] [id number] BY: [address] [id number] TSH 1.990 {uIU/mL} (Normal) Range: 0.450-4.500 :40 RHEUMATOID FACTOR-QUANT Comments: PATIENT NOT FASTINGPERFORMED BY: [place] 9279070 [facility] [id number] BY: [address] [id number] (56150) RA Latex Turbid. 11.3 {IU/mL} (Normal) Range: 0.0-13.9 :40 VICTOR HUGO (ANTINUCLEAR ANTIBODY) Comments: PATIENT NOT FASTINGPERFORMED BY: [facility]6370 [facility] [id number] BY: [place] 623937 [facility] [id number] (58378) VICTOR HUGO Direct Negative (Normal) 19-Mhl-44097:40 CBC WITH MANUAL DIFF Comments: PATIENT NOT FASTINGPERFORMED BY: [facility]6370 [facility] [id number] BY: [address] [id number] Inf ormation: [id number] (66605) Immature Grans (Abs) 0.0 {x10E3/uL} (Normal) Range: [...] 4.10-5.60 WBC 10.5 {x10E3/uL} (Normal) Range: 4.0-10.5 70-Kgp-35019:40 METABOLIC PANEL, Comments: PATIENT NOT FASTINGPERFORMED BY: CB [facility] Wgshoy7241 [facility] [id number] BY: BN [facility] Eosqxkmzke6809 [facility] [id number] [facility] (78775) ALT (SGPT) 15 [iU]/L (Normal) Range: 0-55 [...] PANEL, Comments: PATIENT WAS FASTINGPERFORMED BY: [facility] Edbuap3872 Claire RaghuECU Health [id number] Information: [id number] COMPREHENSIVE (50207) ALT (SGPT) 16 [iU]/L (Normal) Range: 0-55 [...] mg/dL (Normal) Range: 65-99 :47 LIPID PANEL (82573) Comments: PATIENT WAS FASTINGPERFORMED BY: [employer]6370 Telematics4u ServicesAtrium Health Cabarrus [id number] LDL/HDL Ratio 1.4 {ratio_units} (Normal) Range: 0.0-3.6 LDL Cholesterol Calc 78 mg/dL (Normal) Range: 0-99 VLDL Cholesterol Compa 21 mg/dL (Normal) Range: 5-40 HDL Cholesterol 54 mg/dL (Normal) Comments: According to ATP-III Guidelines, HDL-C >59 mg/dL is considered anegative risk factor for CHD. Triglycerides 107 mg/dL (Normal) Range: 0-149 Cholesterol, Total 153 mg/dL (Normal) Range: 100-199 :17 HgA1C , Office (67865) HgA1C , Office 5.6 % (Normal) Range: 4.6 - 7.1 :29 PSA (PROSTATE SPECIFIC Comments: PATIENT WAS FASTINGPERFORMED BY: [employer]6370 J[facility] SolutionsECU Health [id number] ANTIGEN) (V76.44) Prostate Specific Ag, 1.2 ng/mL (Normal) Range: 0.0-4.0 Serum Comments: Lauren ECLIA methodology. .According to the [place] [employer], Serum PSA shoulddecrease and remain [...] CREATININE RATIO Comments: PATIENT WAS FASTINGPERFORMED BY: [employer]6370 [facility] [id number] (25736) AND (97812) Microalb/Creat Ratio 1.8 {mg/g_creat} (Normal) Range: 0.0-30.0 Microalbumin, Urine 2.3 ug/mL (Normal) Range: 0.0-17.0 Creatinine, Urine 130.7 mg/dL (Normal) Range: 22.0-328.0 :29 CBC WITH MANUAL DIFF Comments: PATIENT WAS FASTINGPERFORMED BY: [place] Realtime WorldsPSE&G Children's Specialized HospitalLfbspm5180 [facility] [id number] Information: [id number] (51542) Immature Grans (Abs) 0.0 {x10E3/uL} (Normal) Range: [...] 4.10-5.60 WBC 7.6 {x10E3/uL} (Normal) Range: 4.0-10.5 7-Aok-649649:29 METABOLIC PANEL, COMPREHENSIVE Comments: PATIENT WAS FASTINGPERFORMED BY: Realtime WorldsPSE&G Children's Specialized HospitalUetnwd5762 [facility] [id number] (60425) ALT (SGPT) 22 [iU]/L (Normal) Range: 0-55 [...] Glucose, Serum 106 mg/dL (Abnormal) Range: 65-99 2-Feo-548719:29 LIPID PANEL (70956) Comments: PATIENT WAS FASTINGPERFORMED BY: [facility] Rtjrcs3498 [facility] [id number]; appt 10/17/11 LDL/HDL Ratio 1.3 {ratio_units} (Normal) Range: 0.0-3.6 LDL Cholesterol Calc 73 mg/dL (Normal) Range: 0-99 VLDL Cholesterol Compa 18 mg/dL (Normal) Range: 5-40 HDL Cholesterol 56 mg/dL (Normal) Comments: According to ATP-III Guidelines, HDL-C >59 mg/dL is considered anegative risk factor for CHD. Triglycerides 90 mg/dL (Normal) Range: 0-149 Cholesterol, Total 147 mg/dL (Normal) Range: 100-199 22-Axh-615335:21 Metabolic Panel, Comprehensive Comments: PATIENT WAS FASTINGPERFORMED BY: [facility] Xmmpea9611 [facility] [id number] (54225) ALT (SGPT) 20 [iU]/L (Normal) Range: 0-55 [...] Glucose, Serum 97 mg/dL (Normal) Range: 65-99 37-Sra-541347:21 URINALYSIS (44679) Comments: PATIENT WAS FASTINGPERFORMED BY: Meizu70 Telematics4u ServicesAtrium Health Cabarrus [id number] Microscopic Examination MICRON (Normal) Comments: Microscopic follows if indicated. Nitrite, Urine Negative (Normal) Bilirubin Negative (Normal) Ketones Negative (Normal) Occult Blood Negative (Normal) Urobilinogen,Semi-Qn 0.2 mg/dL (Normal) Range: 0.0-1.9 Appearance Clear (Normal) Glucose Negative (Normal) pH 7.0 (Normal) Range: 5.0-7.5 Protein Negative (Normal) Urine-Color Yellow (Normal) WBC Esterase Negative (Normal) Specific Chamois 1.017 (Normal) Range: 1.005-1.030 18-Fbf-194376:21 CBC with manual diff Comments: PATIENT WAS FASTINGPERFORMED BY: [employer]6370 [facility] [id number] Information: ADD [id number] AND DRAW FEE 99 [id number] (19519) Baso (Absolute) 0.0 {x10E3/uL} (Normal) Range: 0.0-0.2 [...] 7.6 {x10E3/uL} (Normal) Range: 4.0-10.5 :21 TSH (90286) Comments: PATIENT WAS FASTINGPERFORMED BY: MarginPointPSE&G Children's Specialized HospitalFjdbeh8066 [facility] [id number] TSH 1.370 {uIU/mL} (Normal) Range: 0.450-4.500 97-Ihy-193322:21 Lipid Panel (07967) Comments: PATIENT WAS FASTINGPERFORMED BY: MarginPointPSE&G Children's Specialized HospitalAjfpis[address] [place] [address] [id number] LDL Cholesterol Calc 81 mg/dL (Normal) Range: 0-99 LDL/HDL Ratio 1.4 {ratio_units} (Normal) Range: 0.0-3.6 HDL Cholesterol 58 mg/dL (Normal) Comments: According to ATP-III Guidelines, HDL-C >59 mg/dL is considered anegative risk factor for CHD. VLDL Cholesterol Compa 15 mg/dL (Normal) Range: 5-40 Triglycerides 76 mg/dL (Normal) Range: 0-149 Cholesterol, Total 154 mg/dL (Normal) Range: 100-199 82-Wlz-121991:21 PSA (Prostate Specific Comments: PATIENT WAS FASTINGPERFORMED BY: MarginPointPSE&G Children's Specialized HospitalGcryft06[address] [place] [address] [id number] Antigen), Screening (33890) Prostate Specific Ag, 0.9 ng/mL (Normal) Range: 0.0-4.0 Serum Comments: Lauren ECLIA methodology. .According to the [place] [employer], Serum PSA shoulddecrease and remain at undetectable levels after radicalprostatectomy. The AUA defines biochemical recurrence as an initialPSA value 0.2 ng/mL or greater followed by a subsequent confirmatoryPSA value 0.2 ng/mL or greater.Values obtained with d ifferent assay methods or kits cannot be usedinterchangeably. Results cannot be interpreted as absolute evidenceof the presence or absence of malignant disease. 16-Mub-89886:50 BRAIN W/WO CONTRAST Radiology Report See Note (Normal) Comments: Exam Number: [id number] CLINICAL: Right hand, fifth digit numbness two [...] demonstrated an eurysm or occlusion of the [place] of [place]. Normal bilateral temporal bones, with [...] (PROSTATE SPECIFIC Comments: PATIENT WAS FASTINGPERFORMED BY: [facility]oryECU Health [id number] ANTIGEN) (V76.44) Prostate Specific Ag, Serum 0.8 ng/mL (Normal) Range: 0.0-4.0 Comments: Triggerfox CorporationIA methodology. .According to the [place] [employer], PSA should beundetectable after radical prostatectomy. A PSA of less than0.5 ng/mL (or undetectable) is not likely to be associated withdisease recurrence within five years of treatment.Values obtained with different assay methods or kits cannot be usedinterchang eably. Results cannot be interpreted as absolute evidenceof the presence or absence of malignant disease. :59 LIPID PANEL (42649) Comments: PATIENT WAS FASTINGPERFORMED BY: [facility]oryEC[facility] Health [id number] Cholesterol, Total 248 mg/dL (Abnormal) Range: 100-199 HDL Cholesterol 56 mg/dL (Normal) Comments: According to ATP-III Guidelines, HDL-C >59 mg/dL is considered anegative risk factor for CHD. LDL Cholesterol Calc 161 mg/dL (Abnormal) Range: 0-99 LDL/HDL Ratio 2.9 {ratio_units} (Normal) Range: 0.0-3.6 Triglycerides 157 mg/dL (Abnormal) Range: 0-149 VLDL Cholesterol Compa 31 mg/dL (Normal) Range: 5-40 :59 URINALYSIS W/O MICRO (90030) Comments: PATIENT WAS FASTINGClinical Information: ADD [id number], [id number] PERFORMED BY: [facility]EC[facility] Health [id number] Appearance Clear (Normal) Bilirubin Negative (Normal) Glucose Negative (Normal) Ketones Negative (Normal) Microscopic Examination MICRON (Normal) Comments: Microscopic follows if indicated. Nitrite, Urine Negative (Normal) Occult Blood Negative (Normal) pH 6.0 (Normal) Range: 5.0-7.5 Protein Negative (Normal) Specific [place]am[place] 1.019 (Normal) Range: 1.005-1.030 Urine-Color Yellow (Normal) Urobilinogen,Semi-Qn 0.2 mg/dL (Normal) Range: 0.0-1.9 WBC Esterase Negative (Normal) :59 VITAMIN B-12 (CYANOCOBALAMIN) Comments: PATIENT WAS FASTINGPERFORMED BY: [facility]70 [facility] [id number] (26135) Vitamin B12 395 pg/mL (Normal) Range: 211-911 :59 TSH (10556) Comments: PATIENT WAS FASTINGPERFORMED BY: [employer]70 [facility] [id number] TSH 2.820 {uIU/mL} (Normal) Range: 0.450-4.500 Comments: [...] On: :30 Request CBC with auto diff (67621)Indication: Impaired fasting glucose On: :30 Request HGB A1C (28493)Indication: Impaired fasting glucose On: :30 Request LIPID PANEL (98361)Indication: Other hyperlipidemia On: :30 Request METABOLIC PANEL, COMPREHENSIVE (11843)Indication: Hypertensive heart disease without heart failure On: :30 Request Hemoglobin Glyclated (HGB A1C) (04802)Indication: Impaired fasting glucose On: 30-Cuv-43771:32 Request MICROALBUMIN: CREATININE RATIO (19118) AND (29502)Indication: Impaired fasting glucose On: :32 Request CBC W/AUTO DIFF WBC (85558)Indication: Hypertensive heart disease without heart failure On: :32 Request METABOLIC PANEL, COMPREHENSIVE (68930)Indication: Hypertensive heart disease without heart failure On: :32 Request LIPID PANEL (55290)Indication: Other hyperlipidemia On: :32 Request CBC W/AUTO DIFF WBC (86496)Indication: Impaired fasting glucose On: :40 Request MICROALBUMIN: CREATININE RATIO (84995) AND (08534)Indication: Impaired fasting glucose On: :40 Request METABOLIC PANEL, COMPREHENSIVE (74828)Indication: Impaired fasting glucose On: :40 Request LIPID PANEL (01965)Indication: Other hyperlipidemia On: :40 Request CCP ANTIBODY (26548)Indication: Pain in unspecified joint On: 37-Qtk-65692:27 Request METABOLIC PANEL, COMPREHENSIVE (29912)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 On: 2-Yzr-727609:13 Request LIPID PANEL (84530)Indication: Other hyperlipidemia On: 6-Rke-787239:13 Request LIPID PANEL (56644)Indication: Other hyperlipidemia On: 40-Pql-517707:14 Request METABOLIC PANEL, COMPREHENSIVE (83503)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 On: 18-Lly-084983:14 Request Planned Encounters Medical; [facility] 4 Month Fu - On: 06-Feb-2019 7:00 [facility] Fast DO, Darlin A Fast DO, Darlin A Planned Procedures MRI OF LEFT KNEE WITHOUT CONTRAST On: 11-Jul-2018 Intent (13212)By: Fast DO, Darlin A Fast DO, Darlin A ELECTROCARDIOGRAM, COMPLETE (ECG) On: 27-Jun-2018 Intent (08397)By: Fast DO, Darlin A Fast Comments: ekg [...] bearing ELECTROCARDIOGRAM, COMPLETE (ECG) On: 12-Jun-2017 Intent (31879)By: Darlin Pleitez DO Comments: ekg showed normal sinus rhythym, normal axis, no acute st/t wave changes sinus edna Darlin VOSS A ZOSTER VACC, [place] (38528)By: Maik VOSS, On: 12-Jun-2017 Intent Darlin Loo DO Comments: lot: [id number]: //18site/route: R arm/SQamt: 0.65mL reconsituted with sterile diluentVIS signed when applicableCheSSM Health Cardinal [facility] ELECTROCARDIOGRAM, COMPLETE (ECG) On: 11-Jun-2016 Intent (48147)By: Darlin Pleitez DO Comments: ekg showed normal sinus rhythym, normal axis, no acute st/t wave changes sinus edna Darlin VOSS Aerosol Treatment (98867)By: John On: 29-Apr-2014 Maria Luz Tesfaye DO Comments: more ae- still noisy but not as rough Solu- Medrol Injection, 125mg On: 29-Apr-2014 Intent (J2930)By: Maria Luz Lopez DO Comments: lot: [id number]: 16site/route: RGM/IMamt: 2mLVIS signed when applicableCheSSM Health [facility] EKG (36846)By: Darlin Pleitez DO On: 23-Apr-2014 Intent Darlin Pleitez DO Comments: ekg showed normal sinus rhythym, normal axis, no acute st/t wave changes Eprescribed prescriptions On: 29-Sep-2013 Intent (G8553)By: Caridad Lopez Eprescribed prescriptions On: 19-May-2013 Intent (G8553)By: Caridad Lopez EKG (84423)By: Caridad Lopez On: 15-Jan-2013 Intent Comments: ekg [...] SPLIT, >3 YEARS, INTRAMUSC On: 17-Oct-2011 Intent (38046)By: Caridad Lopez Comments: received at work EKG (28082)By: Fast DO, Darlin A On: 04-Sep-2011 Intent Fast DO, Darlin A Comments: ekg showed normal sinus rhythym, normal axis, no acute st/t wave changes no change Radiology - Chest- PA and LatBy: On: 25-Oct-2010 Intent Fast DO, Darlin A Fast DO, Darlin A TDAP VACCINE >7 IM (05343)By: Fast On: 08-Nov-2009 Intent DO, Darlin A Fast DO, Darlin A Comments: Lot #[id number]-31/17/2011Site-left deltoidDose0.5mlgiven by Jonathan Fry LPN Echo CompleteBy: Fast DO, Darlin A On: 15-Jul-2009 Intent Fast DO, Darlin A EKG (06346)By: Fast DO, Darlin A On: 15-Jul-2009 Intent [...] made him feel wheezier- [facility]-felt [...] acuity (Dr. Nieto). Note for Physical exam: [facility] Wellness Exam, [ADDITIONAL REASON] Follow up, Laboratory Test Results - Date: (05/2016- [facility] labs). Encounter Diagnosis: BMI 33.0-33.9,adult, Nonsmoker, [...]
--- OUTSIDE RECORDS SUMMARY | 2019-02-24 14:48 | XMS RPT_ITS | Continuity of Care Document ---
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) [...] Impaired fasting glucose (R73.01, 790.21) Status: Active Left leg pain (M79.605, 729.5) Status: Active Malignant hypertensive heart disease without [...] left knee osteoarthritis on xray Status: Active Medications Name Dates Details ASPIRIN [...] 15 MG Oral Tablet 1 (one) Tablet qd in am with food for [...] MCG/ACT Inhalation Aerosol Solution 1 (one) Puff 2 puff q6hrs prn for 0 days Quantity: 1 {Inhalation} Refills: 0 Ordered:06-Oct-2018 Elisha Salinas Start : 06-Oct-2018 Active MICARDIS, 40MG (Oral Tablet) 1 Tablet qd for 0 days Quantity: 30 {Tablet} Refills: 3 Ordered:06-Apr-2013 Cara Negrete MD Start : 06-Apr-2013 End : 06-Apr-2013 Inactive [place] 5-325 MG Oral Tablet 1 (one) Tablet [...] Start : 14-Jan-2012 End : 30-Jan-2012 Inactive PREDNISONE, 20MG (Oral Tablet) 1 (one) Tablet qd for 4 days Quantity: 4 {Tablet} Refills: 0 Ordered:03-May-2014 Maria Luz Lopez DO Start : 29-Apr-2014 End : 03-May-2014 Inactive Proventil HFA 108 (90 Base) MCG/ACT [...] Quantity: 30 {Capsule} Refills: 3 Ordered:12-Nov-2016 Maik VOSS, Darlin AFast DO, Darlin A Start : 12-Nov-2016 End : 12-Nov-2016 Discontinued NORVASC, 5MG (Oral Tablet) 1 Tablet qam for 0 days Quantity: 30 {Tablet} Refills: 3 Ordered:17-Oct-2011 Maik VOSS, Darlin Avelar DO, Darlin A Start : 17-Oct-2011 End [...] (R51, 784.0) Status: Resolved as of 25-Oct-2010 Need for prophylactic vaccination and inoculation against [...] Only (Routine) Result: Comments: See Note; NOTES: [facility] Imaging Services [address] [place] [address] Lower Ext Joint Only (Routine) MR#: [id number] Acct: [id number] Name: TRACEY SCOTT Rep #: [id number] : 1960 57 From: Mulu Napoles MD PCP: Darlin Pleitez DO Status: REG CLI Study: Lower Ext Joint Only (Routine) Date of Exam: 07/17/18 Exam# [id number] Ordering Dr: Darlin Pleitez DO STUDY: MRI [...] Service support , CC: Darlin Pleitez DO Email Developer: Signed 11-Jul-2018 TXT - Blood Flow Screening Result: Comments: See Note; NOTES: [facility] Cardiovascular Services [address] [place] [address] 07/10/18 0821 MR#: [id number] Acct: [id number] Name: TRACEY SCOTT Rep #: [id number] : 1960 57 From: Bolivar Palomo MD Attending Dr: Darlin Pleitez DO Status: REG REF Ordering Dr: Date: 07/11/18 Location: [facility] Sex: M C Admitted: [...] DO Date Dictated: 07/10/18820 Date Transcribed: 07/11/18821 Email Developer: Signed 27-Jun-2018 Inital Evaluation (1) - PT Result: Comments: See Note; NOTES: [facility] Physical Therapy [facility] [address] [place] [address]. [address] [place], [place] [address] Fax REHABILITATION SERVICES INITIAL EVALUATION MR#: [id number] Acct: [id number] Name: TRACEY SCOTT Rep #: [id number] : 1960 57 From: Soraya STEVENS Referring DrSuzy: Darlin Pleitez DO Status: REG RCR Insurance: [...] [facility] No N AND T. Hard to drive...could [...] to be FAXED BACK to us at [phone] for Medicare purposes. Please let me know if there are questions or concerns regarding this plan of care. Physician Signature: ____Date: <Electronically signed by Soraya Brown MPT> 06/27/18 1230 CC: Darlin Pleitez DO Signed For Medicare only, by signing this I certify the plan of care. Physicians Signature Date 07-Jun-2018 Venous Duplex Lower Extremity Result: Comments: See Note; NOTES: [facility] Cardiovascular Services [address] [place] [address] Venous Duplex US, Unilateral 06/06/18 1420 MR#: [id number] Acct: [id number] Name: TRACEY KANG Rep #: [id number] : 1960 57 From: Bolivar Palomo MD Attending Dr: Darlin Pleitez DO Status: REG CLI Ordering Dr: Darlin Pleitez DO Date: 06/06/18 Location: [facility] Sex: M C Admitted: [place] son For Study: LEG PAIN RIGHT LEFT [...] Dictated: 06/06/18 1420 Date Transcribed: 06/07/18 1531 Email Developer: Signed 06-Jun-2018 Knee 4 or More Views Result: Comments: See Note; NOTES: [facility] Imaging Services [address] [place] [address] Knee 4 or More Views MR#: [id number] Acct: [id number] Name: TRACEY SCOTT Rep #: [id number] : 1960 M 57 From: Winston Allred DO PCP: Darlin Pleitez DO Status: REG CLI Study: Knee 4 or More Views Date of Exam: 06/06/18 Exam# [id number] Ordering Dr: Darlin Pleitez DO STUDY: X-RAY [...] Winston Allred DO at 8:52 EDT Tel [phone], Service support , CC: Darlin Pleitez DO Email Developer: Signed 06-Jun-2018 L/S Spine Min 4 Views Result: Comments: See Note; NOTES: [facility] Imaging Services [address] [place] [address] L/S Spine Min 4 Views MR#: [id number] Acct: [id number] Name: SONIATRACEY L Rep #: [id number] : 1960 57 From: Winston Allred DO PCP: Darlin Pleitez DO Status: REG CLI Study: L/S Spine Min 4 Views Date of Exam: 06/06/18 Exam# [id number] Ordering Dr: Darlin Pleitez DO STUDY: X-RAY [...] Winston Allred DO at 9:11 EDT Tel [phone], Service support , CC: Darlin Pleitez DO Email Developer: Signed 26-Oct-2015 EKG (98793) Comments: ekg- sinus edna normal axis no acute st t wave changes Result: [MEASUREMENTS ANALYSIS] Date of Test: 10/26/2015 08:45:17; Heart Rate: 56; CO Interval: 170; QRS: 96; QT Interval: 412; Corrected QT Interval (QTc): 405; P Wave [place]: 29; QRS Wave [place]: 23; T Wave [place]: 17; Blood Pressure: 112/76 [ECG DIAGNOSTIC STATEMENTS] Date of Test: 10/26/2015 08:45:17; Summary: Sinus Bradycardia WITHIN NORMAL LIMITS 29-Apr-2014 Spirometry (24053) Comments: poor techniq but really bad obstruction which is consistent with exam Result: Immunization Name Dates Details Tdap (7 years and up) on: 08-Nov-2009 Comments: Lot #[id number]-left deltoidDose0.5mlgiven by Jonathan Fry LPN Family History [...] smoker Vital Signs Date Test Result Details :06 Temperature 96.8 f Comments: Method: Temporal [...] Value Details :00 Crystals, Body Fluid Comments: [facility] [address] [place], [address] PATH REV Reviewed (Normal) Comments: No diagnostic crystals seen.Seth Velazco D.O. 08/01/18 AMENDED REPORT 08/01/18 1230 PATH REV previously reported as: Will follow SOURCE/BF SYNOVIAL (Normal) CRYSTALS/BF SEE PATH REV (Normal) 38-Hem-36343:00 Culture, Body Fluid Comments: [facility] [address] [place], [address] CUBF See Note (Normal) Comments: List Antibiotics Last 48 Hours? UNKList Antibiotics to be Started? UNKGram StainCentrifuged Specimen? Culture performed on centrifuged specimen Gram Stain 4+ Red Blood Cells 4+ White Blood C ells No organisms seen Body Fluid CultNO GROWTH IN 14 DAYS Cult, AnaerobicNo growth in 5 days. 96-Qdb-86080:53 MICROALBUMIN: CREATININE RATIO Comments: PATIENT WAS FASTINGPERFORMED BY: [employer]70 [facility] [id number] (25693) AND (55750) Alb/Creat Ratio 5.7 {mg/g_creat} (Normal) Range: 0.0-30.0 Comments: Normal: 0.0 - 30.0 Albuminuria: 31.0 - 300.0 Clinical albuminuria: >300.0 Albumin, Urine 7.6 ug/mL (Normal) Creatinine, Urine 133.6 mg/dL (Normal) :53 METABOLIC PANEL, COMPREHENSIVE Comments: PATIENT WAS FASTINGPERFORMED BY: Bahoui Rlvgic1123 [facility] [id number] (78110) ALT (SGPT) 15 [iU]/L (Normal) Range: 0-44 [...] 6-24 Glucose 109 mg/dL (Abnormal) Range: 65-99 18-Gkw-16504:53 HGB A1C (15003) Comments: PATIENT WAS FASTINGPERFORMED BY: [facility] [facility] [id number] Hemoglobin A1c 5.6 % (Normal) Range: 4.8-5.6 Comments: . Prediabetes: 5.7 - 6.4 Diabetes: >6.4 Glycemic control for adults with diabetes: <7.0 29-Sbu-54074:53 LIPID PANEL (08288) Comments: PATIENT WAS FASTINGPERFORMED BY: [facility]6370 [facility] [id number] LDL/HDL Ratio 1.6 {ratio} (Normal) Range: 0.0-3.6 [...] HIGH SENS(hsCRP) Comments: PATIENT WAS FASTINGPERFORMED BY: LabCoThe Rehabilitation Hospital of Tinton FallsVucuby3066 [facility] [id number] (62686) C-Reactive Protein, Cardiac 4.66 mg/L (Abnormal) Range: 0.00-3.00 Comments: Relative Risk for Future Cardiovascular Event Low <1.00 Average 1.00 - 3.00 High >3.00 :12 CBC with auto diff (62424) Comments: PATIENT WAS FASTINGPERFORMED BY: LabCoThe Rehabilitation Hospital of Tinton FallsNmksiu2904 [facility] [id number] Immature Grans (Abs) 0.0 {x10E3/uL} (Normal) Range: [...] CREATININE RATIO Comments: PATIENT WAS FASTINGPERFORMED BY: PúbliKo Meeenr7428 [facility] [id number] (09556) AND (69789) Alb/Creat Ratio 2.8 {mg/g_creat} (Normal) Range: 0.0-30.0 Albumin, Urine 3.1 ug/mL (Normal) Creatinine, Urine 110.7 mg/dL (Normal) :12 METABOLIC PANEL, COMPREHENSIVE Comments: PATIENT WAS FASTINGPERFORMED BY: PúbliKoMimbres Memorial HospitalQpetzo7668 [facility] [id number]; review 06/27 (21812) ALT (SGPT) 14 [iU]/L (Normal) Range: 0-44 [...] 6-24 Glucose 106 mg/dL (Abnormal) Range: 65-99 :22 HgA1C , Office (80675) HgA1C , Office 5.5 % (Normal) Range: 4.6 - 7.1 9-Gvk-007802:45 Microscopic Examination Comments: PATIENT WAS FASTINGPERFORMED BY: [employer]pro [facility] [id number] Bacteria None seen (Normal) Epithelial Cells (non renal) None seen {/hpf} (Normal) Range: 0 - 10 RBC 0-2 {/hpf} (Normal) Range: 0 - 2 WBC 0-5 {/hpf} (Normal) Range: 0 - 5 :45 PSA (PROSTATE SPECIFIC Comments: PATIENT WAS FASTINGPERFORMED BY: [place] [employer] ClaireDarkstrandFormerly [facility] [id number] ANTIGEN) (V76.44) Prostate Specific Ag, 1.3 ng/mL (Normal) Range: 0.0-4.0 Serum Comments: Celtaxsys ECLIA methodology. .According to the [employer], Serum PSA shoulddecrease and remain [...] of malignant disease. :45 URINALYSIS, W/ MICRO (98923) Comments: PATIENT WAS FASTINGPERFORMED BY: [facility]6370 [facility] [id number] Microscopic Examination See below: (Normal) Comments: Microscopic was indicated and was performed. Microscopic Examination MICRON (Normal) Comments: Microscopic follows if indicated. Nitrite, Urine Negative (Normal) Urobilinogen,Semi-Qn 0.2 mg/dL (Normal) Range: 0.2-1.0 Bilirubin Negative (Normal) Occult Blood Negative (Normal) Ketones Negative (Normal) Glucose Negative (Normal) Protein Negative (Normal) WBC Esterase Negative (Normal) Appearance Clear (Normal) Urine-Color Yellow (Normal) pH 6.0 (Normal) Range: 5.0-7.5 Specific [place] 1.011 (Normal) Range: 1.005-1.030 :45 CBC W/AUTO DIFF WBC (27189) Comments: PATIENT WAS FASTINGPERFORMED BY: PúbliKoMimbres Memorial HospitalPhyanb0733 [facility] [id number] Immature Grans (Abs) 0.0 {x10E3/uL} (Normal) Range: [...] 4.14-5.80 WBC 7.8 {x10E3/uL} (Normal) Range: 3.4-10.8 3-Ptj-302252:45 METABOLIC PANEL, COMPREHENSIVE Comments: PATIENT WAS FASTINGPERFORMED BY: PúbliKoThe Rehabilitation Hospital of Tinton FallsWhacmv2474 [facility] [id number]; can review on 12/16 appt (20639) ALT (SGPT) 29 [iU]/L (Normal) Range: 0-44 [...] Glucose, Serum 101 mg/dL (Abnormal) Range: 65-99 9-Vtj-230968:45 LIPID PANEL (72190) Comments: PATIENT WAS FASTINGPERFORMED BY: [facility] Aeparz7609 [facility] [id number] LDL/HDL Ratio 1.6 {ratio_units} (Normal) Range: 0.0-3.6 Comments: LDL/HDL Ratio Men Women 1/2 Avg.Risk 1.0 1.5 Av g.Risk 3.6 3.2 2X Avg.Risk 6.2 5.0 3X Avg.Risk 8.0 6.1 LDL Cholesterol Calc 92 mg/dL (Normal) Range: 0-99 VLDL Cholesterol Compa 31 mg/dL (Normal) Range: 5-40 HDL Cholesterol 56 mg/dL (Normal) Triglycerides 157 mg/dL (Abnormal) Range: 0-149 Cholesterol, Total 179 mg/dL (Normal) Range: 100-199 1-Bwn-298360:45 HEPATITIS C ANTIBODY (17185) Comments: PATIENT WAS FASTINGPERFORMED BY: [employer]70 [facility] [id number] Hep C Virus Ab <0.1 {s/co_ratio} (Normal) Range: 0.0-0.9 Comments: Negative: < 0.8 Indeterminate: 0.8 - 0.9 Positive: > 0.9 . The CDC recommends that a positive HCV antibody result be followed up with a HCV Nucleic Acid Amplification test (884449). 49-Fva-97506:42 METABOLIC PANEL, COMPREHENSIVE Comments: PERFORMED BY: [facility]6370 [facility] [id number] (01691) ALT (SGPT) 21 [iU]/L (Normal) Range: 0-44 [...] Glucose, Serum 103 mg/dL (Abnormal) Range: 65-99 65-Laj-573291:42 PSA (PROSTATE SPECIFIC Comments: PATIENT WAS FASTINGPERFORMED BY: [employer] [address] [id number] BY: PúbliKoThe Rehabilitation Hospital of Tinton FallsEotcmn2874 [facility] [id number] ANTIGEN) (V76.44) Prostate Specific Ag, 1.2 ng/mL (Normal) Range: 0.0-4.0 Serum Comments: TribeIA methodology. .According to the [employer] U[employer] Association, Serum PSA shoulddecrease and remain at undetectable levels after radicalprostatectomy. The AUA defines biochemical recurrence as an initialPSA value 0.2 ng/mL or greater followed by a subsequent confirmatoryPSA value 0.2 ng/mL or greater.Values obtained with d ifferent assay methods or kits cannot be usedinterchangeably. Results cannot be interpreted as absolute evidenceof the presence or absence of malignant disease. 31-Qdw-557190:42 CBC with auto diff Comments: PATIENT WAS FASTINGPERFORMED BY: PúbliKo[address] [id number] BY: PúbliKoThe Rehabilitation Hospital of Tinton FallsWwlzho9570 [facility] [id number] (49194) Immature Grans (Abs) 0.0 {x10E3/uL} (Normal) Range: [...] 4.14-5.80 WBC 7.5 {x10E3/uL} (Normal) Range: 3.4-10.8 67-Tra-183984:42 HGB A1C (12180) Comments: PATIENT WAS FASTINGPERFORMED BY: Meedor[address] [id number] BY: Bahoui[address] [id number] Hemoglobin A1c 5.8 % (Abnormal) Range: 4.8-5.6 Comments: . Pre-diabetes: 5.7 - 6.4 Diabetes: >6.4 Glycemic control for adults with diabetes: <7.0 39-Pyy-949447:42 MICROALBUMIN: CREATININE Comments: PATIENT WAS FASTINGPERFORMED BY: [employer] [address] [id number] BY: Bahoui[address] [id number] RATIO (90905) AND (98858) Microalb/Creat Ratio <1.9 {mg/g_creat} (Normal) Range: 0.0-30.0 Microalbumin, Urine <3.0 ug/mL (Normal) Creatinine, Urine 160.7 mg/dL (Normal) 60-Mpf-219900:42 LIPOPROTEIN, BLD, BY NMR Comments: PATIENT WAS FASTINGPERFORMED BY: [employer] Lckvzgzfks3260 [facility] [id number] BY: CB [facility] Mrztuh4897 Alethea [facility] [id number]; non-emergent till apt (19260) LP-IR Score 50 (Abnormal) Comments: INSULIN RESISTANCE MARKER <--Insulin Sensitive Insulin Resistant--> Percentile in Reference PopulationInsulin Resistance ScoreLP-IR Score Low 25th 50th 75th High <27 27 45 63 >63LP-IR Score is inaccurate if patient is non-fasting. .The LP-IR score is a laboratory developed i [facility] that has beenassociated with insulin resistance and [...] 1600 - 2000 Very High > 2000 13-Udn-894524:42 METABOLIC PANEL, Comments: PATIENT WAS FASTINGPERFORMED BY: BN [facility] Ovhujmnckd4163 [facility] [id number] BY: CB [facility] Qxnaxk6064 [facility] [id number] COMPREHENSIVE (46353) ALT (SGPT) 18 [iU]/L (Normal) Range: 0-44 [...] (Normal) Range: 65-99 :07 HgA1C , Office (91164) HgA1C , Office 5.7 % (Normal) Range: 4.6 - 7.1 :06 PSA (PROSTATE SPECIFIC Comments: PATIENT WAS FASTINGPERFORMED BY: [facility]6370 NaPopravku [facility] [id number] ANTIGEN) (V76.44) Prostate Specific Ag, 1.4 ng/mL (Normal) Range: 0.0-4.0 Serum Comments: Celtaxsys ECLIA methodology. .According to the [place] Urological Association, Serum PSA shoulddecrease and remain [...] METABOLIC PANEL, Comments: PATIENT WAS FASTINGPERFORMED BY: [facility]6370 NaPopravku [facility] [id number] Information: [id number] COMPREHENSIVE (67165) ALT (SGPT) 20 [iU]/L (Normal) Range: 0-44 [...] mg/dL (Abnormal) Range: 65-99 :06 LIPID PANEL (90427) Comments: PATIENT WAS FASTINGPERFORMED BY: LabCoThe Rehabilitation Hospital of Tinton FallsFyzayz6984 [facility] [id number] LDL/HDL Ratio 1.2 {ratio_units} (Normal) Range: 0.0-3.6 [...] (Normal) Range: 100-199 :09 HgA1C , Office (74767) HgA1C , Office 5.7 % (Normal) Range: 4.6 - 7.1 :25 CBC With Differential/Platelet Comments: PATIENT WAS FASTINGPERFORMED BY: LabCoThe Rehabilitation Hospital of Tinton FallsExxwxo9100 [facility] [id number] Information: [id number] Immature Grans (Abs) 0.0 {x10E3/uL} (Normal) Range: [...] Panel (14) Comments: PATIENT WAS FASTINGPERFORMED BY: LabSelect [facility]ty Hospital6370 [facility] [id number] ALT (SGPT) 14 [iU]/L (Normal) Range: 0-44 [...] Glucose, Serum 91 mg/dL (Normal) Range: 65-99 90-Xvl-00573:25 Lipid Panel With LDL/HDL Comments: PATIENT WAS FASTINGPERFORMED BY: LabSelect [facility]ty Hospital6370 [facility] [id number] Ratio LDL/HDL Ratio 1.2 {ratio_units} (Normal) Range: [...] mg/dL (Normal) Range: 100-199 :25 Microalb/Creat Ratio, Wil Ur Comments: PATIENT WAS FASTINGPERFORMED BY: PúbliKoMimbres Memorial HospitalLhlxcq2321 [facility] [id number] Microalb/Creat Ratio 3.4 {mg/g_creat} (Normal) Range: 0.0-30.0 Microalbumin, Urine 5.1 ug/mL (Normal) Range: 0.0-17.0 Creatinine, Urine 149.6 mg/dL (Normal) Range: 22.0-328.0 :00 HgA1C , Office (23007) HgA1C , Office 5.8 % (Normal) Range: 4.6 - 7.1 :00 Blood Glucose , Office (07852) Blood Glucose , Office 119 (Normal) :25 PSA (PROSTATE SPECIFIC Comments: PATIENT WAS FASTINGPERFORMED BY: PúbliKoThe Rehabilitation Hospital of Tinton FallsSxmdog2637 [facility] [id number] ANTIGEN) (V76.44) Prostate Specific Ag, 1.0 ng/mL (Normal) Range: 0.0-4.0 Serum Comments: Celtaxsys ECLIA methodology. .According to the [place] Urological Association, Serum PSA shoulddecrease and remain [...] MANUAL DIFF Comments: PATIENT WAS FASTINGPERFORMED BY: PúbliKoThe Rehabilitation Hospital of Tinton FallsWggikb3248 [facility] [id number] Information: [id number],[id number] (02504) Immature Grans (Abs) 0.0 {x10E3/uL} (Normal) Range: [...] 4.14-5.80 WBC 7.8 {x10E3/uL} (Normal) Range: 3.4-10.8 43-Ift-727526:25 METABOLIC PANEL, COMPREHENSIVE Comments: PATIENT WAS FASTINGPERFORMED BY: [facility]6370 [facility] [id number] (18589) ALT (SGPT) 21 [iU]/L (Normal) Range: 0-44 [...] mg/dL (Normal) Range: 65-99 :25 LIPID PANEL (26734) Comments: PATIENT WAS FASTINGPERFORMED BY: [employer]70 [facility]Former[facility] [id number] LDL/HDL Ratio 1.4 {ratio_units} (Normal) Range: 0.0-3.6 [...] Cholesterol, Total 168 mg/dL (Normal) Range: 100-199 04-Oit-294447:50 HgA1C , Office (07136) HgA1C , Office 5.4 % (Normal) Range: 4.6 - 7.1 :53 LIPID PANEL (04643) Comments: PATIENT WAS FASTINGPERFORMED BY: [facility] PropertiesHealthSouth [facility] [id number]; all normal labs and pt has appt [...] Cholesterol, Total 151 mg/dL (Normal) Range: 100-199 64-Qvd-941166:53 METABOLIC PANEL, Comments: PATIENT WAS FASTINGPERFORMED BY: [facility] Shfuyv3464 [facility] [id number] Information: [id number] COMPREHENSIVE (70531) ALT (SGPT) 18 [iU]/L (Normal) Range: 0-44 [...] Glucose, Serum 95 mg/dL (Normal) Range: 65-99 46-Fxa-611290:53 MICROALBUMIN: CREATININE RATIO Comments: PATIENT WAS FASTINGPERFORMED BY: [facility]6370 [facility] [id number] (82505) AND (25392) Creatinine, Urine 27.5 mg/dL (Normal) Range: 22.0-328.0 Microalb/Creat Ratio 10.2 {mg/g_creat} (Normal) Range: 0.0-30.0 Microalbumin, Urine 2.8 ug/mL (Normal) Range: 0.0-17.0 :03 HgA1C , Office (86960) HgA1C , Office 5.6 % (Normal) Range: 4.6 - 7.1 :04 Influenza A&B Viral Comments: PATIENT NOT FASTINGPERFORMED BY: [facility]6370 [facility] [id number] Information: SRC:NOS ADD [id number] Culture (66613) Viral Culture,Rapid,Influenza FLUABN (Normal) Comments: Negative:No Influenza A or B detected. :00 Rapid Flu (50601 x 2) Influenza A Ag neg (Normal) :40 JOSLYN CULTURE-OTHER (17119) Comments: PATIENT NOT FASTINGPERFORMED BY: [facility]6370 [facility] [id number] Information: SRC:THRT ADD [id number] Result 1 RRF (Normal) Comments: Routine respiratory ghazala Upper Respiratory Culture Final report (Normal) :37 Rapid Strep Test, Office (98687) Rapid Strep Test, Office Negative (Normal) :57 HEPATIC FUNCTION PANEL Comments: PATIENT NOT FASTINGPERFORMED BY: [facility]6370 [facility] [id number] Information: [id number] (30592) ALT (SGPT) 19 [iU]/L (Normal) Range: 0-44 AST (SGOT) 15 [iU]/L (Normal) Range: 0-40 Alkaline Phosphatase, S 48 [iU]/L (Normal) Range: 44-102 Bilirubin, Direct 0.13 mg/dL (Normal) Range: 0.00-0.40 Bilirubin, Total 0.4 mg/dL (Normal) Range: 0.0-1.2 Albumin, Serum 4.5 g/dL (Normal) Range: 3.5-5.5 Protein, Total, Serum 6.6 g/dL (Normal) Range: 6.0-8.5 7-Iwl-312816:03 HEPATIC FUNCTION PANEL Comments: PATIENT NOT FASTINGPERFORMED BY: [facility] Gmvaxv8585 [facility] [id number] Information: [id number] (37951) ALT (SGPT) 15 [iU]/L (Normal) Range: 0-44 [...] DIFF Comments: PATIENT WAS FASTINGPERFORMED BY: [place] LabCoThe Rehabilitation Hospital of Tinton FallsMeeops1895 Claire [facility] [id number] Information: [id number],[id number] (03526) Immature Grans (Abs) 0.0 {x10E3/uL} (Normal) Range: [...] PANEL, COMPREHENSIVE Comments: PATIENT WAS FASTINGPERFORMED BY: ALEXANDRAI LabCoThe [facility] Hospital of Tinton FallsPhhhsa5667 [facility] [id number] (55314) ALT (SGPT) 22 [iU]/L (Normal) Range: 0-44 [...] Glucose, Serum 100 mg/dL (Abnormal) Range: 65-99 48-Vvh-08075:42 LIPID PANEL (24729) Comments: PATIENT WAS FASTINGPERFORMED BY: LabCoThe [facility] Hospital of Tinton FallsGidrps4859 [facility] [id number] LDL/HDL Ratio 1.4 {ratio_units} (Normal) Range: 0.0-3.6 LDL Cholesterol Calc 75 mg/dL (Normal) Range: 0-99 VLDL Cholesterol Compa 16 mg/dL (Normal) Range: 5-40 HDL Cholesterol 53 mg/dL (Normal) Comments: According to ATP-III Guidelines, HDL-C >59 mg/dL is considered anegative risk factor for CHD. Triglycerides 80 mg/dL (Normal) Range: 0-149 Cholesterol, Total 144 mg/dL (Normal) Range: 100-199 :56 HgA1C , Office (53659) HgA1C , Office 5.6 % (Normal) Range: 4.6 - 7.1 :44 LIPID PANEL (63251) Comments: PATIENT WAS FASTINGPERFORMED BY: [place] [employer] [facility] [id number] BY: PúbliKo[address] [id number] LDL/HDL Ratio 1.3 {ratio_units} (Normal) Range: 0.0-3.6 [...] METABOLIC PANEL, Comments: PATIENT WAS FASTINGPERFORMED BY: [employer]70 [facility] [id number] BY: PúbliKo[address] [id number] Inf ormation: [id number] COMPREHENSIVE (30521) ALT (SGPT) 20 [iU]/L (Normal) Range: 0-44 [...] 6 m - up to 1 year 1 - 12 years 17 - > 12 years - Chloride, Serum [...] Glucose, Serum 98 mg/dL (Normal) Range: 65-99 8-Clq-228067:44 PSA (PROSTATE SPECIFIC Comments: PATIENT WAS FASTINGPERFORMED BY: Proton Digital Systemslin6370 [facility] [id number] BY: Wabeebwa [address] [id number] ANTIGEN) (V76.44) Prostate Specific Ag, 1.7 ng/mL (Normal) Range: 0.0-4.0 Serum Comments: TribeIA methodology. .According to the [employer], Serum PSA shoulddecrease and remain at undetectable levels after radicalprostatectomy. The AUA defines biochemical recurrence as an initialPSA value 0.2 ng/mL or greater followed by a subsequent confirmatoryPSA value 0.2 ng/mL or greater.Values obtained with d ifferent assay methods or kits cannot be usedinterchangeably. Results cannot be interpreted as absolute evidenceof the presence or absence of malignant disease. 3-Qoo-801009:44 TESTOSTERONE FREE (87676) Comments: PATIENT WAS FASTINGPERFORMED BY: Proton Digital Systemslin6370 [facility] [id number] BY: SocialProof[address] [id number] Free Testosterone(Direct) 13.2 pg/mL (Normal) Range: 7.2-24.0 :34 HgA1C , Office (99579) HgA1C , Office 5.7 % (Normal) Range: 4.6 - 7.1 :58 Microscopic Examination Comments: PATIENT WAS FASTINGPERFORMED BY: BahouiSuzanne [place] 0119270 [facility] [id number] BY: PúbliKo[address] [id number] Bacteria Few (Normal) Mucus Threads Present (Normal) Epithelial Cells (non renal) None seen {/hpf} (Normal) Range: 0 - 10 RBC 0-3 {/hpf} (Normal) Range: 0 - 3 WBC 0-5 {/hpf} (Normal) Range: 0 - 5 :58 URINALYSIS, W/ MICRO Comments: PATIENT WAS FASTINGPERFORMED BY: Bahoui[address] [id number] BY: PúbliKo[address] [id number] (35917) Microscopic Examination See below: (Normal) Microscopic Examination MICRON (Normal) Comments: Microscopic follows if indicated. Nitrite, Urine Negative (Normal) Urobilinogen,Semi-Qn 0.2 mg/dL (Normal) Range: 0.0-1.9 Bilirubin Negative (Normal) Occult Blood Negative (Normal) Ketones Negative (Normal) Glucose Negative (Normal) Protein Negative (Normal) WBC Esterase Negative (Normal) Appearance Clear (Normal) pH 6.5 (Normal) Range: 5.0-7.5 Urine-Color Yellow (Normal) Specific [place] 1.020 (Normal) Range: 1.005-1.030 :58 CBC WITH MANUAL DIFF Comments: PATIENT WAS FASTINGPERFORMED BY: PúbliKoSuzanne Ville 0119270 [facility] [id number] BY: [facility] for ChildrenCoDaniel Ville 482107 [facility] [id number] Inf ormation: [id number] (24383) Immature Grans (Abs) 0.0 {x10E3/uL} (Normal) Range: [...] 4.14-5.80 WBC 7.3 {x10E3/uL} (Normal) Range: 4.0-10.5 08-Jan-20138:58 TESTOSTERONE FREE (47744) Comments: PATIENT WAS FASTINGPERFORMED BY: LabCoThe Rehabilitation Hospital of Tinton FallsFydpzt9535 [facility]University [facility] [id number] BY: PúbliKo[address] [id number] Free Testosterone(Direct) 8.1 pg/mL (Normal) Range: 7.2-24.0 :58 LIPID PANEL (21820) Comments: PATIENT WAS FASTINGPERFORMED BY: PúbliKoSuzanne [place] 0119270 [facility] [id number] BY: [address] [id number] LDL Cholesterol Calc 73 mg/dL (Normal) Range: [...] METABOLIC PANEL, Comments: PATIENT WAS FASTINGPERFORMED BY: [place]uzanne [place] 0119270 [facility] [id number] BY: SocialProof[address] [id number] COMPREHENSIVE (67040) ALT (SGPT) 19 [iU]/L (Normal) Range: 0-44 [...] (Abnormal) Range: 65-99 :05 HgA1C , Office (47420) HgA1C , Office 5.7 % (Normal) Range: 4.6 - 7.1 :41 MICROALBUMIN: CREATININE RATIO Comments: PATIENT WAS FASTINGPERFORMED BY: Weele Vbewqg3630 [facility] [id number] (80216) AND (01633) Microalb/Creat Ratio 2.2 {mg/g_creat} (Normal) Range: 0.0-30.0 Microalbumin, Urine 2.6 ug/mL (Normal) Range: 0.0-17.0 Creatinine, Urine 118.0 mg/dL (Normal) Range: 22.0-328.0 :41 METABOLIC PANEL, COMPREHENSIVE Comments: PATIENT WAS FASTINGPERFORMED BY: Weele Tzfwyf1222 [facility] [id number]; f/u 06/17/12 (41658) ALT (SGPT) 19 [iU]/L (Normal) Range: 0-55 [...] mg/dL (Abnormal) Range: 65-99 :41 LIPID PANEL (28405) Comments: PATIENT WAS FASTINGPERFORMED BY: [employer] [facility] [id number] LDL/HDL Ratio 1.2 {ratio_units} (Normal) Range: 0.0-3.6 LDL Cholesterol Calc 72 mg/dL (Normal) Range: 0-99 VLDL Cholesterol Compa 25 mg/dL (Normal) Range: 5-40 HDL Cholesterol 61 mg/dL (Normal) Comments: According to ATP-III Guidelines, HDL-C >59 mg/dL is considered anegative risk factor for CHD. Triglycerides 124 mg/dL (Normal) Range: 0-149 Cholesterol, Total 158 mg/dL (Normal) Range: 100-199 :11 HgA1C , Office (96422) HgA1C , Office 5.8 % (Normal) Range: 4.6 - 7.1 :11 Blood Glucose , Office (87566) Blood Glucose , Office 143 (Normal) :48 C-REACT PROT HIGH Comments: PATIENT WAS FASTINGPERFORMED BY: [email or web address] [facility] [id number] Information: [id number], 2ND ORDER NO DRAW FEE SENS(hsCRP) (77119) C-Reactive Protein, Cardiac 1.32 mg/L (Normal) Range: 0.00-3.00 Comments: Relative Risk for Future Cardiovascular Event Low <1.00 Average 1.00 - 3.00 High >3.00 04-Mud-503089:06 ANKLE,MIN 3 VIEWS Radiology Report See Note [...] radiologist regarding this report, please call our [id number] line @ [phone] Dictated on 01/14/12 1000 by MARSHA STONE MD, BTranscribed on 01/14/12 1246 by ITS IMPORTSign by MARSHA STONE MD on 01/14/12 1246 Sign by: _ MARSHA STONE MD 96-Rep-901697:06 KNEE,4 OR MORE VIEWS Radiology Report See [...] radiologist regarding this report, please call our [id number] line @ Dictated on 01/14/12 1000 by MARSHA STONE MD, BTranscribed on 01/14/12 1352 by ITS IMPORTSign by MARSHA STONE MD on 01/14/12 135 Sign by: MARSHA STONE MD CCP Antibodies 10 {units} Comments: PATIENT NOT FASTINGPERFORMED BY: [place] Shouwangxing IT [facility] [id number] BY: SocialProof[address] [id number] 29:40 IgG/IgA (Normal) Range: 0-19 Comments: Negative <20 Weak positive 20 - 39 Moderate positive 40 - 59 Strong positive >59 :40 Uric Acid Blood (70176) Comments: PATIENT NOT FASTINGPERFORMED BY: [email or web address] [facility] [id number] BY: SocialProof[address] [id number] Uric Acid, Serum 6.8 mg/dL (Normal) Range: 3.7-8.6 Comments: Therapeutic target for gout patients: <6.0 :40 SED RATE ERYTHROCYTE Comments: PATIENT NOT FASTINGPERFORMED BY: L[employer]kart.com70 [facility] [id number] BY: SocialProof[address] [id number] (80543) Sedimentation Rate-Westergren 18 mm/h (Normal) Range: 0-30 :40 C-REACTIVE PROTEIN (26056) Comments: PATIENT NOT FASTINGPERFORMED BY: [employer].com70 [facility] [id number] BY: [address] [id number] C-Reactive Protein, Quant 34.9 mg/L (Abnormal) Range: 0.0-4.9 :40 TSH (44355) Comments: PATIENT NOT FASTINGPERFORMED BY: [place] 0849270 [facility] [id number] BY: [address] [id number] TSH 1.990 {uIU/mL} (Normal) Range: 0.450-4.500 :40 RHEUMATOID FACTOR-QUANT Comments: PATIENT NOT FASTINGPERFORMED BY: [place] 0849270 [facility] [id number] BY: [address] [id number] (96494) RA Latex Turbid. 11.3 {IU/mL} (Normal) Range: 0.0-13.9 :40 VICTOR HUGO (ANTINUCLEAR ANTIBODY) Comments: PATIENT NOT FASTINGPERFORMED BY: [place] 0849270 [facility] [id number] BY: [address] [id number] (77692) VICTOR HUGO Direct Negative (Normal) :40 CBC WITH MANUAL DIFF Comments: PATIENT NOT FASTINGPERFORMED BY: [place] 0849270 [facility] [id number] BY: [address] [id number] Inf ormation: [id number] (28380) Immature Grans (Abs) 0.0 {x10E3/uL} (Normal) Range: [...] 4.10-5.60 WBC 10.5 {x10E3/uL} (Normal) Range: 4.0-10.5 72-Mar-69990:40 METABOLIC PANEL, Comments: PATIENT NOT FASTINGPERFORMED BY: CB [facility] Bgggqo7917 [facility] [id number] BY: BN [facility] Grvhfomfek0751 [facility] [id number] [facility] (34967) ALT (SGPT) 15 [iU]/L (Normal) Range: 0-55 [...] METABOLIC PANEL, Comments: PATIENT WAS FASTINGPERFORMED BY: LabCoThe Rehabilitation Hospital of Tinton FallsTdwukj8719 [facility] [id number] Information: [id number] COMPREHENSIVE (77399) ALT (SGPT) 16 [iU]/L (Normal) Range: 0-55 [...] mg/dL (Normal) Range: 65-99 :47 LIPID PANEL (39752) Comments: PATIENT WAS FASTINGPERFORMED BY: [email or web address] [facility] [id number] LDL/HDL Ratio 1.4 {ratio_units} (Normal) Range: 0.0-3.6 LDL Cholesterol Calc 78 mg/dL (Normal) Range: 0-99 VLDL Cholesterol Compa 21 mg/dL (Normal) Range: 5-40 HDL Cholesterol 54 mg/dL (Normal) Comments: According to ATP-III Guidelines, HDL-C >59 mg/dL is considered anegative risk factor for CHD. Triglycerides 107 mg/dL (Normal) Range: 0-149 Cholesterol, Total 153 mg/dL (Normal) Range: 100-199 :17 HgA1C , Office (74747) HgA1C , Office 5.6 % (Normal) Range: 4.6 - 7.1 7-Ouz-570640:29 PSA (PROSTATE SPECIFIC Comments: PATIENT WAS FASTINGPERFORMED BY: [email or web address] [facility] [id number] ANTIGEN) (V76.44) Prostate Specific Ag, 1.2 ng/mL (Normal) Range: 0.0-4.0 Serum Comments: Lauren ECLIA methodology. .According to the [employer] [employer], Serum PSA shoulddecrease and remain [...] CREATININE RATIO Comments: PATIENT WAS FASTINGPERFORMED BY: BahouiThe Rehabilitation Hospital of Tinton FallsQtgzsf0780 [facility] [id number] (60088) AND (84797) Microalb/Creat Ratio 1.8 {mg/g_creat} (Normal) Range: 0.0-30.0 Microalbumin, Urine 2.3 ug/mL (Normal) Range: 0.0-17.0 Creatinine, Urine 130.7 mg/dL (Normal) Range: 22.0-328.0 :29 CBC WITH MANUAL DIFF Comments: PATIENT WAS FASTINGPERFORMED BY: BahouiThe Rehabilitation Hospital of Tinton FallsWmcelj0106 [facility] [id number] Information: [id number] (65769) Immature Grans (Abs) 0.0 {x10E3/uL} (Normal) Range: [...] 4.10-5.60 WBC 7.6 {x10E3/uL} (Normal) Range: 4.0-10.5 2-Vnf-570966:29 METABOLIC PANEL, COMPREHENSIVE Comments: PATIENT WAS FASTINGPERFORMED BY: LabCoThe Rehabilitation Hospital of Tinton FallsAcanmm4867 [facility] [id number] (37465) ALT (SGPT) 22 [iU]/L (Normal) Range: 0-55 [...] Glucose, Serum 106 mg/dL (Abnormal) Range: 65-99 2-Bus-204832:29 LIPID PANEL (67910) Comments: PATIENT WAS FASTINGPERFORMED BY: [email or web address] [facility] [id number]; appt 10/17/11 LDL/HDL Ratio 1.3 {ratio_units} (Normal) Range: 0.0-3.6 LDL Cholesterol Calc 73 mg/dL (Normal) Range: 0-99 VLDL Cholesterol Compa 18 mg/dL (Normal) Range: 5-40 HDL Cholesterol 56 mg/dL (Normal) Comments: According to ATP-III Guidelines, HDL-C >59 mg/dL is considered anegative risk factor for CHD. Triglycerides 90 mg/dL (Normal) Range: 0-149 Cholesterol, Total 147 mg/dL (Normal) Range: 100-199 29-Huh-621769:21 Metabolic Panel, Comprehensive Comments: PATIENT WAS FASTINGPERFORMED BY: [email or web address] [facility] [id number] (01980) ALT (SGPT) 20 [iU]/L (Normal) Range: 0-55 [...] Glucose, Serum 97 mg/dL (Normal) Range: 65-99 71-Uqo-306818:21 URINALYSIS (57736) Comments: PATIENT WAS FASTINGPERFORMED BY: LabSelect [facility]ty Hospital6370 [facility] [id number] Microscopic Examination MICRON (Normal) Comments: Microscopic follows if indicated. Nitrite, Urine Negative (Normal) Bilirubin Negative (Normal) Ketones Negative (Normal) Occult Blood Negative (Normal) Urobilinogen,Semi-Qn 0.2 mg/dL (Normal) Range: 0.0-1.9 Appearance Clear (Normal) Glucose Negative (Normal) pH 7.0 (Normal) Range: 5.0-7.5 Protein Negative (Normal) Urine-Color Yellow (Normal) WBC Esterase Negative (Normal) Specific [place] 1.017 (Normal) Range: 1.005-1.030 99-Jpq-338840:21 CBC with manual diff Comments: PATIENT WAS FASTINGPERFORMED BY: LabS[employer].it Zyckbi0012 [facility] [id number] Information: ADD [id number] AND DRAW FEE 99 9969 (65702) Baso (Absolute) 0.0 {x10E3/uL} (Normal) Range: 0.0-0.2 [...] 4.10-5.60 WBC 7.6 {x10E3/uL} (Normal) Range: 4.0-10.5 07-Sdj-686384:21 TSH (62165) Comments: PATIENT WAS FASTINGPERFORMED BY: LabCoThe Rehabilitation Hospital of Tinton FallsKdmskt9137 [facility] [id number] TSH 1.370 {uIU/mL} (Normal) Range: 0.450-4.500 73-Vde-246056:21 Lipid Panel (74235) Comments: PATIENT WAS FASTINGPERFORMED BY: [employer]6370 [facility] [id number] LDL Cholesterol Calc 81 mg/dL (Normal) Range: 0-99 LDL/HDL Ratio 1.4 {ratio_units} (Normal) Range: 0.0-3.6 HDL Cholesterol 58 mg/dL (Normal) Comments: According to ATP-III Guidelines, HDL-C >59 mg/dL is considered anegative risk factor for CHD. VLDL Cholesterol Compa 15 mg/dL (Normal) Range: 5-40 Triglycerides 76 mg/dL (Normal) Range: 0-149 Cholesterol, Total 154 mg/dL (Normal) Range: 100-199 46-Stf-653487:21 PSA (Prostate Specific Comments: PATIENT WAS FASTINGPERFORMED BY: [facility]6370 [facility] [id number] Antigen), Screening (89199) Prostate Specific Ag, 0.9 ng/mL (Normal) Range: 0.0-4.0 Serum Comments: Lauren ECLIA methodology. .According to the [employer] [employer], Serum PSA shoulddecrease and remain at undetectable levels after radicalprostatectomy. The AUA defines biochemical recurrence as an initialPSA value 0.2 ng/mL or greater followed by a subsequent confirmatoryPSA value 0.2 ng/mL or greater.Values obtained with d ifferent assay methods or kits cannot be usedinterchangeably. Results cannot be interpreted as absolute evidenceof the presence or absence of malignant disease. 47-Pop-48407:50 BRAIN W/WO CONTRAST Radiology Report See Note (Normal) Comments: Exam Number: [id number] CLINICAL: Right hand, fifth digit numbness two [...] demonstrated an eurysm or occlusion of the [place]. Normal bilateral temporal bones, with [...] (PROSTATE SPECIFIC Comments: PATIENT WAS FASTINGPERFORMED BY: [facility]6370 [facility] [id number] ANTIGEN) (V76.44) Prostate Specific Ag, Serum 0.8 ng/mL (Normal) Range: 0.0-4.0 Comments: [employer] methodology. .According to the [employer] [employer], PSA should beundetectable after radical prostatectomy. A PSA of less than0.5 ng/mL (or undetectable) is not likely to be associated withdisease recurrence within five years of treatment.Values obtained with different assay methods or kits cannot be usedinterchang eably. Results cannot be interpreted as absolute evidenceof the presence or absence of malignant disease. :59 LIPID PANEL (96913) Comments: PATIENT WAS FASTINGPERFORMED BY: [employer] [facility] [id number] Cholesterol, Total 248 mg/dL (Abnormal) Range: 100-199 HDL Cholesterol 56 mg/dL (Normal) Comments: According to ATP-III Guidelines, HDL-C >59 mg/dL is considered anegative risk factor for CHD. LDL Cholesterol Calc 161 mg/dL (Abnormal) Range: 0-99 LDL/HDL Ratio 2.9 {ratio_units} (Normal) Range: 0.0-3.6 Triglycerides 157 mg/dL (Abnormal) Range: 0-149 VLDL Cholesterol Compa 31 mg/dL (Normal) Range: 5-40 :59 URINALYSIS W/O MICRO (67362) Comments: PATIENT WAS FASTINGClinical Information: ADD [id number], [id number] PERFORMED BY: [employer] [employer] [facility] [id number] Appearance Clear (Normal) Bilirubin Negative (Normal) Glucose Negative (Normal) Ketones Negative (Normal) Microscopic Examination MICRON (Normal) Comments: Microscopic follows if indicated. Nitrite, Urine Negative (Normal) Occult Blood Negative (Normal) pH 6.0 (Normal) Range: 5.0-7.5 Protein Negative (Normal) Specific [place] 1.019 (Normal) Range: 1.005-1.030 Urine-Color Yellow (Normal) Urobilinogen,Semi-Qn 0.2 mg/dL (Normal) Range: 0.0-1.9 WBC Esterase Negative (Normal) :59 VITAMIN B-12 (CYANOCOBALAMIN) Comments: PATIENT WAS FASTINGPERFORMED BY: [employer] [facility] [id number] (80917) Vitamin B12 395 pg/mL (Normal) Range: 211-911 :59 TSH (46449) Comments: PATIENT WAS FASTINGPERFORMED BY: [employer] [employer] [facility] [id number] TSH 2.820 {uIU/mL} (Normal) Range: 0.450-4.500 Comments: Please note reference interval change Plan of Care Name Dates Details Instructions BMI 32.0-32.9,adult : Eprescribed prescriptions (G8553) Indication: [...] On: :30 Request CBC with auto diff (25298)Indication: Impaired fasting glucose On: :30 Request HGB A1C (57437)Indication: Impaired fasting glucose On: :30 Request LIPID PANEL (28246)Indication: Other hyperlipidemia On: : Request METABOLIC PANEL, COMPREHENSIVE (14674)Indication: Hypertensive heart disease without heart failure On: :30 Request Hemoglobin Glyclated (HGB A1C) (48180)Indication: Impaired fasting glucose On: :32 Request MICROALBUMIN: CREATININE RATIO (33611) AND (10316)Indication: Impaired fasting glucose On: :32 Request CBC W/AUTO DIFF WBC (70147)Indication: Hypertensive heart disease without heart failure On: :32 Request METABOLIC PANEL, COMPREHENSIVE (56349)Indication: Hypertensive heart disease without heart failure On: :32 Request LIPID PANEL (38148)Indication: Other hyperlipidemia On: :32 Request CBC W/AUTO DIFF WBC (78631)Indication: Impaired fasting glucose On: :40 Request MICROALBUMIN: CREATININE RATIO (61756) AND (97974)Indication: Impaired fasting glucose On: :40 Request METABOLIC PANEL, COMPREHENSIVE (88492)Indication: Impaired fasting glucose On: :40 Request LIPID PANEL (78774)Indication: Other hyperlipidemia On: :40 Request HEPATIC FUNCTION PANEL (61270)Indication: Onychomycosis On: :22 Request CCP ANTIBODY (15942)Indication: Pain in unspecified joint On: :27 Request METABOLIC PANEL, COMPREHENSIVE (68768)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 On: 3-Izj-590048:13 Request LIPID PANEL (76615)Indication: Other hyperlipidemia On: 2-Ygr-311586:13 Request LIPID PANEL (28693)Indication: Other hyperlipidemia On: :14 Request METABOLIC PANEL, COMPREHENSIVE (99374)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 On: :14 Request Planned Encounters Medical; JOSELYN 4 Month Fu - On: 06-Feb-2019 7:00 [facility] Fast DO, Darlin A Fast DO, Darlin A Planned Procedures MRI OF LEFT KNEE WITHOUT CONTRAST On: 11-Jul-2018 Intent (68946)By: Maik VOSS, Darlin A Fast DO, Darlin A ELECTROCARDIOGRAM, COMPLETE (ECG) On: 27-Jun-2018 Intent (56692)By: Maik VOSS Darlin A Fast Comments: ekg showed normal [...] bearing ELECTROCARDIOGRAM, COMPLETE (ECG) On: 12-Jun-2017 Intent (46799)By: Maik VOSS Darlin A Fast Comments: ekg showed normal sinus rhythym, normal axis, no acute st/t wave changes sinus edna DO, Darlin A ZOSTER VACC, [place] (33068)By: Maik VOSS, On: 12-Jun-2017 Intent Darlin A Fast DO, Darlin A Comments: lot: [id number]: 01/03/18ite/route: R arm/SQamt: 0.65mL reconsituted with sterile diluentVIS signed when applicableChelsea, MARTHA ELECTROCARDIOGRAM, COMPLETE (ECG) On: 11-Jun-2016 Intent (68566)By: Darlin Pleitez DO A Maik Comments: ekg showed normal sinus rhythym, normal axis, no acute st/t wave changes sinus edna DO, Darlin A Aerosol Treatment (65126)By: John On: 29-Apr-2014 Intent Maria Luz VOSS Comments: more ae- still noisy but not as rough Solu- Medrol Injection, 125mg On: 29-Apr-2014 Intent (J2930)By: John Maria Luz VOSS Comments: lot: [id number]: 16site/route: RGM/IMamt: 2mLVIS signed when applicableMARTHA Tello EKG (44546)By: Fast DO, Darlin A On: 23-Apr-2014 Intent Fast DO, Darlin A Comments: ekg showed normal sinus rhythym, normal axis, no acute st/t wave changes Eprescribed prescriptions On: 29-Sep-2013 Intent (G8553)By: Caridad Lopez Eprescribed prescriptions On: 19-May-2013 Intent (G8553)By: Caridad Lopez EKG (71749)By: Caridad Lopez On: 15-Jan-2013 Intent Comments: ekg showed normal sinus rhythym, normal axis, no acute st/t wave changes Eprescribed prescriptions On: 15-Jan-2013 Intent (G8553)By: Caridad Lopez Radiology - Knee - LeftBy: Ciesa On: 14-Jan-2012 Intent ELENA Lashawn Hu Radiology - Ankle - LeftBy: Ciesa On: 14-Jan-2012 Intent ELENA Lashawn Hu Eprescribed prescriptions On: 17-Oct-2011 Intent (G8553)By: Fast DO, Darlin A Fast DO, Darlin A Radiology - Chest- PA and LatBy: On: 17-Oct-2011 Intent Fast DO, Darlin A Fast DO, Darlin A FLU VAC, SPLIT, >3 YEARS, INTRAMUSC On: 17-Oct-2011 Intent (07485)By: Caridad Lopez Comments: received at work EKG (30639)By: Fast DO, Darlin A On: 04-Sep-2011 Intent Fast DO, Darlin A Comments: ekg showed normal sinus rhythym, normal axis, no acute st/t wave changes no change Radiology - Chest- PA and LatBy: On: 25-Oct-2010 Intent Fast DO, Darlin A Fast DO, Darlin A TDAP VACCINE >7 IM (66670)By: Fast On: 08-Nov-2009 Intent DO, Darlin A Fast DO, Darlin A Comments: Lot #[id number]/17/2011Site-left deltoidDose0.5mlgiven by Jonathan Fry LPN Echo CompleteBy: Fast DO, Darlin A On: 15-Jul-2009 Intent Fast DO, Darlin A EKG (77859)By: Fast DO, Darlin A On: 15-Jul-2009 Intent [...] Luz Lopez DO Instructions Name Dates Details BMI 32.0-32.9,adult : How to access health [...] Patient Instructions Indication: Impaired fasting glucose Encounters Phone Encounter On: 06-Oct-2018 11:35 Encounter Diagnosis: [...] acuity (Dr. Nieto). Note for Physical exam: [facility] am-- the pain in back [...] Nieto). Note for Physical exam: [facility], [ADDITIONAL REASON] Follow up, Laboratory Test Results - [facility]: [facility] Encounter Diagnosis: BMI 33.0-33.9,adult, Nonsmoker, [facility] [...] On: 10-Jan-2007 8:28 [facility] End: 9-Feb-2007 8:41 Historical Summary On: 30-Dec-2006 14:33 [facility] End: 30-Dec-2006 14:39 Payers Michelle WILLIAMSON/NICOLASA SCOTT; a guarantor
--- OUTSIDE RECORDS SUMMARY | 2019-02-24 14:49 | XMS RPT_ITS | Continuity of Care Document ---
:1960 Author Organization [facility] Address [address] [facility] [address] [place] [address] Phone Care Team Providers Name Role Phone [...] 0 days Quantity: 90 {Tablet} Refills: 3 Ordered:16-Oct-2017 Caridad Lopez Start : 16-Oct-2017 Active Meloxicam 15 MG Oral Tablet 1 (one) Tablet qd in am with food for 0 days Quantity: 30 {Tablet} Refills: 0 Ordered:03-Oct-2018 Fast DO, Darlin Avelar DO, Darlin A Start : 03-Oct-2018 Active MULTIVITAMIN (PO Liquid) for 0 days Refills: 0 Ordered:11-Jul-2018 Ricardo Salinastive Norvasc 10 MG Oral Tablet 1 Tablet qd for 90 days Quantity: 90 {Tablet} Refills: 3 Ordered:29-May-2018 Maik DO, Darlin Avelar DO, Darlin A Start : 29-May-2018 End [...] Start : 06-Apr-2013 End : 06-Apr-2013 Inactive Bauxite 5-325 MG Oral Tablet 1 (one) Tablet [...] 30 {Capsule} Refills: 3 Ordered:12-Nov-2016 Darlin Pleitez DOmikhail Darlin Gong Start : 12-Nov-2016 End : 12-Nov-2016 Discontinued NORVASC, 5MG (Oral Tablet) 1 Tablet qam for 0 days Quantity: 30 {Tablet} Refills: 3 Ordered:17-Oct-2011 Darlin Pleitez DOmikhail Darlin Gong Start : 17-Oct-2011 End : 17-Oct-2011 Discontinued [...] Only (Routine) Result: Comments: See Note; NOTES: [facility] Imaging Services [address] [place] [address] Lower Ext Joint Only (Routine) MR#: [id number] Acct: [id number] Name: TRACEY SCOTT Rep #: [id number] : 1960 M 57 From: Mulu Napoles MD PCP: Darlin Pleitez DO Status: REG CLI Study: Lower Ext Joint Only (Routine) Date of Exam: 07/17/18 Exam# [id number] Ordering Dr: Darlin Pleitez DO STUDY: MRI [...] Service support , CC: Darlin Pleitez DO Scooper: Signed 11-Jul-2018 TXT - Blood Flow Screening Result: Comments: See Note; NOTES: [facility] Cardiovascular Services [address] [place] [address] 07/10/18 0821 MR#: [id number] Acct: [id number] Name: TRACEY SCOTT Rep #: [id number] : 1960 57 From: Bolivar Palomo MD Attending Dr: Darlin Pleitez DO Status: REG REF Ordering Dr: Date: 07/11/18 Location: [facility] Sex: M C Admitted: Reason For [...] DO Date Dictated: 07/10/18820 Date Transcribed: 07/11/18821 Scooper: Signed 27-Jun-2018 Inital Evaluation (1) - PT Result: Comments: See Note; NOTES: [facility] Physical Therapy Health[address] [place], [place] [address] Fax REHABILITATION SERVICES INITIAL EVALUATION MR#: [id number] Acct: [id number] Name: TRACEY SCOTT Rep #: [id number] : 1960 57 From: Soraya STEVENS Referring DrSuzy: Darlin Pleitez DO Status: REG RCR Insurance: [employer] INSURANCE Patient's Visit Information TRACEY SCOTT is a 57 year old M referred to Physical Therapy by Darlin Fast, DO with a diagnosis of L leg [...] His bed is firm and bought a pillCanatu mattress coer and that has helped to sleep. [facility]. No N AND T. Hard to [...] to be FAXED BACK to us at [phone] for Medicare purposes. Please let me know if there are questions or concerns regarding this plan of care. Physician Signature: ____Date: <Electronically signed by Soraya Brown MPT> 06/27/18 1230 CC: Darlin Pleitez DO Signed For Medicare only, by signing this I certify the plan of care. Physicians Signature Date 07-Jun-2018 Venous Duplex Lower Extremity Result: Comments: See Note; NOTES: [facility] Cardiovascular Services [address] [place] [address] Venous Duplex US, Unilateral 06/06/18 1420 MR#: [id number] Acct: [id number] Name: TRACEY KANG Rep #: [id number] : 1960 57 From: Bolivar Palomo MD Attending Dr: Darlin Pleitez DO Status: REG CLI Ordering Dr: Darlin Pleitez DO Date: 06/06/18 Location: [facility] Sex: M C Admitted: [place] son For Study: LEG PAIN RIGHT LEFT [...] Dictated: 06/06/18 1420 Date Transcribed: 06/07/18 1531 Scooper: Signed 06-Jun-2018 Knee 4 or More Views Result: Comments: See Note; NOTES: [facility] Imaging Services [address] [place] [address] Knee 4 or More Views MR#: [id number] Acct: [id number] Name: TRACEY SCOTT Rep #: [id number] : 1960 M 57 From: Winston Allred DO PCP: Darlin Pleitez DO Status: REG CLI Study: Knee 4 or More Views Date of Exam: 06/06/18 Exam# [id number] Ordering Dr: Darlin Pleitez DO STUDY: X-RAY [...] Winston Allred DO at 8:52 EDT Tel [phone], Service support , CC: Darlin Pleitez DO Scooper: Signed 06-Jun-2018 L/S Spine Min 4 Views Result: Comments: See Note; NOTES: [facility] Imaging Services [address] [place] [address] L/S Spine Min 4 Views MR#: [id number] Acct: [id number] Name: TRACEY SCOTT Margo Rep #: [id number] : 1960 57 From: Winston Allred DO PCP: Darlin Pleitez DO Status: REG CLI Study: L/S Spine Min 4 Views Date of Exam: 06/06/18 Exam# [id number] Ordering Dr: Darlin Pleitez DO STUDY: X-RAY [...] Winston Allred DO at 9:11 EDT Tel [phone], Service support , CC: Darlin Pleitez DO Scooper: Signed 26-Oct-2015 EKG (99249) Comments: ekg- sinus edna normal axis no acute st t wave changes Result: [MEASUREMENTS ANALYSIS] Date of Test: 10/26/2015 08:45:17; Heart Rate: 56; ME Interval: 170; QRS: 96; QT Interval: 412; Corrected QT Interval (QTc): 405; P Wave [place]: 29; QRS Wave [place]: 23; T Wave [place]: 17; Blood Pressure: 112/76 [ECG DIAGNOSTIC STATEMENTS] Date of Test: 10/26/2015 08:45:17; Summary: Sinus Bradycardia WITHIN NORMAL LIMITS 29-Apr-2014 Spirometry (77607) Comments: poor techniq but really bad obstruction which is consistent with exam Result: Immunization Name Dates Details Tdap (7 years and up) on: 08-Nov-2009 Comments: Lot #[id number]-10/17/2011Site-left deltoidDose0.5mlgiven by Jonathan Fry LPN Family History [...] Value Details :00 Crystals, Body Fluid Comments: [facility] [address] [place], [address] PATH REV Reviewed (Normal) Comments: No diagnostic crystals seen.Seth Velazco D.O. 08/01/18 AMENDED REPORT 08/01/18 1230 PATH REV previously reported as: Will follow SOURCE/BF SYNOVIAL (Normal) CRYSTALS/BF SEE PATH REV (Normal) 01-Rck-88903:00 Culture, Body Fluid Comments: [facility] [address] [place], [address] CUBF See Note (Normal) Comments: List Antibiotics Last 48 Hours? UNKList Antibiotics to be Started? UNKGram StainCentrifuged Specimen? Culture performed on centrifuged specimen Gram Stain 4+ Red Blood Cells 4+ White Blood C ells No organisms seen Body Fluid CultNO GROWTH IN 14 DAYS Cult, AnaerobicNo growth in 5 days. 33-Pos-02194:53 MICROALBUMIN: CREATININE RATIO Comments: PATIENT WAS FASTINGPERFORMED BY: Giftiki70 [facility] [id number] (44417) AND (65757) Alb/Creat Ratio 5.7 {mg/g_creat} (Normal) Range: 0.0-30.0 Comments: Normal: 0.0 - 30.0 Albuminuria: 31.0 - 300.0 Clinical albuminuria: >300.0 Albumin, Urine 7.6 ug/mL (Normal) Creatinine, Urine 133.6 mg/dL (Normal) 12-Hra-85772:53 METABOLIC PANEL, COMPREHENSIVE Comments: PATIENT WAS FASTINGPERFORMED BY: Giftiki70 [facility] [id number] (94585) ALT (SGPT) 15 [iU]/L (Normal) Range: 0-44 [...] 6-24 Glucose 109 mg/dL (Abnormal) Range: 65-99 44-Hux-11413:53 HGB A1C (53477) Comments: PATIENT WAS FASTINGPERFORMED BY: Giftiki70 [facility] [id number] Hemoglobin A1c 5.6 % (Normal) Range: 4.8-5.6 Comments: . Prediabetes: 5.7 - 6.4 Diabetes: >6.4 Glycemic control for adults with diabetes: <7.0 :53 LIPID PANEL (64069) Comments: PATIENT WAS FASTINGPERFORMED BY: Giftiki70 [facility] [id number] LDL/HDL Ratio 1.6 {ratio} (Normal) Range: 0.0-3.6 Comments: LDL/HDL Ratio Men Women 1/2 Avg.Risk 1.0 1.5 Av g.Risk 3.6 3.2 2X Avg.Risk 6.2 5.0 3X Avg.Risk 8.0 6.1 LDL Cholesterol Calc 73 mg/dL (Normal) Range: 0-99 VLDL Cholesterol Compa 16 mg/dL (Normal) Range: 5-40 HDL Cholesterol 47 mg/dL (Normal) Triglycerides 80 mg/dL (Normal) Range: 0-149 Cholesterol, Total 136 mg/dL (Normal) Range: 100-199 02-Yxy-48333:53 C-REACT PROT HIGH SENS(hsCRP) Comments: PATIENT WAS FASTINGPERFORMED BY: StraighterLineSaint Clare's Hospital at DoverDbioor7128 [facility] [id number] (25829) C-Reactive Protein, Cardiac 4.66 mg/L (Abnormal) Range: 0.00-3.00 Comments: Relative Risk for Future Cardiovascular Event Low <1.00 Average 1.00 - 3.00 High >3.00 50-Gxr-03453:12 CBC with auto diff (56401) Comments: PATIENT WAS FASTINGPERFORMED BY: LabCoSaint Clare's Hospital at DoverGwqbyz1354 [facility] [id number] Immature Grans (Abs) 0.0 {x10E3/uL} (Normal) Range: [...] CREATININE RATIO Comments: PATIENT WAS FASTINGPERFORMED BY: StraighterLineSaint Clare's Hospital at DoverXhalvx7769 [facility] [id number] (43519) AND (63151) Alb/Creat Ratio 2.8 {mg/g_creat} (Normal) Range: 0.0-30.0 Albumin, Urine 3.1 ug/mL (Normal) Creatinine, Urine 110.7 mg/dL (Normal) :12 METABOLIC PANEL, COMPREHENSIVE Comments: PATIENT WAS FASTINGPERFORMED BY: StraighterLine Zxorrq6400 [facility] [id number]; review 06/27 (50606) ALT (SGPT) 14 [iU]/L (Normal) Range: 0-44 [...] (Abnormal) Range: 65-99 :22 HgA1C , Office (06429) HgA1C , Office 5.5 % (Normal) Range: 4.6 - 7.1 1-Tzi-690543:45 Microscopic Examination Comments: PATIENT WAS FASTINGPERFORMED BY: BinWise iPourit [facility] [id number] Bacteria None seen (Normal) Epithelial Cells (non renal) None seen {/hpf} (Normal) Range: 0 - 10 RBC 0-2 {/hpf} (Normal) Range: 0 - 2 WBC 0-5 {/hpf} (Normal) Range: 0 - 5 :45 PSA (PROSTATE SPECIFIC Comments: PATIENT WAS FASTINGPERFORMED BY: Kids Movie ClaireNexx StudioOn license of [facility] [id number] ANTIGEN) (V76.44) Prostate Specific Ag, 1.3 ng/mL (Normal) Range: 0.0-4.0 Serum Comments: RevionicsIA methodology. .According to the [place] [employer], Serum PSA shoulddecrease and remain [...] of malignant disease. :45 URINALYSIS, W/ MICRO (07776) Comments: PATIENT WAS FASTINGPERFORMED BY: Differential6370 [facility] [id number] Microscopic Examination See below: (Normal) Comments: Microscopic was indicated and was performed. Microscopic Examination MICRON (Normal) Comments: Microscopic follows if indicated. Nitrite, Urine Negative (Normal) Urobilinogen,Semi-Qn 0.2 mg/dL (Normal) Range: 0.2-1.0 Bilirubin Negative (Normal) Occult Blood Negative (Normal) Ketones Negative (Normal) Glucose Negative (Normal) Protein Negative (Normal) WBC Esterase Negative (Normal) Appearance Clear (Normal) Urine-Color Yellow (Normal) pH 6.0 (Normal) Range: 5.0-7.5 Specific [place] 1.011 (Normal) Range: 1.005-1.030 7-Wma-889699:45 CBC W/AUTO DIFF WBC (77168) Comments: PATIENT WAS FASTINGPERFORMED BY: [employer] [facility] [id number] Immature Grans (Abs) 0.0 {x10E3/uL} (Normal) Range: [...] 4.14-5.80 WBC 7.8 {x10E3/uL} (Normal) Range: 3.4-10.8 0-Iir-148335:45 METABOLIC PANEL, COMPREHENSIVE Comments: PATIENT WAS FASTINGPERFORMED BY: StraighterLine iPourit [facility] [id number]; can review on 12/16 appt (47413) ALT (SGPT) 29 [iU]/L (Normal) Range: 0-44 [...] Glucose, Serum 101 mg/dL (Abnormal) Range: 65-99 5-Kvw-523619:45 LIPID PANEL (72308) Comments: PATIENT WAS FASTINGPERFORMED BY: LabCoSaint Clare's Hospital at DoverZthmkf9635 [facility] [id number] LDL/HDL Ratio 1.6 {ratio_units} (Normal) Range: 0.0-3.6 Comments: LDL/HDL Ratio Men Women 1/2 Avg.Risk 1.0 1.5 Av g.Risk 3.6 3.2 2X Avg.Risk 6.2 5.0 3X Avg.Risk 8.0 6.1 LDL Cholesterol Calc 92 mg/dL (Normal) Range: 0-99 VLDL Cholesterol Compa 31 mg/dL (Normal) Range: 5-40 HDL Cholesterol 56 mg/dL (Normal) Triglycerides 157 mg/dL (Abnormal) Range: 0-149 Cholesterol, Total 179 mg/dL (Normal) Range: 100-199 5-Xni-931437:45 HEPATITIS C ANTIBODY (81639) Comments: PATIENT WAS FASTINGPERFORMED BY: [employer] Ylylzv7181 [facility] [id number] Hep C Virus Ab <0.1 {s/co_ratio} (Normal) Range: 0.0-0.9 Comments: Negative: < 0.8 Indeterminate: 0.8 - 0.9 Positive: > 0.9 . The CDC recommends that a positive HCV antibody result be followed up with a HCV Nucleic Acid Amplification test (811220). 91-Vem-61311:42 METABOLIC PANEL, COMPREHENSIVE Comments: PERFORMED BY: Differential6370 [facility] [id number] (51953) ALT (SGPT) 21 [iU]/L (Normal) Range: 0-44 [...] Glucose, Serum 103 mg/dL (Abnormal) Range: 65-99 52-Tyg-653829:42 PSA (PROSTATE SPECIFIC Comments: PATIENT WAS FASTINGPERFORMED BY: StraighterLine[address] [id number] BY: StraighterLine Jgeila6857 [facility] [id number] ANTIGEN) (V76.44) Prostate Specific Ag, 1.2 ng/mL (Normal) Range: 0.0-4.0 Serum Comments: RevionicsIA methodology. .According to the [place] [employer], Serum PSA shoulddecrease and remain at undetectable levels after radicalprostatectomy. The AUA defines biochemical recurrence as an initialPSA value 0.2 ng/mL or greater followed by a subsequent confirmatoryPSA value 0.2 ng/mL or greater.Values obtained with d ifferent assay methods or kits cannot be usedinterchangeably. Results cannot be interpreted as absolute evidenceof the presence or absence of malignant disease. 16-Ttv-638721:42 CBC with auto diff Comments: PATIENT WAS FASTINGPERFORMED BY: StraighterLine[address] [id number] BY: StraighterLineSaint Clare's Hospital at DoverHgzxaj8798 [facility] [id number] (09941) Immature Grans (Abs) 0.0 {x10E3/uL} (Normal) Range: [...] 4.14-5.80 WBC 7.5 {x10E3/uL} (Normal) Range: 3.4-10.8 39-Hjy-922609:42 HGB A1C (61045) Comments: PATIENT WAS FASTINGPERFORMED BY: [employer] [address] [id number] BY: BinWise[address] [id number] Hemoglobin A1c 5.8 % (Abnormal) Range: 4.8-5.6 Comments: . Pre-diabetes: 5.7 - 6.4 Diabetes: >6.4 Glycemic control for adults with diabetes: <7.0 39-Kyi-906501:42 MICROALBUMIN: CREATININE Comments: PATIENT WAS FASTINGPERFORMED BY: [employer] [address] [id number] BY: StraighterLine[address] [id number] RATIO (75072) AND (49117) Microalb/Creat Ratio <1.9 {mg/g_creat} (Normal) Range: 0.0-30.0 Microalbumin, Urine <3.0 ug/mL (Normal) Creatinine, Urine 160.7 mg/dL (Normal) 78-Gfw-540030:42 LIPOPROTEIN, BLD, BY NMR Comments: PATIENT WAS FASTINGPERFORMED BY: [employer]ia [address] [place] [id number] BY: [place] [facility] Mzpfoe1480 [facility] [id number]; non-emergent till apt (73152) LP-IR Score 50 (Abnormal) Comments: INSULIN RESISTANCE MARKER <--Insulin Sensitive Insulin Resistant--> Percentile in Reference PopulationInsulin Resistance ScoreLP-IR Score Low 25th 50th 75th High <27 27 45 63 >63LP-IR Score is inaccurate if patient is non-fasting. .The LP-IR score is a laboratory developed i [facility] that has beenassociated with insulin resistance [...] were developed and their performance characteristicsdetermined by [employer]. These assays have not been cleared by [...] 1600 - 2000 Very High > 2000 90-Pzx-344149:42 METABOLIC PANEL, Comments: PATIENT WAS FASTINGPERFORMED BY: BN [facility] Wnnttauwxe5014 [facility] [id number] BY: CB [facility] Tbcpxj0291 [facility] [id number] COMPREHENSIVE (55671) ALT (SGPT) 18 [iU]/L (Normal) Range: 0-44 [...] (Normal) Range: 65-99 :07 HgA1C , Office (78293) HgA1C , Office 5.7 % (Normal) Range: 4.6 - 7.1 :06 PSA (PROSTATE SPECIFIC Comments: PATIENT WAS FASTINGPERFORMED BY: Giftiki70 [facility] [id number] ANTIGEN) (V76.44) Prostate Specific Ag, 1.4 ng/mL (Normal) Range: 0.0-4.0 Serum Comments: [employer] ECLIA methodology. .According to the [place] U[employer] Association, Serum PSA shoulddecrease and remain [...] METABOLIC PANEL, Comments: PATIENT WAS FASTINGPERFORMED BY: Differential6370 [facility] [id number] Information: [id number] COMPREHENSIVE (41752) ALT (SGPT) 20 [iU]/L (Normal) Range: 0-44 [...] mg/dL (Abnormal) Range: 65-99 :06 LIPID PANEL (66942) Comments: PATIENT WAS FASTINGPERFORMED BY: LabCoSaint Clare's Hospital at DoverDmspub5436 [facility] [id number] LDL/HDL Ratio 1.2 {ratio_units} (Normal) Range: 0.0-3.6 [...] (Normal) Range: 100-199 :09 HgA1C , Office (14423) HgA1C , Office 5.7 % (Normal) Range: 4.6 - 7.1 :25 CBC With Differential/Platelet Comments: PATIENT WAS FASTINGPERFORMED BY: LabCoSaint Clare's Hospital at DoverRdqupz1805 [facility] [id number] Information: [id number] Immature Grans (Abs) 0.0 {x10E3/uL} (Normal) Range: [...] 4.14-5.80 WBC 6.9 {x10E3/uL} (Normal) Range: 3.4-10.8 21-Hyo-24362:25 Comp. Metabolic Panel (14) Comments: PATIENT WAS FASTINGPERFORMED BY: LabCoSaint Clare's Hospital at DoverPlwxvv6997 [facility] [id number] ALT (SGPT) 14 [iU]/L (Normal) Range: 0-44 [...] Glucose, Serum 91 mg/dL (Normal) Range: 65-99 66-Otq-70646:25 Lipid Panel With LDL/HDL Comments: PATIENT WAS FASTINGPERFORMED BY: LabCoSaint Clare's Hospital at DoverMxwogo6698 [facility] [id number] Ratio LDL/HDL Ratio 1.2 {ratio_units} (Normal) Range: [...] Randm Ur Comments: PATIENT WAS FASTINGPERFORMED BY: StraighterLineCrownpoint Health Care FacilityScrdox3422 [facility] [id number] Microalb/Creat Ratio 3.4 {mg/g_creat} (Normal) Range: 0.0-30.0 Microalbumin, Urine 5.1 ug/mL (Normal) Range: 0.0-17.0 Creatinine, Urine 149.6 mg/dL (Normal) Range: 22.0-328.0 :00 HgA1C , Office (24890) HgA1C , Office 5.8 % (Normal) Range: 4.6 - 7.1 :00 Blood Glucose , Office (83966) Blood Glucose , Office 119 (Normal) :25 PSA (PROSTATE SPECIFIC Comments: PATIENT WAS FASTINGPERFORMED BY: Stra[employer]Line Ckpevr1491 [facility] [id number] ANTIGEN) (V76.44) Prostate Specific Ag, 1.0 ng/mL (Normal) Range: 0.0-4.0 Serum Comments: Lauren ECLIA methodology. .According to the [place] U[employer] Association, Serum PSA shoulddecrease and remain [...] MANUAL DIFF Comments: PATIENT WAS FASTINGPERFORMED BY: [facility]comUniversity [facility]6370 [facility] [id number] Information: [id number] (72927) Immature Grans (Abs) 0.0 {x10E3/uL} (Normal) Range: [...] 4.14-5.80 WBC 7.8 {x10E3/uL} (Normal) Range: 3.4-10.8 92-Rac-108075:25 METABOLIC PANEL, COMPREHENSIVE Comments: PATIENT WAS FASTINGPERFORMED BY: [facility]6370 [facility] [id number] (75730) ALT (SGPT) 21 [iU]/L (Normal) Range: 0-44 [...] mg/dL (Normal) Range: 65-99 :25 LIPID PANEL (88358) Comments: PATIENT WAS FASTINGPERFORMED BY: [employer] [place] [id number] LDL/HDL Ratio 1.4 {ratio_units} (Normal) Range: 0.0-3.6 [...] Cholesterol, Total 168 mg/dL (Normal) Range: 100-199 :50 HgA1C , Office (39772) HgA1C , Office 5.4 % (Normal) Range: 4.6 - 7.1 :53 LIPID PANEL (56521) Comments: PATIENT WAS FASTINGPERFORMED BY: [facility] [id number]; all normal labs and pt has appt [...] Cholesterol, Total 151 mg/dL (Normal) Range: 100-199 99-Shs-453953:53 METABOLIC PANEL, Comments: PATIENT WAS FASTINGPERFORMED BY: LabCoSaint Clare's Hospital at DoverIvmkjz3633 [facility] [id number] Information: [id number] COMPREHENSIVE (40924) ALT (SGPT) 18 [iU]/L (Normal) Range: 0-44 [...] Glucose, Serum 95 mg/dL (Normal) Range: 65-99 59-Ddx-795431:53 MICROALBUMIN: CREATININE RATIO Comments: PATIENT WAS FASTINGPERFORMED BY: [place] 7134470 [facility] [id number] (73132) AND (89689) Creatinine, Urine 27.5 mg/dL (Normal) Range: 22.0-328.0 Microalb/Creat Ratio 10.2 {mg/g_creat} (Normal) Range: 0.0-30.0 Microalbumin, Urine 2.8 ug/mL (Normal) Range: 0.0-17.0 :03 HgA1C , Office (95759) HgA1C , Office 5.6 % (Normal) Range: 4.6 - 7.1 :04 Influenza A&B Viral Comments: PATIENT NOT FASTINGPERFORMED BY: [facility]6370 [facility] [id number] Information: SRC:NOS ADD [id number] Culture (96431) Viral Culture,Rapid,Influenza FLUABN (Normal) Comments: Negative:No Influenza A or B detected. :00 Rapid Flu (79267 x 2) Influenza A Ag neg (Normal) :40 JOSLYN CULTURE-OTHER (64486) Comments: PATIENT NOT FASTINGPERFORMED BY: [facility]6370 [facility] [id number] Information: SRC:THRT ADD [id number] Result 1 RRF (Normal) Comments: Routine respiratory ghazala Upper Respiratory Culture Final report (Normal) :37 Rapid Strep Test, Office (29550) Rapid Strep Test, Office Negative (Normal) :57 HEPATIC FUNCTION PANEL Comments: PATIENT NOT FASTINGPERFORMED BY: [facility]6370 [facility] [id number] Information: [id number] (58677) ALT (SGPT) 19 [iU]/L (Normal) Range: 0-44 AST (SGOT) 15 [iU]/L (Normal) Range: 0-40 Alkaline Phosphatase, S 48 [iU]/L (Normal) Range: 44-102 Bilirubin, Direct 0.13 mg/dL (Normal) Range: 0.00-0.40 Bilirubin, Total 0.4 mg/dL (Normal) Range: 0.0-1.2 Albumin, Serum 4.5 g/dL (Normal) Range: 3.5-5.5 Protein, Total, Serum 6.6 g/dL (Normal) Range: 6.0-8.5 1-Xfp-618213:03 HEPATIC FUNCTION PANEL Comments: PATIENT NOT FASTINGPERFORMED BY: [facility] Eppwjw1081 [facility] [id number] Information: [id number] (36233) ALT (SGPT) 15 [iU]/L (Normal) Range: 0-44 [...] DIFF Comments: PATIENT WAS FASTINGPERFORMED BY: [place] StraighterLine Gfrekv3863 [facility] [id number] Information: [id number] (98637) Immature Grans (Abs) 0.0 {x10E3/uL} (Normal) Range: [...] COMPREHENSIVE Comments: PATIENT WAS FASTINGPERFORMED BY: [place] [employer] Semiconductorlin6370 [facility] [id number] (62915) ALT (SGPT) 22 [iU]/L (Normal) Range: 0-44 [...] Glucose, Serum 100 mg/dL (Abnormal) Range: 65-99 12-Idz-03312:42 LIPID PANEL (06211) Comments: PATIENT WAS FASTINGPERFORMED BY: LabCoSaint Clare's Hospital at DoverLknbit4601 [facility] [id number] LDL/HDL Ratio 1.4 {ratio_units} (Normal) Range: 0.0-3.6 LDL Cholesterol Calc 75 mg/dL (Normal) Range: 0-99 VLDL Cholesterol Compa 16 mg/dL (Normal) Range: 5-40 HDL Cholesterol 53 mg/dL (Normal) Comments: According to ATP-III Guidelines, HDL-C >59 mg/dL is considered anegative risk factor for CHD. Triglycerides 80 mg/dL (Normal) Range: 0-149 Cholesterol, Total 144 mg/dL (Normal) Range: 100-199 :56 HgA1C , Office (04599) HgA1C , Office 5.6 % (Normal) Range: 4.6 - 7.1 :44 LIPID PANEL (47467) Comments: PATIENT WAS FASTINGPERFORMED BY: [employer] [facility] [id number] BY: StraighterLine[address] [id number] LDL/HDL Ratio 1.3 {ratio_units} (Normal) Range: 0.0-3.6 [...] METABOLIC PANEL, Comments: PATIENT WAS FASTINGPERFORMED BY: [employer] [facility] [id number] BY: StraighterLine[address] [id number] Inf ormation: [id number] COMPREHENSIVE (86506) ALT (SGPT) 20 [iU]/L (Normal) Range: 0-44 [...] - up to 1 year 15 - 1 - 12 years 17 - 26 > 12 years - Chloride, Serum 105 [...] Glucose, Serum 98 mg/dL (Normal) Range: 65-99 5-Xri-338951:44 PSA (PROSTATE SPECIFIC Comments: PATIENT WAS FASTINGPERFORMED BY: [facility] [id number] BY: [employer] [address] [id number] ANTIGEN) (V76.44) Prostate Specific Ag, 1.7 ng/mL (Normal) Range: 0.0-4.0 Serum Comments: [employer] ECLIA methodology. .According to the [place] [employer], Serum PSA shoulddecrease and remain at undetectable levels after radicalprostatectomy. The AUA defines biochemical recurrence as an initialPSA value 0.2 ng/mL or greater followed by a subsequent confirmatoryPSA value 0.2 ng/mL or greater.Values obtained with d ifferent assay methods or kits cannot be usedinterchangeably. Results cannot be interpreted as absolute evidenceof the presence or absence of malignant disease. 0-Evf-327306:44 TESTOSTERONE FREE (96613) Comments: PATIENT WAS FASTINGPERFORMED BY: Style Jukebox RoadDublin [place] [id number] BY: StraighterLine[address] [id number] Free Testosterone(Direct) 13.2 pg/mL (Normal) Range: 7.2-24.0 :34 HgA1C , Office (08469) HgA1C , Office 5.7 % (Normal) Range: 4.6 - 7.1 :58 Microscopic Examination Comments: PATIENT WAS FASTINGPERFORMED BY: BinWiseWilliam [place] [id number] [facility] [id number] BY: Stra[address] [id number] Bacteria Few (Normal) Mucus Threads Present (Normal) Epithelial Cells (non renal) None seen {/hpf} (Normal) Range: 0 - 10 RBC 0-3 {/hpf} (Normal) Range: 0 - 3 WBC 0-5 {/hpf} (Normal) Range: 0 - 5 :58 URINALYSIS, W/ MICRO Comments: PATIENT WAS FASTINGPERFORMED BY: [place]ise[place] 2614770 [facility] [id number] BY: [address] [id number] (55230) Microscopic Examination See below: (Normal) Microscopic Examination MICRON (Normal) Comments: Microscopic follows if indicated. Nitrite, Urine Negative (Normal) Urobilinogen,Semi-Qn 0.2 mg/dL (Normal) Range: 0.0-1.9 Bilirubin Negative (Normal) Occult Blood Negative (Normal) Ketones Negative (Normal) Glucose Negative (Normal) Protein Negative (Normal) WBC Esterase Negative (Normal) Appearance Clear (Normal) pH 6.5 (Normal) Range: 5.0-7.5 Urine-Color Yellow (Normal) Specific [place]field 1.020 (Normal) Range: 1.005-1.030 :58 CBC WITH MANUAL DIFF Comments: PATIENT WAS FASTINGPERFORMED BY: [place] [id number] [facility] [id number] BY: [place] [address] [facility] [id number] Inf ormation: [id number] (98673) Immature Grans (Abs) 0.0 {x10E3/uL} (Normal) Range: [...] 4.14-5.80 WBC 7.3 {x10E3/uL} (Normal) Range: 4.0-10.5 -Jan-20138:58 TESTOSTERONE FREE (11254) Comments: PATIENT WAS FASTINGPERFORMED BY: [facility]CoSaint [facility] Hospital at DoverHjasgt8908 [facility] [id number] BY: Straighter[address] [id number] Free Testosterone(Direct) 8.1 pg/mL (Normal) Range: 7.2-24.0 :58 LIPID PANEL (84647) Comments: PATIENT WAS FASTINGPERFORMED BY: [place]Line[place] 2614770 [facility] [id number] BY: [address] [id number] LDL Cholesterol Calc 73 mg/dL (Normal) Range: [...] METABOLIC PANEL, Comments: PATIENT WAS FASTINGPERFORMED BY: BinWiseSaint Clare's Hospital at DoverOngoxe2564 [facility] [id number] BY: V[address] [id number] COMPREHENSIVE (44717) ALT (SGPT) 19 [iU]/L (Normal) Range: 0-44 [...] (Abnormal) Range: 65-99 :05 HgA1C , Office (98515) HgA1C , Office 5.7 % (Normal) Range: 4.6 - 7.1 :41 MICROALBUMIN: CREATININE RATIO Comments: PATIENT WAS FASTINGPERFORMED BY: Giftiki70 [facility] [id number] (66870) AND (09669) Microalb/Creat Ratio 2.2 {mg/g_creat} (Normal) Range: 0.0-30.0 Microalbumin, Urine 2.6 ug/mL (Normal) Range: 0.0-17.0 Creatinine, Urine 118.0 mg/dL (Normal) Range: 22.0-328.0 :41 METABOLIC PANEL, COMPREHENSIVE Comments: PATIENT WAS FASTINGPERFORMED BY: Giftiki70 [facility] [id number]; f/u 06/17/12 (14386) ALT (SGPT) 19 [iU]/L (Normal) Range: 0-55 [...] mg/dL (Abnormal) Range: 65-99 :41 LIPID PANEL (11485) Comments: PATIENT WAS FASTINGPERFORMED BY: Style Jukebox [facility] [id number] LDL/HDL Ratio 1.2 {ratio_units} (Normal) Range: 0.0-3.6 LDL Cholesterol Calc 72 mg/dL (Normal) Range: 0-99 VLDL Cholesterol Compa 25 mg/dL (Normal) Range: 5-40 HDL Cholesterol 61 mg/dL (Normal) Comments: According to ATP-III Guidelines, HDL-C >59 mg/dL is considered anegative risk factor for CHD. Triglycerides 124 mg/dL (Normal) Range: 0-149 Cholesterol, Total 158 mg/dL (Normal) Range: 100-199 :11 HgA1C , Office (26145) HgA1C , Office 5.8 % (Normal) Range: 4.6 - 7.1 :11 Blood Glucose , Office (07035) Blood Glucose , Office 143 (Normal) :48 C-REACT PROT HIGH Comments: PATIENT WAS FASTINGPERFORMED BY: Giftiki70 [facility] [id number] Information: [id number], 2ND ORDER NO DRAW FEE SENS(hsCRP) (37094) C-Reactive Protein, Cardiac 1.32 mg/L (Normal) Range: 0.00-3.00 Comments: Relative Risk for Future Cardiovascular Event Low <1.00 Average 1.00 - 3.00 High >3.00 16-Dne-170734:06 ANKLE,MIN 3 VIEWS Radiology Report See Note [...] radiologist regarding this report, please call our [id number] line @ [phone] Dictated on 01/14/12 1000 by MARSHA STONE MD, BTranscribed on 01/14/12 1246 by ITS IMPORTSign by MARSHA STONE MD on 01/14/12 1246 Sign by: _ MARSHA STONE MD 10-Cpu-593783:06 KNEE,4 OR MORE VIEWS Radiology Report See [...] radiologist regarding this report, please call our [id number] line @ Dictated on 01/14/12 1000 by MARSHA STONE MD, BTranscribed on 01/14/122 by ITS IMPORTSign by MARSHA STONE MD on 01/14/12 1353 Sign by: MARSHA STONE MD CCP Antibodies 10 {units} Comments: PATIENT NOT FASTINGPERFORMED BY: Style Jukebox [facility] [id number] BY: Vocal[address] [id number] 29:40 IgG/IgA (Normal) Range: 0-19 Comments: Negative <20 Weak positive 20 - 39 Moderate positive 40 - 59 Strong positive >59 :40 Uric Acid Blood (94296) Comments: PATIENT NOT FASTINGPERFORMED BY: Giftiki70 [facility] [id number] BY: [address] [id number] Uric Acid, Serum 6.8 mg/dL (Normal) Range: 3.7-8.6 Comments: Therapeutic target for gout patients: <6.0 :40 SED RATE ERYTHROCYTE Comments: PATIENT NOT FASTINGPERFORMED BY: Giftiki70 [facility] [id number] BY: V[address] [id number] (49965) Sedimentation Rate-Westergren 18 mm/h (Normal) Range: 0-30 :40 C-REACTIVE PROTEIN (49509) Comments: PATIENT NOT FASTINGPERFORMED BY: Giftiki70 [facility] [id number] BY: [address] [id number] C-Reactive Protein, Quant 34.9 mg/L (Abnormal) Range: 0.0-4.9 :40 TSH (07815) Comments: PATIENT NOT FASTINGPERFORMED BY: [place] 7134470 [facility] [id number] BY: [address] [id number] TSH 1.990 {uIU/mL} (Normal) Range: 0.450-4.500 :40 RHEUMATOID FACTOR-QUANT Comments: PATIENT NOT FASTINGPERFORMED BY: LabBrian [place] 6978070 [facility] [id number] BY: [address] [id number] (87858) RA Latex Turbid. 11.3 {IU/mL} (Normal) Range: 0.0-13.9 :40 VICTOR HUGO (ANTINUCLEAR ANTIBODY) Comments: PATIENT NOT FASTINGPERFORMED BY: [place] 7134470 [facility] [id number] BY: [address] [id number] (49053) VICTOR HUGO Direct Negative (Normal) :40 CBC WITH MANUAL DIFF Comments: PATIENT NOT FASTINGPERFORMED BY: [place] 7134470 [facility] [id number] BY: [address] [id number] Inf ormation: [id number] (58446) Immature Grans (Abs) 0.0 {x10E3/uL} (Normal) Range: [...] 4.10-5.60 WBC 10.5 {x10E3/uL} (Normal) Range: 4.0-10.5 69-Tom-28029:40 METABOLIC PANEL, Comments: PATIENT NOT FASTINGPERFORMED BY: CB [facility] Hdppvf3517 [facility] [id number] BY: BN [facility] [address] [id number] [facility] (35008) ALT (SGPT) 15 [iU]/L (Normal) Range: 0-55 [...] METABOLIC PANEL, Comments: PATIENT WAS FASTINGPERFORMED BY: LabCoSaint Clare's Hospital at DoverCjlgfq8145 [facility] [id number] Information: [id number] COMPREHENSIVE (35366) ALT (SGPT) 16 [iU]/L (Normal) Range: 0-55 [...] mg/dL (Normal) Range: 65-99 :47 LIPID PANEL (77445) Comments: PATIENT WAS FASTINGPERFORMED BY: Giftiki70 [facility] [id number] LDL/HDL Ratio 1.4 {ratio_units} (Normal) Range: 0.0-3.6 LDL Cholesterol Calc 78 mg/dL (Normal) Range: 0-99 VLDL Cholesterol Compa 21 mg/dL (Normal) Range: 5-40 HDL Cholesterol 54 mg/dL (Normal) Comments: According to ATP-III Guidelines, HDL-C >59 mg/dL is considered anegative risk factor for CHD. Triglycerides 107 mg/dL (Normal) Range: 0-149 Cholesterol, Total 153 mg/dL (Normal) Range: 100-199 :17 HgA1C , Office (64805) HgA1C , Office 5.6 % (Normal) Range: 4.6 - 7.1 9-Rdp-757633:29 PSA (PROSTATE SPECIFIC Comments: PATIENT WAS FASTINGPERFORMED BY: [facility] [id number] ANTIGEN) (V76.44) Prostate Specific Ag, 1.2 ng/mL (Normal) Range: 0.0-4.0 Serum Comments: Lauren ECLIA methodology. .According to the [place] [employer], Serum PSA shoulddecrease and remain [...] CREATININE RATIO Comments: PATIENT WAS FASTINGPERFORMED BY: Differential6370 [facility] [id number] (38734) AND (57184) Microalb/Creat Ratio 1.8 {mg/g_creat} (Normal) Range: 0.0-30.0 Microalbumin, Urine 2.3 ug/mL (Normal) Range: 0.0-17.0 Creatinine, Urine 130.7 mg/dL (Normal) Range: 22.0-328.0 :29 CBC WITH MANUAL DIFF Comments: PATIENT WAS FASTINGPERFORMED BY: BinWiseCrownpoint Health Care FacilityTpkzxx7538 [facility] [id number] Information: [id number] (97458) Immature Grans (Abs) 0.0 {x10E3/uL} (Normal) Range: [...] 4.10-5.60 WBC 7.6 {x10E3/uL} (Normal) Range: 4.0-10.5 9-Wpo-810236:29 METABOLIC PANEL, COMPREHENSIVE Comments: PATIENT WAS FASTINGPERFORMED BY: LabCoSaint Clare's Hospital at DoverNgfspo7231 [facility] [id number] (51689) ALT (SGPT) 22 [iU]/L (Normal) Range: 0-55 [...] Glucose, Serum 106 mg/dL (Abnormal) Range: 65-99 :29 LIPID PANEL (26310) Comments: PATIENT WAS FASTINGPERFORMED BY: [facility] [id number]; appt 10/17/11 LDL/HDL Ratio 1.3 {ratio_units} (Normal) Range: 0.0-3.6 LDL Cholesterol Calc 73 mg/dL (Normal) Range: 0-99 VLDL Cholesterol Compa 18 mg/dL (Normal) Range: 5-40 HDL Cholesterol 56 mg/dL (Normal) Comments: According to ATP-III Guidelines, HDL-C >59 mg/dL is considered anegative risk factor for CHD. Triglycerides 90 mg/dL (Normal) Range: 0-149 Cholesterol, Total 147 mg/dL (Normal) Range: 100-199 :21 Metabolic Panel, Comprehensive Comments: PATIENT WAS FASTINGPERFORMED BY: Giftiki70 [facility] [id number] (22052) ALT (SGPT) 20 [iU]/L (Normal) Range: 0-55 [...] Glucose, Serum 97 mg/dL (Normal) Range: 65-99 66-Oti-891245:21 URINALYSIS (73716) Comments: PATIENT WAS FASTINGPERFORMED BY: LabCoSaint [facility]'s Hospital at DoverXjawrg5377 [facility] [id number] Microscopic Examination MICRON (Normal) Comments: Microscopic follows if indicated. Nitrite, Urine Negative (Normal) Bilirubin Negative (Normal) Ketones Negative (Normal) Occult Blood Negative (Normal) Urobilinogen,Semi-Qn 0.2 mg/dL (Normal) Range: 0.0-1.9 Appearance Clear (Normal) Glucose Negative (Normal) pH 7.0 (Normal) Range: 5.0-7.5 Protein Negative (Normal) Urine-Color Yellow (Normal) WBC Esterase Negative (Normal) Specific [place]field 1.017 (Normal) Range: 1.005-1.030 67-Rpz-467584:21 CBC with manual diff Comments: PATIENT WAS FASTINGPERFORMED BY: [employer] Qljwzl1588 [facility] [id number] Information: ADD [id number] AND DRAW FEE 99 1083 (92962) Baso (Absolute) 0.0 {x10E3/uL} (Normal) Range: 0.0-0.2 [...] 4.10-5.60 WBC 7.6 {x10E3/uL} (Normal) Range: 4.0-10.5 77-Dfo-334254:21 TSH (20734) Comments: PATIENT WAS FASTINGPERFORMED BY: LabCo Kbleny5555 [facility] [id number] TSH 1.370 {uIU/mL} (Normal) Range: 0.450-4.500 56-Pcx-643986:21 Lipid Panel (88293) Comments: PATIENT WAS FASTINGPERFORMED BY: Differential6370 [facility] [id number] LDL Cholesterol Calc 81 mg/dL (Normal) Range: 0-99 LDL/HDL Ratio 1.4 {ratio_units} (Normal) Range: 0.0-3.6 HDL Cholesterol 58 mg/dL (Normal) Comments: According to ATP-III Guidelines, HDL-C >59 mg/dL is considered anegative risk factor for CHD. VLDL Cholesterol Compa 15 mg/dL (Normal) Range: 5-40 Triglycerides 76 mg/dL (Normal) Range: 0-149 Cholesterol, Total 154 mg/dL (Normal) Range: 100-199 67-Tbr-923786:21 PSA (Prostate Specific Comments: PATIENT WAS FASTINGPERFORMED BY: Differential6370 [facility] [id number] Antigen), Screening (54610) Prostate Specific Ag, 0.9 ng/mL (Normal) Range: 0.0-4.0 Serum Comments: [employer] ECLIA methodology. .According to the [place] [employer], Serum PSA shoulddecrease and remain at undetectable levels after radicalprostatectomy. The AUA defines biochemical recurrence as an initialPSA value 0.2 ng/mL or greater followed by a subsequent confirmatoryPSA value 0.2 ng/mL or greater.Values obtained with d ifferent assay methods or kits cannot be usedinterchangeably. Results cannot be interpreted as absolute evidenceof the presence or absence of malignant disease. 12-Ubx-56460:50 BRAIN W/WO CONTRAST Radiology Report See Note (Normal) Comments: Exam Number: [id number] CLINICAL: Right hand, fifth digit numbness two [...] demonstrated an eurysm or occlusion of the sleetmute of [place]. Normal bilateral temporal bones, with [...] (PROSTATE SPECIFIC Comments: PATIENT WAS FASTINGPERFORMED BY: [facility]6370 [facility] [id number] ANTIGEN) (V76.44) Prostate Specific Ag, Serum 0.8 ng/mL (Normal) Range: 0.0-4.0 Comments: RevionicsIA methodology. .According to the [place] [employer], PSA should beundetectable after radical prostatectomy. A PSA of less than0.5 ng/mL (or undetectable) is not likely to be associated withdisease recurrence within five years of treatment.Values obtained with different assay methods or kits cannot be usedinterchang eably. Results cannot be interpreted as absolute evidenceof the presence or absence of malignant disease. :59 LIPID PANEL (99786) Comments: PATIENT WAS FASTINGPERFORMED BY: StraighterLineSaint Clare's Hospital at DoverCdqfxg1994 [facility] [id number] Cholesterol, Total 248 mg/dL (Abnormal) Range: 100-199 HDL Cholesterol 56 mg/dL (Normal) Comments: According to ATP-III Guidelines, HDL-C >59 mg/dL is considered anegative risk factor for CHD. LDL Cholesterol Calc 161 mg/dL (Abnormal) Range: 0-99 LDL/HDL Ratio 2.9 {ratio_units} (Normal) Range: 0.0-3.6 Triglycerides 157 mg/dL (Abnormal) Range: 0-149 VLDL Cholesterol Compa 31 mg/dL (Normal) Range: 5-40 :59 URINALYSIS W/O MICRO (39014) Comments: PATIENT WAS FASTINGClinical Information: ADD [id number], [id number] PERFORMED BY: [employer] Ezbuve8106 [facility] [id number] Appearance Clear (Normal) Bilirubin Negative (Normal) Glucose Negative (Normal) Ketones Negative (Normal) Microscopic Examination MICRON (Normal) Comments: Microscopic follows if indicated. Nitrite, Urine Negative (Normal) Occult Blood Negative (Normal) pH 6.0 (Normal) Range: 5.0-7.5 Protein Negative (Normal) Specific [place]field 1.019 (Normal) Range: 1.005-1.030 Urine-Color Yellow (Normal) Urobilinogen,Semi-Qn 0.2 mg/dL (Normal) Range: 0.0-1.9 WBC Esterase Negative (Normal) :59 VITAMIN B-12 (CYANOCOBALAMIN) Comments: PATIENT WAS FASTINGPERFORMED BY: StraighterLineSaint Clare's Hospital at DoverHdbeuj3853 [facility] [id number] (70219) Vitamin B12 395 pg/mL (Normal) Range: 211-911 :59 TSH (76305) Comments: PATIENT WAS FASTINGPERFORMED BY: StraighterLineSaint Clare's Hospital at DoverWqubwr7335 [facility] [id number] TSH 2.820 {uIU/mL} (Normal) Range: 0.450-4.500 Comments: [...] On: :30 Request CBC with auto diff (92493)Indication: Impaired fasting glucose On: :30 Request HGB A1C (29361)Indication: Impaired fasting glucose On: :30 Request LIPID PANEL (53810)Indication: Other hyperlipidemia On: : Request METABOLIC PANEL, COMPREHENSIVE (78357)Indication: Hypertensive heart disease without heart failure On: :30 Request Hemoglobin Glyclated (HGB A1C) (37186)Indication: Impaired fasting glucose On: :32 Request MICROALBUMIN: CREATININE RATIO (07654) AND (00873)Indication: Impaired fasting glucose On: :32 Request CBC W/AUTO DIFF WBC (20511)Indication: Hypertensive heart disease without heart failure On: :32 Request METABOLIC PANEL, COMPREHENSIVE (64861)Indication: Hypertensive heart disease without heart failure On: :32 Request LIPID PANEL (75764)Indication: Other hyperlipidemia On: :32 Request CBC W/AUTO DIFF WBC (04396)Indication: Impaired fasting glucose On: :40 Request MICROALBUMIN: CREATININE RATIO (16745) AND (60283)Indication: Impaired fasting glucose On: :40 Request METABOLIC PANEL, COMPREHENSIVE (68480)Indication: Impaired fasting glucose On: :40 Request LIPID PANEL (87784)Indication: Other hyperlipidemia On: :40 Request HEPATIC FUNCTION PANEL (89700)Indication: Onychomycosis On: :22 Request CCP ANTIBODY (86491)Indication: Pain in unspecified joint On: :27 Request METABOLIC PANEL, COMPREHENSIVE (89166)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 On: 1-Eiz-974447:13 Request LIPID PANEL (69860)Indication: Other hyperlipidemia On: 9-Jnt-382058:13 Request LIPID PANEL (56818)Indication: Other hyperlipidemia On: 09-Ros-806086:14 Request METABOLIC PANEL, COMPREHENSIVE (01452)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 On: 52-Psq-374180:14 Request Planned Encounters Medical; JOSELYN 4 Month Fu - On: 06-Feb-2019 7:00 [facility] Fast DO, Darlin A Fast DO, Darlin A Planned Procedures MRI OF LEFT KNEE WITHOUT CONTRAST On: 11-Jul-2018 Intent (43889)By: Maik VOSS, Darlin A Fast DO, Darlin A ELECTROCARDIOGRAM, COMPLETE (ECG) On: 27-Jun-2018 Intent (82383)By: Maik VOSS, Darlin A Maik Comments: ekg showed normal sinus [...] bearing ELECTROCARDIOGRAM, COMPLETE (ECG) On: 12-Jun-2017 Intent (20955)By: Darlin Pleitez DO A Maik Comments: ekg showed normal sinus rhythym, normal axis, no acute st/t wave changes sinus edna DO, Darlin A ZOSTER VACC, [place] (30547)By: Maik VOSS, On: 12-Jun-2017 Intent Darlin A Fast DO, Darlin A Comments: lot: [id number]: 01/03/18ite/route: R arm/SQamt: 0.65mL reconsituted with sterile diluentVIS signed when applicableCheMARTHA arreguin ELECTROCARDIOGRAM, COMPLETE (ECG) On: 11-Jun-2016 Intent (57137)By: Darlin Pleitez DO Comments: ekg showed normal sinus rhythym, normal axis, no acute st/t wave changes sinus edna DO, Darlin A Aerosol Treatment (87297)By: John On: 29-Apr-2014 Intent Maria Luz VOSS Comments: more ae- still noisy but not as rough Solu- Medrol Injection, 125mg On: 29-Apr-2014 Intent (J2930)By: John DO Maria Luz Comments: lot: [id number]: ite/route: RGM/IMamt: 2mLVIS signed when applicableMARTHA Tello EKG (06596)By: Fast DO, Darlin A On: 23-Apr-2014 Intent Fast DO, Darlin A Comments: ekg showed normal sinus rhythym, normal axis, no acute st/t wave changes Eprescribed prescriptions On: 29-Sep-2013 Intent (G8553)By: Caridad Lopez Eprescribed prescriptions On: 19-May-2013 Intent (G8553)By: Caridad Lopez EKG (27307)By: Caridad Lopez On: 15-Jan-2013 Intent Comments: ekg showed normal sinus rhythym, normal axis, no acute st/t wave changes Eprescribed prescriptions On: 15-Jan-2013 Intent (G8553)By: Caridad Lopez Radiology - Knee - LeftBy: Ciesa On: 14-Jan-2012 Intent ELENA Edith Radiology - Ankle - LeftBy: Ciesa On: 14-Jan-2012 Intent ELENA Edith Eprescribed prescriptions On: 17-Oct-2011 Intent (G8553)By: Fast DO, Darlin A Fast DO, Darlin A Radiology - Chest- PA and LatBy: On: 17-Oct-2011 Intent Fast DO, Darlin A Fast DO, Darlin A FLU VAC, SPLIT, >3 YEARS, INTRAMUSC On: 17-Oct-2011 Intent (95602)By: Caridad Lopez Comments: received at work EKG (46649)By: Fast DO, Darlin A On: 04-Sep-2011 Intent Fast DO, Darlin A Comments: ekg showed normal sinus rhythym, normal axis, no acute st/t wave changes no change Radiology - Chest- PA and LatBy: On: 25-Oct-2010 Intent Fast DO, Darlin A Fast DO, Darlin A TDAP VACCINE >7 IM (67188)By: Fast On: 08-Nov-2009 Intent DO, Darlin A Fast DO, Darlin A Comments: Lot #[id number]/17/2011Site-left deltoidDose0.5mlgiven by Jonathan Fry LPN Echo CompleteBy: Fast DO, Darlin A On: 15-Jul-2009 Intent Fast DO, Darlin A EKG (92376)By: Fast DO, Darlin A On: 15-Jul-2009 Intent [...] acuity (Dr. Nieto). Note for Physical exam: [facility], [ADDITIONAL REASON] Follow up, Laboratory Test Results - Date: (05/2016- [facility] labs). Encounter Diagnosis: BMI 33.0-33.9,adult, Nonsmoker, [...]
--- OUTSIDE RECORDS SUMMARY | 2019-02-24 14:50 | XMS RPT_ITS | Continuity of Care Document ---
:1960 Author Organization [facility] Address [address] [facility] [address] [place] [address] Phone Care Team Providers Name Role Phone [...] Start : 06-Apr-2013 End : 06-Apr-2013 Inactive Buckley 5-325 MG Oral Tablet 1 (one) Tablet [...] Only (Routine) Result: Comments: See Note; NOTES: [facility] Imaging Services [address] [place] [address] Lower Ext Joint Only (Routine) MR#: [id number] Acct: [id number] Name: TRACEY SCOTT Rep #: [id number] : 1960 M 57 From: Mulu Napoles MD PCP: Darlin Pleitez DO Status: REG CLI Study: Lower Ext Joint Only (Routine) Date of Exam: 07/17/18 Exam# [id number] Ordering Dr: Darlin Pleitez DO STUDY: MRI [...] Service support , CC: Darlin Pleitez DO Industrial Renderer: Signed 11-Jul-2018 TXT - Blood Flow Screening Result: Comments: See Note; NOTES: [facility] Cardiovascular Services [address] [place] [address] 07/10/18 0821 MR#: [id number] Acct: [id number] Name: TRACEY SCOTT Rep #: [id number] : 1960 57 From: Bolivar Palomo MD Attending Dr: Darlin Pleitez DO Status: REG REF Ordering Dr: Date: 07/11/18 Location: [facility] Sex: M C Admitted: Reason For Study: [...] DO Date Dictated: 07/10/18820 Date Transcribed: 07/11/18821 Industrial Renderer: Signed 27-Jun-2018 Inital Evaluation (1) - PT Result: Comments: See Note; NOTES: [facility] Physical Therapy Health[address] [place], [place] [address] Fax REHABILITATION SERVICES INITIAL EVALUATION MR#: [id number] Acct: [id number] Name: TRACEY SCOTT Rep #: [id number] : 1960 57 From: Soraya STEVENS Referring [...] His bed is firm and bought a pillTraktoPRO mattress coer and that has helped to sleep. The pain does wake him up at [facility]. No N AND T. Hard to drive...could [...] to be FAXED BACK to us at [phone] for Medicare purposes. Please let me know if there are questions or concerns regarding this plan of care. Physician Signature: ____Date: <Electronically signed by Soraya Brown MPT> 06/27/18 1230 CC: Darlin Pleitez DO Signed For Medicare only, by signing this I certify the plan of care. Physicians Signature Date 07-Jun-2018 Venous Duplex Lower Extremity Result: Comments: See Note; NOTES: [facility] Cardiovascular Services [address] [place] [address] Venous Duplex US, Unilateral 06/06/18 1420 MR#: [id number] Acct: [id number] Name: TRACEY KANG Rep #: [id number] : 1960 57 From: Bolivar Palomo MD Attending Dr: Darlin Pleitez DO Status: REG CLI Ordering Dr: Darlin Pleitez DO Date: 06/06/18 Location: [facility] Sex: M C Admitted: [place] son For Study: LEG PAIN RIGHT LEFT [...] Dictated: 06/06/18 1420 Date Transcribed: 06/07/18 1531 Industrial Renderer: Signed 06-Jun-2018 Knee 4 or More Views Result: Comments: See Note; NOTES: [facility] Imaging Services [address] [place] [address] Knee 4 or More Views MR#: [id number] Acct: [id number] Name: TRACEY SCOTT Rep #: [id number] : 1960 M 57 From: Winston Allred DO PCP: Darlin Pleitez DO Status: REG CLI Study: Knee 4 or More Views Date of Exam: 06/06/18 Exam# [id number] Ordering Dr: Darlin Pleitez DO STUDY: X-RAY [...] Winston Allred DO at 8:52 EDT Tel [phone], Service support , CC: Darlin Pleitez DO Industrial Renderer: Signed 06-Jun-2018 L/S Spine Min 4 Views Result: Comments: See Note; NOTES: [facility] Imaging Services [address] [place] [address] L/S Spine Min 4 Views MR#: [id number] Acct: [id number] Name: TRACEY SCOTT Margo Rep #: [id number] : 1960 57 From: Winston Allred DO PCP: Darlin Pleitez DO Status: REG CLI Study: L/S Spine Min 4 Views Date of Exam: 06/06/18 Exam# [id number] Ordering Dr: Darlin Pleitez DO STUDY: X-RAY [...] Winston Allred DO at 9:11 EDT Tel [phone], Service support , CC: Darlin Pleitez DO Industrial Renderer: Signed 26-Oct-2015 EKG (82416) Comments: ekg- sinus edna normal axis no acute st t wave changes Result: [MEASUREMENTS ANALYSIS] Date of Test: 10/26/2015 08:45:17; Heart Rate: 56; IN Interval: 170; QRS: 96; QT Interval: 412; Corrected QT Interval (QTc): 405; P Wave [place]: 29; QRS Wave [place]: 23; T Wave [place]: 17; Blood Pressure: 112/76 [ECG DIAGNOSTIC STATEMENTS] Date of Test: 10/26/2015 08:45:17; Summary: Sinus Bradycardia WITHIN NORMAL LIMITS 29-Apr-2014 Spirometry (63013) Comments: poor techniq but really bad obstruction which is consistent with exam Result: Immunization Name Dates Details Tdap (7 years and up) on: 08-Nov-2009 Comments: Lot #[id number]/17/2011Site-left deltoidDose0.5mlgiven by Jonathan Fry LPN Family History [...] Value Details :00 Crystals, Body Fluid Comments: [facility] [address] [place], [address] PATH REV Reviewed (Normal) Comments: No diagnostic crystals seen.Seth Velazco D.O. 08/01/18 AMENDED REPORT 08/01/18 1230 PATH REV previously reported as: Will follow SOURCE/BF SYNOVIAL (Normal) CRYSTALS/BF SEE PATH REV (Normal) 30-Off-96751:00 Culture, Body Fluid Comments: [facility] [address] [place], [address] CUBF See Note (Normal) Comments: List Antibiotics Last 48 Hours? UNKList Antibiotics to be Started? UNKGram StainCentrifuged Specimen? Culture performed on centrifuged specimen Gram Stain 4+ Red Blood Cells 4+ White Blood C ells No organisms seen Body Fluid CultNO GROWTH IN 14 DAYS Cult, AnaerobicNo growth in 5 days. 33-Qfm-15335:53 MICROALBUMIN: CREATININE RATIO Comments: PATIENT WAS FASTINGPERFORMED BY: Dokogeo70 [facility] [id number] (84121) AND (66612) Alb/Creat Ratio 5.7 {mg/g_creat} (Normal) Range: 0.0-30.0 Comments: Normal: 0.0 - 30.0 Albuminuria: 31.0 - 300.0 Clinical albuminuria: >300.0 Albumin, Urine 7.6 ug/mL (Normal) Creatinine, Urine 133.6 mg/dL (Normal) 44-Thy-31738:53 METABOLIC PANEL, COMPREHENSIVE Comments: PATIENT WAS FASTINGPERFORMED BY: Dokogeo70 [facility] [id number] (62454) ALT (SGPT) 15 [iU]/L (Normal) Range: 0-44 [...] 6-24 Glucose 109 mg/dL (Abnormal) Range: 65-99 41-Xmc-40007:53 HGB A1C (48697) Comments: PATIENT WAS FASTINGPERFORMED BY: Dokogeo70 [facility] [id number] Hemoglobin A1c 5.6 % (Normal) Range: 4.8-5.6 Comments: . Prediabetes: 5.7 - 6.4 Diabetes: >6.4 Glycemic control for adults with diabetes: <7.0 :53 LIPID PANEL (05564) Comments: PATIENT WAS FASTINGPERFORMED BY: Dokogeo70 [facility] [id number] LDL/HDL Ratio 1.6 {ratio} (Normal) Range: 0.0-3.6 Comments: LDL/HDL Ratio Men Women 1/2 Avg.Risk 1.0 1.5 Av g.Risk 3.6 3.2 2X Avg.Risk 6.2 5.0 3X Avg.Risk 8.0 6.1 LDL Cholesterol Calc 73 mg/dL (Normal) Range: 0-99 VLDL Cholesterol Compa 16 mg/dL (Normal) Range: 5-40 HDL Cholesterol 47 mg/dL (Normal) Triglycerides 80 mg/dL (Normal) Range: 0-149 Cholesterol, Total 136 mg/dL (Normal) Range: 100-199 38-Fmx-34229:53 C-REACT PROT HIGH SENS(hsCRP) Comments: PATIENT WAS FASTINGPERFORMED BY: OPAL TherapeuticsOcean Medical CenterRzunde7843 [facility] [id number] (84194) C-Reactive Protein, Cardiac 4.66 mg/L (Abnormal) Range: 0.00-3.00 Comments: Relative Risk for Future Cardiovascular Event Low <1.00 Average 1.00 - 3.00 High >3.00 73-Jvf-15046:12 CBC with auto diff (80061) Comments: PATIENT WAS FASTINGPERFORMED BY: LabCoOcean Medical CenterRcxpov1303 [facility] [id number] Immature Grans (Abs) 0.0 {x10E3/uL} (Normal) Range: [...] CREATININE RATIO Comments: PATIENT WAS FASTINGPERFORMED BY: OPAL TherapeuticsOcean Medical CenterYzujba9341 [facility] [id number] (44385) AND (37111) Alb/Creat Ratio 2.8 {mg/g_creat} (Normal) Range: 0.0-30.0 Albumin, Urine 3.1 ug/mL (Normal) Creatinine, Urine 110.7 mg/dL (Normal) :12 METABOLIC PANEL, COMPREHENSIVE Comments: PATIENT WAS FASTINGPERFORMED BY: [employer] Tfsvem9111 [facility] [id number]; review 06/27 (06987) ALT (SGPT) 14 [iU]/L (Normal) Range: 0-44 [...] (Abnormal) Range: 65-99 :22 HgA1C , Office (63153) HgA1C , Office 5.5 % (Normal) Range: 4.6 - 7.1 8-Aep-901103:45 Microscopic Examination Comments: PATIENT WAS FASTINGPERFORMED BY: Auctionata [employer]KT [employer] [facility] [id number] Bacteria None seen (Normal) Epithelial Cells (non renal) None seen {/hpf} (Normal) Range: 0 - 10 RBC 0-2 {/hpf} (Normal) Range: 0 - 2 WBC 0-5 {/hpf} (Normal) Range: 0 - 5 :45 PSA (PROSTATE SPECIFIC Comments: PATIENT WAS FASTINGPERFORMED BY: Joyent [facility]NOW[facility] [id number] ANTIGEN) (V76.44) Prostate Specific Ag, 1.3 ng/mL (Normal) Range: 0.0-4.0 Serum Comments: PebbleIA methodology. .According to the [place] [employer], Serum PSA shoulddecrease and remain [...] of malignant disease. :45 URINALYSIS, W/ MICRO (29343) Comments: PATIENT WAS FASTINGPERFORMED BY: SuperDimension6370 [facility] [id number] Microscopic Examination See below: (Normal) Comments: Microscopic was indicated and was performed. Microscopic Examination MICRON (Normal) Comments: Microscopic follows if indicated. Nitrite, Urine Negative (Normal) Urobilinogen,Semi-Qn 0.2 mg/dL (Normal) Range: 0.2-1.0 Bilirubin Negative (Normal) Occult Blood Negative (Normal) Ketones Negative (Normal) Glucose Negative (Normal) Protein Negative (Normal) WBC Esterase Negative (Normal) Appearance Clear (Normal) Urine-Color Yellow (Normal) pH 6.0 (Normal) Range: 5.0-7.5 Specific [place] 1.011 (Normal) Range: 1.005-1.030 3-Goo-214428:45 CBC W/AUTO DIFF WBC (39117) Comments: PATIENT WAS FASTINGPERFORMED BY: Joyent [facility] [id number] Immature Grans (Abs) 0.0 {x10E3/uL} (Normal) Range: [...] 4.14-5.80 WBC 7.8 {x10E3/uL} (Normal) Range: 3.4-10.8 0-Sgy-155859:45 METABOLIC PANEL, COMPREHENSIVE Comments: PATIENT WAS FASTINGPERFORMED BY: [employer] [facility] [id number]; can review on 12/16 appt (43685) ALT (SGPT) 29 [iU]/L (Normal) Range: 0-44 [...] Glucose, Serum 101 mg/dL (Abnormal) Range: 65-99 5-Wdn-815841:45 LIPID PANEL (11909) Comments: PATIENT WAS FASTINGPERFORMED BY: LabCoOcean Medical CenterBtdbne8373 [facility] [id number] LDL/HDL Ratio 1.6 {ratio_units} (Normal) Range: 0.0-3.6 Comments: LDL/HDL Ratio Men Women 1/2 Avg.Risk 1.0 1.5 Av g.Risk 3.6 3.2 2X Avg.Risk 6.2 5.0 3X Avg.Risk 8.0 6.1 LDL Cholesterol Calc 92 mg/dL (Normal) Range: 0-99 VLDL Cholesterol Compa 31 mg/dL (Normal) Range: 5-40 HDL Cholesterol 56 mg/dL (Normal) Triglycerides 157 mg/dL (Abnormal) Range: 0-149 Cholesterol, Total 179 mg/dL (Normal) Range: 100-199 5-Vna-829811:45 HEPATITIS C ANTIBODY (96812) Comments: PATIENT WAS FASTINGPERFORMED BY: Vanksen Vddztl8698 [facility] [id number] Hep C Virus Ab <0.1 {s/co_ratio} (Normal) Range: 0.0-0.9 Comments: Negative: < 0.8 Indeterminate: 0.8 - 0.9 Positive: > 0.9 . The CDC recommends that a positive HCV antibody result be followed up with a HCV Nucleic Acid Amplification test (448889). 18-Mwy-28255:42 METABOLIC PANEL, COMPREHENSIVE Comments: PERFORMED BY: SuperDimension6370 [facility] [id number] (70876) ALT (SGPT) 21 [iU]/L (Normal) Range: 0-44 [...] Glucose, Serum 103 mg/dL (Abnormal) Range: 65-99 17-Ufh-232124:42 PSA (PROSTATE SPECIFIC Comments: PATIENT WAS FASTINGPERFORMED BY: [employer] [id number] BY: [employer] Eealws2905 [facility] [id number] ANTIGEN) (V76.44) Prostate Specific Ag, 1.2 ng/mL (Normal) Range: 0.0-4.0 Serum Comments: PebbleIA methodology. .According to the [place] [employer], Serum PSA shoulddecrease and remain at undetectable levels after radicalprostatectomy. The AUA defines biochemical recurrence as an initialPSA value 0.2 ng/mL or greater followed by a subsequent confirmatoryPSA value 0.2 ng/mL or greater.Values obtained with d ifferent assay methods or kits cannot be usedinterchangeably. Results cannot be interpreted as absolute evidenceof the presence or absence of malignant disease. 84-Pbj-018736:42 CBC with auto diff Comments: PATIENT WAS FASTINGPERFORMED BY: [employer] [id number] BY: OPAL TherapeuticsOcean Medical CenterJwninq3967 [facility] [id number] (90877) Immature Grans (Abs) 0.0 {x10E3/uL} (Normal) Range: [...] 4.14-5.80 WBC 7.5 {x10E3/uL} (Normal) Range: 3.4-10.8 38-Wqk-861791:42 HGB A1C (77842) Comments: PATIENT WAS FASTINGPERFORMED BY: [employer] [address] [id number] BY: Auctionata[address] [id number] Hemoglobin A1c 5.8 % (Abnormal) Range: 4.8-5.6 Comments: . Pre-diabetes: 5.7 - 6.4 Diabetes: >6.4 Glycemic control for adults with diabetes: <7.0 95-Cgz-525258:42 MICROALBUMIN: CREATININE Comments: PATIENT WAS FASTINGPERFORMED BY: [employer] [address] [id number] BY: [employer]AL [employer] [id number] RATIO (97586) AND (68437) Microalb/Creat Ratio <1.9 {mg/g_creat} (Normal) Range: 0.0-30.0 Microalbumin, Urine <3.0 ug/mL (Normal) Creatinine, Urine 160.7 mg/dL (Normal) 71-Pir-485658:42 LIPOPROTEIN, BLD, BY NMR Comments: PATIENT WAS FASTINGPERFORMED BY: [employer] [address] [place] [id number] BY: [place] [facility] Ryejoc1014 [facility]thea [facility] [id number]; non-emergent till apt (57726) LP-IR Score 50 (Abnormal) Comments: INSULIN RESISTANCE [...] were developed and their performance characteristicsdetermined by [employer]. These assays have not been cleared by [...] 1600 - 2000 Very High > 2000 58-Fpf-711000:42 METABOLIC PANEL, Comments: PATIENT WAS FASTINGPERFORMED BY: BN [facility] Memmflecqw9961 [facility][1] [id number] BY: CB [facility] Xmtcuf0271 [facility] [id number] COMPREHENSIVE (64136) ALT (SGPT) 18 [iU]/L (Normal) Range: 0-44 [...] (Normal) Range: 65-99 :07 HgA1C , Office (18855) HgA1C , Office 5.7 % (Normal) Range: 4.6 - 7.1 :06 PSA (PROSTATE SPECIFIC Comments: PATIENT WAS FASTINGPERFORMED BY: Dokogeo70 [employer] [facility] [id number] ANTIGEN) (V76.44) Prostate Specific Ag, 1.4 ng/mL (Normal) Range: 0.0-4.0 Serum Comments: Bantam Live ECLIA methodology. .According to the [place] [employer], Serum PSA shoulddecrease and remain [...] METABOLIC PANEL, Comments: PATIENT WAS FASTINGPERFORMED BY: SuperDimension6370 [employer] [facility] [id number] Information: [id number] COMPREHENSIVE (05696) ALT (SGPT) 20 [iU]/L (Normal) Range: 0-44 [...] mg/dL (Abnormal) Range: 65-99 :06 LIPID PANEL (66568) Comments: PATIENT WAS FASTINGPERFORMED BY: LabCoOcean Medical CenterItplxm5707 [facility] [id number] LDL/HDL Ratio 1.2 {ratio_units} (Normal) Range: 0.0-3.6 [...] (Normal) Range: 100-199 :09 HgA1C , Office (16863) HgA1C , Office 5.7 % (Normal) Range: 4.6 - 7.1 :25 CBC With Differential/Platelet Comments: PATIENT WAS FASTINGPERFORMED BY: [facility]CoO[facility] Medical CenterZdquyv4305 [facility] [id number] Information: [id number],[id number] Immature Grans (Abs) 0.0 {x10E3/uL} (Normal) Range: [...] 4.14-5.80 WBC 6.9 {x10E3/uL} (Normal) Range: 3.4-10.8 34-Prt-77285:25 Comp. Metabolic Panel (14) Comments: PATIENT WAS FASTINGPERFORMED BY: [facility]CoO[facility] Medical CenterAsfjwz2881 [facility] [id number] ALT (SGPT) 14 [iU]/L (Normal) Range: 0-44 [...] Glucose, Serum 91 mg/dL (Normal) Range: 65-99 97-Xle-33582:25 Lipid Panel With LDL/HDL Comments: PATIENT WAS FASTINGPERFORMED BY: [facility]Co[facility] CenterVoqtdz9952 [facility] [id number] Ratio LDL/HDL Ratio 1.2 {ratio_units} (Normal) Range: [...] Randm Ur Comments: PATIENT WAS FASTINGPERFORMED BY: OPAL TherapeuticsGerald Champion Regional Medical CenterPcfmwh7019 [facility] [id number] Microalb/Creat Ratio 3.4 {mg/g_creat} (Normal) Range: 0.0-30.0 Microalbumin, Urine 5.1 ug/mL (Normal) Range: 0.0-17.0 Creatinine, Urine 149.6 mg/dL (Normal) Range: 22.0-328.0 :00 HgA1C , Office (24344) HgA1C , Office 5.8 % (Normal) Range: 4.6 - 7.1 :00 Blood Glucose , Office (26646) Blood Glucose , Office 119 (Normal) :25 PSA (PROSTATE SPECIFIC Comments: PATIENT WAS FASTINGPERFORMED BY: [employer] Ypfesw1780 [facility] [id number] ANTIGEN) (V76.44) Prostate Specific Ag, 1.0 ng/mL (Normal) Range: 0.0-4.0 Serum Comments: Lauren ECLIA methodology. .According to the [place] [employer], Serum PSA shoulddecrease and remain [...] MANUAL DIFF Comments: PATIENT WAS FASTINGPERFORMED BY: Commex TechnologiesM[facility]6370 [facility] [id number] Information: [id number],[id number] (04486) Immature Grans (Abs) 0.0 {x10E3/uL} (Normal) Range: [...] 4.14-5.80 WBC 7.8 {x10E3/uL} (Normal) Range: 3.4-10.8 97-Gjs-714080:25 METABOLIC PANEL, COMPREHENSIVE Comments: PATIENT WAS FASTINGPERFORMED BY: [facility]6370 [facility] [id number] (75021) ALT (SGPT) 21 [iU]/L (Normal) Range: 0-44 [...] mg/dL (Normal) Range: 65-99 :25 LIPID PANEL (14882) Comments: PATIENT WAS FASTINGPERFORMED BY: [employer] [place] [id number] LDL/HDL Ratio 1.4 {ratio_units} (Normal) Range: 0.0-3.6 [...] (Normal) Range: 100-199 :50 HgA1C , Office (21011) HgA1C , Office 5.4 % (Normal) Range: 4.6 - 7.1 :53 LIPID PANEL (74209) Comments: PATIENT WAS FASTINGPERFORMED BY: [facility] [id number]; all normal labs and pt has appt [...] Cholesterol, Total 151 mg/dL (Normal) Range: 100-199 52-Vkv-693500:53 METABOLIC PANEL, Comments: PATIENT WAS FASTINGPERFORMED BY: [facility]CoO[facility] Medical CenterZofiee7931 [facility] [id number] Information: [id number],[id number] COMPREHENSIVE (37670) ALT (SGPT) 18 [iU]/L (Normal) Range: 0-44 [...] Glucose, Serum 95 mg/dL (Normal) Range: 65-99 23-Zig-245051:53 MICROALBUMIN: CREATININE RATIO Comments: PATIENT WAS FASTINGPERFORMED BY: [place] 0843070 [facility] [id number] (78336) AND (78469) Creatinine, Urine 27.5 mg/dL (Normal) Range: 22.0-328.0 Microalb/Creat Ratio 10.2 {mg/g_creat} (Normal) Range: 0.0-30.0 Microalbumin, Urine 2.8 ug/mL (Normal) Range: 0.0-17.0 :03 HgA1C , Office (45781) HgA1C , Office 5.6 % (Normal) Range: 4.6 - 7.1 :04 Influenza A&B Viral Comments: PATIENT NOT FASTINGPERFORMED BY: [facility]6370 [facility] [id number] Information: SRC:NOS ADD [id number] Culture (85921) Viral Culture,Rapid,Influenza FLUABN (Normal) Comments: Negative:No Influenza A or B detected. :00 Rapid Flu (62925 x 2) Influenza A Ag neg (Normal) :40 JOSLYN CULTURE-OTHER (28901) Comments: PATIENT NOT FASTINGPERFORMED BY: [facility]6370 [facility] [id number] Information: SRC:THRT ADD [id number] Result 1 RRF (Normal) Comments: Routine respiratory ghazala Upper Respiratory Culture Final report (Normal) :37 Rapid Strep Test, Office (17252) Rapid Strep Test, Office Negative (Normal) :57 HEPATIC FUNCTION PANEL Comments: PATIENT NOT FASTINGPERFORMED BY: [facility]6370 [facility] [id number] Information: 777106,[id number] (40080) ALT (SGPT) 19 [iU]/L (Normal) Range: 0-44 AST (SGOT) 15 [iU]/L (Normal) Range: 0-40 Alkaline Phosphatase, S 48 [iU]/L (Normal) Range: 44-102 Bilirubin, Direct 0.13 mg/dL (Normal) Range: 0.00-0.40 Bilirubin, Total 0.4 mg/dL (Normal) Range: 0.0-1.2 Albumin, Serum 4.5 g/dL (Normal) Range: 3.5-5.5 Protein, Total, Serum 6.6 g/dL (Normal) Range: 6.0-8.5 7-Kru-452008:03 HEPATIC FUNCTION PANEL Comments: PATIENT NOT FASTINGPERFORMED BY: [facility] Mbphoe7767 [facility] [id number] Information: [id number],[id number] (71661) ALT (SGPT) 15 [iU]/L (Normal) Range: 0-44 [...] DIFF Comments: PATIENT WAS FASTINGPERFORMED BY: [place] [employer] Nuqprk5220 [facility] [id number] Information: 660554,[id number] (83185) Immature Grans (Abs) 0.0 {x10E3/uL} (Normal) Range: [...] COMPREHENSIVE Comments: PATIENT WAS FASTINGPERFORMED BY: [place] Dex[employer]olin6370 [facility] [id number] (87649) ALT (SGPT) 22 [iU]/L (Normal) Range: 0-44 [...] Glucose, Serum 100 mg/dL (Abnormal) Range: 65-99 07-Rmk-44771:42 LIPID PANEL (74211) Comments: PATIENT WAS FASTINGPERFORMED BY: [facility]CoO[facility] Medical CenterIqtpbd6953 [facility] [id number] LDL/HDL Ratio 1.4 {ratio_units} (Normal) Range: 0.0-3.6 LDL Cholesterol Calc 75 mg/dL (Normal) Range: 0-99 VLDL Cholesterol Compa 16 mg/dL (Normal) Range: 5-40 HDL Cholesterol 53 mg/dL (Normal) Comments: According to ATP-III Guidelines, HDL-C >59 mg/dL is considered anegative risk factor for CHD. Triglycerides 80 mg/dL (Normal) Range: 0-149 Cholesterol, Total 144 mg/dL (Normal) Range: 100-199 :56 HgA1C , Office (09196) HgA1C , Office 5.6 % (Normal) Range: 4.6 - 7.1 :44 LIPID PANEL (84394) Comments: PATIENT WAS FASTINGPERFORMED BY: Joyent [facility] [id number] BY: [employer] [id number] LDL/HDL Ratio 1.3 {ratio_units} (Normal) Range: 0.0-3.6 [...] METABOLIC PANEL, Comments: PATIENT WAS FASTINGPERFORMED BY: Joyent [facility] [id number] BY: [employer] [id number] Inf ormation: [id number],[id number] COMPREHENSIVE (25516) ALT (SGPT) 20 [iU]/L (Normal) Range: 0-44 [...] Glucose, Serum 98 mg/dL (Normal) Range: 65-99 4-Vqy-033842:44 PSA (PROSTATE SPECIFIC Comments: PATIENT WAS FASTINGPERFORMED BY: [facility]ationsOz[facility] [id number] BY: [employer] [address] [id number] ANTIGEN) (V76.44) Prostate Specific Ag, 1.7 ng/mL (Normal) Range: 0.0-4.0 Serum Comments: Bantam Live ECLIA methodology. .According to the [place] [employer], Serum PSA shoulddecrease and remain at undetectable levels after radicalprostatectomy. The AUA defines biochemical recurrence as an initialPSA value 0.2 ng/mL or greater followed by a subsequent confirmatoryPSA value 0.2 ng/mL or greater.Values obtained with d ifferent assay methods or kits cannot be usedinterchangeably. Results cannot be interpreted as absolute evidenceof the presence or absence of malignant disease. 3-Sif-331982:44 TESTOSTERONE FREE (25525) Comments: PATIENT WAS FASTINGPERFORMED BY: AskforTask RoadDublin [place] [id number] BY: [employer] [id number] Free Testosterone(Direct) 13.2 pg/mL (Normal) Range: 7.2-24.0 :34 HgA1C , Office (58742) HgA1C , Office 5.7 % (Normal) Range: 4.6 - 7.1 :58 Microscopic Examination Comments: PATIENT WAS FASTINGPERFORMED BY: [place]uctionataLee [place] 5084570 [facility] [id number] BY: [employer] [id number] Bacteria Few (Normal) Mucus Threads Present (Normal) Epithelial Cells (non renal) None seen {/hpf} (Normal) Range: 0 - 10 RBC 0-3 {/hpf} (Normal) Range: 0 - 3 WBC 0-5 {/hpf} (Normal) Range: 0 - 5 :58 URINALYSIS, W/ MICRO Comments: PATIENT WAS FASTINGPERFORMED BY: [place]uctionata[place] 5084570 [facility] [id number] BY: [employer] [id number] (77411) Microscopic Examination See below: (Normal) Microscopic Examination MICRON (Normal) Comments: Microscopic follows if indicated. Nitrite, Urine Negative (Normal) Urobilinogen,Semi-Qn 0.2 mg/dL (Normal) Range: 0.0-1.9 Bilirubin Negative (Normal) Occult Blood Negative (Normal) Ketones Negative (Normal) Glucose Negative (Normal) Protein Negative (Normal) WBC Esterase Negative (Normal) Appearance Clear (Normal) pH 6.5 (Normal) Range: 5.0-7.5 Urine-Color Yellow (Normal) Specific [place] 1.020 (Normal) Range: 1.005-1.030 :58 CBC WITH MANUAL DIFF Comments: PATIENT WAS FASTINGPERFORMED BY: [place]uction[place] [id number] [facility] [id number] BY: [place] 808537 [facility][1] [id number] Inf ormation: [id number] (20258) Immature Grans (Abs) 0.0 {x10E3/uL} (Normal) Range: [...] {x10E3/uL} (Normal) Range: 4.0-10.5 -Jan-20138:58 TESTOSTERONE FREE (38239) Comments: PATIENT WAS FASTINGPERFORMED BY: [facility]CoOcean Medical CenterIqxsvx4730 [facility] [id number] BY: [employer] [id number] Free Testosterone(Direct) 8.1 pg/mL (Normal) Range: 7.2-24.0 :58 LIPID PANEL (83056) Comments: PATIENT WAS FASTINGPERFORMED BY: OPAL TherapeuticsLee [place] [id number] [facility] [id number] BY: [address] [id number] LDL Cholesterol Calc 73 mg/dL (Normal) Range: [...] METABOLIC PANEL, Comments: PATIENT WAS FASTINGPERFORMED BY: [facility]ataOcean Medical CenterMokkkj5689 [facility] [id number] BY: [employer] [id number] COMPREHENSIVE (71528) ALT (SGPT) 19 [iU]/L (Normal) Range: 0-44 [...] (Abnormal) Range: 65-99 :05 HgA1C , Office (14369) HgA1C , Office 5.7 % (Normal) Range: 4.6 - 7.1 :41 MICROALBUMIN: CREATININE RATIO Comments: PATIENT WAS FASTINGPERFORMED BY: Dokogeo70 [facility] [id number] (59762) AND (74160) Microalb/Creat Ratio 2.2 {mg/g_creat} (Normal) Range: 0.0-30.0 Microalbumin, Urine 2.6 ug/mL (Normal) Range: 0.0-17.0 Creatinine, Urine 118.0 mg/dL (Normal) Range: 22.0-328.0 :41 METABOLIC PANEL, COMPREHENSIVE Comments: PATIENT WAS FASTINGPERFORMED BY: [employer]okogeo70 [facility] [id number]; f/u 06/17/12 (14858) ALT (SGPT) 19 [iU]/L (Normal) Range: 0-55 [...] mg/dL (Abnormal) Range: 65-99 :41 LIPID PANEL (05563) Comments: PATIENT WAS FASTINGPERFORMED BY: [employer] [facility] [id number] LDL/HDL Ratio 1.2 {ratio_units} (Normal) Range: 0.0-3.6 LDL Cholesterol Calc 72 mg/dL (Normal) Range: 0-99 VLDL Cholesterol Compa 25 mg/dL (Normal) Range: 5-40 HDL Cholesterol 61 mg/dL (Normal) Comments: According to ATP-III Guidelines, HDL-C >59 mg/dL is considered anegative risk factor for CHD. Triglycerides 124 mg/dL (Normal) Range: 0-149 Cholesterol, Total 158 mg/dL (Normal) Range: 100-199 :11 HgA1C , Office (29135) HgA1C , Office 5.8 % (Normal) Range: 4.6 - 7.1 :11 Blood Glucose , Office (99029) Blood Glucose , Office 143 (Normal) :48 C-REACT PROT HIGH Comments: PATIENT WAS FASTINGPERFORMED BY: [employer]okogeo70 [facility] [id number] Information: [id number], 2ND ORDER NO DRAW FEE SENS(hsCRP) (49642) C-Reactive Protein, Cardiac 1.32 mg/L (Normal) Range: 0.00-3.00 Comments: Relative Risk for Future Cardiovascular Event Low <1.00 Average 1.00 - 3.00 High >3.00 39-Lrd-363382:06 ANKLE,MIN 3 VIEWS Radiology Report See Note [...] radiologist regarding this report, please call our [id number] line @ [phone] Dictated on 01/14/12 1000 by MARSHA STONE MD, BTranscribed on 01/14/12 1246 by ITS IMPORTSign by MARSHA STONE MD on 01/14/12 1246 Sign by: _ MARSHA STONE MD 92-Kog-956875:06 KNEE,4 OR MORE VIEWS Radiology Report See [...] radiologist regarding this report, please call our [id number] line @ Dictated on 01/14/12 1000 by MARSHA STONE MD, BTranscribed on 01/14/122 by ITS IMPORTSign by MARSHA STONE MD on 01/14/12 1353 Sign by: MARSHA STONE MD CCP Antibodies 10 {units} Comments: PATIENT NOT FASTINGPERFORMED BY: [employer] [facility] [id number] BY: [employer] [id number] 29:40 IgG/IgA (Normal) Range: 0-19 Comments: Negative <20 Weak positive 20 - 39 Moderate positive 40 - 59 Strong positive >59 :40 Uric Acid Blood (97340) Comments: PATIENT NOT FASTINGPERFORMED BY: [employer]oge[employer]70 [facility] [id number] BY: [employer] [id number] Uric Acid, Serum 6.8 mg/dL (Normal) Range: 3.7-8.6 Comments: Therapeutic target for gout patients: <6.0 :40 SED RATE ERYTHROCYTE Comments: PATIENT NOT FASTINGPERFORMED BY: [employer]70 [facility] [id number] BY: [employer] [id number] (26000) Sedimentation Rate-Westergren 18 mm/h (Normal) Range: 0-30 :40 C-REACTIVE PROTEIN (85475) Comments: PATIENT NOT FASTINGPERFORMED BY: [employer]70 [facility] [id number] BY: [address] [id number] C-Reactive Protein, Quant 34.9 mg/L (Abnormal) Range: 0.0-4.9 :40 TSH (95314) Comments: PATIENT NOT FASTINGPERFORMED BY: [place] [id number] [facility] [id number] BY: [address] [id number] TSH 1.990 {uIU/mL} (Normal) Range: 0.450-4.500 :40 RHEUMATOID FACTOR-QUANT Comments: PATIENT NOT FASTINGPERFORMED BY: LabMichael V[place] [id number] [facility] [id number] BY: [address] [id number] (95601) RA Latex Turbid. 11.3 {IU/mL} (Normal) Range: 0.0-13.9 :40 VICTOR HUGO (ANTINUCLEAR ANTIBODY) Comments: PATIENT NOT FASTINGPERFORMED BY: [place] 0843070 [facility] [id number] BY: [address] [id number] (78179) VICTOR HUGO Direct Negative (Normal) :40 CBC WITH MANUAL DIFF Comments: PATIENT NOT FASTINGPERFORMED BY: [place] 0843070 [facility] [id number] BY: [address] [id number] Inf ormation: [id number] (06908) Immature Grans (Abs) 0.0 {x10E3/uL} (Normal) Range: [...] 4.10-5.60 WBC 10.5 {x10E3/uL} (Normal) Range: 4.0-10.5 80-Iup-98647:40 METABOLIC PANEL, Comments: PATIENT NOT FASTINGPERFORMED BY: CB [facility] Ejlmsj1579 [facility] [id number] BY: BN [facility] [address] [id number] [facility] (05924) ALT (SGPT) 15 [iU]/L (Normal) Range: 0-55 [...] METABOLIC PANEL, Comments: PATIENT WAS FASTINGPERFORMED BY: LabCoOcean Medical CenterNgyslg5292 [facility] [id number] Information: [id number] COMPREHENSIVE (36744) ALT (SGPT) 16 [iU]/L (Normal) Range: 0-55 [...] mg/dL (Normal) Range: 65-99 :47 LIPID PANEL (16064) Comments: PATIENT WAS FASTINGPERFORMED BY: Dokogeo70 [facility] [id number] LDL/HDL Ratio 1.4 {ratio_units} (Normal) Range: 0.0-3.6 LDL Cholesterol Calc 78 mg/dL (Normal) Range: 0-99 VLDL Cholesterol Compa 21 mg/dL (Normal) Range: 5-40 HDL Cholesterol 54 mg/dL (Normal) Comments: According to ATP-III Guidelines, HDL-C >59 mg/dL is considered anegative risk factor for CHD. Triglycerides 107 mg/dL (Normal) Range: 0-149 Cholesterol, Total 153 mg/dL (Normal) Range: 100-199 :17 HgA1C , Office (44149) HgA1C , Office 5.6 % (Normal) Range: 4.6 - 7.1 1-Vws-700809:29 PSA (PROSTATE SPECIFIC Comments: PATIENT WAS FASTINGPERFORMED BY: [facility] [id number] ANTIGEN) (V76.44) Prostate Specific Ag, 1.2 ng/mL (Normal) Range: 0.0-4.0 Serum Comments: Lauren ECLIA methodology. .According to the [place] [employer], Serum PSA shoulddecrease and remain [...] CREATININE RATIO Comments: PATIENT WAS FASTINGPERFORMED BY: Super[employer]ension6370 [facility] [id number] (88041) AND (07474) Microalb/Creat Ratio 1.8 {mg/g_creat} (Normal) Range: 0.0-30.0 Microalbumin, Urine 2.3 ug/mL (Normal) Range: 0.0-17.0 Creatinine, Urine 130.7 mg/dL (Normal) Range: 22.0-328.0 :29 CBC WITH MANUAL DIFF Comments: PATIENT WAS FASTINGPERFORMED BY: [facility]uctionataGerald [facility] Medical CenterVmsanw2502 [facility] [id number] Information: [id number] (89779) Immature Grans (Abs) 0.0 {x10E3/uL} (Normal) Range: [...] 4.10-5.60 WBC 7.6 {x10E3/uL} (Normal) Range: 4.0-10.5 3-Ler-855268:29 METABOLIC PANEL, COMPREHENSIVE Comments: PATIENT WAS FASTINGPERFORMED BY: [facility]CoOcean Medical CenterOsxgga3256 [facility] [id number] (67934) ALT (SGPT) 22 [iU]/L (Normal) Range: 0-55 [...] mg/dL (Abnormal) Range: 65-99 :29 LIPID PANEL (68410) Comments: PATIENT WAS FASTINGPERFORMED BY: [facility] [id number]; appt 10/17/11 LDL/HDL Ratio 1.3 {ratio_units} (Normal) [...] Panel, Comprehensive Comments: PATIENT WAS FASTINGPERFORMED BY: Dokogeo70 [facility] [id number] (23653) ALT (SGPT) 20 [iU]/L (Normal) Range: 0-55 [...] Glucose, Serum 97 mg/dL (Normal) Range: 65-99 54-Tvn-880884:21 URINALYSIS (35110) Comments: PATIENT WAS FASTINGPERFORMED BY: [facility]CoOcean Medical CenterVpwezo6083 [facility] [id number] Microscopic Examination MICRON (Normal) Comments: Microscopic follows if indicated. Nitrite, Urine Negative (Normal) Bilirubin Negative (Normal) Ketones Negative (Normal) Occult Blood Negative (Normal) Urobilinogen,Semi-Qn 0.2 mg/dL (Normal) Range: 0.0-1.9 Appearance Clear (Normal) Glucose Negative (Normal) pH 7.0 (Normal) Range: 5.0-7.5 Protein Negative (Normal) Urine-Color Yellow (Normal) WBC Esterase Negative (Normal) Specific [place] 1.017 (Normal) Range: 1.005-1.030 89-Wab-290619:21 CBC with manual diff Comments: PATIENT WAS FASTINGPERFORMED BY: [employer] Rgzygh1434 [facility] [id number] Information: ADD [id number] AND DRAW FEE 99 6076 (76894) Baso (Absolute) 0.0 {x10E3/uL} (Normal) Range: 0.0-0.2 [...] 4.10-5.60 WBC 7.6 {x10E3/uL} (Normal) Range: 4.0-10.5 51-Lsv-360471:21 TSH (21184) Comments: PATIENT WAS FASTINGPERFORMED BY: [employer] Ljxrni6923 [facility] [id number] TSH 1.370 {uIU/mL} (Normal) Range: 0.450-4.500 77-Ebx-954842:21 Lipid Panel (27641) Comments: PATIENT WAS FASTINGPERFORMED BY: [employer]6370 [facility] [id number] LDL Cholesterol Calc 81 mg/dL (Normal) Range: 0-99 LDL/HDL Ratio 1.4 {ratio_units} (Normal) Range: 0.0-3.6 HDL Cholesterol 58 mg/dL (Normal) Comments: According to ATP-III Guidelines, HDL-C >59 mg/dL is considered anegative risk factor for CHD. VLDL Cholesterol Compa 15 mg/dL (Normal) Range: 5-40 Triglycerides 76 mg/dL (Normal) Range: 0-149 Cholesterol, Total 154 mg/dL (Normal) Range: 100-199 43-Glu-634804:21 PSA (Prostate Specific Comments: PATIENT WAS FASTINGPERFORMED BY: [employer]6370 [facility] [id number] Antigen), Screening (30392) Prostate Specific Ag, 0.9 ng/mL (Normal) Range: 0.0-4.0 Serum Comments: [employer] ECLIA methodology. .According to the [place] [employer], Serum PSA shoulddecrease and remain at undetectable levels after radicalprostatectomy. The AUA defines biochemical recurrence as an initialPSA value 0.2 ng/mL or greater followed by a subsequent confirmatoryPSA value 0.2 ng/mL or greater.Values obtained with d ifferent assay methods or kits cannot be usedinterchangeably. Results cannot be interpreted as absolute evidenceof the presence or absence of malignant disease. 41-Uob-99781:50 BRAIN W/WO CONTRAST Radiology Report See Note (Normal) Comments: Exam Number: [id number] CLINICAL: Right hand, fifth digit numbness two [...] demonstrated an eurysm or occlusion of the [place]. Normal bilateral temporal bones, with [...] (PROSTATE SPECIFIC Comments: PATIENT WAS FASTINGPERFORMED BY: [facility]6370 [facility] [id number] ANTIGEN) (V76.44) Prostate Specific Ag, Serum 0.8 ng/mL (Normal) Range: 0.0-4.0 Comments: PebbleIA methodology. .According to the [place] [employer], PSA should beundetectable after radical prostatectomy. A PSA of less than0.5 ng/mL (or undetectable) is not likely to be associated withdisease recurrence within five years of treatment.Values obtained with different assay methods or kits cannot be usedinterchang eably. Results cannot be interpreted as absolute evidenceof the presence or absence of malignant disease. :59 LIPID PANEL (85473) Comments: PATIENT WAS FASTINGPERFORMED BY: OPAL TherapeuticsOcean Medical CenterCtszyd2968 [facility] [id number] Cholesterol, Total 248 mg/dL (Abnormal) Range: 100-199 HDL Cholesterol 56 mg/dL (Normal) Comments: According to ATP-III Guidelines, HDL-C >59 mg/dL is considered anegative risk factor for CHD. LDL Cholesterol Calc 161 mg/dL (Abnormal) Range: 0-99 LDL/HDL Ratio 2.9 {ratio_units} (Normal) Range: 0.0-3.6 Triglycerides 157 mg/dL (Abnormal) Range: 0-149 VLDL Cholesterol Compa 31 mg/dL (Normal) Range: 5-40 :59 URINALYSIS W/O MICRO (93045) Comments: PATIENT WAS FASTINGClinical Information: ADD [id number], [id number] PERFORMED BY: [employer] Gbshiv6648 [facility] [id number] Appearance Clear (Normal) Bilirubin Negative (Normal) Glucose Negative (Normal) Ketones Negative (Normal) Microscopic Examination MICRON (Normal) Comments: Microscopic follows if indicated. Nitrite, Urine Negative (Normal) Occult Blood Negative (Normal) pH 6.0 (Normal) Range: 5.0-7.5 Protein Negative (Normal) Specific [place] 1.019 (Normal) Range: 1.005-1.030 Urine-Color Yellow (Normal) Urobilinogen,Semi-Qn 0.2 mg/dL (Normal) Range: 0.0-1.9 WBC Esterase Negative (Normal) :59 VITAMIN B-12 (CYANOCOBALAMIN) Comments: PATIENT WAS FASTINGPERFORMED BY: OPAL TherapeuticsOcean Medical CenterFnicfb7118 [facility] [id number] (99562) Vitamin B12 395 pg/mL (Normal) Range: 211-911 :59 TSH (95572) Comments: PATIENT WAS FASTINGPERFORMED BY: OPAL TherapeuticsOcean Medical CenterNjcrjs0110 [facility] [id number] TSH 2.820 {uIU/mL} (Normal) Range: 0.450-4.500 Comments: [...] On: :30 Request CBC with auto diff (75114)Indication: Impaired fasting glucose On: :30 Request HGB A1C (87763)Indication: Impaired fasting glucose On: :30 Request LIPID PANEL (11667)Indication: Other hyperlipidemia On: : Request METABOLIC PANEL, COMPREHENSIVE (18576)Indication: Hypertensive heart disease without heart failure On: :30 Request Hemoglobin Glyclated (HGB A1C) (47091)Indication: Impaired fasting glucose On: :32 Request MICROALBUMIN: CREATININE RATIO (47652) AND (80059)Indication: Impaired fasting glucose On: :32 Request CBC W/AUTO DIFF WBC (20862)Indication: Hypertensive heart disease without heart failure On: :32 Request METABOLIC PANEL, COMPREHENSIVE (97579)Indication: Hypertensive heart disease without heart failure On: :32 Request LIPID PANEL (86751)Indication: Other hyperlipidemia On: :32 Request CBC W/AUTO DIFF WBC (69495)Indication: Impaired fasting glucose On: :40 Request MICROALBUMIN: CREATININE RATIO (61317) AND (94259)Indication: Impaired fasting glucose On: :40 Request METABOLIC PANEL, COMPREHENSIVE (03703)Indication: Impaired fasting glucose On: :40 Request LIPID PANEL (65883)Indication: Other hyperlipidemia On: :40 Request HEPATIC FUNCTION PANEL (25598)Indication: Onychomycosis On: :22 Request CCP ANTIBODY (95679)Indication: Pain in unspecified joint On: :27 Request METABOLIC PANEL, COMPREHENSIVE (49743)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 On: 0-Klw-580288:13 Request LIPID PANEL (55411)Indication: Other hyperlipidemia On: 8-Lcf-805159:13 Request LIPID PANEL (95748)Indication: Other hyperlipidemia On: 30-Umd-952399:14 Request METABOLIC PANEL, COMPREHENSIVE (21698)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 On: 01-Ekq-969513:14 Request Planned Encounters Medical; JOSELYN 4 Month Fu - On: 06-Feb-2019 7:00 [facility] Fast DO, Darlin A Fast DO, Darlin A Planned Procedures MRI OF LEFT KNEE WITHOUT CONTRAST On: 11-Jul-2018 Intent (86450)By: Maik VOSS, Darlin A Fast DO, Darlin A ELECTROCARDIOGRAM, COMPLETE (ECG) On: 27-Jun-2018 Intent (19430)By: Maik VOSS, Darlin A Maik Comments: ekg [...] bearing ELECTROCARDIOGRAM, COMPLETE (ECG) On: 12-Jun-2017 Intent (35143)By: Darlin Pleitez DO A Maik Comments: ekg showed normal sinus rhythym, normal axis, no acute st/t wave changes sinus edna DO, Darlin A ZOSTER VACC, [place] (14305)By: Maik VOSS, On: 12-Jun-2017 Intent Darlin A Fast DO, Darlin A Comments: lot: [id number]: 01/03/18ite/route: R arm/SQamt: 0.65mL reconsituted with sterile diluentVIS signed when applicableCheMARTHA arreguin ELECTROCARDIOGRAM, COMPLETE (ECG) On: 11-Jun-2016 Intent (40468)By: Darlin Pleitez DO Comments: ekg showed normal sinus rhythym, normal axis, no acute st/t wave changes sinus edna DO, Darlin A Aerosol Treatment (13031)By: John On: 29-Apr-2014 Intent Maria Luz VOSS Comments: more ae- still noisy but not as rough Solu- Medrol Injection, 125mg On: 29-Apr-2014 Intent (J2930)By: John DO Maria Luz Comments: lot: [id number]: ite/route: RGM/IMamt: 2mLVIS signed when applicableMARTHA Tello EKG (28567)By: Fast DO, Darlin A On: 23-Apr-2014 Intent Fast DO, Darlin A Comments: ekg showed normal sinus rhythym, normal axis, no acute st/t wave changes Eprescribed prescriptions On: 29-Sep-2013 Intent (G8553)By: Caridad Lopez Eprescribed prescriptions On: 19-May-2013 Intent (G8553)By: Caridad Lopez EKG (52707)By: Caridad Lopez On: 15-Jan-2013 Intent Comments: ekg [...] SPLIT, >3 YEARS, INTRAMUSC On: 17-Oct-2011 Intent (48130)By: Caridad Lopez Comments: received at work EKG (87433)By: Fast DO, Darlin A On: 04-Sep-2011 Intent Fast DO, Darlin A Comments: ekg showed normal sinus rhythym, normal axis, no acute st/t wave changes no change Radiology - Chest- PA and LatBy: On: 25-Oct-2010 Intent Fast DO, Darlin A Fast DO, Darlin A TDAP VACCINE >7 IM (01690)By: Fast On: 08-Nov-2009 Intent DO, Darlin A Fast DO, Darlin A Comments: Lot #[id number]-18/17/2011Site-left deltoidDose0.5mlgiven by Jonathan Fry LPN Echo CompleteBy: Fast DO, Darlin A On: 15-Jul-2009 Intent Fast DO, Darlin A EKG (55362)By: Fast DO, Darlin A On: 15-Jul-2009 Intent [...] acuity (Dr. Nieto). [facility] exam[facility], [[facility]ITIONAL REASON] Follow up, Laboratory Test Results - Date: (05/2016- [facility] labs). Encounter Diagnosis: BMI 33.0-33.9,adult, [...]
--- OUTSIDE RECORDS SUMMARY | 2019-02-24 14:51 | XMS RPT_ITS | Continuity of Care Document ---
:1960 Author Organization [facility] Address [address] [facility] [address] [place] [address] Phone Care Team Providers Name Role Phone [...] days Quantity: 90 {Tablet} Refills: 3 Ordered:29-May-2018 DO, Darlin AFast DO, Darlin A Start : 29-May-2018 End : 29-Apr-2014 Active Proventil HFA 108 (90 Base) MCG/ACT Inhalation Aerosol Solution 2 (two) Aerosol Soln q 6 hours prn for 0 days Quantity: 1 {Inhaler} Refills: 0 Ordered:03-Oct-2018 Fast DO, Darlin AFast DO, Darlin A Start : 03-Oct-2018 Active MICARDIS, 40MG (Oral Tablet) 1 Tablet qd for 0 days Quantity: 30 {Tablet} Refills: 3 Ordered:06-Apr-2013 Cara Negrete MD Start : 06-Apr-2013 End : 06-Apr-2013 Inactive [place] 5-325 MG Oral Tablet 1 (one) Tablet [...] days Quantity: 4 {Tablet} Refills: 0 Ordered:03-May-2014 John DO Maria [place] Start : 29-Apr-2014 End : 03-May-2014 Inactive TOPROL XL, 25MG (Oral Tablet Extended [...] days Quantity: 30 {Tablet} Refills: 2 Ordered:29-Sep-2013 DO, Darlin AFmikhail DO, Darlin A Start : 29-Sep-2013 End : 29-Sep-2013 Discontinued LEVAQUIN, 500MG (Oral Tablet) 1 (one) Tablet qd for 0 days Quantity: 10 {Tablet} Refills: 0 Ordered:26-Oct-2014 Fast DOMaureena AFmikhail DO, Darlin A Start : 26-Oct-2014 End : 26-Oct-2014 Discontinued LISINOPRIL, 5MG (Oral Tablet) 1 (one) Tablet bid for 30 days Quantity: 60 {Tablet} Refills: 0 Ordered:04-Sep-2011 Fast DO, Darlin AFmikhail DO, Darlin A Start : 04-Sep-2011 End : 04-Sep-2011 Discontinued LUMIGAN, 0.03% (Ophthalmic Solution) 1 drop in each eye qd for 0 days Refills: 0 Ordered:14-Aug-2013 Stephany Mendez LPN End : 14-Aug-2013 Discontinued Comments:This order discontinued per [facility]. Niacin ER 500 MG Oral Capsule Extended Release 1 (one) Capsule ER qd for 0 days Quantity: 30 {Capsule} Refills: 3 Ordered:12-Nov-2016 Maik VOSS, Darlin AFast , Darlin A Start : 12-Nov-2016 End : 12-Nov-2016 Discontinued NORVASC, 5MG (Oral Tablet) 1 Tablet qam for 0 days Quantity: 30 {Tablet} Refills: 3 Ordered:17-Oct-2011 Maik VOSS, Darlin AFast , Darlin A Start : 17-Oct-2011 End : [...] Note; NOTES: [facility] Imaging Services [address] [place] [address] Lower Ext Joint Only (Routine) MR#: [id number] Acct: [id number] Name: TRACEY SCOTT Rep #: [id number] : 1960 M 57 From: Mulu Napoles MD PCP: Darlin Pleitez DO Status: REG CLI Study: Lower Ext Joint Only (Routine) Date of Exam: 07/17/18 Exam# [id number] Ordering Dr: Darlin Pleitez DO STUDY: MRI [...] Service support , CC: Darlin Pleitez DO Social Worker Clinical: Signed 11-Jul-2018 TXT - Blood Flow Screening Result: Comments: See Note; NOTES: [facility] Cardiovascular Services [address] [place] [address] 07/10/18 08 MR#: [id number] Acct: [id number] Name: TRACEY SCOTT Rep #: [id number] : 1960 57 From: Bolivar Palomo MD Attending Dr: Darlin Pleitez DO Status: REG REF Ordering Dr: Date: 07/11/18 Location: [facility] Sex: M C Admitted: Reason For Study: [...] DO Date Dictated: 07/10/18820 Date Transcribed: 07/11/18821 Social Worker Clinical: Signed 27-Jun-2018 Inital Evaluation (1) - PT Result: Comments: See Note; NOTES: [facility] Physical Therapy [facility] [address] [place] [address]. [address] [place], [place] [address] Fax REHABILITATION SERVICES INITIAL EVALUATION MR#: [id number] Acct: [id number] Name: TRACEY SCOTT Rep #: [id number] : 1960 57 From: Soraya Brown MPT Referring DrSuzy: Darlin Pleitez DO Status: REG RCR Insurance: [employer] SELF PAY INSURANCE Patient's Visit Information TRACEY [...] to be FAXED BACK to us at [phone] for Medicare purposes. Please let me know [...] Note; NOTES: [facility] Cardiovascular Services [address] [place] [address] Venous Duplex US, Unilateral 06/06/18 1420 MR#: [id number] Acct: [id number] Name: TRACEY KANG Rep #: [id number] : 1960 57 From: Bolivar Palomo MD Attending Dr: Darlin Pleitez DO Status: REG CLI Ordering Dr: Darlin Pleitez DO Date: 06/06/18 Location: [facility] Sex: M C Admitted: [place] son For Study: LEG PAIN RIGHT LEFT [...] Dictated: 06/06/18 1420 Date Transcribed: 06/07/18 1531 Social Worker Clinical: Signed 06-Jun-2018 Knee 4 or More Views Result: Comments: See Note; NOTES: [facility] Imaging Services [address] [place] [address] Knee 4 or More Views MR#: [id number] Acct: [id number] Name: TRACEY SCOTT Rep #: [id number] : 1960 M 57 From: Winston Allred DO PCP: Darlin Pleitez DO Status: REG CLI Study: Knee 4 or More Views Date of Exam: 06/06/18 Exam# [id number] Ordering Dr: Darlin Pleitez DO STUDY: X-RAY [...] Winston Allred DO at 8:52 EDT Tel [phone], Service support , CC: Darlin Pleitez DO Social Worker Clinical: Signed 06-Jun-2018 L/S Spine Min 4 Views Result: Comments: See Note; NOTES: [facility] Imaging Services [address] [place] [address] L/S Spine Min 4 Views MR#: [id number] Acct: [id number] Name: TRACEY SCOTT Rep #: [id number] : 1960 M 57 From: Winston Allred DO PCP: Darlin Pleitez DO Status: REG CLI Study: L/S Spine Min 4 Views Date of Exam: 06/06/18 Exam# [id number] Ordering Dr: Darlin Pleitez DO STUDY: X-RAY [...] Winston Allred DO at 9:11 EDT Tel [phone], Service support , CC: Darlin Pleitez DO Social Worker Clinical: Signed 26-Oct-2015 EKG (80022) Comments: ekg- sinus edna normal axis no acute st t wave changes Result: [MEASUREMENTS ANALYSIS] Date of Test: 10/26/2015 08:45:17; Heart Rate: 56; NH Interval: 170; QRS: 96; QT Interval: 412; Corrected QT Interval (QTc): 405; P Wave Elmer: 29; QRS Wave Elmer: 23; T Wave Elmer: 17; Blood Pressure: 112/76 [ECG DIAGNOSTIC STATEMENTS] Date of Test: 10/26/2015 08:45:17; Summary: Sinus Bradycardia WITHIN NORMAL LIMITS 29-Apr-2014 Spirometry (22222) Comments: poor techniq but really bad obstruction which is consistent with exam Result: Immunization Name Dates Details Tdap (7 years and up) on: 08-Nov-2009 Comments: Lot #[id number]-27/17/2011Site-left deltoidDose0.5mlgiven by Jonathan Fry LPN Family History [...] kg/m2 Body Surface Area Calculated 2.21 m2 12-Xmh-13554:28 Temperature 97.2 f Comments: Method: Temporal Pulse [...] kg/m2 Body Surface Area Calculated 2.22 m2 87-Sua-33358:25 Temperature 99 f Comments: Method: Temporal Pulse [...] :00 Crystals, Body Fluid Comments: [facility] [address] [place], [place], [id number] PATH REV Reviewed (Normal) Comments: No diagnostic crystals seen.Seth Velazco D.O. 08/01/18 AMENDED REPORT 08/01/18 1230 PATH REV previously reported as: Will follow SOURCE/BF SYNOVIAL (Normal) CRYSTALS/BF SEE PATH REV (Normal) 11-Fxp-92835:00 Culture, Body Fluid Comments: [facility] [address] [place], [address] CUBF See Note (Normal) Comments: List Antibiotics Last 48 Hours? UNKList Antibiotics to be Started? UNKGram StainCentrifuged Specimen? Culture performed on centrifuged specimen Gram Stain 4+ Red Blood Cells 4+ White Blood C ells No organisms seen Body Fluid CultNO GROWTH IN 14 DAYS Cult, AnaerobicNo growth in 5 days. 44-Bzq-79331:53 MICROALBUMIN: CREATININE RATIO Comments: PATIENT WAS FASTINGPERFORMED BY: TraianaHealthSouth - [facility] Hospital of UnionPhfmvy9828 [facility] [id number] (03955) AND (32996) Alb/Creat Ratio 5.7 {mg/g_creat} (Normal) Range: 0.0-30.0 Comments: Normal: 0.0 - 30.0 Albuminuria: 31.0 - 300.0 Clinical albuminuria: >300.0 Albumin, Urine 7.6 ug/mL (Normal) Creatinine, Urine 133.6 mg/dL (Normal) 11-Ocx-34455:53 METABOLIC PANEL, COMPREHENSIVE Comments: PATIENT WAS FASTINGPERFORMED BY: [facility] HospitalArzedaHealthSouth - Specialty Hospital of UnionMdpnpi8171 [facility] [id number] (04715) ALT (SGPT) 15 [iU]/L (Normal) Range: 0-44 [...] mg/dL (Abnormal) Range: 65-99 :53 HGB A1C (24574) Comments: PATIENT WAS FASTINGPERFORMED BY: BranchOut70 [facility] [id number] Hemoglobin A1c 5.6 % (Normal) Range: 4.8-5.6 Comments: . Prediabetes: 5.7 - 6.4 Diabetes: >6.4 Glycemic control for adults with diabetes: <7.0 :53 LIPID PANEL (17019) Comments: PATIENT WAS FASTINGPERFORMED BY: Codewars6370 [facility] [id number] LDL/HDL Ratio 1.6 {ratio} (Normal) Range: 0.0-3.6 [...] HIGH SENS(hsCRP) Comments: PATIENT WAS FASTINGPERFORMED BY: BranchOut70 [facility] [id number] (87951) C-Reactive Protein, Cardiac 4.66 mg/L (Abnormal) Range: 0.00-3.00 Comments: Relative Risk for Future Cardiovascular Event Low <1.00 Average 1.00 - 3.00 High >3.00 :12 CBC with auto diff (89195) Comments: PATIENT WAS FASTINGPERFORMED BY: [place] [employer] Joomlg5255 [facility] [id number] Immature Grans (Abs) 0.0 {x10E3/uL} (Normal) Range: [...] CREATININE RATIO Comments: PATIENT WAS FASTINGPERFORMED BY: [facility]6370 [facility] [id number] (64470) AND (74799) Alb/Creat Ratio 2.8 {mg/g_creat} (Normal) Range: 0.0-30.0 Albumin, Urine 3.1 ug/mL (Normal) Creatinine, Urine 110.7 mg/dL (Normal) 90-Nnt-09010:12 METABOLIC PANEL, COMPREHENSIVE Comments: PATIENT WAS FASTINGPERFORMED BY: LabCoHealthSouth - Specialty Hospital of UnionPdczrs9553 [facility] [id number]; review 06/27 (28748) ALT (SGPT) 14 [iU]/L (Normal) Range: 0-44 [...] (Abnormal) Range: 65-99 :22 HgA1C , Office (62845) HgA1C , Office 5.5 % (Normal) Range: 4.6 - 7.1 7-Sqq-609322:45 Microscopic Examination Comments: PATIENT WAS FASTINGPERFORMED BY: Firefly BioWorksHealthSouth - Specialty Hospital of UnionSvkbso6042 [facility] [id number] Bacteria None seen (Normal) Epithelial Cells (non renal) None seen {/hpf} (Normal) Range: 0 - 10 RBC 0-2 {/hpf} (Normal) Range: 0 - 2 WBC 0-5 {/hpf} (Normal) Range: 0 - 5 4-Tpf-329732:45 PSA (PROSTATE SPECIFIC Comments: PATIENT WAS FASTINGPERFORMED BY: Firefly BioWorksHealthSouth - Specialty Hospital of UnionBowbzs5375 [facility] [id number] ANTIGEN) (V76.44) Prostate Specific Ag, 1.3 ng/mL (Normal) Range: 0.0-4.0 Serum Comments: [employer] ECLIA methodology. .According to the [place] [employer], Serum PSA shoulddecrease and remain at undetectable levels after radicalprostatectomy. The AUA defines biochemical recurrence as an initialPSA value 0.2 ng/mL or greater followed by a subsequent confirmatoryPSA value 0.2 ng/mL or greater.Values obtained with d ifferent assay methods or kits cannot be usedinterchangeably. Results cannot be interpreted as absolute evidenceof the presence or absence of malignant disease. 9-Zhb-571104:45 URINALYSIS, W/ MICRO (99912) Comments: PATIENT WAS FASTINGPERFORMED BY: Traiana Zjmvah5457 [facility] [id number] Microscopic Examination See below: (Normal) Comments: Microscopic was indicated and was performed. Microscopic Examination MICRON (Normal) Comments: Microscopic follows if indicated. Nitrite, Urine Negative (Normal) Urobilinogen,Semi-Qn 0.2 mg/dL (Normal) Range: 0.2-1.0 Bilirubin Negative (Normal) Occult Blood Negative (Normal) Ketones Negative (Normal) Glucose Negative (Normal) Protein Negative (Normal) WBC Esterase Negative (Normal) Appearance Clear (Normal) Urine-Color Yellow (Normal) pH 6.0 (Normal) Range: 5.0-7.5 Specific Pearl 1.011 (Normal) Range: 1.005-1.030 :45 CBC W/AUTO DIFF WBC (08342) Comments: PATIENT WAS FASTINGPERFORMED BY: [employer] GamesCoHealthSouth - Specialty Hospital of UnionUksfvv9969 [facility] [id number] Immature Grans (Abs) 0.0 {x10E3/uL} (Normal) Range: [...] 4.14-5.80 WBC 7.8 {x10E3/uL} (Normal) Range: 3.4-10.8 5-Piq-230935:45 METABOLIC PANEL, COMPREHENSIVE Comments: PATIENT WAS FASTINGPERFORMED BY: [facility]6370 [facility] [id number]; can review on 12/16 appt (53754) ALT (SGPT) 29 [iU]/L (Normal) Range: 0-44 [...] Glucose, Serum 101 mg/dL (Abnormal) Range: 65-99 7-Gko-489095:45 LIPID PANEL (74892) Comments: PATIENT WAS FASTINGPERFORMED BY: LabCoHealthSouth - Specialty Hospital of UnionFmjwcu0126 [facility] [id number] LDL/HDL Ratio 1.6 {ratio_units} (Normal) Range: 0.0-3.6 Comments: LDL/HDL Ratio Men Women 1/2 Avg.Risk 1.0 1.5 Av g.Risk 3.6 3.2 2X Avg.Risk 6.2 5.0 3X Avg.Risk 8.0 6.1 LDL Cholesterol Calc 92 mg/dL (Normal) Range: 0-99 VLDL Cholesterol Compa 31 mg/dL (Normal) Range: 5-40 HDL Cholesterol 56 mg/dL (Normal) Triglycerides 157 mg/dL (Abnormal) Range: 0-149 Cholesterol, Total 179 mg/dL (Normal) Range: 100-199 7-Put-749767:45 HEPATITIS C ANTIBODY (01079) Comments: PATIENT WAS FASTINGPERFORMED BY: [facility]6370 [facility] [id number] Hep C Virus Ab <0.1 {s/co_ratio} (Normal) Range: 0.0-0.9 Comments: Negative: < 0.8 Indeterminate: 0.8 - 0.9 Positive: > 0.9 . The CDC recommends that a positive HCV antibody result be followed up with a HCV Nucleic Acid Amplification test (949628). 34-Mhs-74728:42 METABOLIC PANEL, COMPREHENSIVE Comments: PERFORMED BY: [facility]6370 [facility] [id number] (81848) ALT (SGPT) 21 [iU]/L (Normal) Range: 0-44 [...] Glucose, Serum 103 mg/dL (Abnormal) Range: 65-99 00-Scx-257565:42 PSA (PROSTATE SPECIFIC Comments: PATIENT WAS FASTINGPERFORMED BY: [employer] [id number] BY: [facility]6370 [facility] [id number] ANTIGEN) (V76.44) Prostate Specific Ag, 1.2 ng/mL (Normal) Range: 0.0-4.0 Serum Comments: Lauren ECLIA methodology. .According to the [place] [employer], Serum PSA shoulddecrease and remain [...] auto diff Comments: PATIENT WAS FASTINGPERFORMED BY: Huaat [address] [id number] BY: [facility]ianCorewell [facility]6370 [facility] [id number] (55204) Immature Grans (Abs) 0.0 {x10E3/uL} (Normal) Range: [...] 4.14-5.80 WBC 7.5 {x10E3/uL} (Normal) Range: 3.4-10.8 44-Dwx-120734:42 HGB A1C (09988) Comments: PATIENT WAS FASTINGPERFORMED BY: Huaat [address] [id number] BY: TradeKing [facility] [id number] Hemoglobin A1c 5.8 % (Abnormal) Range: 4.8-5.6 Comments: . Pre-diabetes: 5.7 - 6.4 Diabetes: >6.4 Glycemic control for adults with diabetes: <7.0 45-Dhy-854318:42 MICROALBUMIN: CREATININE Comments: PATIENT WAS FASTINGPERFORMED BY: Huaat [address] [id number] BY: [employer] Zjlfbb9072 [facility] [id number] RATIO (92606) AND (21962) Microalb/Creat Ratio <1.9 {mg/g_creat} (Normal) Range: 0.0-30.0 Microalbumin, Urine <3.0 ug/mL (Normal) Creatinine, Urine 160.7 mg/dL (Normal) 81-Tux-733266:42 LIPOPROTEIN, BLD, BY NMR Comments: PATIENT WAS FASTINGPERFORMED BY: Huaat [address] [id number] BY: TraianaHealthSouth - Specialty Hospital of UnionYrpxht2440 [facility] [id number]; non-emergent till apt (22174) LP-IR Score 50 (Abnormal) Comments: INSULIN RESISTANCE MARKER <--Insulin Sensitive Insulin Resistant--> Percentile in Reference PopulationInsulin Resistance ScoreLP-IR Score Low 25th 50th 75th High <27 27 45 63 >63LP-IR Score is inaccurate if patient is non-fasting. .The LP-IR score is a laboratory developed i [facility] that has beenassociated with insulin resistance [...] were developed and their performance characteristicsdetermined by [employer]. These assays have not been cleared by [...] 1600 - 2000 Very High > 2000 23-Tie-635148:42 METABOLIC PANEL, Comments: PATIENT WAS FASTINGPERFORMED BY: BN [facility] Rbgxxeuhth9029 [facility] [id number] BY: CB [facility] Guuttr9943 [facility] [id number] COMPREHENSIVE (46246) ALT (SGPT) 18 [iU]/L (Normal) Range: 0-44 [...] (Normal) Range: 65-99 :07 HgA1C , Office (25392) HgA1C , Office 5.7 % (Normal) Range: 4.6 - 7.1 :06 PSA (PROSTATE SPECIFIC Comments: PATIENT WAS FASTINGPERFORMED BY: Codewars6370 [facility] [id number] ANTIGEN) (V76.44) Prostate Specific Ag, 1.4 ng/mL (Normal) Range: 0.0-4.0 Serum Comments: Bollingo[employer]IA methodology. .According to the [place] [employer], Serum PSA shoulddecrease and remain [...] METABOLIC PANEL, Comments: PATIENT WAS FASTINGPERFORMED BY: Codewars6370 [facility] [id number] Information: [id number] COMPREHENSIVE (31565) ALT (SGPT) 20 [iU]/L (Normal) Range: 0-44 [...] mg/dL (Abnormal) Range: 65-99 :06 LIPID PANEL (79129) Comments: PATIENT WAS FASTINGPERFORMED BY: A&A ManufacturingCone Health [facility] [id number] LDL/HDL Ratio 1.2 {ratio_units} (Normal) Range: 0.0-3.6 [...] (Normal) Range: 100-199 :09 HgA1C , Office (18892) HgA1C , Office 5.7 % (Normal) Range: 4.6 - 7.1 :25 CBC With Differential/Platelet Comments: PATIENT WAS FASTINGPERFORMED BY: BranchOut70 Claire [facility] HospitalPoshlyCone Health Wesley Long Hospital [id number] Information: [id number] Immature Grans (Abs) 0.0 {x10E3/uL} (Normal) Range: [...] 4.14-5.80 WBC 6.9 {x10E3/uL} (Normal) Range: 3.4-10.8 57-Uqy-54989:25 Comp. Metabolic Panel (14) Comments: PATIENT WAS FASTINGPERFORMED BY: LabCoHealthSouth - Specialty Hospital of UnionFvytqv7785 [facility] [id number] ALT (SGPT) 14 [iU]/L (Normal) Range: 0-44 [...] With LDL/HDL Comments: PATIENT WAS FASTINGPERFORMED BY: [place] [id number] Ratio LDL/HDL Ratio 1.2 {ratio_units} (Normal) Range: [...] Randm Ur Comments: PATIENT WAS FASTINGPERFORMED BY: A&A ManufacturingC[facility] Hospital [id number] Microalb/Creat Ratio 3.4 {mg/g_creat} (Normal) Range: 0.0-30.0 Microalbumin, Urine 5.1 ug/mL (Normal) Range: 0.0-17.0 Creatinine, Urine 149.6 mg/dL (Normal) Range: 22.0-328.0 63-Czh-547596:00 HgA1C , Office (87752) HgA1C , Office 5.8 % (Normal) Range: 4.6 - 7.1 32-Lxo-856442:00 Blood Glucose , Office (80404) Blood Glucose , Office 119 (Normal) 11-Fgs-922438:25 PSA (PROSTATE SPECIFIC Comments: PATIENT WAS FASTINGPERFORMED BY: BranchOut70 Anesthetix HoldingsCone Health Wesley Long Hospital [id number] ANTIGEN) (V76.44) Prostate Specific Ag, 1.0 ng/mL (Normal) Range: 0.0-4.0 Serum Comments: [employer] ECLIA methodology. .According to the [place] [employer], Serum PSA shoulddecrease and remain [...] MANUAL DIFF Comments: PATIENT WAS FASTINGPERFORMED BY: [employer]6370 [facility] [id number] Information: [id number] (81741) Immature Grans (Abs) 0.0 {x10E3/uL} (Normal) Range: [...] 4.14-5.80 WBC 7.8 {x10E3/uL} (Normal) Range: 3.4-10.8 27-Yoz-151367:25 METABOLIC PANEL, COMPREHENSIVE Comments: PATIENT WAS FASTINGPERFORMED BY: LabCoHealthSouth - Specialty Hospital of UnionCtbpbu6531 [facility] [id number] (85566) ALT (SGPT) 21 [iU]/L (Normal) Range: 0-44 [...] Glucose, Serum 98 mg/dL (Normal) Range: 65-99 90-Nmh-801070:25 LIPID PANEL (55519) Comments: PATIENT WAS FASTINGPERFORMED BY: ArriveBefore LabCoROBAUTO70 Anesthetix HoldingsCone Health Wesley Long Hospital [id number] LDL/HDL Ratio 1.4 {ratio_units} (Normal) Range: 0.0-3.6 [...] (Normal) Range: 100-199 :50 HgA1C , Office (43439) HgA1C , Office 5.4 % (Normal) Range: 4.6 - 7.1 :53 LIPID PANEL (87079) Comments: PATIENT WAS FASTINGPERFORMED BY: [facility] Ntmhdm5266 [facility] CenterPoshlyCone [facility] [id number]; all normal labs and pt has appt [...] Cholesterol, Total 151 mg/dL (Normal) Range: 100-199 77-Nbb-284496:53 METABOLIC PANEL, Comments: PATIENT WAS FASTINGPERFORMED BY: [place] [employer] [facility] [id number] Information: [id number] COMPREHENSIVE (42343) ALT (SGPT) 18 [iU]/L (Normal) Range: 0-44 [...] Glucose, Serum 95 mg/dL (Normal) Range: 65-99 88-Vyb-529959:53 MICROALBUMIN: CREATININE RATIO Comments: PATIENT WAS FASTINGPERFORMED BY: Wandoujia RoadDublin [place] [id number] (83226) AND (72192) Creatinine, Urine 27.5 mg/dL (Normal) Range: 22.0-328.0 Microalb/Creat Ratio 10.2 {mg/g_creat} (Normal) Range: 0.0-30.0 Microalbumin, Urine 2.8 ug/mL (Normal) Range: 0.0-17.0 :03 HgA1C , Office (87160) HgA1C , Office 5.6 % (Normal) Range: 4.6 - 7.1 :04 Influenza A&B Viral Comments: PATIENT NOT FASTINGPERFORMED BY: [address] [id number] Information: SRC:NOS ADD [id number] Culture (76236) Viral Culture,Rapid,Influenza FLUABN (Normal) Comments: Negative:No Influenza A or B detected. :00 Rapid Flu (75556 x 2) Influenza A Ag neg (Normal) :40 JOSLYN CULTURE-OTHER (57335) Comments: PATIENT NOT FASTINGPERFORMED BY: [place] 0288970 [facility] [id number] Information: SRC:THRT ADD [id number] Result 1 RRF (Normal) Comments: Routine respiratory ghazala Upper Respiratory Culture Final report (Normal) :37 Rapid Strep Test, Office (32132) Rapid Strep Test, Office Negative (Normal) :57 HEPATIC FUNCTION PANEL Comments: PATIENT NOT FASTINGPERFORMED BY: [address] [id number] Information: [id number] (19118) ALT (SGPT) 19 [iU]/L (Normal) Range: 0-44 AST (SGOT) 15 [iU]/L (Normal) Range: 0-40 Alkaline Phosphatase, S 48 [iU]/L (Normal) Range: 44-102 Bilirubin, Direct 0.13 mg/dL (Normal) Range: 0.00-0.40 Bilirubin, Total 0.4 mg/dL (Normal) Range: 0.0-1.2 Albumin, Serum 4.5 g/dL (Normal) Range: 3.5-5.5 Protein, Total, Serum 6.6 g/dL (Normal) Range: 6.0-8.5 3-Sto-607245:03 HEPATIC FUNCTION PANEL Comments: PATIENT NOT FASTINGPERFORMED BY: BranchOut70 [facility] [id number] Information: [id number] (20494) ALT (SGPT) 15 [iU]/L (Normal) Range: 0-44 [...] Total, Serum 6.6 g/dL (Normal) Range: 6.0-8.5 62-Xoc-01841:42 CBC WITH MANUAL DIFF Comments: PATIENT WAS FASTINGPERFORMED BY: [employer] Xfnltd6611 [facility] [id number] Information: [id number] (04349) Immature Grans (Abs) 0.0 {x10E3/uL} (Normal) Range: [...] 4.14-5.80 WBC 7.2 {x10E3/uL} (Normal) Range: 3.4-10.8 73-Goi-04806:42 METABOLIC PANEL, COMPREHENSIVE Comments: PATIENT WAS FASTINGPERFORMED BY: LabCoHealthSouth - Specialty Hospital of UnionNiydsw5615 [facility] [id number] (23008) ALT (SGPT) 22 [iU]/L (Normal) Range: 0-44 [...] mg/dL (Abnormal) Range: 65-99 :42 LIPID PANEL (99512) Comments: PATIENT WAS FASTINGPERFORMED BY: LabCoHealthSouth - Specialty Hospital of UnionMakvjz1489 [facility] [id number] LDL/HDL Ratio 1.4 {ratio_units} (Normal) Range: 0.0-3.6 LDL Cholesterol Calc 75 mg/dL (Normal) Range: 0-99 VLDL Cholesterol Compa 16 mg/dL (Normal) Range: 5-40 HDL Cholesterol 53 mg/dL (Normal) Comments: According to ATP-III Guidelines, HDL-C >59 mg/dL is considered anegative risk factor for CHD. Triglycerides 80 mg/dL (Normal) Range: 0-149 Cholesterol, Total 144 mg/dL (Normal) Range: 100-199 :56 HgA1C , Office (68480) HgA1C , Office 5.6 % (Normal) Range: 4.6 - 7.1 7-Jmx-191449:44 LIPID PANEL (16044) Comments: PATIENT WAS FASTINGPERFORMED BY: Nayateklin6370 [facility] [id number] BY: [employer] [id number] LDL/HDL Ratio 1.3 {ratio_units} (Normal) Range: 0.0-3.6 LDL Cholesterol Calc 71 mg/dL (Normal) Range: 0-99 VLDL Cholesterol Compa 18 mg/dL (Normal) Range: 5-40 HDL Cholesterol 54 mg/dL (Normal) Comments: According to ATP-III Guidelines, HDL-C >59 mg/dL is considered anegative risk factor for CHD. Cholesterol, Total 143 mg/dL (Normal) Range: 100-199 Triglycerides 92 mg/dL (Normal) Range: 0-149 9-Gaq-022029:44 METABOLIC PANEL, Comments: PATIENT WAS FASTINGPERFORMED BY: Codewars6370 [facility] [id number] BY: [employer] [id number] Inf ormation: [id number] COMPREHENSIVE (28726) ALT (SGPT) 20 [iU]/L (Normal) Range: 0-44 [...] Glucose, Serum 98 mg/dL (Normal) Range: 65-99 :44 PSA (PROSTATE SPECIFIC Comments: PATIENT WAS FASTINGPERFORMED BY: Wandoujia [facility] HospitalPoshlyC[facility] [id number] BY: Huaat [address] [id number] ANTIGEN) (V76.44) Prostate Specific Ag, 1.7 ng/mL (Normal) Range: 0.0-4.0 Serum Comments: [employer] ECLIA methodology. .According to the [place] [employer], Serum PSA shoulddecrease and remain at undetectable levels after radicalprostatectomy. The AUA defines biochemical recurrence as an initialPSA value 0.2 ng/mL or greater followed by a subsequent confirmatoryPSA value 0.2 ng/mL or greater.Values obtained with d ifferent assay methods or kits cannot be usedinterchangeably. Results cannot be interpreted as absolute evidenceof the presence or absence of malignant disease. :44 TESTOSTERONE FREE (96132) Comments: PATIENT WAS FASTINGPERFORMED BY: [facility] [id number] BY: [employer] [address] [id number] Free Testosterone(Direct) 13.2 pg/mL (Normal) Range: 7.2-24.0 :34 HgA1C , Office (55304) HgA1C , Office 5.7 % (Normal) Range: 4.6 - 7.1 :58 Microscopic Examination Comments: PATIENT WAS FASTINGPERFORMED BY: Firefly BioWorksDaniel [place] 2472670 [facility] [id number] BY: [address] [id number] Bacteria Few (Normal) Mucus Threads Present (Normal) Epithelial Cells (non renal) None seen {/hpf} (Normal) Range: 0 - 10 RBC 0-3 {/hpf} (Normal) Range: 0 - 3 WBC 0-5 {/hpf} (Normal) Range: 0 - 5 :58 URINALYSIS, W/ MICRO Comments: PATIENT WAS FASTINGPERFORMED BY: [employer] [id number] BY: [address] [id number] (04481) Microscopic Examination See below: (Normal) Microscopic Examination MICRON (Normal) Comments: Microscopic follows if indicated. Nitrite, Urine Negative (Normal) Urobilinogen,Semi-Qn 0.2 mg/dL (Normal) Range: 0.0-1.9 Bilirubin Negative (Normal) Occult Blood Negative (Normal) Ketones Negative (Normal) Glucose Negative (Normal) Protein Negative (Normal) WBC Esterase Negative (Normal) Appearance Clear (Normal) pH 6.5 (Normal) Range: 5.0-7.5 Urine-Color Yellow (Normal) Specific Pearl 1.020 (Normal) Range: 1.005-1.030 :58 CBC WITH MANUAL DIFF Comments: PATIENT WAS FASTINGPERFORMED BY: Firefly BioWorksHealthSouth - Specialty Hospital of UnionTcqhdf[address] [place] [address] [id number] BY: [address] [id number] Inf ormation: [id number] (89853) Immature Grans (Abs) 0.0 {x10E3/uL} (Normal) Range: [...] {x10E3/uL} (Normal) Range: 4.0-10.5 :58 TESTOSTERONE FREE (87445) Comments: PATIENT WAS FASTINGPERFORMED BY: Firefly BioWorksDaniel [place] 2472670 [facility] [id number] BY: [address] [id number] Free Testosterone(Direct) 8.1 pg/mL (Normal) Range: 7.2-24.0 :58 LIPID PANEL (07394) Comments: PATIENT WAS FASTINGPERFORMED BY: Firefly BioWorksHealthSouth - Specialty Hospital of UnionDbmtmc[address] [place] [address] [id number] BY: LabCoLori [place] 741197 [facility] [id number] LDL Cholesterol Calc 73 mg/dL (Normal) Range: 0-99 LDL/HDL Ratio 1.3 {ratio_units} (Normal) Range: 0.0-3.6 HDL Cholesterol 57 mg/dL (Normal) Comments: According to ATP-III Guidelines, HDL-C >59 mg/dL is considered anegative risk factor for CHD. VLDL Cholesterol Compa 13 mg/dL (Normal) Range: 5-40 Cholesterol, Total 143 mg/dL (Normal) Range: 100-199 Triglycerides 65 mg/dL (Normal) Range: 0-149 -Jan-20138:58 METABOLIC PANEL, Comments: PATIENT WAS FASTINGPERFORMED BY: [facility] Yukwye3866 [facility] [id number] BY: LabCoLori [place] 741197 [facility] [id number] COMPREHENSIVE (33754) ALT (SGPT) 19 [iU]/L (Normal) Range: 0-44 [...] (Abnormal) Range: 65-99 :05 HgA1C , Office (46572) HgA1C , Office 5.7 % (Normal) Range: 4.6 - 7.1 :41 MICROALBUMIN: CREATININE RATIO Comments: PATIENT WAS FASTINGPERFORMED BY: BranchOut70 Anesthetix HoldingsCone Health Wesley Long Hospital [id number] (91490) AND (36708) Microalb/Creat Ratio 2.2 {mg/g_creat} (Normal) Range: 0.0-30.0 Microalbumin, Urine 2.6 ug/mL (Normal) Range: 0.0-17.0 Creatinine, Urine 118.0 mg/dL (Normal) Range: 22.0-328.0 :41 METABOLIC PANEL, COMPREHENSIVE Comments: PATIENT WAS FASTINGPERFORMED BY: Codewars6370 Anesthetix HoldingsCone Health Wesley Long Hospital [id number]; f/u 06/17/12 (53589) ALT (SGPT) 19 [iU]/L (Normal) Range: 0-55 [...] mg/dL (Abnormal) Range: 65-99 :41 LIPID PANEL (51065) Comments: PATIENT WAS FASTINGPERFORMED BY: [facility] [id number] LDL/HDL Ratio 1.2 {ratio_units} (Normal) Range: 0.0-3.6 LDL Cholesterol Calc 72 mg/dL (Normal) Range: 0-99 VLDL Cholesterol Compa 25 mg/dL (Normal) Range: 5-40 HDL Cholesterol 61 mg/dL (Normal) Comments: According to ATP-III Guidelines, HDL-C >59 mg/dL is considered anegative risk factor for CHD. Triglycerides 124 mg/dL (Normal) Range: 0-149 Cholesterol, Total 158 mg/dL (Normal) Range: 100-199 7-Hzp-809735:11 HgA1C , Office (25058) HgA1C , Office 5.8 % (Normal) Range: 4.6 - 7.1 :11 Blood Glucose , Office (38111) Blood Glucose , Office 143 (Normal) :48 C-REACT PROT HIGH Comments: PATIENT WAS FASTINGPERFORMED BY: Codewars6370 [facility] [id number] Information: [id number], 2ND ORDER NO DRAW FEE SENS(hsCRP) (27421) C-Reactive Protein, Cardiac 1.32 mg/L (Normal) Range: 0.00-3.00 Comments: Relative Risk for Future Cardiovascular Event Low <1.00 Average 1.00 - 3.00 High >3.00 08-Lzx-579976:06 ANKLE,MIN 3 VIEWS Radiology Report See Note [...] radiologist regarding this report, please call our [id number] line @ Dictated on 01/14/12 1000 by MARSHA STONE MDribed on 01/14/12 1246 by ITS IMPORTSign by MARSHA STONE MD on 01/14/12 1246 Sign by: _ MARSHA STONE MD 91-Brs-986323:06 KNEE,4 OR MORE VIEWS Radiology Report See [...] radiologist regarding this report, please call our [id number] line @ Dictated on 01/14/12 1000 by MARSHA STONE MDscribed on 01/14/121351 by ITS IMPORTSign by MARSHA STONE MD on 01/14/12 1353 Sign by: MARSHA STONE MD CCP Antibodies 10 {units} Comments: PATIENT NOT FASTINGPERFORMED BY: [place] 0288970 [facility] [id number] BY: [address] [id number] 29:40 IgG/IgA (Normal) Range: 0-19 Comments: Negative <20 Weak positive 20 - 39 Moderate positive 40 - 59 Strong positive >59 :40 Uric Acid Blood (84037) Comments: PATIENT NOT FASTINGPERFORMED BY: [place] 0288970 [facility] [id number] BY: [address] [id number] Uric Acid, Serum 6.8 mg/dL (Normal) Range: 3.7-8.6 Comments: Therapeutic target for gout patients: <6.0 :40 SED RATE ERYTHROCYTE Comments: PATIENT NOT FASTINGPERFORMED BY: Firefly BioWorksDaniel [place] 2472670 [facility] [id number] BY: [address] [id number] (85538) Sedimentation Rate-Westergren 18 mm/h (Normal) Range: 0-30 :40 C-REACTIVE PROTEIN (55497) Comments: PATIENT NOT FASTINGPERFORMED BY: [place] 0288970 [facility] [id number] BY: [address] [id number] C-Reactive Protein, Quant 34.9 mg/L (Abnormal) Range: 0.0-4.9 :40 TSH (80176) Comments: PATIENT NOT FASTINGPERFORMED BY: [place] [address] [facility] [id number] BY: [address] [id number] TSH 1.990 {uIU/mL} (Normal) Range: 0.450-4.500 :40 RHEUMATOID FACTOR-QUANT Comments: PATIENT NOT FASTINGPERFORMED BY: [place] 0288970 [facility] [id number] BY: [address] [id number] (56707) RA Latex Turbid. 11.3 {IU/mL} (Normal) Range: 0.0-13.9 :40 VICTOR HUGO (ANTINUCLEAR ANTIBODY) Comments: PATIENT NOT FASTINGPERFORMED BY: [place] 0288970 [facility] [id number] BY: [address] [id number] (49974) VICTOR HUGO Direct Negative (Normal) :40 CBC WITH MANUAL DIFF Comments: PATIENT NOT FASTINGPERFORMED BY: [place] 0288970 [facility] [id number] BY: [address] [id number] Inf ormation: [id number] (70002) Immature Grans (Abs) 0.0 {x10E3/uL} (Normal) Range: [...] 4.10-5.60 WBC 10.5 {x10E3/uL} (Normal) Range: 4.0-10.5 72-Dbg-67775:40 METABOLIC PANEL, Comments: PATIENT NOT FASTINGPERFORMED BY: CB [facility] Mdazhh2616 [facility] [id number] BY: BN [facility] [address] [id number] [facility] (74161) ALT (SGPT) 15 [iU]/L (Normal) Range: 0-55 [...] METABOLIC PANEL, Comments: PATIENT WAS FASTINGPERFORMED BY: LabCoHealthSouth - Specialty Hospital of UnionKevbdg0478 [facility] [id number] Information: [id number] COMPREHENSIVE (61327) ALT (SGPT) 16 [iU]/L (Normal) Range: 0-55 [...] mg/dL (Normal) Range: 65-99 :47 LIPID PANEL (97772) Comments: PATIENT WAS FASTINGPERFORMED BY: Adlyfe [place] [id number] LDL/HDL Ratio 1.4 {ratio_units} (Normal) Range: 0.0-3.6 LDL Cholesterol Calc 78 mg/dL (Normal) Range: 0-99 VLDL Cholesterol Compa 21 mg/dL (Normal) Range: 5-40 HDL Cholesterol 54 mg/dL (Normal) Comments: According to ATP-III Guidelines, HDL-C >59 mg/dL is considered anegative risk factor for CHD. Triglycerides 107 mg/dL (Normal) Range: 0-149 Cholesterol, Total 153 mg/dL (Normal) Range: 100-199 54-Pud-830879:17 HgA1C , Office (58606) HgA1C , Office 5.6 % (Normal) Range: 4.6 - 7.1 :29 PSA (PROSTATE SPECIFIC Comments: PATIENT WAS FASTINGPERFORMED BY: Ad[place]fe [place] [id number] ANTIGEN) (V76.44) Prostate Specific Ag, 1.2 ng/mL (Normal) Range: 0.0-4.0 Serum Comments: Lauren ECLIA methodology. .According to the [place] [employer], Serum PSA shoulddecrease and remain [...] CREATININE RATIO Comments: PATIENT WAS FASTINGPERFORMED BY: Codewars6370 Anesthetix HoldingsCone Health [facility] Hospital [id number] (31115) AND (85459) Microalb/Creat Ratio 1.8 {mg/g_creat} (Normal) Range: 0.0-30.0 Microalbumin, Urine 2.3 ug/mL (Normal) Range: 0.0-17.0 Creatinine, Urine 130.7 mg/dL (Normal) Range: 22.0-328.0 :29 CBC WITH MANUAL DIFF Comments: PATIENT WAS FASTINGPERFORMED BY: Codewars6370 Anesthetix HoldingsCone Health Wesley Long Hospital [id number] Information: [id number] (01924) Immature Grans (Abs) 0.0 {x10E3/uL} (Normal) Range: [...] 4.10-5.60 WBC 7.6 {x10E3/uL} (Normal) Range: 4.0-10.5 6-Shy-149432:29 METABOLIC PANEL, COMPREHENSIVE Comments: PATIENT WAS FASTINGPERFORMED BY: LabCoHealthSouth - Specialty Hospital of UnionNejsns6956 [facility] [id number] (55500) ALT (SGPT) 22 [iU]/L (Normal) Range: 0-55 [...] Glucose, Serum 106 mg/dL (Abnormal) Range: 65-99 0-Oib-086707:29 LIPID PANEL (35710) Comments: PATIENT WAS FASTINGPERFORMED BY: BranchOut70 [employer] [facility] HospitalPoshlyCone Health [facility] Hospital [id number]; appt 10/17/11 LDL/HDL Ratio 1.3 {ratio_units} (Normal) Range: 0.0-3.6 LDL Cholesterol Calc 73 mg/dL (Normal) Range: 0-99 VLDL Cholesterol Compa 18 mg/dL (Normal) Range: 5-40 HDL Cholesterol 56 mg/dL (Normal) Comments: According to ATP-III Guidelines, HDL-C >59 mg/dL is considered anegative risk factor for CHD. Triglycerides 90 mg/dL (Normal) Range: 0-149 Cholesterol, Total 147 mg/dL (Normal) Range: 100-199 81-Pax-113555:21 Metabolic Panel, Comprehensive Comments: PATIENT WAS FASTINGPERFORMED BY: Codewars6370 [facility] [id number] (77060) ALT (SGPT) 20 [iU]/L (Normal) Range: 0-55 [...] Glucose, Serum 97 mg/dL (Normal) Range: 65-99 42-Aeu-903376:21 URINALYSIS (00320) Comments: PATIENT WAS FASTINGPERFORMED BY: A&A ManufacturingCone Health Wesley Long Hospital [id number] Microscopic Examination MICRON (Normal) Comments: Microscopic follows if indicated. Nitrite, Urine Negative (Normal) Bilirubin Negative (Normal) Ketones Negative (Normal) Occult Blood Negative (Normal) Urobilinogen,Semi-Qn 0.2 mg/dL (Normal) Range: 0.0-1.9 Appearance Clear (Normal) Glucose Negative (Normal) pH 7.0 (Normal) Range: 5.0-7.5 Protein Negative (Normal) Urine-Color Yellow (Normal) WBC Esterase Negative (Normal) Specific Pearl 1.017 (Normal) Range: 1.005-1.030 67-Pwh-270502:21 CBC with manual diff Comments: PATIENT WAS FASTINGPERFORMED BY: [employer] Kdmlwm8902 [facility] [id number] Information: ADD [id number] AND DRAW FEE 99 6660 (23763) Baso (Absolute) 0.0 {x10E3/uL} (Normal) Range: 0.0-0.2 [...] 4.10-5.60 WBC 7.6 {x10E3/uL} (Normal) Range: 4.0-10.5 85-Deq-099008:21 TSH (11914) Comments: PATIENT WAS FASTINGPERFORMED BY: [facility] Bcsamh0738 [facility] [id number] TSH 1.370 {uIU/mL} (Normal) Range: 0.450-4.500 45-Ihq-381455:21 Lipid Panel (21028) Comments: PATIENT WAS FASTINGPERFORMED BY: [facility] Sjhuxs1987 [facility] [id number] LDL Cholesterol Calc 81 mg/dL (Normal) Range: 0-99 LDL/HDL Ratio 1.4 {ratio_units} (Normal) Range: 0.0-3.6 HDL Cholesterol 58 mg/dL (Normal) Comments: According to ATP-III Guidelines, HDL-C >59 mg/dL is considered anegative risk factor for CHD. VLDL Cholesterol Compa 15 mg/dL (Normal) Range: 5-40 Triglycerides 76 mg/dL (Normal) Range: 0-149 Cholesterol, Total 154 mg/dL (Normal) Range: 100-199 72-Ntr-378102:21 PSA (Prostate Specific Comments: PATIENT WAS FASTINGPERFORMED BY: [facility]Corewell [facility]6370 [facility] [id number] Antigen), Screening (14058) Prostate Specific Ag, 0.9 ng/mL (Normal) Range: 0.0-4.0 Serum Comments: [employer] ECLIA methodology. .According to the [place] [employer], Serum PSA shoulddecrease and remain at undetectable levels after radicalprostatectomy. The AUA defines biochemical recurrence as an initialPSA value 0.2 ng/mL or greater followed by a subsequent confirmatoryPSA value 0.2 ng/mL or greater.Values obtained with d ifferent assay methods or kits cannot be usedinterchangeably. Results cannot be interpreted as absolute evidenceof the presence or absence of malignant disease. 09-Whz-19569:50 BRAIN W/WO CONTRAST Radiology Report See Note (Normal) Comments: Exam Number: [id number] CLINICAL: Right hand, fifth digit numbness two [...] demonstrated an eurysm or occlusion of the [place] of [place]. Normal bilateral temporal bones, with [...] (PROSTATE SPECIFIC Comments: PATIENT WAS FASTINGPERFORMED BY: Codewars6370 Anesthetix HoldingsCone Health [facility] Hospital [id number] ANTIGEN) (V76.44) Prostate Specific Ag, Serum 0.8 ng/mL (Normal) Range: 0.0-4.0 Comments: [employer] methodology. .According to the [place] [employer], PSA should beundetectable after radical prostatectomy. A PSA of less than0.5 ng/mL (or undetectable) is not likely to be associated withdisease recurrence within five years of treatment.Values obtained with different assay methods or kits cannot be usedinterchang eably. Results cannot be interpreted as absolute evidenceof the presence or absence of malignant disease. :59 LIPID PANEL (67358) Comments: PATIENT WAS FASTINGPERFORMED BY: Ad[place] [id number] Cholesterol, Total 248 mg/dL (Abnormal) Range: 100-199 HDL Cholesterol 56 mg/dL (Normal) Comments: According to ATP-III Guidelines, HDL-C >59 mg/dL is considered anegative risk factor for CHD. LDL Cholesterol Calc 161 mg/dL (Abnormal) Range: 0-99 LDL/HDL Ratio 2.9 {ratio_units} (Normal) Range: 0.0-3.6 Triglycerides 157 mg/dL (Abnormal) Range: 0-149 VLDL Cholesterol Compa 31 mg/dL (Normal) Range: 5-40 :59 URINALYSIS W/O MICRO (46060) Comments: PATIENT WAS FASTINGClinical Information: ADD [id number], [id number] PERFORMED BY: [place] [employer] [place] [address] [id number] Appearance Clear (Normal) Bilirubin Negative (Normal) Glucose Negative (Normal) Ketones Negative (Normal) Microscopic Examination MICRON (Normal) Comments: Microscopic follows if indicated. Nitrite, Urine Negative (Normal) Occult Blood Negative (Normal) pH 6.0 (Normal) Range: 5.0-7.5 Protein Negative (Normal) Specific Pearl 1.019 (Normal) Range: 1.005-1.030 Urine-Color Yellow (Normal) Urobilinogen,Semi-Qn 0.2 mg/dL (Normal) Range: 0.0-1.9 WBC Esterase Negative (Normal) :59 VITAMIN B-12 (CYANOCOBALAMIN) Comments: PATIENT WAS FASTINGPERFORMED BY: [employer] Bjclzq6921 [facility] [id number] (40264) Vitamin B12 395 pg/mL (Normal) Range: 211-911 :59 TSH (36112) Comments: PATIENT WAS FASTINGPERFORMED BY: Firefly BioWorksHealthSouth - Specialty Hospital of UnionRkyiiy1056 [facility] [id number] TSH 2.820 {uIU/mL} (Normal) Range: 0.450-4.500 Comments: [...] On: :30 Request CBC with auto diff (23031)Indication: Impaired fasting glucose On: :30 Request HGB A1C (06051)Indication: Impaired fasting glucose On: :30 Request LIPID PANEL (02561)Indication: Other hyperlipidemia On: :30 Request METABOLIC PANEL, COMPREHENSIVE (36165)Indication: Hypertensive heart disease without heart failure On: :30 Request Hemoglobin Glyclated (HGB A1C) (13261)Indication: Impaired fasting glucose On: :32 Request MICROALBUMIN: CREATININE RATIO (67973) AND (99433)Indication: Impaired fasting glucose On: :32 Request CBC W/AUTO DIFF WBC (03227)Indication: Hypertensive heart disease without heart failure On: :32 Request METABOLIC PANEL, COMPREHENSIVE (88353)Indication: Hypertensive heart disease without heart failure On: :32 Request LIPID PANEL (92367)Indication: Other hyperlipidemia On: :32 Request CBC W/AUTO DIFF WBC (17003)Indication: Impaired fasting glucose On: :40 Request MICROALBUMIN: CREATININE RATIO (85403) AND (22267)Indication: Impaired fasting glucose On: :40 Request METABOLIC PANEL, COMPREHENSIVE (21870)Indication: Impaired fasting glucose On: :40 Request LIPID PANEL (48907)Indication: Other hyperlipidemia On: :40 Request HEPATIC FUNCTION PANEL (28917)Indication: Onychomycosis On: :22 Request CCP ANTIBODY (05218)Indication: Pain in unspecified joint On: :27 Request METABOLIC PANEL, COMPREHENSIVE (28398)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 On: 8-Iwp-916234:13 Request LIPID PANEL (39770)Indication: Other hyperlipidemia On: :13 Request LIPID PANEL (34271)Indication: Other hyperlipidemia On: :14 Request METABOLIC PANEL, COMPREHENSIVE (95508)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 On: 09-Zfi-402894:14 Request Planned Encounters Medical; [facility] 4 Month Fu - On: 06-Feb-2019 7:00 [facility] Fast DO, Darlin A Fast DO, Darlin A Planned Procedures MRI OF LEFT KNEE WITHOUT CONTRAST On: 11-Jul-2018 Intent (49829)By: Darlin Pleitez DO Fast DO, Darlin A ELECTROCARDIOGRAM, COMPLETE (ECG) On: 27-Jun-2018 Intent (38574)By: Darlin Pleitez DO Comments: ekg showed normal sinus rhythym, normal axis, no acute st/t wave changes DO, Darlin A Doppler Ultrasound OtherBy: Fast On: 06-Jun-2018 Intent DO, Darlin A Fast DO, Darlin A Comments: stat call results Radiology - Lumbar SpineBy: Fast On: 06-Jun-2018 Intent DO, Darlin A Fast DO, Darlin A Radiology - Left KneeBy: Maik DO, On: 06-Jun-2018 Intent Darlin A Fast DO, Darlin A Comments: weight bearing ELECTROCARDIOGRAM, COMPLETE (ECG) On: 12-Jun-2017 Intent (57584)By: Darlin Pleitez DO Comments: ekg showed normal sinus rhythym, normal axis, no acute st/t wave changes sinus edna DO, Darlin A ZOSTER VACC, [place] (35102)By: Maik VOSS, On: 12-Jun-2017 Intent Darlin A Fast DO, Darlin A Comments: lot: [id number]: 01/03/18ite/route: R arm/SQamt: 0.65mL reconsituted with sterile diluentVIS signed when applicableChelsea, TURNER MACHINE ELECTROCARDIOGRAM, COMPLETE (ECG) On: 11-Jun-2016 Intent (91874)By: Darlin Pleitez DO Comments: ekg showed normal sinus rhythym, normal axis, no acute st/t wave changes sinus edna DO, Darlin A Aerosol Treatment (62319)By: John On: 29-Apr-2014 Intent Maria Luz VOSS Comments: more ae- still noisy but not as rough Solu- Medrol Injection, 125mg On: 29-Apr-2014 Intent (J2930)By: Maria Luz Lopez DO Comments: lot: [id number]: ite/route: RGM/IMamt: 2mLVIS signed when applicableChelsea, TURNER MACHINE EKG (12920)By: Fast DO, Darlin A On: 23-Apr-2014 Intent Fast DO, Darlin A Comments: ekg showed normal sinus rhythym, normal axis, no acute st/t wave changes Eprescribed prescriptions On: 29-Sep-2013 Intent (G8553)By: Caridad Lopez Eprescribed prescriptions On: 19-May-2013 Intent (G8553)By: Caridad Lopez EKG (64495)By: Caridad Lopez On: 15-Jan-2013 Intent Comments: ekg [...] SPLIT, >3 YEARS, INTRAMUSC On: 17-Oct-2011 Intent (46998)By: Caridad Lopez Comments: received at work EKG (60544)By: Fast DO, Darlin A On: 04-Sep-2011 Intent Fast DO, Darlin A Comments: ekg showed normal sinus rhythym, normal axis, no acute st/t wave changes no change Radiology - Chest- PA and LatBy: On: 25-Oct-2010 Intent Fast DO, Darlin A Fast DO, Darlin A TDAP VACCINE >7 IM (20390)By: Fast On: 08-Nov-2009 Intent DO, Darlin A Fast DO, Darlin A Comments: Lot #[id number]-97/17/2011Site-left deltoidDose0.5mlgiven by Jonathan Fry LPN Echo CompleteBy: Fast DO, Darlin A On: 15-Jul-2009 Intent Fast DO, Darlin A EKG (97389)By: Fast DO, Darlin A On: 15-Jul-2009 Intent [...] Impaired fasting glucose Encounters Office Visit On: 03-Oct-2018 7:01 Encounter Reason: [...] Nieto). Note for Physical exam: [facility] Wellness Ex am-- the pain in back [...] checks every decEncounter Diagnosis: BMI 32.0-32.9,adult, Nonsmoker, [facility] WELLNESS EXAM, Elevated high sensitivity C- reactive [...] acuity (Dr. Nieto). [facility] exam[facility], [[facility]ITIONAL REASON] Follow up, Laboratory Test Results - Date: (05/2016- [facility] labs). Encounter Diagnosis: BMI 33.0-33.9,adult, Nonsmoker, [facility] [...] issues: [facility] [place] [facility] [place] [facility] [place] higher than [place]- no [...] a issues and reviewed xrays and lab wiht thim- think maybe gout- will have to see [...]
--- OUTSIDE RECORDS SUMMARY | 2019-02-24 14:51 | XMS RPT_ITS ---
:1960 Author Organization [facility] Care Team Providers Name Role Phone Fast DO, Darlin A Attending Unavailable Fast DO, Darlin A Referring Unavailable Fast DO, Darlin A Consulting Unavailable Eshenaur, Bandar PA-C Attending Unavailable Eshenaur, Bandar PA-C Referring Unavailable Fast, Darlin Primary Care Unavailable Alberto, Denny Attending Unavailable Alberto, Denny Referring Unavailable Fast, Darlin Primary Care Unavailable Fast, Darlin Attending Unavailable Fast, Darlin Referring Unavailable Fast, Darlin Primary Care Unavailable Fast, Darlin Attending Unavailable Fast, Darlin Primary Care Unavailable Fast, Darlin Attending Unavailable Fast, Darlin Primary Care Unavailable Fast, Darlin Attending Unavailable Fast, Darlin Primary Care Unavailable Fast, Darlin Referring Unavailable Fast, Darlin Attending Unavailable Fast, Darlin Referring Unavailable Fast, Darlin Primary Care Unavailable Alberto, Denny Attending Unavailable Alberto, Denny Referring Unavailable Fast, Darlin Primary Care Unavailable PROBLEMS PROBLEMS DATE TYPE CONDITION / CODE ATTENDING STATUS SOURCE 07/31/2018 Unknown M25.462 - Alberto, Denny Active [place] Effusion, left [facility] knee / Hospital M25.462(ICD-10) Repository 07/08/2018 Unknown M79.605 - Pain Fast, Darlin Active [place] in left leg / Community M79.605(ICD-10) Hospital Repository PROCEDURES PROCEDURES No Procedure Records FoundRESULTS RESULTS CHEST PA AND LATERAL Observed: 12/23/2018 Status: F Source: [place] 11:04 AM [facility] REPOSITORY [facility] Imaging Services [address] [place] [address] Chest PA and Lateral MR#: [id number] Acct: [id number] Name: TRACEY SCOTT Rep #: [id number] : 1960 M 58 From: Josh Warner MD PCP: Darlin Pleitez DO Status: REG CLI Study: Chest PA and Lateral Date of Exam: 12/23/18 Exam# [id number] Ordering Dr: Darlin Pleitez DO STUDY: X-RAY CHEST REASON FOR EXAM: Male, 58 years old. Cough. Chest congestion. TECHNIQUE: PA and lateral views of the chest. COMPARISON: None. FINDINGS: Mild increase in markings at the left lung base suggestive of atelectasis. There is no demonstrated pleural abnormality. There is borderline cardiomegaly. Normal mediastinum and karen. Normal visualized pulmonary arteries. Normal visualized aortic arch and descending thoracic aorta. There are diffuse degenerative changes of the visualized thoracic spine. Normal visualized ribs, clavicles, and shoulders. There is no demonstrated abnormality of the visualized soft tissue structures of the upper abdomen. RAD/Chest PA and Lateral IMPRESSION: Mild increased linear markings at the left lung base suggestive of linear atelectasis. Electronically Signed: Josh Warner MD at 11:26 EST Tel [phone], Service support , CC: Darlin Pleitez DO Sucker Machine Operator: Signed INITAL EVALUATION (1) Observed: 12/16/2018 Status: F Source: [place] - PT 1:44 PM [facility] REPOSITORY [facility] [address] [place] [address]. [address] [place] [address] / REHABILITATION SERVICES INITIAL EVALUATION MR#: [id number] Acct: [id number] Name: TRACEY SCOTT Rep #: [id number] : 1960 58 From: Soraya STEVENS Referring Dr.: Bandar AMBROCIO Status: REG RCR Insurance: [employer] SELF PAY INSURANCE Patient's Visit Information TRACEY SCOTT is a 58 year old M referred to Physical Therapy by LOLLY Damon with a diagnosis of Bakers cyst and effusion L knee. Date of Evaluation: 12/16/18 Physical Therapist: HILDA Lucia - Visit Plan Frequency: 2-3x /Week Duration: 2 Months Plan: 2-3X/ week for 6 weeks for L knee AROM, PROM, gait training, strengthening, stairs, HEP and modalities as needed. - Subjective Findings: Pt had surgery 1-9-2018 and they took off a bone spur and found a tear in the menisucus L knee....they took a lot of fluid off the knee. He had crutches for a few days and now off the crutches. Pt is sitting a lot at work....swelling has not been too bad. He has been wearing the stockings during the day. They said to wear them for 2 weeks. He has no restrictions. They said to walk on it as tolerated. Pt has stairs at home but has not really used them. When he does he goes more 2 feet to a stair. Pt is back to driving. Pt reports that he has increased stiffness today. Pt is sleeping well without the knee bent. He does have ice around his knee at night. - Pain L knee pain Pain Intensity (Out of 10): 2 - Objective Gait: walks with decreased stance time on the L side and increase wobble. L knee extension -5 degrees from full extension and L knee flexion 95 degrees. Able to SLR 2 X 10 with slight difficulty with extensor lag. Pt has fair Quad contraction with QS at this point. L [...] performance and independence with ADL's, To improve ability of physical actions for home/community/work/leisure, To improve gait and locomotor functions, To improve health of tissue, To decrease soft tissue restriction, To increase flexibility/ROM Therapeutic Exercise to Include: Strength training, Postural [...] To decrease soft tissue restriction, To increase flexibility/ROM IF ES: Yes Cryotherapy (ice pack, ice massage): Yes For the Purpose of:: To decrease pain, To decrease swelling/inflammation, To increase ROM, To improve nutrient delivery to tissue Thank you for the opportunity to evaluate your patient. For Medicare and Medicare HMO plans, please review the plan of care and approve it. It will need to be FAXED BACK to us at [phone] for Medicare purposes. For Medicare only, by signing this I certify the plan of care. Please let me know if there are questions or concerns regarding this plan of care. Physician Signature: Date: <Electronically signed by Soraya Brown MPT> 12/16/18 1344 CC: Darlin AMBROCIO Signed OPERATIVE REPORT Observed: 12/10/2018 Status: F Source: [place] 3:22 PM [facility] REPOSITORY [facility] Medical Records Department [address] [place] [address] Operative Report 12/10/18 0858 MR#: [id number] Acct: [id number] Name: TRACEY SCOTT Rep #: [id number] : 1960 58 From: Denny Dominguez MD PCP: Darlin Pleitez DO Status: [facility] [place] [facility] of Operation Date of Procedure: 12/10/18 Pre-Operative Diagnosis: Left knee pain, effusion and large patellofemoral osteophyte Post-Operative Diagnosis: Left knee complex medial meniscus tear. Left knee florid synovitis. Left knee lateral patellar osteophyte Surgery/Procedure Performed:: Arthroscopic left knee surgery. 1. Partial medial meniscectomy. 2. Synovectomy complete. 3. Lateral facetectomy of the patella Description of Surgical Findings:: Florid synovitis, complex posterior medial meniscus tear, excessive lateral facet was removed no longer abrading the lateral femoral condyle embedded software architect: None Type of Anesthesia:: General Anesthesiologist: Gio Terry Special Medications: 2 g Ancef Specimen's removed: None Estimated [...] the bed and well-padded. There was padding underneath both sciatic nerves. The foot of the bed was then dropped and the l leg was prepped in a sterile fashion. The surgeon then scrubbed. Upon reentering the room, the operative leg was draped in a standard orthopedic fashion. A timeout was called, everyone agreed upon the side, the site, the procedure to be performed, patient's identity and antibiotics given. Incisions were marked out for the medial and lateral infrapatellar portals. Esmarch bandage was then used to exsanguinate the leg and tourniquet was placed at 250 mmHg. At this time, the lateral portal incision was made in a vertical fashion. The trocar was placed into the joint. The camera was then placed and the patellofemoral joint was visualized. The patella did appear to have grade 2 chondral changes. The trochlea appeared to have grade 2 chondral changes. We then directed our attention to the medial gutter where there was no foreign body. Then directed our attention to the medial joint compartment. There were grade 2-3 chondral changes on the medial distal femur, grade 2 chondral changes on the medial tibial plateau. The medial meniscus had a large complex torn posterior medial meniscus tear. The medial portal was then placed under direct visualization using a spinal needle an 11 blade scalpel. Once this was done a probe was placed in the joint and the meniscus was probed finding a complex posterior medial meniscus tear. The biters and bib were then used sequentially to debriding get rid of any free edges that could be a source of pain and catching in the meniscus tear. Once we felt medial meniscus tear was adequately debrided, we again visualized the joint and noted the meniscus tear was adequately debrided. Attention was then turned towards the notch where the anterior cruciate ligament was intact. PCL was visualized and appeared intact. Attention was then directed towards the lateral compartment where the lateral distal femur had grade 1 chondral changes, the lateral proximal tibia had grade 1 chondral changes. The lateral meniscus had tears. We then directed our attention to the lateral gutter, which was visualized and no free bodies were noted. At this time we directed our attention back to the patellofemoral joint. From the lateral gutter we could see that there was an excessive lateral facet that was riding over the lateral portion of the distal femoral condyle laterally. He also went to the suprapatellar pouch and lateral and medial gutters and noted excessive synovectomy remained. A complete synovectomy was performed using the shaver removing all excessive synovium in the suprapatellar area, medial gutter lateral gutter and retropatellar area. Shaver and [...] the lateral gutter and noted there was some additional synovium need to be debrided. At this time the wound was copiously irrigated out with normal saline with epinephrine. The wound was closed with 4-0 nylon and 0.5% Marcaine and epinephrine were injected for local anesthetic. Xeroform was placed over the incision. Sterile dressing was placed. Compressive dressing was placed. Tourniquet was let down. For that there was then placed up. Patient was awakened by anesthesia patient was transferred [...] VTE Mechan Device Prophylaxis: SCD's, Thigh High KAVITA Hose VTE Pharm Prophylaxis ordered?: Yes 12/10/18 1522 <Electronically signed by Denny Dominguez MD> Date Denny Dominguez MD CC: Darlin Pleitez DO; Denny Dominguez MD Signed HISTORY AND PHYSICAL Observed: 11/20/2018 Status: F Source: [place] EXAM 9:41 PM [facility] REPOSITORY [facility] Medical Records Department [address] [place] [address] History and Physical 11/20/18 2140 MR#: [id number] Acct: [id number] Name: TRACEY SCOTT Rep #: [id number] : 1960 58 From: Bandar Patrick PA-C PCP: Darlin Pleitez DO Status: PRE [facility] [facility] History and Physical DATE OF SURGERY: 12/10/2018 SCHEDULED PROCEDURE: diagnostic left knee arthroscopy with debridement of [...] have pain with activities of daily living. Patient has tried oral medications with no significant relief in symptoms. After failing conservative measures and discussing all treatment options at Dr. Denny Dominguez, the patient does wish to proceed with diagnostic left knee arthroscopy with debridement of bony osteophyte. Patient currently denies chest pain, shortness of breath, fevers chills, recent infections. Patient will be obtaining surgical clearance from his primary care physician. REVIEW OF SYSTEMS: ROS: Const: Denies change in appetite, fever and weight change. CV: Denies chest pain, heart murmur and irregular heartbeat. Resp: Denies cough, pneumonia, shortness of breath, tuberculosis and wheezing. GI: Denies constipation, diarrhea, heartburn, nausea, rectal itching, bloody stools and vomiting. : Denies incontinence. Musculo: Reports leg swelling, trouble walking and weakness, but denies pain. Skin: Denies Raynaud's, history of shingles and tattoo. Neuro: Denies ambulatory dysfunction, dizziness, numbness/tingling and tremor. Psych: Denies anxiety, insomnia and stress. Alex/Lymph: Denies anemia, bleeding/bruising tendency and past transfusion. Reviewed, no changes. PAST MEDICAL HISTORY: Advance Care Plan: No Advance Directives Effective Date: 07/31/2018 PMH: Medical Problems: Arthritis, High Blood Pressure, Hypercholesterolemia Accidents: Fracture - (1965) RT COLLARBONE Surgical Hx: Colonoscopy - X3 Anesthesia Complications: None Assistive Devices: Contacts Reviewed, no changes. SOCIAL HISTORY: SH: Marital: .Occupation: [employer].Work Status: Currently Working.Hand Dominance: Right-handed. Personal Habits: Cigarette Use: Never Smoked Cigarettes.Smokeless Tobacco: Never Used Smokeless Tobacco.Alcohol: Occasionally.Drug Use: Denies Use.Enjoy Exercising: Exercises 1-3 X/Week. Reviewed, no changes. VITALS: Ht: 67.5 Wt: 232lb Wt k.235 BMI: 35.8 BP: 124/78 Pulse: 68 Resp: 16 T: 98.5 T: 36.9C ALLERGIES: No Known Drug Allergy MEDICATIONS: Mantador 5-325 mg 1-2 by mouth every 6 hour as needed pain, Meloxicam 15 mg 1 by mouth every day, Losartan Potassium 100 mg 1 tab PO daily, Norvasc 10 mg 1 tab PO daily, Lipitor 20 mg 1 tab PO qhs, Aspirin 81 mg 1 tab PO daily, Multi Vitamin Daily 1 tab PO daily PRE-OP EXAM: General appearance:NORMAL Other: Eyes: Conjunctivae and lids: NORMAL Pupils: ERR Ears, Nose, Mouth, and Throat: NORMAL Other: Inspection of lips, teeth and gums: NORMAL Other: Neck: Examination of neck: no masses noted. Respiratory: Assessment of respiratory effort: NORMAL Other: Auscultation of lungs: clear to auscultation no wheezes, rhonchi or rales. Cardiovascular: Auscultation of heart: regular rate and rhythm, no murmurs, gallops or rubs. Exam of carotid arteries: NORMAL Other: Gastrointestinal: Exam of abdomen: soft, nontender, nondistended bowel sounds present. PHYSICAL EXAMINATION: Patient continues to have effusion in the left knee. Tenderness to palpation over the medial joint line. There is fullness in the posterior knee. Range of motion left knee: Lacks 5 of full extension to 80 flexion. [...] does show large effusion with small popliteal cyst. Patient has evidence of an MCL sprain and partial tearing of the lateral collateral ligament with popliteal tendinosis. IMPRESSION: 1. Left knee pain with Nowak cyst and spurring lateral collateral ligament and bony osteophyte off the patella 2. Hypertension 3. Hypercholesterolemia PLAN: Dr. Denny Dominguez did discuss and review with the patient all treatment options including surgical versus nonsurgical options. Patient does wish to proceed with the above-stated procedure. Potential risks, benefits, and complications of the procedure were discussed in detail including but not limited to , infection, nerve and blood vessel damage, persistent pain, numbness, tingling, paresthesias, blood clot, pulmonary embolism, and requirement for possible further surgery. The patient expressed full understanding and has no further questions for the doctor. Patient does agree to proceed with the above-stated procedure and has signed the surgery consent form. This dictation was created using voice recognition software. Phonetic and/or grammatical errors may exist.. ___ I have re-examined the patient. There are no clinical changes since date of exam. ___ See progress notes for changes. ___ Dictated on admission Date: Time: Signature: 11/20/18 2141 <Electronically signed by Bandar Patrick PA-C> Date Bandar Patrick PA-C Cosigner Signature: Date (if applicable) CC: Darlin Pleitez DO; Bandar AMBROCIO Signed Observed: 07/31/2018 Status: F Source: [place] CULTURE, BODY FLUID 8:00 AM [facility] REPOSITORY List Antibiotics Last 48 Hours? UNK List Antibiotics to be Started? UNK Gram Stain Centrifuged Specimen? Culture performed on centrifuged specimen Gram Stain 4+ Red Blood Cells 4+ White Blood Cells No organisms seen Body Fluid Cult NO GROWTH IN 14 DAYS Cult, Anaerobic No growth in 5 days. Performed By: #### M100.1300 #### [facility] [address] [place], [address] CRYSTALS, BODY FLUID Collected: 07/31/2018 Status: C Source: [place] 8:00 AM [facility] REPOSITORY TYPE CODE TESTS RESULT OUT OF RANGE REFERENCE UNITS LAB L200.4200 Normal SEE PATH REV CRYSTALS/BF LAB L200.4225 Normal SYNOVIAL SOURCE/BF LAB L200.6020 Normal PATH Reviewed REV Result Comment: No diagnostic crystals seen. Seth Velazco D.O. 08/01/18 AMENDED REPORT 08/01/18 1230 PATH REV previously reported as: Will follow Performed By: #### L200.4175 #### [facility] [address] [place], [address] LOWER EXT JOINT ONLY Observed: 07/17/2018 Status: F Source: [place] (ROUTINE) 9:18 AM [facility] REPOSITORY [facility] Imaging Services [address] [place] [address] Lower Ext Joint Only (Routine) MR#: [id number] Acct: [id number] Name: TRACEY SCOTT Rep #: [id number] : 1960 M 57 From: Mulu Napoles MD PCP: Darlin Pleitez DO Status: REG CLI Study: Lower Ext Joint Only (Routine) Date of Exam: 07/17/18 Exam# [id number] Ordering Dr: Darlin Pleitez DO STUDY: MRI LEFT KNEE REASON FOR EXAM: Male, 57 years old. EFFUSION LEFT KNEE, PAIN POSTERIOR KNEE, UNABLE TO FLEX COMPLETELY, X 2 MOS TECHNIQUE: Standardized fat and water weighted pulse sequences were obtained in all 3 orthogonal planes. COMPARISON: X-ray June 06, 2018 FINDINGS: Normal medial meniscus. Normal hyaline cartilage of the medial femorotibial compartment. Normal medial femoral condyle and tibial plateau. There is a partial sprain of the MCL with interstitial and periligamentous edema. Normal distal semimembranosus, gracilis and semitendinosus tendons. Normal lateral meniscus. Normal hyaline cartilage of the lateral femorotibial compartment. There is minimal osteoarthritic spur formation of the lateral knee compartment. Normal proximal tibiofibular articulation. There is a partial sprain of the lateral collateral (fibular) ligament. There is a musculotendinous strain with diffuse muscular edema of the popliteus muscle. Normal biceps femoris tendon. Normal anterior cruciate ligament (ACL). Normal posterior cruciate ligament (PCL). Normal congruent patellofemoral articulation. Normal hyaline cartilage of the patellofemoral compartment. Normal medial and lateral patellar retinaculum. Normal [...] tissue edema. Electronically Signed: Mulu Napoles MD at 13:09 EDT , Service support , CC: Darlin Pleitez DO Sucker Machine Operator: Signed TXT - BLOOD FLOW Observed: 07/11/2018 Status: F Source: [place] SCREENING 8:22 AM [facility] REPOSITORY [facility] Cardiovascular Services [address] [place] [address] 07/10/18 08 MR#: [id number] Acct: [id number] Name: TRACEY SCOTT Rep #: [id number] : 1960 57 From: Bolivar Palomo MD Attending Dr: Darlin Pleitez DO Status: REG REF Ordering Dr: Date: 07/11/18 Location: [facility] Sex: M C Admitted: Reason For Study: screening Carotid Duplex Ultrasound Abdominal Aorta The right ECA velocity is less than 125 cm/s. The maximal outside diameter of the proximal The right maximum ICA velocity is 69.8/15.8 cm/s.aorta measures 1.59 cm in the longitudinal axis. There is insignificant plaque formation noted on The maximal outside diameter of the proximal the right side. aorta measures 1.63 x 1.71 cm in the cross- The left ECA velocity is less than 125 cm/s. sectional axis. The left maximum ICA velocity is 62.7/28.7 cm/s. There is insignificant plaque formation noted on the left side. Ankle Brachial Index The right ankle/ brachial index is 1.2. The left ankle/ brachial index is 1.1. Medical History and Assessment The client presents with a history of high blood pressure. The heart rate is 68 beats per minute. The heart rhythm is regular. The right blood pressure is 126/82. The left blood pressure is 134/90. The assessment was performed by Lakshmi Holland RVT. Interpretation Summary Normal carotid artery screening (0 to 15% narrowing). Normal aortic ultrasound exam. The ankle/brachial index is normal (1.0 or greater). .[facility] Physician: Darlin Pleitez D.O Performed By: Moises Holland, RVT 07/11/18821 Date Bolivar Palomo MD CC: Darlin Pleitez DO Date Dictated: 07/10/18820 Date Transcribed: 07/11/18821 Sucker Machine Operator: Signed INITAL EVALUATION (1) Observed: 06/27/2018 Status: F Source: [place] - PT 12:30 PM [facility] REPOSITORY [facility] [place] [address] Fax REHABILITATION SERVICES INITIAL EVALUATION MR#: [id number] Acct: [id number] Name: TRACEY SCOTT Rep #: [id number] : 1960 57 From: Soraya Brown MPT Referring Dr.: Darlin Pleitez DO Status: REG RCR Insurance: [employer] SELF PAY INSURANCE Patient's Visit Information TRACEY SCOTT is a 57 year old M referred to Physical Therapy by Darlin Pleitez DO with a diagnosis of L leg pain. Date of Evaluation: 06/20/18 Physical Therapist: Soraya Brown - Visit Plan Frequency: 2 [...] At night he has a hard time sleeping. He can lay on his back with leg straight out but if he turns side to side he can't. He has had problems with his L knee with OA before but this is a different pain. It has been this way for a month. The pain down the L leg is the worst in the morning..feels better with activitiy. The pain goes down to the ankle and once in awhile it seemed like it was in the jim. It is sharp shooting pain. Trouble with bending the knee. No real back pain. 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 It just creaped up on him. His bed is firm and bought a pillow mattress coer and that has helped to sleep. The pain does wake him up at night. No N AND T. Hard to drive...could hardly go 1/2 hour. - Pain back pain Pain Intensity (Out of 10): 0 L leg pain Pain Intensity (Out of 10): 3 Pain Intensity Range: 9 - Objective Gait: Walks with decreased stance time on the L. [...] X 5 min L posterior knee pain that may have gotten worse. Prone lying X 5 with C shape and closing down the L side....no knee pain. Had pt do 3 X 10 side glides against the wall to close down the L side...repeated 3X 10 teice and pt had decreased knee pain and was walking with [...] 4:: Increase L HS strength to 4/5 Goal Time Frame: 4-6 Weeks - Rehabilitation Potential Rehabilitation Potential: Good - Anticipated Interventions Patient/Client Instruction: Educate patient on: Condition, Plan of Care For the Purpose of:: To decrease pain, To increase ROM, To improve nutrient delivery to tissue, To improve muscle performance and motor function, To improve ability to perform ADL's, To increase tolerance to activity/condition/position, To improve performance and independence with ADL's, To improve gait and locomotor functions, To improve health of tissue Therapeutic Exercise to Include: Strength training, Body mechanics, Postural training, Flexibilty training, Gait and locomotor [...] perform tasks, To improve gait and locomotor functions, To improve health of tissue, To improve safety with gait Manual Therapy Techniques to Include: Mobilization, Soft tissue mobilization For the Purpose of:: To decrease pain, To increase ROM, To improve nutrient delivery to tissue IF ES: Yes Cryotherapy (ice pack, ice massage): Yes Ultrasound (thermal/non thermal): Yes For the Purpose of:: To decrease pain, To decrease swelling/inflammation, To improve nutrient delivery to tissue Thank you for the opportunity to evaluate your patient. For Medicare and Medicare HMO plans, please review the plan of care and approve it. It will need to be FAXED BACK to us at [phone] for Medicare purposes. Please let me know if there are questions or concerns regarding this plan of care. Physician Signature: Date: <Electronically signed by Soraya Brown MPT> 06/27/18 1230 CC: Darlin Pleitez DO Signed For Medicare only, by signing this I certify the plan of care. Physicians Signature Date VENOUS DUPLEX LOWER Observed: 06/07/2018 Status: F Source: [place] EXTREMITY 3:31 PM [facility] REPOSITORY [facility] Cardiovascular Services [address] [place] [address] Venous Duplex US, Unilateral 06/06/18 1420 MR#: [id number] Acct: [id number] Name: TRACEY SCOTT Rep #: [id number] : 1960 57 From: Bolivar Palomo MD Attending Dr: Darlin Pleitez DO Status: REG CLI Ordering Dr: Darlin Pleitez DO Date: 06/06/18 Location: CVS Sex: M C Admitted: Reason For Study: LEG PAIN RIGHT LEFT CFV is compressible, spontaneous, phasic, GSV is normal. competent and demonstrates normal CFV is compressible, spontaneous, phasic, augmentation. competent, and demonstrates normal Procedure augmentation. Exam performed in department. FV is compressible, spontaneous, phasic, A preliminary report was called and/or faxed competent and demonstrates normal to Dr. Pleitez. augmentation. POP V is compressible, spontaneous, phasic, competent and demonstrates normal augmentation. T/P Trunk is compressible. PTV is compressible. LT PerV is compressible. Interpretation Summary Deep veins of the left lower extremity are patent and compressible segmentally. There is no evidence of left lower extremity deep vein thrombosis. Valvular competence appears intact within the proximal deep venous system on the left . The left greater saphenous vein appears patent and compressible segmentally. Ordering Physician: Darlin Pleitez Referring Physician: Darlin Pleitez Performed By: Elva Larsen RVT 06/07/18 1531 Date Bolivar Palomo MD CC: Darlin Pleitez DO Date Dictated: 06/06/18 1420 Date Transcribed: 06/07/18 1531 Sucker Machine Operator: Signed KNEE 4 OR MORE Observed: 06/06/2018 Status: F Source: LUZ VIEWS 2:36 PM [facility] REPOSITORY [facility] Imaging Services [address] [place] [address] Knee 4 or More Views MR#: [id number] Acct: [id number] Name: SCOTTTRACEY Margo Rep #: [id number] : 1960 M 57 From: Winston Allred DO PCP: Darlin Pleitez DO Status: REG CLI Study: Knee 4 or More Views Date of Exam: 06/06/18 Exam# [id number] Ordering Dr: Darlin Pleitez DO STUDY: X-RAY - LEFT KNEE REASON FOR EXAM: Male, 57 years old. Pain TECHNIQUE: 5 view(s) of the knee. COMPARISON: None. FINDINGS: Normal visualized distal femur. Normal visualized proximal tibia and fibula. Normal proximal tibiofibular articulation. Normal medial femorotibial compartment. Minimal degenerative spurring at the lateral femorotibial compartment. Normal patellofemoral articulation. The soft tissue structures are unremarkable. RAD/Knee 4 or More Views IMPRESSION: Minimal degenerative changes of the knee. Electronically Signed: Winston Allred DO at 8:52 EDT Tel [phone], Service support , CC: Darlin Pleitez DO Sucker Machine Operator: Signed L/S SPINE MIN 4 Observed: 06/06/2018 Status: F Source: LUZ VIEWS 2:36 PM [facility] Imaging Services [address] [place] [address] L/S Spine Min 4 Views MR#: [id number] Acct: [id number] Name: TRACEY SCOTT Rep #: [id number] : 1960 M 57 From: Winston Allred DO PCP: Darlin Pleitez DO Status: REG CLI Study: L/S Spine Min 4 Views Date of Exam: 06/06/18 Exam# [id number] Ordering Dr: Darlin Pleitez DO STUDY: X-RAY - LUMBAR SPINE REASON FOR EXAM: Male, 57 years old. Pain TECHNIQUE: 5 view(s) of the lumbar spine were obtained. COMPARISON: None FINDINGS: Mildly exaggerated lumbar lordosis. There is no substantial scoliosis. There is a normal alignment of the vertebrae. Normal vertebral bodies and endplates. Normal disc space heights. The soft tissue structures are unremarkable. RAD/L/S Spine Min 4 Views IMPRESSION: Mildly exaggerated lordosis of the lumbar spine. Electronically Signed: Winston Allred DO at 9:11 EDT Tel [phone], Service support , CC: Darlin Pleitez DO Sucker Machine Operator: Signed ALLERGIES ALLERGIES DATE TYPE / CODE NAME / CODE REACTION SEVERITY SOURCE 11/21/2018 Drug No Known Unknown [facility] Allergy/4160 Allergies/F00 Hospital 36472(SNOMED [id number](RXNOR Repository CT) M) ENCOUNTERS ENCOUNTERS ADMIT/DISCHARGE ACCOUNT ADMITTING ENCOUNTER LOCATION SOURCE NUMBER CLASS 12/26/2018 [id number] Ambulatory [facility] 2 [facility] ing:PT Repository 12/23/2018 [id number] Ambulatory Building:[facility] [place] Practices Repository 12/23/2018 [id number] [facility] ing:HPRAD Repository 12/10/2018/ [id number] [place] 8 [facility] ing:SDCRoom: Repository AC14 07/31/2018 [id number] Ambulatory [place] 6 [facility] ing:LABSPEC Repository 07/17/2018 [id number] Ambulatory [place] 9 [facility] ing:MRI Repository 07/10/2018 [id number] [place] 1 [facility] ing:CVS Repository 07/08/2018 [id number] Ambulatory [place] 4 [facility] ing:PT Repository 06/06/2018 [id number] Ambulatory [place] 9 [facility] ing:CVS Repository PAYERS PAYERS ENCOUNTER GUARANTOR PAYER SUBSCRIBER SOURCE 12/26/2018 TRACEY L Primary TRACEY L [place] [id number] Insurance:ANTHEMPolic SCHMIDTDOB: [facility] Number: [id number] [id number] Repository [address]Rtw: ([phone]) Date:8238-33-32DM [phone] (HP) [id number], [place] [address]LE: 12/26/2018 Secondary NOT GIVENUNK [place] Insurance:SELF PAY [facility] Number: Effective Repository Date:2018-11-20 12/23/2018 TRACEY L Primary TRACEY L OHIP Practices SCHMIDTDOB: Insurance:Michelle HAGENB: Repository [facility] Number: [id number] [place] [id number] [address] [place] [address] Date:2434-39-57BrcfPolebridge, [place] [address]Msw: [phone]) Name:[address] [address]Vai: [id number] [place] [address] [phone] (HP) (HP)Tel: [phone]: [phone] 12/23/2018 Secondary TRACEY L OHIP Practices Insurance:Michelle HAGENB: Repository /BSPolicy Number: [id number] [address] Date:2003-08-02 - [place], [place] 4259-81-16Kboh [address]Qjg: ([phone]) Name:[address] (HP) [id number], [place] [id number]: 12/23/2018 Tertiary [place] OHIP Practices Insurance:United HagenB: Repository Health CarePolicy [id number] Number: [address] [id number] [place], [place] Date:2010-12-02 [address]Ljn: [phone] [id number] [phone] (HP) Name:[address] [address]SjwoAda, [place] [address]OS: 12/23/2018 Tertiary [place] OHIP Practices Insurance:AETNAMini HagenB: Repository Number: [id number] [address] [place] [address] Date:2011-12-02 - [place], [place] [id number] [address]Nnl: ([phone]) Name:[facility] [phone] (HP) PAMELA PELLETIER [id number]: 12/23/2018 Tertiary TRACEY L OHIP Practices Insurance:Aejosse SCOTTDOB: Repository InsurancePolicy [id number] Number: Effective [address] Date: - [place], [place] [id number] [address]Xkk: ([phone]) Name:[facility] [address] () [address] [place] [address]XG: 12/23/2018 Tertiary TRACEY L OHIP Practices Insurance:Aetpercy SCOTTDOB: Repository InsurancePolicy [id number] Number: [address] [id number] [place], [place] Date:2013-12-02 [address]Gvd: [phone] [id number] [phone] () Name:[facility] [address] [place] [address]SL: 12/23/2018 TRACEY L Primary TRACEY L [place] [id number] Insurance:ANTHEMPolic SCHMIDTDOB: [facility] JUANIS y Number: [id number], [place] [id number] Repository [address]Emd: ([phone]) Date:0561-14-50XJ [address] () [address] [place] [address] [place] [address]CK: 12/23/2018 Secondary NOT GIVENUNK [place] Insurance:SELF PAY [facility] Number: Effective Repository Date:2018-12-23 12/10/2018 TRACEY L Primary TRACEY L [place] [id number] Insurance:ANTHEMPolic SCHMIDTDOB: [facility] y Number: [id number], [place] [id number] Repository [address]Ayy: (330) Date:4090-78-59CM [address] () [address]HLCYVED [place] [address]WT: 12/10/2018 Secondary NOT GIVENUNK [place] Insurance:SELF PAY [facility] Number: Effective Repository Date:2018-10-28 07/31/2018 TRACEY L Primary TRACEY L [place] [id number] Insurance:ANTHEMPolic SCHMIDTDOB: [facility] y Number: [id number], [place] [id number] Repository [address]Nab: (330) Date:4114-66-87UK [address] () [address] [place] [address]KD: 07/31/2018 Secondary NOT GIVENUNK [place] Insurance:SELF PAY [facility] Number: Effective Repository Date:2018-07-31 07/17/2018 Tracey L Primary Tracey L [place] [id number] Insurance:ANTHEMPolic SchmidtDOB: [facility] y Number: [id number], [place] [id number] Repository [address]Vjd: (330) Date:1816-53-94KL [phone] () 086321WGTQAHP, [place] [address]JN: 07/17/2018 Secondary NOT GIVENUNK [place] Insurance:SELF PAY [facility] Number: Effective Repository Date:2018-07-11 07/10/2018 Tracey L Primary NOT GIVENUNK [place] [id number] Insurance:SELF PAY [place] Number: Effective Repository [id number]: (330) Date:2018-06-27 [phone] (HP) 07/08/2018 Tracey L Primary Tracey L [place] [id number] Insurance:ANTHEMPolic SchmidtDOB: [facility] y Number: [id number], [place] [id number] Repository [address]Bau: (330) Date:5816-88-43EE [phone] () 350427DDITJQM, [place] [address]UG: 07/08/2018 Secondary NOT GIVENUNK [place] Insurance:SELF PAY [facility] Number: Effective Repository Date:2018-06-11 06/06/2018 Tracye L Primary Tracey L [place] [id number] Insurance:ANTHEMPolic SchmidtDOB: [facility] y Number: [id number], [place] [id number] Repository [address]Sac: (330) Date:6569-23-86GI [phone] () 656856ZAFTNCP, [place] [address]BJ: 06/06/2018 Secondary NOT GIVENUNK [place] Insurance:SELF PAY [facility] Number: Effective Repository Date:2018-06-06
== END ==
PROVIDERS: Family Provider Internal Medicine; PCP Internal Medicine; Visit Provider Internal Medicine
DX: R05 Cough (principal)
CPT/HCPCS: 71046

== ENCOUNTER 2019-01-07 18:00 | Outpatient (RCR) | payer BC, SELFPAY ==
[2018-12-10 06:50] VITALS: BMI 33.1
--- NOTE | 2018-12-16 09:05 | HP.PTEVAL_ITS ---
Patient's Visit Information TRACEY SCOTT is a 58 year old M referred to Physical Therapy by LOLLY Damon with a diagnosis of Bakers cyst and effusion L knee. Date of Evaluation: 12/16/18 Physical Therapist: HILDA Lucia - Visit Plan Frequency: 2-3x /Week Duration: 2 Months Plan: 2-3X/ week for 6 weeks for L knee AROM, PROM, gait training, strengthening, stairs, HEP and modalities as needed. - Subjective Findings: Pt had surgery 12-10-2017 and they took off a bone spur and found a tear in the menisucus L knee....they took a lot of fluid off the knee. He had crutches for a few days and now off the crutches. Pt is sitting a lot at work....swelling has not been too bad. He has been wearing the stockings during the day. They said to wear them for 2 weeks. He has no restrictions. They said to walk on it as tolerated. Pt has stairs at home but has not really used them. When he does he goes more 2 feet to a stair. Pt is back to driving. Pt reports that he has increased stiffness today. Pt is sleeping well without the knee bent. He does have ice around his knee at night. - Pain L knee pain Pain Intensity (Out of 10): 2 - Objective Gait: walks with decreased stance time on the L side and increase wobble. L knee extension -5 degrees from full extension and L knee flexion 95 degrees. Able to SLR 2 X 10 with slight difficulty with extensor lag. Pt has fair Quad contraction with QS at this point. L hip abd MMT: 4-/5. R knee AROM: full ROM. Stairs: up and down recip with 2 hand rails and decreased eduardo time on the L LE. Good patellar mobility - Goals Goal 1:: I HEP Goal Time Frame: 4-6 Weeks Goal 2:: Increase L knee AROM to 0 degrees extension to 120 degrees L knee flexion Goal Time Frame: 4-6 Weeks Goal 3:: Be able to walk without an antalgic gait Goal Time Frame: 4-6 Weeks Goal 4:: Be able to go up and down stairs recip without a rail and without an antalgic gait Goal Time Frame: 4-6 Weeks - Rehabilitation Potential Rehabilitation Potential: Good - Anticipated Interventions Patient/Client Instruction: Educate patient on: Condition For the Purpose of:: To decrease pain, To decrease swelling/inflammation, To increase ROM, To improve nutrient delivery to tissue, To improve muscle performance and motor function, To improve ability to perform ADL's, To increase tolerance to activity/condition/position, To improve performance and independence with ADL's, To improve ability of physical actions for home/community/work/leisure, To improve gait and locomotor functions, To improve health of tissue, To decrease soft tissue restriction, To increase flexibility /ROM Therapeutic Exercise to Include: Strength training, Postural training, Flexibilty training, Gait and locomotor training, Passive ROM, Active ROM For the Purpose of:: To decrease pain, To decrease swelling/inflammation, To increase ROM, To improve nutrient delivery to tissue, To improve muscle performance and motor function, To improve ability to perform ADL's, To increase tolerance to activity/condition/position, To improve performance and independence with ADL's, To improve gait and locomotor functions, To improve health of tissue, To decrease soft tissue restriction, To increase flexibility/ROM IF ES: Yes Cryotherapy (ice pack, ice massage): Yes For the Purpose of:: To decrease pain, To decrease swelling/inflammation, To increase ROM, To improve nutrient delivery to tissue Thank you for the opportunity to evaluate your patient. For Medicare and Medicare HMO plans, please review the plan of care and approve it. It will need to be FAXED BACK to us at [phone] for Medicare purposes. For Medicare only, by signing this I certify the plan of care. Please let me know if there are questions or concerns regarding this plan of care. Physician Signature: Dat e:
--- NOTE | 2019-01-07 19:33 | HP.PTDCSUM_ITS ---
HP - PT D/C Summary It has been my pleasure to treat TRACEY SCOTT under orders from LOLLY Damon, for the diagnosis of Bakers cyst and effusion L knee for a total of 9 visit(s). Discharge Date: 01/07/19 Please see the following information for a summary of their discharge status. - Subjective Subjective: Pt reports that his knee is more stiff than painful. He still gets pain behind the knee as well. Pt feels that he is able to do exercises at home and is able to go up and down a ladder. He has a stationary bike that he can do at home. - Pain L knee pain Pain Intensity (Out of 10): 1 - Overall Improvement % Improvement: 95 - Objective Objective/Function: Gait walks with normal gait pattern. L knee AROM -1 degree from full extension and 120 degress L knee flexion. Stairs: definite L knee eccentric weakness still present when descending the stairs. - Goals Goal 1:: I HEP Goal Progress: Goal Met Goal 2:: Increase L knee AROM to 0 degrees extension to 120 degrees L knee flexion Goal Progress: Goal Met Goal 3:: Be able to walk without an antalgic gait Goal Progress: Goal Met Goal 4:: Be able to go up and down stairs recip without a rail and without an a ntalgic gait Goal Progress: Progressing - Plan Plan: DC PT to HEP: biking 10 min every day, 4 inch eccentric step downs, step ups with pictures - D/C Information Discharge Comments: DC PT to hep If there are questions or concerns regarding this patient's physical therapy, please feel free to call me at [phone]. Thank you for the referral of this patient. Sincerely, Soraya Brown, MPT
== END 2019-01-07 19:00 | disposition home or self-care (01) ==
LOC: PT 18:00
PROVIDERS: Family Provider Internal Medicine; PCP Internal Medicine; Referring Provider Physician Assistant Surgical; Visit Provider Physician Assistant Surgical
DX: M71.22 Synovial cyst of popliteal space [Baker], left knee (principal); M25.462 Effusion, left knee
CPT/HCPCS: 97110; 97161; 97530

== ENCOUNTER → 2019-07-17 13:18 | Outpatient (CLI) | payer BC, SELFPAY ==
[2018-12-10 06:50] VITALS: BMI 33.1
--- NOTE | 2019-07-17 13:20 | RAD_ITS ---
STUDY: X-RAY - RIGHT SHOULDER REASON FOR EXAM: Male, 58 years old. Pain, no trauma TECHNIQUE: 4 view(s) of the shoulder. COMPARISON: None. FINDINGS: Normal glenohumeral articulation. There mild degenerative changes of the right AC joint. Normal acromion. Normal humeral head and visualized proximal humerus. The soft tissue structures are unremarkable. Normal visualized pulmonary apex. RAD/Shoulder min 2 Views IMPRESSION: Mild degenerative changes of the right AC joint. Electronically Signed: Guy Bledsoe MD at 16:50 EDT , Service support ,
== END ==
PROVIDERS: Family Provider Internal Medicine; PCP Internal Medicine; Referring Provider Internal Medicine; Visit Provider Internal Medicine
DX: M25.511 Pain in right shoulder (principal)
CPT/HCPCS: 73030

== ENCOUNTER → 2019-10-12 13:22 | Outpatient (CLI) | payer SELFPAY ==
[2018-12-10 06:50] VITALS: BMI 33.1
--- NOTE | 2019-10-12 13:37 | CT_ITS ---
STUDY: CARDIAC CALCIUM SCORING - CT CHEST REASON FOR EXAM: Male, 59 years old. Screening. Hypertension. Hyperlipidemia. RADIATION DOSAGE (If Supplied By Facility): CTDIvol = ( 12 ) mGy, DLP = ( 171 ) mGycm TECHNIQUE: Axial non-enhanced images were acquired through the heart for the sole purpose of measuring coronary artery calcium. Individualized dose optimization techniques were used for this CT. COMPARISON: None. FINDINGS: Please see the patient's medical record for a personalized calcium score. The visualized lungs are clear. The visualized soft tissues are within normal limits. CT/Limited Chest CT w/CCTA IMPRESSION: Please see the patient's medical record for a personalized calcium score. Please go to: [email or web address] , for a description of the calculator. Electronically Signed: Denny Greenberg, at 14:46 EST Tel , Service support ,
[2019-10-12 13:45] VITALS: BP 119/68; PULSE 72; RESP 16; O2SAT 94; BMI 33.4
--- NOTE | 2019-10-12 18:10 | CA.SCORE ---
Calcium Scoring Date of Study:: 10/12/19 Coronary Calcium Scoring: High-resolution Computed Tomographic imaging of the chest was performed on [10/12/2019], with particular attention paid to the coronary arteries. Images from the examination were analyzed for the presence and extent of coronary artery calcification , using coronary calcium quantification software. The patient tolerated the procedure well and there were no complications. The results of the coronary calcification analysis are provided below. - Findings Left Main (LM): 0 Left Anterior Descending (LAD): 0 Left Circumflex (LCX): 16 Right Coronary Artery (RCA): 7 Total Agatston Score: 23 Percentile Rankinth to 50th percentile Calcium Scoring Interpretation: 0 No identifiable atherosclerotic plaque. Very low cardiovascular disease risk. <5% chance of presence coronary artery disease A Negative Examination 1-10 Minimal Plaque burden. Significant coronary artery disease very unlikely. 11-100 Mild plaque burden. Likely mild or minimal coronary atherosclerosis. 101-400 Moderate plaque burden Moderate non-obstructive coronary artery disease highly likely. Over 400 Extensive plaque burden. High likelihood of at least one significant coronary stenosis (>50% diameter) Calcium Score: 11 - 100 Likely mild or minimal coronary stenosis - The above is suggestive of mild to minimal coronary artery disease. A full evaluation of cardiac risk should include assessment of all conventional risk factors and the scores and percentile rankings reported herein should be evaluated in the context.
== END ==
PROVIDERS: Family Provider Internal Medicine; PCP Internal Medicine; Referring Provider Internal Medicine; Visit Provider Internal Medicine
DX: E78.5 Hyperlipidemia, unspecified (principal); I10 Essential (primary) hypertension; Z13.9 Encounter for screening, unspecified
CPT/HCPCS: 75571; 76380

== ENCOUNTER → 2021-10-30 08:11 | Outpatient (CLI) | payer BC, SELFPAY ==
--- NOTE | 2021-10-30 08:15 | US_ITS ---
INDICATION: SPLENOMEGALY EXAMINATION: Ultrasound US Abdomen Limited (quadrant) TECHNIQUE: Coon scale and color doppler imaging was performed of the spleen. COMPARISON: None. FINDINGS: The spleen measures 13 cm x 5.3 cm x 5.2 this is in keeping with a mild degree of splenomegaly.. The spleen is homogeneous. There is no perisplenic ascites. US/Spleen IMPRESSION: Mild degree of splenomegaly. Electronically Signed: Josh Warner MD at 14:18 EST , Service support ,
== END ==
PROVIDERS: PCP Internal Medicine; Referring Provider Internal Medicine; Visit Provider Internal Medicine
DX: R16.1 Splenomegaly, not elsewhere classified (principal)
CPT/HCPCS: 76705

== ENCOUNTER → 2021-11-06 07:17 | Outpatient (CLI) | payer BC, SELFPAY ==
--- NOTE | 2021-11-06 07:21 | CT_ITS ---
EXAM: CT ABDOMEN AND PELVIS WITH INTRAVENOUS CONTRAST : 1960 CLINICAL INDICATION: SPLENOMEGALY TECHNIQUE: Helically acquired images were obtained of the abdomen and pelvis with intravenous contrast. This CT exam was performed using one or more of the following dose reduction techniques: automated exposure control, adjustment of the mA and/or kV according to patient size, and/or use of iterative reconstruction technique. This report was created using [employer] report generation technology. CONTRAST: IV 100mL Isovue-300 COMPARISON: Splenic ultrasound October 30, 2021 FINDINGS: LOWER THORAX: Unremarkable. Lung bases are clear. No cardiomegaly. No significant pericardial effusion. ABDOMEN: LIVER: Unremarkable. Homogeneous. No focal mass. GALLBLADDER AND BILE DUCTS: Question tiny gallstone. No gallbladder distention or wall edema. No intra- or extrahepatic biliary ductal dilation. PANCREAS: Unremarkable. No focal cystic or solid mass. SPLEEN: Spleen measures 11.8 cm in maximum length which is within the range of normal. ADRENALS: Unremarkable. No nodules. KIDNEYS AND URETERS: Unremarkable. Normal renal size and position. No hydronephrosis. STOMACH AND BOWEL: Unremarkable. No stomach or bowel distention. No focal inflammatory change. PELVIS: APPENDIX: Appendix is visualised and normal in appearance. BLADDER: Unremarkable. REPRODUCTIVE: Unremarkable as visualized. No mass. ABDOMEN and PELVIS: INTRAPERITONEAL SPACE: Unremarkable. No ascites or other fluid collection. No free air. BONES/JOINTS: Unremarkable. No suspicious lytic or blastic abnormality. SOFT TISSUES: Unremarkable. No discrete abdominal or pelvic wall hernia. VASCULATURE: Unremarkable. Abdominal aorta is non-dilated. LYMPH NODES: Unremarkable. No enlarged lymph nodes. CT/Abdomen/Pelvis W IV Cont ONLY IMPRESSION: 1. No acute abnormality. 2. Normal spleen size. 3. In questioning small gallstone. Individualized dose optimization techniques were used for this CT. at 0816 Reported and signed by: Shahid Jewell MD Electronically Signed: Shahid Jewell MD at 8:15 EST Tel , Service support ,
[2021-11-06 07:35] LABS: CREATININE FINGERSTICK 1.1 mg/dL (0.70-1.30); EGFR FINGERSTICK > 60.0000 mL/min (>60)
== END ==
PROVIDERS: PCP Internal Medicine; Referring Provider Internal Medicine; Visit Provider Internal Medicine
DX: R16.1 Splenomegaly, not elsewhere classified (principal)
CPT/HCPCS: 74177; Q9967

== ENCOUNTER → 2023-03-08 | Outpatient (CLI) | payer BC, SELFPAY ==
[2023-03-08 15:42] LABS: Absolute Lymphocyte Count 2.53 X10^3/uL (0.83-4.51); Absolute Neutrophil Count 4.9 X10^3/uL (2.0-7.7); Basophil# 0.07 X10^3/uL; Basophil% 0.9 % (0-1); Eosinophil# 0.08 X10^3/uL; Hematocrit 41.5 % (40-54); Hemoglobin 14.1 g/dL (13.0-16.5); Lymphocyte # 2.53 X10^3/ul (0.83-4.51); Mean Corpuscular Hgb 30.9 pg (27.0-32.0); Mean Corpuscular Volume 90.8 fL (80-94); Mean Platelet Vol. 10.5 fl (6.2-12.0); Monocyte# 0.54 X10^3/uL; Monocyte% 6.6 % (0-10); NRBC Flagged by Analyzer 0 % (0-5); Neutrophil # 4.87 X10^3/uL (2.7-7.7); Neutrophil % 59.8 % (47-70); Platelet Count 292 K/mm3 (150-450); RBC Distribution Width CV 13.2 % (11.6-14.6); RBC Distribution Width SD 43.7 fl (35.1-43.9); Red Blood Count 4.57 M/mm3 (4.6-6.2); White Blood Count 8.2 K/mm3 (4.4-11.0)
[2023-03-08 16:22] LABS: Anion Gap 4 (5-15); BUN 18 mg/dL (7-18); BUN/Creat Ratio 19.4 RATIO (10-20); Calcium,Total 9.2 mg/dL (8.5-10.1); Chloride 108 mmol/L (98-107); Creatinine, Serum 0.93 mg/dL (0.70-1.30); EST Glomerular Filtration Rate 87 mL/min (>60); Est Glom Filt Rate - Afr Amer 106 mL/min (>60); Glucose 99 mg/dL (74-106); Potassium 3.7 mmol/L (3.5-5.1); Sodium Level 139 mmol/L (136-145)
== END | disposition home or self-care (01) ==
LOC: LAB 14:02
PROVIDERS: PCP Internal Medicine; Referring Provider Student in an Organized Health Care Education/Training Program; Visit Provider Student in an Organized Health Care Education/Training Program
DX: Z01.818 Encounter for other preprocedural examination (principal)
CPT/HCPCS: 36415; 80048; 85025

== ENCOUNTER → 2025-11-04 | Outpatient (CLI) | payer BC, SELFPAY ==
[2025-11-04 09:58] LABS: Red Blood Cells-Urine 0 SEEN /hpf (0-5)
[2025-11-04 12:20] LABS: Hematocrit 43.7 % (40-54); Hemoglobin 14.5 g/dL (13.0-16.5); Immature Granulocytes Count 0.030 X10^3/uL (0.0-0.0); Mean Corp Hgb Conc 33.2 g/dL (32-36); Mean Corpuscular Volume 93.0 fL (80-94); Mean Platelet Vol. 10.4 fl (6.2-12.0); NRBC Flagged by Analyzer 0 % (0-5); Platelet Count 269 K/mm3 (150-450); RBC Distribution Width CV 12.9 % (11.6-14.6); RBC Distribution Width SD 43.9 fl (35.1-43.9); Red Blood Count 4.70 M/mm3 (4.6-6.2); White Blood Count 7.6 K/mm3 (4.4-11.0)
[2025-11-04 12:30] LABS: Color, Urine Yellow (Yellow); Glucose, Dipstick Normal (Normal); Ketone-Dipstick Negative (Negative); Leukocyte Esterase-Dipstick Negative /ul (Negative); Nitrite-Dipstick Negative (Negative); Occult Blood-Urine Negative /ul (Negative); Protein-Dipstick 15 mg/dl (Negative); Specific Gravity, Urine 1.025 (1.002-1.030); Urine Bilirubin Dipstick Negative (Negative)
[2025-11-04 12:52] LABS: Mucous, Urine RARE /hpf (<or=2+); Squamous Epithelial Cells - UA 0-5 SEEN /hpf (0-5)
[2025-11-04 13:00] LABS: AST(SGOT) 16 U/L (<=37); Alanine Aminotransfer ALT/SGPT 17 U/L (<=46); Albumin, Serum 4.6 g/dL (3.4-4.8); Alkaline Phosphatase 61 U/L (40-129); Anion Gap 13 (5-15); BUN 18 mg/dL (4-19); BUN/Creat Ratio 17.6 RATIO (10-20); Calcium,Total 9.7 mg/dL (7.6-11.0); Carbon Dioxide 22.8 mmol/L (21.0-32.0); Chloride 105 mmol/L (98-108); Globulin 2.3 g/dL (2.2-4.2); Glucose 104 mg/dL (70-99); Potassium 4.0 mmol/L (3.3-5.1)
[2025-11-05 17:08] LABS: PSA, Total 1.7 ng/mL (0.0-4.0)
== END | disposition home or self-care (01) ==
LOC: LABSPEC 09:57
PROVIDERS: PCP Internal Medicine; Referring Provider Internal Medicine; Visit Provider Internal Medicine
DX: Z12.5 Encounter for screening for malignant neoplasm of prostate (principal); I11.9 Hypertensive heart disease without heart failure
CPT/HCPCS: 80053; 81001; 84153; 85025